=== PATIENT | male | born 1935 | race Caucasian/White ===

== ENCOUNTER 2017-06-12 13:12 | Inpatient (IN) | payer MEDICARE, MEDICAID ==
[2017-06-12 15:05] VITALS: BP 157/85
[2017-06-12] MEDS ORDERED: morphine INJ 4 MG/ML 1 ML (VIAL/SYRINGE) IVP PRN (15:15)
[2017-06-12] MEDS ORDERED: CATHETER FLUSH 10 ML SYR IV PRN (15:15)
--- NOTE | 2017-06-12 15:30 | History & Physical-Hospitalist ---
HPI History of Present Illness: HPI/Chief Complaint CC: Fall HPI: Pt is an 81yoCM with a PMH of NIDDMII who presented to OSH after a fall at his orthodoxy. He reports he was carrying a pot of water out to water the saenz and trip over a rug. He fell to the ground and immediately had hip pain. He was brought to the ER in [facility] for evaluation where he was found to have a right intertrochanteric hip fracture. He was transferred her for orthopedic evaluation. he reports a history of NIDDMII. He takes a baby aspirin but no other blood thinners. He denies any other medical problems. He reports he lived at home by himself and was fully functional in all of his ADLs prior to this. He is wearing oxygen during my exam but denies supplemental oxygen use at home. Source: patient, family Exam Limitations: no limitations Date Seen 06/12/17 Time Seen by Provider: 15:10 Attending Physician Branden Cross MD PCP Rajat Alcantara MD Referring Physician Date of Admission Jun 12, 2017 at 14:32 Home Medications & Allergies Home Medications Reviewed patient Home Medication Reconciliation Form Allergies Allergies Coded Allergies No Known Drug Allergies (Unverified06/12/17) Past Ntyvmlm-Rixxaj-Oyehmn Hx Patient Social History Alcohol Use: Denies Use Smoking Status: Never a Smoker Surgeries Yes Adenoidectomy, Appendectomy, Tonsillectomy Respiratory No Cardiovascular High Cholesterol, Hypertension Neurological No Genitourinary Yes Benign Prostatic Hyperpl Gastrointestinal No Musculoskeletal No Endocrine History of Endocrine Disorders: Yes Endocrine Disorders: Diabetes, Non-Insulin dep HEENT History of HEENT Disorders: No Cancer No Psychosocial History of Psychiatric Problem: No Integumentary History of Skin or Integumenta: No Family Medical History Significant Family History: No Pertinent Family Hx Review of Systems Constitutional: No chills, No fever EENTM: No blurred vision, No double vision, No nose congestion, No throat pain Respiratory: No cough, No dyspnea on exertion, No short of breath Cardiovascular: No chest pain, No edema, No palpitations Gastrointestinal: No abdominal pain, No constipation, No diarrhea, No nausea, No vomiting Genitourinary: No dysuria, No frequency Musculoskeletal: joint pain, No muscle pain Skin: No lesions, No rash Psychiatric/Neurological: Denies Headache, Denies Numbness, Denies Tingling Physical Exam Physical Exam Vital Signs Capillary Refill : General Appearance: No Apparent Distress, WD/WN HEENT: PERRL/EOMI, Moist Mucous Membranes Neck: Non Tender, Supple Respiratory: Lungs Clear, No Respiratory Distress Cardiovascular: Regular Rate, Rhythm, No Murmur Gastrointestinal: Normal Bowel Sounds, Non Tender, Soft Extremity: Normal Capillary Refill, No Calf Tenderness, No Pedal Edema, Other ( right leg externally rotated) Neurologic/Psychiatric: Alert, Oriented x3, Normal Mood/Affect Skin: Normal Color, Warm/Dry Assessment/Plan Admission Diagnosis Right intertrochanteric hip fx Diagnosis/Problems Diagnosis/Problems (1) Intertrochanteric fracture of right femur Status: Acute Assessment & Plan: Ortho consulted, appreciate recs Plan for OR tonight Will keep NPO Morphine prn pain PT/OT consulted IRF consulted CBC, CMP, T&S ordered Qualifiers: (2) Pre-op exam Assessment & Plan: Non known cardiac disease METS >4 at baseline 0 pts on the RCRI placing him at 0.4% chance of cardiac event (3) 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
[2017-06-12] MEDS ORDERED: ONDANSETRON 4 MG/2 ML (SDV) Z0FRAN IV PRN (16:00)
[2017-06-12 16:03] VITALS: BP 157/85
[2017-06-12] MEDS: inSUlin ASPART (NovoLOG) 1 UNIT/0.01 ML (CHARGE PER UNIT) SC SCH ×2 (16:21→21:03)
[2017-06-12] MEDS: NS IV 1000 ML 1,000 ML IV SCH ×2 (16:22→22:15)
[2017-06-12 16:27] LABS: BASOPHILS % (AUTO) 0 % (0-10); EOSINOPHILS # (AUTO) 0.2 10^3/uL (0.0-0.3); EOSINOPHILS % (AUTO) 1 % (0-10); LYMPHOCYTES # (AUTO) 0.6 X 10^3 (1.0-4.0); LYMPHOCYTES % (AUTO) 5 % (12-44); MEAN CORPUSCULAR HEMOGLOBIN 30 PG (25-34); MEAN CORPUSCULAR HGB CONC 34 G/DL (32-36); MEAN CORPUSCULAR VOLUME 88 FL (80-99); MEAN PLATELET VOLUME 10.8 FL (7.4-10.4); MONOCYTES # (AUTO) 0.5 X 10^3 (0.0-1.0); MONOCYTES % (AUTO) 4 % (0-12); NEUTROPHILS # (AUTO) 11.9 X 10^3 (1.8-7.8); NEUTROPHILS % (AUTO) 90 % (42-75); PLATELET COUNT 129 10^3/uL (130-400); RED BLOOD COUNT 4.21 10^6/uL (4.35-5.85); RED CELL DISTRIBUTION WIDTH 13.4 % (10.0-14.5); WHITE BLOOD COUNT 13.2 10^3/uL (4.3-11.0)
[2017-06-12 16:36] LABS: INR 1.2 (0.8-1.4); PROTHROMBIN TIME PATIENT 14.8 SEC (12.2-14.7)
[2017-06-12 16:42] LABS: BAND NEUTROPHILS 15 %; BASOPHILS % (MANUAL) 0 %; EOSINOPHILS % (MANUAL) 1 %; LYMPHOCYTES % (MANUAL) 4 %; NEUTROPHILS % (MANUAL) 77 %
[2017-06-12 16:45] LABS: ALANINE AMINOTRANSFERASE 44 U/L (0-55); ANION GAP 13 MMOL/L (5-14); ASPARTATE AMINO TRANSFERASE 27 U/L (5-34); BILIRUBIN,TOTAL 1.1 MG/DL (0.1-1.0); BLOOD UREA NITROGEN 15 MG/DL (7-18); BUN/CREATININE RATIO 18; CALCIUM 9.1 MG/DL (8.5-10.1); CARBON DIOXIDE 22 MMOL/L (21-32); CHLORIDE 105 MMOL/L (98-107); CREATININE SERUM 0.84 MG/DL (0.60-1.30); GFR ESTIMATED > 60; GLUCOSE 120 MG/DL (70-105); POTASSIUM 4.4 MMOL/L (3.6-5.0); SODIUM 140 MMOL/L (135-145); TOTAL PROTEIN 7.2 GM/DL (6.4-8.2)
[2017-06-12] MEDS ORDERED: GARL200T PO (16:52)
[2017-06-12] MEDS ORDERED: METF500T4 PO (16:52)
[2017-06-12] MEDS ORDERED: OMEG-160 PO (16:52)
[2017-06-12] MEDS ORDERED: ASPI-983 PO (16:52)
[2017-06-12] MEDS ORDERED: LINA5TAB PO (16:52)
[2017-06-12] MEDS ORDERED: MONT10TA24 PO (16:52)
[2017-06-12] MEDS ORDERED: FLUT16SP22 NSEACH (16:52)
[2017-06-12] MEDS ORDERED: FERR-74 PO (16:52)
[2017-06-12] MEDS ORDERED: CHOL10007 PO (16:52)
[2017-06-12] MEDS ORDERED: PROP80CA4 PO (16:52)
[2017-06-12] MEDS ORDERED: ASCO10006 PO (16:52)
[2017-06-12] MEDS ORDERED: GLIM2TAB PO (16:52)
[2017-06-12] MEDS ORDERED: ATOR40TA70 PO (16:52)
[2017-06-12] MEDS ORDERED: GEMF600T3 PO (16:52)
[2017-06-12] MEDS ORDERED: SAW450CA4 PO (16:52)
[2017-06-12] MEDS ORDERED: ONDANSETRON 4 MG/2 ML (SDV) Z0FRAN ONE ×2 (16:53→18:17)
[2017-06-12] MEDS ORDERED: LIDOCAINE PF 2% 5 ML (XYLOCAINE) VIAL ONE (16:53)
[2017-06-12] MEDS ORDERED: LACTATED RINGERS 1,000 ML IV ONE ×2 (16:53→18:48)
[2017-06-12] MEDS ORDERED: proPOfol 200 MG/20 ML (DIPRIVAN) VIAL IV ONE (16:53)
[2017-06-12] MEDS ORDERED: fentaNYL INJECTION 100 MCG/2 ML AMP ONE (16:54)
[2017-06-12] MEDS ORDERED: MIDAZOLAM 2 MG/2 ML (VERSED) VIAL ONE (16:54)
[2017-06-12] MEDS ORDERED: ROPIVACAINE 5MG/ML 30ML VIAL ONE (16:55)
[2017-06-12] MEDS ORDERED: SEVOFLURANE (ULTANE) 15 ML INHAL SOLN ONE ×8 (16:55→19:14)
--- NOTE | 2017-06-12 17:05 | History & Physical-Surgical ---
HPO-Surgical History of Present Illness Chief Complaint: Right hip pain, fall Diagnosis/Surgical Indication: intertrochanteric right hip fracture Procedure: intramedullary nailing right hip Date of Surgery: Jun 12, 2017 Allergies and Home Medications Allergies Coded Allergies: No Known Drug Allergies (Unverified , 06/12/17) Home Medications Ascorbic Acid 1,000 Mg Tablet, 1,000 MG PO DAILY, (Reported) Aspirin 81 Mg Tablet.dr, 81 MG PO DAILY, (Reported) Atorvastatin Calcium 40 Mg Tablet, 40 MG PO HS, (Reported) Cholecalciferol (Vitamin D3) 1,000 Unit Capsule, 1,000 UNIT PO DAILY, (Reported) Ferrous Sulfate 325 Mg Tablet, 325 MG PO DAILY, (Reported) Fluticasone Propionate 16 Gm [place].susp, 1 SPRAY NSEACH DAILY, (Reported) Garlic 200 Mg Tablet, 200 MG PO BID, (Reported) Gemfibrozil 600 Mg Tablet, 600 MG PO BID, (Reported) Glimepiride 2 Mg Tablet, 2 MG PO DAILY, (Reported) Linagliptin 5 Mg Tablet, 5 MG PO DAILY, (Reported) Metformin HCl 500 Mg Tablet, 500 MG PO DAILY, (Reported) Montelukast Sodium 10 Mg Tablet, 10 MG PO HS, (Reported) [place]-3/Dha/Epa/Fish Oil 1 Each Capsule, 1,000 MG PO BID, (Reported) Propranolol HCl 80 Mg Cap.sa.24h, 80 MG PO DAILY, (Reported) Saw [place] Fruit 450 Mg Capsule, 900 MG PO DAILY, (Reported) TAKES 2 (450 MG) CAPSULES Past Ffkxhmr-Rgnaqk-Fapoht Hx Patient Social History Alcohol Use: Denies Use Recreational Drug Use: No Smoking Status: Former Smoker Physical Abuse Screen: No Sexual Abuse: No Recent Foreign Travel: No Contact w/other who traveled: No Surgeries Yes Adenoidectomy, Appendectomy, Tonsillectomy Respiratory No Cardiovascular High Cholesterol, Hypertension Neurological No Genitourinary Yes Benign Prostatic Hyperpl Gastrointestinal No Musculoskeletal No Endocrine History of Endocrine Disorders: Yes Endocrine Disorders: Diabetes, Non-Insulin dep HEENT History of HEENT Disorders: No Cancer No Psychosocial History of Psychiatric Problem: No Integumentary History of Skin or Integumenta: No Family Medical History Significant Family History: No Pertinent Family Hx Exam Vital Signs Vital Signs 06/12/17 06/12/17 06/12/17 15:05 16:03 16:34 Temp 97.1 Pulse 89 Resp 20 B/P (MAP) 157/85 Pulse Ox 96 O2 Delivery Nasal Cannula O2 Flow Rate 2.00 Capillary Refill : Labs Laboratory Tests Test 06/12/17 16:18 Range/Units White Blood Count 13.2 H 4.3-11.0 10^3/uL Red Blood Count 4.21 L 4.35-5.85 10^6/uL Hemoglobin 12.5 11.5-16.0 G/DL Hematocrit 37 35-52 % Mean Corpuscular Volume 88 80-99 FL Mean Corpuscular Hemoglobin 30 25-34 PG Mean Corpuscular Hemoglobin Concent 34 32-36 G/DL Red Cell Distribution Width 13.4 10.0-14.5 % Platelet Count 129 L 130-400 10^3/uL Mean Platelet Volume 10.8 H 7.4-10.4 FL Neutrophils (%) (Auto) 90 H 42-75 % Lymphocytes (%) (Auto) 5 L 12-44 % Monocytes (%) (Auto) 4 0-12 % Eosinophils (%) (Auto) 1 0-10 % Basophils (%) (Auto) 0 0-10 % Neutrophils # (Auto) 11.9 H 1.8-7.8 X 10^3 Lymphocytes # (Auto) 0.6 L 1.0-4.0 X 10^3 Monocytes # (Auto) 0.5 0.0-1.0 X 10^3 Eosinophils # (Auto) 0.2 0.0-0.3 10^3/uL Basophils # (Auto) 0.0 0.0-0.1 10^3/uL Neutrophils % (Manual) 77 % Lymphocytes % (Manual) 4 % Monocytes % (Manual) 0 % Eosinophils % (Manual) 1 % Basophils % (Manual) 0 % Band Neutrophils 15 % Blood Morphology Comment NORMAL Prothrombin Time 14.8 H 12.2-14.7 SEC INR Comment 1.2 0.8-1.4 Sodium Level 140 135-145 MMOL/L Potassium Level 4.4 3.6-5.0 MMOL/L Chloride Level 105 98-107 MMOL/L Carbon Dioxide Level 22 21-32 MMOL/L Anion Gap 13 5-14 MMOL/L Blood Urea Nitrogen 15 7-18 MG/DL Creatinine 0.84 0.60-1.30 MG/DL Estimat Glomerular Filtration Rate > 60 BUN/Creatinine Ratio 18 Glucose Level 120 H 70-105 MG/DL Calcium Level 9.1 8.5-10.1 MG/DL Total Bilirubin 1.1 H 0.1-1.0 MG/DL Aspartate Amino Transf (AST/SGOT) 27 5-34 U/L Alanine Aminotransferase (ALT/SGPT) 44 0-55 U/L Alkaline Phosphatase 107 40-136 U/L Total Protein 7.2 6.4-8.2 GM/DL Albumin 4.0 3.2-4.5 GM/DL General Appearance: Oriented X3 HEENT: PERRLA Respiratory: Clear to Auscultation Cardiovascular: Regular Rate Abdominal: Soft, No Tenderness Extremities: No Edema, Normal Pulses, Other (right hip tenderness and swelling) Skin: No Rashes, No Breakdown, No Significant Lesion Neuro: Normal Speech, Normal Tone, Sensation Intact, Reflexes 2+ Psych/Mental Status: Mental Status NL Assessment/Plan Assessment and Plan A: intertrochanteric right hip fracture P: OR for IM nailing of right hip Problems: (1) Intertrochanteric fracture of right femur Status: Acute Qualifiers: Assessment & Plan: Ortho consulted, appreciate recs Plan for OR tonight Will keep NPO Morphine prn pain PT/OT consulted IRF consulted CBC, CMP, T&S ordered (2) Pre-op exam Assessment & Plan: Non known cardiac disease METS >4 at baseline 0 pts on the RCRI placing him at 0.4% chance of cardiac event (3) 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
--- NOTE | 2017-06-12 17:13 | Progress Note-Pre Operative ---
Pre-Operative Progress Note H&P Reviewed The H&P was reviewed, patient examined and no changes noted. Date Seen by Provider: Jun 12, 2017 Time Seen by Provider: 17:00 Date H&P Reviewed: Jun 12, 2017 Time H&P Reviewed: 17:12 Pre-Operative Diagnosis: Intertrochanteric fracture right hip JUAN DAVIS DO Jun 12, 2017 5:13 pm
[2017-06-12] MEDS ORDERED: ceFAZolin 2 GM/50 ML NS 50 ML IV SCH (17:15)
[2017-06-12] MEDS ORDERED: diphenhydrAMINE 50 MG/ML INJ (BENADRYL) IV PRN (17:15)
[2017-06-12] MEDS ORDERED: BISACODYL 10 MG SUPP (DULCOLAX) PR PRN (17:15)
[2017-06-12] MEDS ORDERED: ceFAZolin 2 GM/50 ML NS 50 ML IV ONE (17:15)
[2017-06-12] MEDS ORDERED: ceFAZolin 1,000 MG (ANCEF) VIAL ONE (17:36)
[2017-06-12] MEDS ORDERED: TRANEXAMIC ACID 100 MG/ML 10 ML INJECTION IV ONE (17:56)
[2017-06-12] MEDS ORDERED: morphine INJ 10 MG/ML 1ML (SYR OR VIAL) ONE (18:17)
--- NOTE | 2017-06-12 18:54 | Progress Note-Post Operative ---
Post-Operative Progess Note Surgeon (s)/Director Radio News (s) Surgeon JUAN DAVIS DO Director Radio News: Bola Castro TOP [employer]Indigo Pre-Operative Diagnosis Intertrochanteric fracture right hip Post-Operative Diagnosis same Procedure & Operative Findings Date of Procedure 06/12/17 Procedure Performed/Findings Intramedullary nailing right hip intertrochanteric fracture Anesthesia Type General with femoral nerve block Estimated Blood Loss Estimated blood loss (mL): 150 ml Specimens/Packing Specimens Removed none JUAN DAVIS DO Jun 12, 2017 18:54
[2017-06-12] MEDS ORDERED: NEO/POLY/BAC (NEOSPORIN) OINT 15 GM TUBE ONE (19:06)
--- NOTE | 2017-06-12 19:21 | Diagnostic Imaging Report ---
EXAMINATION: Right hip, fluoroscopic images. COMPARISON: None. HISTORY: 81-year-old male, open reduction and internal fixation of the right hip. FINDINGS: 99.4 seconds of fluoroscopic time was utilized for assistance with procedure. There is an intramedullary tej and dynamic fixation screw in the right proximal femur traversing an intertrochanteric femur fracture. There is limited bone detail on fluoroscopic images. IMPRESSION: Fluoroscopy for assistance with surgery. Dictated by: Dictated on workstation # [id number]
[2017-06-12] MEDS ORDERED: ONDANSETRON 4 MG/2 ML (SDV) Z0FRAN IVP PRN (19:45)
[2017-06-12] MEDS: morphine INJ 10 MG/ML 1ML (SYR OR VIAL) IVP PRN ×2 (19:47→19:52)
[2017-06-12 20:25] VITALS: BP 146/72
[2017-06-12] MEDS: GEMFIBROZIL 600 MG (LOPID) TAB PO SCH (21:03)
[2017-06-12] MEDS: CATHETER FLUSH 10 ML SYR IV SCH (21:04)
[2017-06-12] MEDS: MONTELUKAST 10 MG (SINGULAIR) TAB PO SCH (21:04)
--- NOTE | 2017-06-13 00:08 | OPERATIVE REPORT ---
DATE OF SERVICE: 06/12/2017 PREOPERATIVE DIAGNOSIS: Minimally displaced intertrochanteric fracture, right hip. POSTOPERATIVE DIAGNOSIS: Minimally displaced intertrochanteric fracture, right hip. PROCEDURE: Intramedullary nailing of intertrochanteric fracture, right hip. SURGEON: Juan Crum DO FIRE CONTROL MECHANIC: AMBER Kerns ASP NET PROGRAMMER DUTIES: Bola Castro, medical or surgical instrument maker was utilized throughout the entire procedure for patient positioning, soft tissue retraction, placement of metallic internal fixation device, deep and superficial wound closure, dressing application and patient transfer. ANESTHESIA: General with femoral nerve block. ESTIMATED BLOOD LOSS: 150 mL. INDICATIONS AND FINDINGS: The patient is an 81-year-old male who was leaving latter-day, attempting to water saenz in front of the latter-day when he stepped his foot on a throw rug and fell landing directly on his right hip and noted immediate pain. He was evaluated at [facility] in [place], where x-rays revealed an intertrochanteric fracture of the right hip. The patient was transferred to [facility] for definitive orthopedic care, where x-rays revealed a minimally displaced intertrochanteric fracture of the right hip with external rotation shortening of the right leg. The patient was taken to surgery where an intermedullary nailing of his right hip intertrochanteric fracture was performed utilizing the Synthes Trochanteric Fixation Nail advanced system utilizing 11 mm x 170 mm nail with a 100 mm TFNA helical blade along with a 36 mm x 5 mm distal locking screw. PROCEDURE IN DETAIL: The patient was transferred to the operating room where under ultrasound guidance, a femoral nerve block was performed on the right to decrease postop pain and decrease the amount of medication required during the surgical procedure. A general inhalation anesthetic was then administered. The patient was placed supine upon the fracture table. The right lower extremity was placed in traction with internal rotation of the right lower extremity. The left lower extremity was draped out of the operating field. The C-arm image intensifier was used to verify fracture reduction. A ChloraPrep and sterile drape of the right hip and right lower extremity was then performed. A longitudinal incision was then made proximal to the greater trochanter. The incision was deepened with electrocautery down to the greater trochanter. A guide pin was placed in the tip of the greater trochanter under fluoroscopic guidance. This was advanced into the proximal femur with positioning noted on the AP and lateral plane with the fluoroscope. The outer cortex was then overdrilled down into the proximal femur. The drill was removed. The trochanteric fixation nail was then inserted into the shaft, impacted into position and the position verified fluoroscopically in the AP and lateral plane. A stab incision was made in the lateral thigh. The outrigger drill guide was placed along the lateral cortex of the femur. A drill was then used to place the guide pin through the lateral femoral cortex through the nail and into the central aspect of the femoral head, verified fluoroscopically in the AP and lateral plane. The lateral cortex was overdrilled, as was the medullary canal to the level of the femoral head. A 100 mm helical blade was then impacted into position. The locking screw through the proximal aspect of the tej was then locked onto the helical blade. The distal stab incision was then lengthened slightly. The drill guide was then placed. A drill hole was placed through the distal aspect of the nail and through the medial cortex, a 36 mm locking screw was placed. The wound was irrigated extensively with normal saline solution. Repeat x-rays revealed satisfactory reduction of the fracture with satisfactory placement and position of the internal fixation device. The vastus lateralis fascia was then closed with 0 Vicryl suture at the lateral thigh and at the proximal hip incision. Subcutaneous tissues were closed with 0 and 2-0 Vicryl suture. The skin was closed with stainless steel clarissa. An Adaptic, Neosporin, bulky dressing was placed about the right hip and the right thigh. The patient was awakened and was transported to postop recovery in stable condition. Job ID: [id number] DocumentID: [id number] Dictated Date: 06/12/2017 18:59:51 Credit And Collection Manager Date: 06/13/2017 00:07:23 Dictated By: JUAN CRUM DO
[2017-06-13 00:39] VITALS: BP 117/63
[2017-06-13 04:46] VITALS: BP 129/64
[2017-06-13 05:54] LABS: MEAN PLATELET VOLUME 10.8 FL (7.4-10.4); RED BLOOD COUNT 3.6 10^6/uL (4.35-5.85); RED CELL DISTRIBUTION WIDTH 13.5 % (10.0-14.5); WHITE BLOOD COUNT 10.8 10^3/uL (4.3-11.0)
[2017-06-13] MEDS: CATHETER FLUSH 10 ML SYR IV SCH ×3 (06:02→21:02)
[2017-06-13] MEDS: inSUlin ASPART (NovoLOG) 1 UNIT/0.01 ML (CHARGE PER UNIT) SC SCH ×4 (06:02→21:01)
[2017-06-13 06:16] LABS: ALANINE AMINOTRANSFERASE 32 U/L (0-55); ALBUMIN 3.4 GM/DL (3.2-4.5); ANION GAP 8 MMOL/L (5-14); ASPARTATE AMINO TRANSFERASE 21 U/L (5-34); BILIRUBIN,TOTAL 0.9 MG/DL (0.1-1.0); BLOOD UREA NITROGEN 13 MG/DL (7-18); BUN/CREATININE RATIO 16; CALCIUM 8.1 MG/DL (8.5-10.1); CARBON DIOXIDE 25 MMOL/L (21-32); CHLORIDE 102 MMOL/L (98-107); CREATININE SERUM 0.82 MG/DL (0.60-1.30); GFR ESTIMATED > 60; GLUCOSE 154 MG/DL (70-105); POTASSIUM 4.1 MMOL/L (3.6-5.0); SODIUM 135 MMOL/L (135-145)
[2017-06-13] MEDS: NS IV 1000 ML 1,000 ML IV SCH (08:03)
[2017-06-13 08:37] VITALS: BP 117/63
[2017-06-13] MEDS ORDERED: PROPRANOLOL 80 MG PO SCH (09:00)
[2017-06-13] MEDS: DOCUSATE SODIUM 100 MG (COLACE) CAP PO SCH ×2 (09:13→21:01)
[2017-06-13] MEDS: metFORMIN 500 MG (GLUCOPHAGE) TAB PO SCH (09:13)
[2017-06-13] MEDS: sitaGLIPtin 50 MG (JANUVIA) TAB PO SCH (09:13)
[2017-06-13] MEDS: ASPIRIN E.C. 325 MG (ECOTRIN) TABLET PO SCH (09:13)
[2017-06-13] MEDS: HYDROcodone/APAP 10 MG/325 MG (LORTAB) TAB PO PRN ×2 (09:14→15:58)
[2017-06-13] MEDS: FERROUS SULF 325 MG (IRON) TAB PO SCH (09:14)
[2017-06-13] MEDS: GLIMEPIRIDE 2 MG (AMARYL) TAB PO SCH (09:14)
[2017-06-13] MEDS: GEMFIBROZIL 600 MG (LOPID) TAB PO SCH ×2 (09:14→21:01)
[2017-06-13] MEDS: FLUTICASONE NASAL SPRAY (FLONASE) 16 GM BTL NS SCH (09:15)
[2017-06-13] MEDS: ENOXAPARIN 40 MG/0.4 ML (LOVENOX) SYR SC SCH (09:15)
--- NOTE | 2017-06-13 10:09 | Progress Note-Hospitalist ---
Progress Note HPI/CC on Admission CC: Fall HPI: Pt is an 81yoCM with a PMH of NIDDMII who presented to OSH after a fall at his hinduism. He reports he was carrying a pot of water out to water the saenz and trip over a rug. He fell to the ground and immediately had hip pain. He was brought to the ER in [facility] for evaluation where he was found to have a right intertrochanteric hip fracture. He was transferred her for orthopedic evaluation. he reports a history of NIDDMII. He takes a baby aspirin but no other blood thinners. He denies any other medical problems. He reports he lived at home by himself and was fully functional in all of his ADLs prior to this. He is wearing oxygen during my exam but denies supplemental oxygen use at home. Progress Notes/Assess & Plan Date Seen 06/13/17 Time Seen by Provider: 10:00 Diagonsis/Assessment & Plan Pt doing well except slow progress in PT Very active ordinarily so will put in for IRU Crandall cath still in place and had 700cc retention before placement Checked meds and labs BM Tuesday morning prior to hip fracture Will HLIVF AFVSS, Ple[place], improved, sitting in chair, weakened RRR, CTAB no rales noted No edema Laboratory Tests 06/12/17 16:18 06/13/17 05:22 (1) Intertrochanteric fracture of right femur Status: Acute Assessment & Plan: Ortho appreciated s/p OR last evening Morphine prn pain PT/OT consulted IRF consulted CBC, CMP, in am (2) Pre-op exam s/p post-op uncomplicated right hip fracture POD # 1 Assessment & Plan: Non known cardiac disease METS >4 at baseline 0 pts on the RCRI placing him at 0.4% chance of cardiac event (3) 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 Assessment & Plan: Hold home metformin SSI A FSBS AC HS (4) Prophylactic measure Status: Acute Assessment & Plan: SCDs due to planned surgery today DM diet HLIVF Diagnosis/Problems Diagnosis/Problems (1) Intertrochanteric fracture of right femur Status: Acute Assessment & Plan: Ortho consulted, appreciate recs Plan for OR tonight Will keep NPO Morphine prn pain PT/OT consulted IRF consulted CBC, CMP, T&S ordered Qualifiers: (2) Pre-op exam Assessment & Plan: Non known cardiac disease METS >4 at baseline 0 pts on the RCRI placing him at 0.4% chance of cardiac event (3) 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 Assessment & Plan: Hold home metformin SSI A FSBS AC HS (4) Prophylactic measure Status: Acute Assessment & Plan: SCDs due to planned surgery today NPO NS at 100ml/hr Assessment/Plan Assessment and Plan Problems: (1) Intertrochanteric fracture of right femur Status: Acute Qualifiers: Assessment & Plan: Ortho consulted, appreciate recs Plan for OR tonight Will keep NPO Morphine prn pain PT/OT consulted IRF consulted CBC, CMP, T&S ordered (2) Pre-op exam Assessment & Plan: Non known cardiac disease METS >4 at baseline 0 pts on the RCRI placing him at 0.4% chance of cardiac event (3) 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
--- NOTE | 2017-06-13 10:25 | Physical Therapy Evaluation ---
PT Evaluation-General Medical Diagnosis Admission Date Jun 12, 2017 at 14:32 Medical Diagnosis: right hip fracture Onset Date: Jun 12, 2017 Therapy Diagnosis Therapy Diagnosis: generalized weakness/debility Precautions Precautions/Isolations: Fall Prevention, Standard Precautions Weight Bear Status Weight Bearing Restriction: Touch Toe Bearing Location Restriction: R LE Referral Physician: [place] Reason for Referral: Evaluation/Treatment Medical History Pertinent Medical History: Arthritis, DM Current History fall at tenriism carrying a pot to water saenz Reviewed History: Yes Social History Home: Single Level Current Living Status: Alone Entry Into Home: Ramp Prior/Core FIM Prior Level of Function Functional [place] Measure 0=Not Assessed/NA 4=Minimal Assistance 1=Total Assistance 5=Supervision or Setup 2=Maximal Assistance 6=Modified [place] 3=Moderate Assistance 7=Complete [place] Bed Mobility: 6 Transfers (B,C,W/C) (FIM): 6 Gait: 6 PT Evaluation-Current Subjective Patient agrees to PT. Pain Numeric Pain Scale: 10-Worst Possible Pain Location: Right Location Body Site: Hip Pain Description: Acute Objective Patient Orientation: Normal For Age Problem Solving: Poor Attachments: Oxygen, Crandall Catheter, IV ROM/Strength ROM Lower Extremities bilateral LE limited due to arthritis and pain, however, after exercises WFL Strenght Lower Extremities right knee flexion/extension 2-/5; hip flexion 2-/5; ankle dorsi/plantarflexion 2-/5 left knee flexion/extension 3/5; hip flexion 3/5; ankle dorsi/plantarflexion 3/5 Integumentary/Posture Integumentary refer to nursing notes Bladder Incontinence: Crandall Cath Posture kyphotic/trunk flexed posture Neuromuscular (Tone, Coordination, Reflexes) diminished coordination Sensory Vision: Wears Glasses Hearing: Functional Sensation Right Lower Extremit: Impaired Sensation Left Lower Extremity: Impaired Transfers Functional [place] Measure 0=Not Assessed/NA 4=Minimal Assistance 1=Total Assistance 5=Supervision or Setup 2=Maximal Assistance 6=Modified [place] 3=Moderate Assistance 7=Complete [place] Transfers (B, C, W/C) (FIM): 1 Scootin Rollin Supine to/from Sit: 1 Sit to/from Stand: 1 bed t/f WC(FIM only if WC use): 1 attempted to perform sit to stand with use of FWW, however, patient is unable to comply with TTWB right LE requiring dependent assist to SPT bed to recliner to the left. Balance Sitting Static: Fair Sitting Dynamic: Fair Standing Static: Poor Standing Dynamic: Poor Assessment/Needs 81 y.o. male, will benefit from skilled PT to address functional strength and mobility to improve current LOF. Patient is unable to safely comply with TTWB right LE. From a PT standpoint, patient will require extended care to ensure healing of right hip. Rehab Potential: Fair PT Senior Living Goals Combining Machine Operator Goals PT Senior Living Goals Time Frame: Jul 22, 2017 Transfers (B,C,W/C) (FIM): 5 Gait (FIM): 1 Gait distance (FIM): 1=up to 49 ft Distance: 25' Gait Level of Assist: 4 Gait Assistive Device: FWW (TTWB right LE) PT Plan Problem List Problem List: Activity Tolerance, Functional Strength, Safety, Balance, Gait, Transfer, Bed Mobility, ROM Treatment/Plan Treatment Plan: Continue Plan of Care Treatment Plan: Bed Mobility, Education, Functional Activity Leti, Functional Strength, Gait, Safety, Therapeutic Exercise, Transfers Treatment Duration: Jul 22, 2017 Frequency: 11 times per week Estimated Hrs Per Day: .5 hour per day Patient and/or Family Agrees t: Yes Safety Risks/Education Patient Education: Transfer Techniques Teaching Recipient: Patient Teaching Methods: Demonstration, Discussion Response to Teaching: Reinforcement Needed Discharge Recommendations Therapy D/C Recommendations: Jail Placement, [facility] (TCU/[facility]) Time/GCodes Time In: 830 Time Out: 900 Total Billed Treatment Time: 30 Total Billed Treatment 1 visit EVHighC 30 min KONG ANGELES PT Jun 13, 2017 10:25
[2017-06-13] MEDS: LACTULOSE SYRUP 10GM/15ML (ENULOSE) 30ML UDC PO SCH ×2 (10:56→21:01)
--- NOTE | 2017-06-13 11:53 | Anesthesia-General Post-Op ---
General Patient Condition Mental Status/LOC: Same as Preop Cardiovascular: Satisfactory Nausea/Vomiting: Absent Respiratory: Satisfactory Pain: Controlled Complications: Absent Post Op Complications Complications None Follow Up Care/Instructions Patient Instructions None needed. Anesthesia/Patient Condition Patient Condition Patient is doing well, no complaints, stable vital signs, no apparent adverse anesthesia problems. No complications reported per nursing. MARILIA DE LA ROSA CRNA Jun 13, 2017 11:53
[2017-06-13 12:00] VITALS: BP 119/72
--- NOTE | 2017-06-13 13:12 | Physical Therapy Daily Note ---
PT Daily Note-Current Subjective Patient has remained up in recliner from a.m. PT. Pain Numeric Pain Scale: 10-Worst Possible Pain Location: Right Location Body Site: Hip Pain Description: Acute, Heavy Mental Status Attachments: Crandall Catheter Transfers Functional [place] Measure 0=Not Assessed/NA 4=Minimal Assistance 1=Total Assistance 5=Supervision or Setup 2=Maximal Assistance 6=Modified [place] 3=Moderate Assistance 7=Complete IndependenceIRFPAI Quality Coding Scale 6 Independent with activity with or without an assistive device 5 Patient requires set up or clean up by helper. Patient completes activity by themselves 4 Supervision or touching assist (CGA). [place] provide cues , steadying assist 3 The helper provides less than half the effort to complete the activity 2 The helper provides more than half the effort to complete the activity 1 Dependent. The helper does all the effort to complete an activity 7 Patient refused to complete or attempt activity 9 The patient did not perform the activity before the current illness or injury 88 Not attempted due to Medical conditions or safety concerns Transfers (B, C, W/C) (FIM): 1 Scootin Rollin Supine to/from Sit: 1 Sit to/from Stand: 1 Bed to/from Chair: 1 Patient requires dependent assist x 2 with all mobility. Patient will not initiate any gross motor skills with left LE or bilateral UE with transfers and bed mobility. Weight Bearing Right Lower Extremity: Right Touch Toe Bearing Exercises Supine Ex: Ankle pumps, Heel Slides Supine Reps: 15 (PROM bilateral LE) Seated Therapy Exercises: Ankle pumps, Long arc quads Seated Reps: 15 (PROM right LE/patient not moving due to pain.) Assessment Education with patient on importance of using muscles to improve circulation and improve strength. Patient voices understanding, however, does not demonstrate ability to perform. PT Tap Grinder Goals [facility]itentiary Goals PT Tap Grinder Goals Time Frame: Jul 22, 2017 Transfers (B,C,W/C) (FIM): 5 Gait (FIM): 1 Gait distance (FIM): 1=up to 49 ft Distance: 25' Gait Level of Assist: 4 Gait Assistive Device: FWW (TTWB right LE) PT Plan Treatment/Plan Treatment Plan: Continue Plan of Care Treatment Plan: Bed Mobility, Education, Functional Activity Leti, Functional Strength, Gait, Safety, Therapeutic Exercise, Transfers Treatment Duration: Jul 22, 2017 Frequency: 11 times per week Estimated Hrs Per Day: .5 hour per day Patient and/or Family Agrees t: Yes Discharge Recommendations Therapy D/C Recommendations: [facility]dc Placement, [facility] (TCU/NH) Time/GCodes Time In: 1247 Time Out: 1302 Total Billed Treatment Time: 15 Total Billed Treatment 1 visit FA 15 min KONG ANGELES PT Jun 13, 2017 13:12
[2017-06-13 15:55] VITALS: BP 156/76
--- NOTE | 2017-06-13 16:29 | Occupational Therapy Eval ---
OT Evaluation-General/PLF Medical Diagnosis Admission Date Jun 12, 2017 at 14:32 Medical Diagnosis: right hip fracture s/p nail Onset Date: Jun 12, 2017 Therapy Diagnosis Therapy Diagnosis: weakness, Decreased ADL skills Precautions Precautions/Isolations: Fall Prevention, Standard Precautions Safety Interventions: None Weight Bear Status Weight Bearing Restriction: Touch Toe Bearing Location Restriction: R LE Referral Physician: [place] Referral Reason: Activity Tolerance, Self Care, Evaluation/Treatment, Strengthening/ROM Referral Comments Intramedullary nailing Medical History Pertinent Medical History: Arthritis, DM, HTN Additional Medical History Appendectomy Current History Pt. fell at [employer]oda[employer] trying to water plants. Tripped on rug. Reviewed History: Yes Social History Home: Single Level Current Living Status: Alone Entry Into Home: Ramp ADL-Prior Level of Function ADL PLOF Comments Pt. was independent with all basic skills. Cooked and cleaned at his home. DME/Equipment: Bath Chair, Shower Pt. walks a mile a day and uses a walking stick. Occupation: Retired from working at [employer]. Drive Self: Yes OT Current Status Subjective Pt. does not report pain level, but does wince whenever he moves. Appearance Pt in bed. Has just had pain medication. Agrees to treatment. Mental Status/Objective Patient Orientation: Person, Place Attachments: IV Current Glasses/Contacts: Yes Upper Extremity ROM WFL ADL-Treatment Functional [place] Measure 0=Not Assessed/NA 4=Minimal Assistance 1=Total Assistance 5=Supervision or Setup 2=Maximal Assistance 6=Modified [place] 3=Moderate Assistance 7=Complete IndependenceIRFPAI Quality Coding Scale 6 Independent with activity with or without an assistive device 5 Patient requires set up or clean up by helper. Patient completes activity by themselves 4 Supervision or touching assist (CGA). [place] provide cues , steadying assist 3 The helper provides less than half the effort to complete the activity 2 The helper provides more than half the effort to complete the activity 1 Dependent. The helper does all the effort to complete an activity 7 Patient refused to complete or attempt activity 9 The patient did not perform the activity before the current illness or injury 88 Not attempted due to Medical conditions or safety concerns Lower Body Dressing (FIM): 1 (Pt. unable to reach feet.) Toileting (FIM): 1 (catheter) Transfers (B, C, W/C) (FIM): 1 (Attempted to sit on side of bed. Dependent for supine-sit. Unable to fully come to sitting, as pt. was retropulsive due to pain. Dependent to get feet back into bed.) Other Treatments Family friend in room. States that she calls him every morning to check on him. Pt. is educated on rehab goals, OT goals, and purpose of treatment. Verbalizes understanding. Education OT Patient Education: Correct positioning, Modified ADL techniques, Progress toward Goal/Update tx plan, Purpose of tx/functional activities, Reviewed precautions, Rehab process, Transfer techniques Teaching Recipient: Patient Teaching Methods: Demonstration, Discussion Response to Teaching: Verbalize Understanding, Return Demonstration OT Short Term Goals Short Term Goals Time Frame: Jun 27, 2017 Eating(FIM): 5 Grooming(FIM): 5 Bathing(FIM): 3 Upper Body Dressing(FIM): 5 Lower Body Dressing(FIM): 3 Toileting(FIM): 4 Transfers (B,C,W/C) (FIM): 3 Toilet/Commode Transfer(FIM): 3 Additional Short Term Goals: 1-Demonstrate ADL Tasks, 2-Verbalize Understanding , 3-ImproveStrength/Leti 1=Demonstrate adherence to instructed precautions during ADL tasks. 2=Patient will verbalize/demonstrate understanding of assistive devices/ modifications for ADL. 3=Patient will improve strength/tolerance for activity to enable patient to perform ADL's. OT Penitentiary Goals Admissions Recruiter Goals Time Frame: Jul 04, 2017 Eating (FIM): 6 Grooming(FIM): 6 Bathing(FIM): 5 Upper Body Dressing(FIM): 5 Lower Body Dressing(FIM): 5 Toileting(FIM): 5 Transfers (B,C,W/C) (FIM): 5 Toilet/Commode Transfer(FIM): 5 Shower Transfer(FIM): 4 Additional Goals: 1-Demonstrate ADL Tasks, 2-Verbalize Understanding, 3- ImproveStrength/Leti 1=Demonstrate adherence to instructed precautions during ADL tasks. 2=Patient will verbalize/demonstrate understanding of assistive devices/ modifications for ADL. 3=Patient will improve strength/tolerance for activity to enable patient to perform ADL's. OT Education/Plan Problem List/Assessment Assessment: Decreased Activ Tolerance, Decreased Safety Aware, Decreased UE Strength, Dependent Transfers, Impaired Bed Mobility, Impaired Funct Balance, Impaired I ADL's, Impaired Self-Care Skills, Restricted Funct UE ROM Discharge Recommendations Plan/Recommendations: Continue POC Therapy D/C Recommendations: Acute Rehab Equpiment Recommendations-D/C: Extended Bath Bench, Hip Kit Comment Pt. will need a walker and possibly a manual wheelchair. Target Placement Pt. would benefit from IRF. Pt. states that he is okay with this. Treatment Plan/Plan of Care Treatment,Training & Education: Yes Patient would benefit from OT for education, treatment and training to promote independence in ADL's, mobility, safety and/or upper extremity function for ADL' s. Plan of Care: ADL Retraining, Functional Mobility, UE Funct Exercise/Act Treatment Duration: Jul 04, 2017 Frequency: 5 times per week Estimated Hrs Per Day: .25 hour per day Agreement: Yes Rehab Potential: Fair Time/GCodes Start Time: 15:55 Stop Time: 16:20 Total Time Billed (hr/min): 25 Billed Treatment Time 1, EVM x 10minutes, FA x 15minutes LISA RIVAS OT Jun 13, 2017 16:29
[2017-06-13] MEDS ORDERED: PATIENT MAY USE OWN MED,SINGLE MED PO SCH (17:30)
[2017-06-13] MEDS: PROPRANOLOL ER 80 MG CAPSULE PO SCH (17:45)
[2017-06-13 19:11] VITALS: BP 130/61
[2017-06-13] MEDS: MONTELUKAST 10 MG (SINGULAIR) TAB PO SCH (21:01)
[2017-06-13] MEDS: SENNA W/DOCUSATE (SENOKOT S) TABLET PO SCH (21:01)
[2017-06-14 00:32] VITALS: BP 126/61
[2017-06-14] MEDS: HYDROcodone/APAP 10 MG/325 MG (LORTAB) TAB PO PRN (04:28)
[2017-06-14] MEDS: CATHETER FLUSH 10 ML SYR IV SCH ×3 (05:56→21:26)
[2017-06-14] MEDS: inSUlin ASPART (NovoLOG) 1 UNIT/0.01 ML (CHARGE PER UNIT) SC SCH ×4 (05:56→21:26)
[2017-06-14 06:53] LABS: BASOPHILS % (AUTO) 0 % (0-10); EOSINOPHILS # (AUTO) 0.4 10^3/uL (0.0-0.3); EOSINOPHILS % (AUTO) 3 % (0-10); LYMPHOCYTES # (AUTO) 0.7 X 10^3 (1.0-4.0); LYMPHOCYTES % (AUTO) 6 % (12-44); MEAN CORPUSCULAR HEMOGLOBIN 29 PG (25-34); MEAN CORPUSCULAR HGB CONC 32 G/DL (32-36); MEAN CORPUSCULAR VOLUME 91 FL (80-99); MONOCYTES # (AUTO) 0.7 X 10^3 (0.0-1.0); MONOCYTES % (AUTO) 6 % (0-12); NEUTROPHILS % (AUTO) 84 % (42-75); PLATELET COUNT 110 10^3/uL (130-400); RED BLOOD COUNT 3.48 10^6/uL (4.35-5.85); RED CELL DISTRIBUTION WIDTH 13.8 % (10.0-14.5); WHITE BLOOD COUNT 10.8 10^3/uL (4.3-11.0)
[2017-06-14 07:11] LABS: ALANINE AMINOTRANSFERASE 24 U/L (0-55); ALBUMIN 3.3 GM/DL (3.2-4.5); ANION GAP 10 MMOL/L (5-14); ASPARTATE AMINO TRANSFERASE 18 U/L (5-34); BLOOD UREA NITROGEN 15 MG/DL (7-18); BUN/CREATININE RATIO 18; CALCIUM 8.4 MG/DL (8.5-10.1); CARBON DIOXIDE 22 MMOL/L (21-32); CHLORIDE 103 MMOL/L (98-107); CREATININE SERUM 0.84 MG/DL (0.60-1.30); GFR ESTIMATED > 60; GLUCOSE 167 MG/DL (70-105); POTASSIUM 3.9 MMOL/L (3.6-5.0); SODIUM 135 MMOL/L (135-145)
[2017-06-14 08:32] VITALS: BP 131/60
[2017-06-14] MEDS: FERROUS SULF 325 MG (IRON) TAB PO SCH (08:41)
[2017-06-14] MEDS: metFORMIN 500 MG (GLUCOPHAGE) TAB PO SCH (08:41)
[2017-06-14] MEDS: SENNA W/DOCUSATE (SENOKOT S) TABLET PO SCH ×2 (08:41→21:25)
[2017-06-14] MEDS: GEMFIBROZIL 600 MG (LOPID) TAB PO SCH ×2 (08:41→21:25)
[2017-06-14] MEDS: LACTULOSE SYRUP 10GM/15ML (ENULOSE) 30ML UDC PO SCH ×2 (08:41→21:25)
[2017-06-14] MEDS: ASPIRIN E.C. 325 MG (ECOTRIN) TABLET PO SCH (08:41)
[2017-06-14] MEDS: GLIMEPIRIDE 2 MG (AMARYL) TAB PO SCH (08:41)
[2017-06-14] MEDS: sitaGLIPtin 50 MG (JANUVIA) TAB PO SCH (08:41)
[2017-06-14] MEDS: DOCUSATE SODIUM 100 MG (COLACE) CAP PO SCH ×2 (08:41→21:25)
[2017-06-14] MEDS: PROPRANOLOL ER 80 MG CAPSULE PO SCH (08:42)
[2017-06-14] MEDS: FLUTICASONE NASAL SPRAY (FLONASE) 16 GM BTL NS SCH (08:43)
[2017-06-14] MEDS: ENOXAPARIN 40 MG/0.4 ML (LOVENOX) SYR SC SCH (08:43)
--- NOTE | 2017-06-14 09:15 | Progress Note-Hospitalist ---
Progress Note HPI/CC on Admission CC: Fall HPI: Pt is an 81yoCM with a PMH of NIDDMII who presented to OSH after a fall at his denominational. He reports he was carrying a pot of water out to water the saenz and trip over a rug. He fell to the ground and immediately had hip pain. He was brought to the ER in [facility] for evaluation where he was found to have a right intertrochanteric hip fracture. He was transferred her for orthopedic evaluation. he reports a history of NIDDMII. He takes a baby aspirin but no other blood thinners. He denies any other medical problems. He reports he lived at home by himself and was fully functional in all of his ADLs prior to this. He is wearing oxygen during my exam but denies supplemental oxygen use at home. Progress Notes/Assess & Plan Date Seen 06/14/17 Time Seen by Provider: 08:45 Diagonsis/Assessment & Plan Pt doing well except slow progress in PT Very active ordinarily so will put in for IRU tomorrow and he agrees Crandall cath still in place and had 700cc retention before placement so consulting Dr Gutierrez Checked meds and labs BM Tuesday morning prior to hip fracture and none since so will initiate supp and SSE since he is having flatus AFVSS, Ple[place], improved, sitting on side of bed with therapists, weakened RRR, CTAB no rales noted No edema Laboratory Tests 06/14/17 05:22 (1) Intertrochanteric fracture of right femur Status: Acute Assessment & Plan: Ortho appreciated s/p OR Tuesday Morphine prn pain PT/OT consulted IRF consulted and will accept tomorrow CBC, CMP, in am (2) Pre-op exam s/p post-op uncomplicated right hip fracture POD # 2 Assessment & Plan: Non known cardiac disease METS >4 at baseline 0 pts on the RCRI placing him at 0.4% chance of cardiac event (3) 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 Assessment & Plan: Hold home metformin SSI A FSBS AC HS (4) Prophylactic measure Status: Acute Assessment & Plan: SCDs DM diet HLIVF Plan: Check labs in am IS Bowel regimen Pain control Slow progress Dr Gutierrez consultation Diagnosis/Problems Diagnosis/Problems (1) Intertrochanteric fracture of right femur Status: Acute Assessment & Plan: Ortho consulted, appreciate recs Plan for OR tonight Will keep NPO Morphine prn pain PT/OT consulted IRF consulted CBC, CMP, T&S ordered Qualifiers: (2) Pre-op exam Assessment & Plan: Non known cardiac disease METS >4 at baseline 0 pts on the RCRI placing him at 0.4% chance of cardiac event (3) 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 Assessment & Plan: Hold home metformin SSI A FSBS AC HS (4) Prophylactic measure Status: Acute Assessment & Plan: SCDs due to planned surgery today NPO NS at 100ml/hr (5) Urinary retention with incomplete bladder emptying Assessment & Plan: Crandall cath in place and doing well will DC tomorrow KIT PAZ DO Jun 14, 2017 09:15
--- NOTE | 2017-06-14 10:02 | Physical Therapy Daily Note ---
PT Daily Note-Current Subjective Patient agrees to PT. Pain Numeric Pain Scale: 8 Location: Right Location Body Site: Hip Pain Description: Acute Mental Status Patient Orientation: Normal For Age Attachments: Oxygen, Crandall Catheter Transfers Functional [place] Measure 0=Not Assessed/NA 4=Minimal Assistance 1=Total Assistance 5=Supervision or Setup 2=Maximal Assistance 6=Modified [place] 3=Moderate Assistance 7=Complete IndependenceIRFPAI Quality Coding Scale 6 Independent with activity with or without an assistive device 5 Patient requires set up or clean up by helper. Patient completes activity by themselves 4 Supervision or touching assist (CGA). [place] provide cues , steadying assist 3 The helper provides less than half the effort to complete the activity 2 The helper provides more than half the effort to complete the activity 1 Dependent. The helper does all the effort to complete an activity 7 Patient refused to complete or attempt activity 9 The patient did not perform the activity before the current illness or injury 88 Not attempted due to Medical conditions or safety concerns Transfers (B, C, W/C) (FIM): 2 Scootin Rollin Supine to/from Sit: 2 Sit to/from Stand: 2 Bed to/from Chair: 2 Patient requires time to assist and complete all gross motor skills and is very resistive with right LE ROM/exercise and any movement. Max assist with SPT with use of FWW. Weight Bearing Right Lower Extremity: Right Touch Toe Bearing Exercises Supine Ex: Ankle pumps, Quad Set, Heel Slides, Short Arc Quads, Straight leg raise, Hip abd/add Supine Reps: 15 (AAROM bilateral LE due to weakness and resistive with right LE ROM) Seated Therapy Exercises: Long arc quads Seated Reps: 15 (PROM right LE; very resistive with right LE ROM due to pain.) Assessment Patient progressing very slowly with therapies and gross motor skills. From a PT standpoint, patient will require extended care due to TTWB right LE and inability to safely comply. PT Short Term Goals Short Term Goals Transfers (B,C,W/C) (FIM): 3 PT Senior Data Analyst Goals Senior Data Analyst Goals PT Senior Data Analyst Goals Time Frame: Jul 22, 2017 Transfers (B,C,W/C) (FIM): 5 Gait (FIM): 1 Gait distance (FIM): 1=up to 49 ft Distance: 25' Gait Level of Assist: 4 Gait Assistive Device: FWW (TTWB right LE) PT Plan Treatment/Plan Treatment Plan: Continue Plan of Care Treatment Plan: Bed Mobility, Education, Functional Activity Leti, Functional Strength, Gait, Safety, Therapeutic Exercise, Transfers Treatment Duration: Jul 22, 2017 Frequency: 11 times per week Estimated Hrs Per Day: .5 hour per day Patient and/or Family Agrees t: Yes Discharge Recommendations Therapy D/C Recommendations: Fdc Placement, Retirement (TCU/NH) Time/GCodes Time In: 921 Time Out: 944 Total Billed Treatment Time: 23 Total Billed Treatment 1 visit EX 13 min FA 10 min KONG ANGELES PT Jun 14, 2017 10:02
--- NOTE | 2017-06-14 13:13 | CONSULTATION REPORT ---
DATE OF SERVICE: 06/14/2017 ATTENDING PHYSICIAN: Dr. Thompson. SUMMARY: After reviewing the patient's record and interviewing him, this is an 81-year-old white man who is recovering from a right trochanteric fracture of the hip and since admission in the emergency room he has had a catheter with recovery of 700 mL of urine. There was no trial of voiding since surgery. The patient denies any significant voiding symptoms prior to this episode. He claims nocturia only once a night. He has not seen any neurologist. He takes saw palmetto, but no other medications. No previous surgeries. PHYSICAL EXAMINATION: Deferred at this point being recovering from surgery of the hip. IMPRESSION: Possible urinary retention secondary to BPH and/or neurogenic bladder secondary to diabetes. PLAN: Flomax and trial of voiding and follow up with post void residual and manage accordingly. Job ID: [id number] DocumentID: [id number] Dictated Date: 06/14/2017 10:43:39 Site Auditor Date: 06/14/2017 13:13:09 Dictated By: MONI WALTER MD
--- NOTE | 2017-06-14 14:19 | Physical Therapy Daily Note ---
PT Daily Note-Current Subjective Patient is in bed with friend present. Pain Numeric Pain Scale: 8 Location: Right Location Body Site: Hip Pain Description: Acute Mental Status Patient Orientation: Normal For Age Attachments: Oxygen Transfers Functional [place] Measure 0=Not Assessed/NA 4=Minimal Assistance 1=Total Assistance 5=Supervision or Setup 2=Maximal Assistance 6=Modified [place] 3=Moderate Assistance 7=Complete IndependenceIRFPAI Quality Coding Scale 6 Independent with activity with or without an assistive device 5 Patient requires set up or clean up by helper. Patient completes activity by themselves 4 Supervision or touching assist (CGA). [place] provide cues , steadying assist 3 The helper provides less than half the effort to complete the activity 2 The helper provides more than half the effort to complete the activity 1 Dependent. The helper does all the effort to complete an activity 7 Patient refused to complete or attempt activity 9 The patient did not perform the activity before the current illness or injury 88 Not attempted due to Medical conditions or safety concerns Transfers (B, C, W/C) (FIM): 1 Scootin Rollin Supine to/from Sit: 1 Sit to/from Stand: 2 Bed to/from Chair: 2 Patient continues to require dependent to max assist with all mobility. Difficulty with maintaining TTWB right LE due to obesity and weakness. Weight Bearing Right Lower Extremity: Right Touch Toe Bearing Exercises Supine Ex: Ankle pumps, Quad Set, Heel Slides, Straight leg raise, Hip abd/add Supine Reps: 10 (AAROM right LE; patient is very resisitve with all exercise and ROM right LE) Seated Therapy Exercises: Long arc quads Seated Reps: 15 (AAROM right LE) Assessment Patient progressing very slowly with treatment and tolerated minimal activity at this time. Patient is limited due to TTWB right LE and from a PT standpoint, patient will require extended care due to inability to comply with TTWB and living alone and home is not handicap accessible except for the ramp. PT Short Term Goals Short Term Goals Transfers (B,C,W/C) (FIM): 3 PT [facility] Goals [facility] Goals PT [facility] Goals Time Frame: Jul 22, 2017 Transfers (B,C,W/C) (FIM): 5 Gait (FIM): 1 Gait distance (FIM): 1=up to 49 ft Distance: 25' Gait Level of Assist: 4 Gait Assistive Device: FWW (TTWB right LE) PT Plan Treatment/Plan Treatment Plan: Continue Plan of Care Treatment Plan: Bed Mobility, Education, Functional Activity Leti, Functional Strength, Gait, Safety, Therapeutic Exercise, Transfers Treatment Duration: Jul 22, 2017 Frequency: 11 times per week Estimated Hrs Per Day: .5 hour per day Patient and/or Family Agrees t: Yes Discharge Recommendations Therapy D/C Recommendations: [facility] Placement, Long-Term (TCU/NH) Time/GCodes Time In: 1320 Time Out: 1335 Total Billed Treatment Time: 15 Total Billed Treatment 1 visit FA 15 min KONG ANGELES PT Jun 14, 2017 14:19
[2017-06-14 15:49] VITALS: BP 133/73
--- NOTE | 2017-06-14 17:11 | Occupational Ther Daily Note ---
OT Current Status-Daily Note Subjective Pt. does not report pain level, but winces with pain with movement. Appearance Pt. is in bed. Agrees to work with therapist. Mental Status/Objective Patient Orientation: Person, Place, Time Functional [place] Measure 0=Not Assessed/NA 4=Minimal Assistance 1=Total Assistance 5=Supervision or Setup 2=Maximal Assistance 6=Modified [place] 3=Moderate Assistance 7=Complete [place] ADL-Treatment Bathing (FIM): 2 (Pt. requires assist to bathe rear and front randall areas, bilateral LE and feet.) Lower Body Dressing (FIM): 3 (Pt. practiced donning socks with sock aide with mod assist needed. OT doffed and donned BLAIR hose to cleanse LE.) Transfers (B, C, W/C) (FIM): 1 (Pt. required max x 2 for supine-sit, and max x 2 for sit-stand. Demonstrated difficulty keeping full weight off right LE. Dependent x 2 for bed mobility.) Education OT Patient Education: Correct positioning, Modified ADL techniques, Progress toward Goal/Update tx plan, Purpose of tx/functional activities, Reviewed precautions, Rehab process, Transfer techniques Teaching Recipient: Patient Teaching Methods: Demonstration, Discussion Response to Teaching: Verbalize Understanding, Return Demonstration OT Short Term Goals Short Term Goals Time Frame: Jun 27, 2017 Eating(FIM): 5 Grooming(FIM): 5 Bathing(FIM): 3 Upper Body Dressing(FIM): 5 Lower Body Dressing(FIM): 3 Toileting(FIM): 4 Transfers (B,C,W/C) (FIM): 3 Toilet/Commode Transfer(FIM): 3 Additional Short Term Goals: 1-Demonstrate ADL Tasks, 2-Verbalize Understanding , 3-ImproveStrength/Leti 1=Demonstrate adherence to instructed precautions during ADL tasks. 2=Patient will verbalize/demonstrate understanding of assistive devices/ modifications for ADL. 3=Patient will improve strength/tolerance for activity to enable patient to perform ADL's. OT [facility]ci Goals Fci Goals Time Frame: Jul 04, 2017 Eating (FIM): 6 Grooming(FIM): 6 Bathing(FIM): 5 Upper Body Dressing(FIM): 5 Lower Body Dressing(FIM): 5 Toileting(FIM): 5 Transfers (B,C,W/C) (FIM): 5 Toilet/Commode Transfer(FIM): 5 Shower Transfer(FIM): 4 Additional Goals: 1-Demonstrate ADL Tasks, 2-Verbalize Understanding, 3- ImproveStrength/Elti 1=Demonstrate adherence to instructed precautions during ADL tasks. 2=Patient will verbalize/demonstrate understanding of assistive devices/ modifications for ADL. 3=Patient will improve strength/tolerance for activity to enable patient to perform ADL's. OT Education/Plan Problem List/Assessment Assessment: Decreased Activ Tolerance, Decreased UE Strength, Dependent Transfers, Impaired Bed Mobility, Impaired Funct Balance, Impaired I ADL's, Impaired Self-Care Skills Discharge Recommendations Plan/Recommendations: Continue POC Therapy D/C Recommendations: Acute Rehab Treatment Plan/Plan of Care Treatment,Training & Education: Yes Patient would benefit from OT for education, treatment and training to promote independence in ADL's, mobility, safety and/or upper extremity function for ADL' s. Plan of Care: ADL Retraining, Functional Mobility, UE Funct Exercise/Act Treatment Duration: Jul 04, 2017 Frequency: 5 times per week Estimated Hrs Per Day: .25 hour per day Agreement: Yes Rehab Potential: Fair Time/GCodes Start Time: 08:20 Stop Time: 08:55 Total Time Billed (hr/min): 35 Billed Treatment Time 1, ADL x 2 LISA RIVAS OT Jun 14, 2017 17:11
[2017-06-14] MEDS ORDERED: ALFUZOSIN HCL 10 MG TAB (UROXATRAL) PO SCH (18:00)
--- NOTE | 2017-06-14 19:13 | Progress Note (SOAP) ---
Subjective Date Seen by Provider: Jun 14, 2017 Time Seen by Provider: 19:10 Subjective/Events-last exam Currently no complaints. He states hip pain is 3/10. Denies drainage. He reports he was up to chair twice today. He reports he is ready to go to rehab tomorrow. Objective Exam Vital Signs Date Time Temp Pulse Resp B/P (MAP) Pulse Ox O2 Delivery O2 Flow Rate FiO2 06/14/17 15:49 99.1 78 20 133/73 100 Nasal Cannula 4.00 06/14/17 08:32 97.9 88 22 131/60 96 Nasal Cannula 4.00 06/14/17 07:56 80 Room Air 06/14/17 00:32 99.5 78 18 126/61 93 Nasal Cannula 2.00 06/13/17 20:00 Nasal Cannula 2.00 06/13/17 19:11 100.0 89 18 130/61 94 Nasal Cannula 2.00 I & O 06/15/17 07:00 Intake Total 660 ml Output Total 700 ml Balance -40 ml Capillary Refill : Less Than 3 Seconds General Appearance: No Apparent Distress Gastrointestinal: non tender, soft Extremity: Normal Capillary Refill, Normal Inspection, No Calf Tenderness, No Pedal Edema Neurologic/Psychiatric: Alert, Oriented x3, Normal Mood/Affect Skin: Normal Color, Warm/Dry (dressing CDI to right hip, no drainage or fluctuants) Results Lab Laboratory Tests 06/13/17 20:54: Glucometer 162H 06/14/17 05:20: Glucometer 177H 06/14/17 05:22: White Blood Count 10.8, Red Blood Count 3.48L, Hemoglobin 10.2L, Hematocrit 32L , Mean Corpuscular Volume 91, Mean Corpuscular Hemoglobin 29, Mean Corpuscular Hemoglobin Concent 32, Red Cell Distribution Width 13.8, Platelet Count 110L, Mean Platelet Volume 12.0H, Neutrophils (%) (Auto) 84H, Lymphocytes (%) (Auto) 6L, Monocytes (%) (Auto) 6, Eosinophils (%) (Auto) 3, Basophils (%) (Auto) 0, Neutrophils # (Auto) 9.0H, Lymphocytes # (Auto) 0.7L, Monocytes # (Auto) 0.7, Eosinophils # (Auto) 0.4H, Basophils # (Auto) 0.0, Sodium Level 135, Potassium Level 3.9, Chloride Level 103, Carbon Dioxide Level 22, Anion Gap 10, Blood Urea Nitrogen 15, Creatinine 0.84, Estimat Glomerular Filtration Rate > 60, BUN/ Creatinine Ratio 18, Glucose Level 167H, Calcium Level 8.4L, Total Bilirubin 1.0 , Aspartate Amino Transf (AST/SGOT) 18, Alanine Aminotransferase (ALT/SGPT) 24, Alkaline Phosphatase 87, Total Protein 6.0L, Albumin 3.3 06/14/17 11:22: Glucometer 180H 06/14/17 15:41: Glucometer 141H Microbiology 06/12/17 MRSA Screen - Final, Complete MRSA not isolated Assessment/Plan Assessment/Plan Assess & Plan/Chief Complaint A: displaced right intertrochanteric hip fracture, s/p intramedullary nailing right hip, fall, urinary retention P: Continue current treatment, plan to DC to IRF tomorrow. f/u with Dr. Crum in 2-3 weeks, remove clarissa and apply steri strips POD #10, Aspirin 325mg EC daily for DVT prophylaxis. Clinical Quality Measures DVT/VTE Risk/Contraindication: Risk Factor Score Per Nursin RFS Level Per Nursing on Admit: 4+=Very High MARYLOU SANDOVAL APRN Jun 14, 2017 7:13 pm
[2017-06-14] MEDS: MONTELUKAST 10 MG (SINGULAIR) TAB PO SCH (21:25)
[2017-06-15] VITALS: BP 106/53
[2017-06-15] MEDS: inSUlin ASPART (NovoLOG) 1 UNIT/0.01 ML (CHARGE PER UNIT) SC SCH ×2 (05:59→11:01)
[2017-06-15] MEDS: CATHETER FLUSH 10 ML SYR IV SCH (06:06)
[2017-06-15 06:08] LABS: BASOPHILS % (AUTO) 0 % (0-10); EOSINOPHILS # (AUTO) 0.3 10^3/uL (0.0-0.3); EOSINOPHILS % (AUTO) 4 % (0-10); LYMPHOCYTES # (AUTO) 0.7 X 10^3 (1.0-4.0); LYMPHOCYTES % (AUTO) 8 % (12-44); MEAN CORPUSCULAR HEMOGLOBIN 30 PG (25-34); MEAN CORPUSCULAR HGB CONC 33 G/DL (32-36); MEAN CORPUSCULAR VOLUME 90 FL (80-99); MEAN PLATELET VOLUME 11.2 FL (7.4-10.4); MONOCYTES # (AUTO) 0.6 X 10^3 (0.0-1.0); MONOCYTES % (AUTO) 7 % (0-12); NEUTROPHILS # (AUTO) 6.8 X 10^3 (1.8-7.8); NEUTROPHILS % (AUTO) 81 % (42-75); PLATELET COUNT 105 10^3/uL (130-400); RED BLOOD COUNT 3.15 10^6/uL (4.35-5.85); RED CELL DISTRIBUTION WIDTH 13.6 % (10.0-14.5); WHITE BLOOD COUNT 8.4 10^3/uL (4.3-11.0)
[2017-06-15 06:17] LABS: ALANINE AMINOTRANSFERASE 21 U/L (0-55); ALBUMIN 3.1 GM/DL (3.2-4.5); ANION GAP 9 MMOL/L (5-14); ASPARTATE AMINO TRANSFERASE 16 U/L (5-34); BILIRUBIN,TOTAL 0.8 MG/DL (0.1-1.0); BLOOD UREA NITROGEN 19 MG/DL (7-18); BUN/CREATININE RATIO 23; CALCIUM 8.4 MG/DL (8.5-10.1); CARBON DIOXIDE 25 MMOL/L (21-32); CHLORIDE 104 MMOL/L (98-107); CREATININE SERUM 0.81 MG/DL (0.60-1.30); GFR ESTIMATED > 60; GLUCOSE 107 MG/DL (70-105); POTASSIUM 3.9 MMOL/L (3.6-5.0); SODIUM 138 MMOL/L (135-145); TOTAL PROTEIN 5.8 GM/DL (6.4-8.2)
[2017-06-15] MEDS ORDERED: CHOLESTYRAMINE 4 GM (QUESTRAN LITE, PREVALITE) PKT PO NR ×2 (06:25→12:00)
[2017-06-15 08:00] VITALS: BP 133/63
[2017-06-15] MEDS: SENNA W/DOCUSATE (SENOKOT S) TABLET PO SCH (08:21)
[2017-06-15] MEDS: LACTULOSE SYRUP 10GM/15ML (ENULOSE) 30ML UDC PO SCH (08:21)
[2017-06-15] MEDS: PROPRANOLOL ER 80 MG CAPSULE PO SCH (08:30)
[2017-06-15] MEDS: GLIMEPIRIDE 2 MG (AMARYL) TAB PO SCH (08:30)
[2017-06-15] MEDS: FLUTICASONE NASAL SPRAY (FLONASE) 16 GM BTL NS SCH (08:30)
[2017-06-15] MEDS: sitaGLIPtin 50 MG (JANUVIA) TAB PO SCH (08:30)
[2017-06-15] MEDS: ASPIRIN E.C. 325 MG (ECOTRIN) TABLET PO SCH (08:31)
[2017-06-15] MEDS: DOCUSATE SODIUM 100 MG (COLACE) CAP PO SCH (08:31)
[2017-06-15] MEDS: GEMFIBROZIL 600 MG (LOPID) TAB PO SCH (08:31)
[2017-06-15] MEDS: ENOXAPARIN 40 MG/0.4 ML (LOVENOX) SYR SC SCH (08:31)
[2017-06-15] MEDS: metFORMIN 500 MG (GLUCOPHAGE) TAB PO SCH (08:31)
[2017-06-15] MEDS: FERROUS SULF 325 MG (IRON) TAB PO SCH (08:31)
[2017-06-15] MEDS ORDERED: BISA10SU12 PR (09:47)
[2017-06-15] MEDS ORDERED: HYDR-3820 PO (09:47)
[2017-06-15] MEDS ORDERED: SENN-20 PO (09:47)
[2017-06-15] MEDS ORDERED: ENOX40DI8 SC (09:47)
[2017-06-15] MEDS ORDERED: LACT20SO2 PO (09:47)
[2017-06-15] MEDS ORDERED: ALFU10TA11 PO (09:47)
[2017-06-15] MEDS ORDERED: INSU100V16 SC (09:47)
[2017-06-15 10:23] VITALS: BP 133/64
--- NOTE | 2017-06-15 11:20 | Discharge Summary-Hospitalist ---
Diagnosis/Chief Complaint Date of Admission Jun 12, 2017 at 14:32 Date of Discharge Jun 15, 2017 at 10:40 Discharge Date: Jun 15, 2017 Admission Diagnosis Right intertrochanteric hip fx Discharge Diagnosis Pt doing well except slow progress in PT Very active ordinarily so will put in for IRU tomorrow and he agrees Crandall cath still in place and had 700cc retention before placement so consulting Dr Gutierrez Checked meds and labs BM Tuesday morning prior to hip fracture and none since so will initiate supp and SSE since he is having flatus AFVSS, Pleasant, improved, sitting on side of bed with therapists, weakened RRR, CTAB no rales noted No edema Laboratory Tests 06/14/17 05:22 (1) Intertrochanteric fracture of right femur Status: Acute Assessment & Plan: Ortho appreciated s/p OR Tuesday Morphine prn pain PT/OT consulted IRF consulted and will accept tomorrow CBC, CMP, in am (2) Pre-op exam s/p post-op uncomplicated right hip fracture POD # 2 Assessment & Plan: Non known cardiac disease METS >4 at baseline 0 pts on the RCRI placing him at 0.4% chance of cardiac event (3) 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 Pt denies having a BM yet today. Pt was informed that he will move to rehab soon and I will continue to see him Pt was encouraged to use IS Physical exam stable. Pt denies experiencing much pain today Pt confirms catheter removal and seeing Dr. Gutierrez. Pt states he has been urinating often since then. Plan: Continue IS Continue bowel regimen DC to in-pt rehab Scribed by Tressa Perla under the direct supervision of Dr. Paz. 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 Assessment & Plan: Hold home metformin SSI A FSBS AC HS (4) Prophylactic measure Status: Acute Assessment & Plan: SCDs due to planned surgery today NPO NS at 100ml/hr (5) Urinary retention with incomplete bladder emptying Status: Acute Assessment & Plan: Crandall cath in place and doing well will DC tomorrow Discharge Summary Discharge Physical Examination Allergies: Coded Allergies: No Known Drug Allergies (Unverified , 06/12/17) Vitals & I&Os Vital Signs Date Time Temp Pulse Resp B/P (MAP) Pulse Ox O2 Delivery O2 Flow Rate FiO2 06/15/17 10:23 85 92 06/15/17 10:23 Nasal Cannula 3.00 06/15/17 08:00 96.0 20 133/63 Hospital Course Hospital course: Patient had a brief standard hospital course he was admitted after a fall suffering a hip fracture that was repaired promptly by Dr. Crum. No complications during surgery he did not require a transfusion and overall slow recovery required inpatient rehabilitation stay and was transferred there after discharge from [facility]. Urinary retention did require urology consultation who managed by discontinue the catheter and placing on bladder medication with good results. Constipation resolved after soapsuds enema was given after multiple medications and those will be maintained in inpatient rehabilitation. Overall slow recovery expected but doing well overall and will monitor patient closely during rehabilitation stay. Labs (last 24 hrs) Laboratory Tests 06/14/17 15:41: Glucometer 141H 06/14/17 20:29: Glucometer 210H 06/15/17 05:25: White Blood Count 8.4, Red Blood Count 3.15L, Hemoglobin 9.4L, Hematocrit 28L, Mean Corpuscular Volume 90, Mean Corpuscular Hemoglobin 30, Mean Corpuscular Hemoglobin Concent 33, Red Cell Distribution Width 13.6, Platelet Count 105L, Mean Platelet Volume 11.2H, Neutrophils (%) (Auto) 81H, Lymphocytes (%) (Auto) 8L, Monocytes (%) (Auto) 7, Eosinophils (%) (Auto) 4, Basophils (%) (Auto) 0, Neutrophils # (Auto) 6.8, Lymphocytes # (Auto) 0.7L, Monocytes # (Auto) 0.6, Eosinophils # (Auto) 0.3, Basophils # (Auto) 0.0, Sodium Level 138, Potassium Level 3.9, Chloride Level 104, Carbon Dioxide Level 25, Anion Gap 9, Blood Urea Nitrogen 19H, Creatinine 0.81, Estimat Glomerular Filtration Rate > 60, BUN/ Creatinine Ratio 23, Glucose Level 107H, Calcium Level 8.4L, Total Bilirubin 0.8 , Aspartate Amino Transf (AST/SGOT) 16, Alanine Aminotransferase (ALT/SGPT) 21, Alkaline Phosphatase 88, Total Protein 5.8L, Albumin 3.1L 06/15/17 05:30: Glucometer 103 06/15/17 10:37: Glucometer 146H Microbiology 06/12/17 MRSA Screen - Final, Complete MRSA not isolated Pending Labs Laboratory Tests 06/15/17 05:25: White Blood Count 8.4, Red Blood Count 3.15, Hemoglobin 9.4, Hematocrit 28, Mean Corpuscular Volume 90, Mean Corpuscular Hemoglobin 30, Mean Corpuscular Hemoglobin Concent 33, Red Cell Distribution Width 13.6, Platelet Count 105, Mean Platelet Volume 11.2, Neutrophils (%) (Auto) 81, Lymphocytes (%) (Auto) 8, Monocytes (%) (Auto) 7, Eosinophils (%) (Auto) 4, Basophils (%) (Auto) 0, Neutrophils # (Auto) 6.8, Lymphocytes # (Auto) 0.7, Monocytes # (Auto) 0.6, Eosinophils # (Auto) 0.3, Basophils # (Auto) 0.0, Sodium Level 138, Potassium Level 3.9, Chloride Level 104, Carbon Dioxide Level 25, Anion Gap 9, Blood Urea Nitrogen 19, Creatinine 0.81, Estimat Glomerular Filtration Rate > 60, BUN/ Creatinine Ratio 23, Glucose Level 107, Calcium Level 8.4, Total Bilirubin 0.8, Aspartate Amino Transf (AST/SGOT) 16, Alanine Aminotransferase (ALT/SGPT) 21, Alkaline Phosphatase 88, Total Protein 5.8, Albumin 3.1 06/15/17 05:30: Glucometer 103 06/15/17 10:37: Glucometer 146 Discharge Home Medications: Active Scripts Active Novolog (Insulin Aspart) 100 Unit/1 Ml Susp 0 Unit SC ACHS 14 Days Senna-Time S Tablet (Sennosides/Docusate Sodium) 1 Each Tablet 1 Ea PO BID 14 Days Bisac-Evac (Bisacodyl) 10 Mg Supp.rect 10 Mg OR DAILY PRN 14 Days Lactulose 20 Gm/30 Ml Solution 10 Gm PO BID 14 Days Hydrocodon-Acetaminophn 10-325 (Hydrocodone/Acetaminophen) 1 Each Tablet 1 Ea PO Q4H PRN Enoxaparin Sodium 40 Mg/0.4 Ml Syringe 40 Mg SC DAILY 14 Days Alfuzosin HCl ER (Alfuzosin HCl) 10 Mg Tab.er.24h 10 Mg PO DAILY@1800 Reported Vitamin D3 (Cholecalciferol (Vitamin D3)) 1,000 Unit Capsule 1,000 Unit PO DAILY Saw Naoma (Saw Naoma Fruit) 450 Mg Capsule 900 Mg PO DAILY TAKES 2 (450 MG) CAPSULES Ferrous Sulfate 325 Mg Tablet 325 Mg PO DAILY Fish Oil 1,000 mg Softgel ([place]-3/Dha/Epa/Fish Oil) 1 Each Capsule 1,000 Mg PO BID Garlic 200 Mg Tablet 200 Mg PO BID Vitamin C (Ascorbic Acid) 1,000 Mg Tablet 1,000 Mg PO DAILY Aspirin EC (Aspirin) 81 Mg Tablet.dr 81 Mg PO DAILY Atorvastatin Calcium 40 Mg Tablet 40 Mg PO HS Metformin HCl 500 Mg Tablet 500 Mg PO DAILY Glimepiride 2 Mg Tablet 2 Mg PO DAILY Propranolol HCl ER (Propranolol HCl) 80 Mg Cap.sa.24h 80 Mg PO DAILY Tradjenta (Linagliptin) 5 Mg Tablet 5 Mg PO DAILY Montelukast Sodium 10 Mg Tablet 10 Mg PO HS Gemfibrozil 600 Mg Tablet 600 Mg PO BID Fluticasone Propionate 16 Gm [place].susp 1 [place] NSEACH DAILY Instructions to patient/family Please see electronic discharge instructions given to patient. Clinical Quality Measures DVT/VTE Risk/Contraindication: Risk Factor Score Per Nursin RFS Level Per Nursing on Admit: 4+=Very High Problem Qualifiers (1) Intertrochanteric fracture of right femur: Encounter type: initial encounter Fracture type: closed Fracture alignment: displaced Qualified Codes: S72.141A - Displaced intertrochanteric fracture of right femur, initial encounter for closed fracture KIT PAZ DO Jun 15, 2017 11:20
--- NOTE | 2017-06-16 10:38 | Physician Query Clarification ---
PQ-Intro New Diagnosis Admission/Discharge Admission Date: Jun 12, 2017 at 14:32 Discharge Date: Jun 15, 2017 at 10:40 The medical record reflects the following clinical scenario: History/Risk Factors: Displaced intertrochanteric fracture of right femur Fall after tripping over rug at [employer] Clinical Findings: On admission Hgb 12.5/Hct 37 dropping to Hgb 9.4/Hct 28, no transfusion required. 150 cc blood loss during surgery per anesthesia record Treatment: Feosol tablet 325mg daily Question: What condition best reflects the above clinical scenario? Please document below. 1. Acute blood loss anemia. 2. Drop in Hgb only, without diagnosis of anemia. 3. Other, with explanation of the clinical findings. 4. Clinically undetermined, no explanation for the clinical findings. PHYSICIAN RESPONSE What condition reflects above: 1 In responding to this query, please exercise your independent professional judgment. The purpose of this communication is to more accurately reflect the complexity of your patients condition. The fact that a question is asked does not imply that any particular answer is desired or expected. Thank you for your timely response to this clarification. Requestors name: Indu Morrow [facility] Phone # ext [phone] or [phone] THIS PHYSICIAN QUERY FORM IS A PERMANENT PART OF THE MEDICAL RECORD INDU MORROW Jun 16, 2017 10:38 KIT PAZ DO Jun 16, 2017 11:21
== END 2017-06-15 10:40 | DRG 481 ==
LOC: UNDOADMIN 14:32 → EDSEX 14:32 → 4TH 14:32
PROVIDERS: ADMIT Family Medicine; ATTEND Family Medicine
PROC: 0QS606Z Reposition Right Upper Femur with Intramedullary Internal Fixation Device, Open Approach (ICD-10-PCS; principal; 2017-06-12 17:15)
DX: S72.141A Displaced intertrochanteric fracture of right femur, initial encounter for closed fracture (principal); I10 Essential (primary) hypertension; N40.1 Benign prostatic hyperplasia with lower urinary tract symptoms; R33.9 Retention of urine, unspecified; D62 Acute posthemorrhagic anemia; E11.49 Type 2 diabetes mellitus with other diabetic neurological complication; N31.9 Neuromuscular dysfunction of bladder, unspecified; K59.00 Constipation, unspecified; E78.00 Pure hypercholesterolemia, unspecified; Z87.891 Personal history of nicotine dependence; Z79.84 Long term (current) use of oral hypoglycemic drugs; Z79.82 Long term (current) use of aspirin; W18.09XA Striking against other object with subsequent fall, initial encounter; Y92.89 Other specified places as the place of occurrence of the external cause
CPT/HCPCS: 36415; 80053; 82962; 85007; 85025; 85027; 85610; 86850; 86900; 86901; 87081; 94664; 94760

== ENCOUNTER 2017-06-15 10:40 | Inpatient (IN) | payer MEDICARE, MEDICAID ==
[~2017-06-15] VITALS: Ht 170.2 cm; Wt 112.1 kg
[~2017-06-15 10:40] MED LIST: ALFU10TA11 PO; ASCO10006 PO; ASPI-983 PO; ATOR40TA70 PO; BISA10SU12 PR; CHOL10007 PO; ENOX40DI8 SC; FERR-74 PO; FLUT16SP22 NSEACH; GARL200T PO; GEMF600T3 PO; GLIM2TAB PO; HYDR-3820 PO; INSU100V16 SC; LACT20SO2 PO; LINA5TAB PO; METF500T4 PO; MONT10TA24 PO; OMEG-160 PO; PROP80CA4 PO; SAW450CA4 PO; SENN-20 PO
[2017-06-15 11:00] VITALS: BP 145/71
--- NOTE | 2017-06-15 11:50 | Physical Therapy Evaluation ---
PT Evaluation-General Medical Diagnosis Admission Date Jun 15, 2017 at 10:40 Medical Diagnosis: right intertrochanteric femur fracture Onset Date: Jun 12, 2017 Therapy Diagnosis Therapy Diagnosis: weakness, mobility impairments Precautions Precautions/Isolations: Standard Precautions Weight Bear Status Right Lower Extremity: Right Touch Toe Bearing Left Lower Extremity: Left Full Weight Bearing Referral Physician: Omar Reason for Referral: Evaluation/Treatment Medical History Pertinent Medical History: Arthritis, DM, HTN Current History fell at [employer] 06/12 carrying water to water [place], tripped on rug, right intertrochanteric femur fracture was surgically repaired. Reviewed History: Yes Social History Home: Single Level Current Living Status: Alone Entry Into Home: Ramp PT Steps Into Home: 0 PT Steps Inside Home: 0 Prior/Core FIM Prior Level of Function Functional [place] Measure 0=Not Assessed/NA 4=Minimal Assistance 1=Total Assistance 5=Supervision or Setup 2=Maximal Assistance 6=Modified [place] 3=Moderate Assistance 7=Complete [place] Bed Mobility: 7 Transfers (B,C,W/C) (FIM): 7 Gait: 7 Locomotion: 7 Pt reports he was completely independent prior to fx, used no assistive devices , and was driving. PT Evaluation-Current Subjective Pt was up on 4th floor, was just discharged from acute floor, and was brought downstairs to the ARU. Pt reports no pain when not moving. Pain Numeric Pain Scale: 0-No Pain Location: No Pain Reported Pt/Family Goals To discharge home and be independent with mobility. Objective Patient Orientation: Normal For Age Attachments: Oxygen ROM/Strength ROM Lower Extremities not tested due to fx/surgery Strenght Lower Extremities not tested due to fx/surgery Integumentary/Posture Integumentary refer to nursing note Neuromuscular (Tone, Coordination, Reflexes) not tested Sensory Vision: Functional Hearing: Functional Sensation Right Upper Extremit: Intact Sensation Left Upper Extremity: Intact Sensation Right Lower Extremit: Intact Sensation Left Lower Extremity: Intact Transfers Functional [place] Measure 0=Not Assessed/NA 4=Minimal Assistance 1=Total Assistance 5=Supervision or Setup 2=Maximal Assistance 6=Modified [place] 3=Moderate Assistance 7=Complete IndependenceIRFPAI Quality Coding Scale 6 Independent with activity with or without an assistive device 5 Patient requires set up or clean up by helper. Patient completes activity by themselves 4 Supervision or touching assist (CGA). [place] provide cues , steadying assist 3 The helper provides less than half the effort to complete the activity 2 The helper provides more than half the effort to complete the activity 1 Dependent. The helper does all the effort to complete an activity 7 Patient refused to complete or attempt activity 9 The patient did not perform the activity before the current illness or injury 88 Not attempted due to Medical conditions or safety concerns Transfers (B, C, W/C) (FIM): 2 Scootin Rollin Roll Left to Right (QC): 2 Supine to/from Sit: 2 Sit to/from Stand: 3 bed t/f WC(FIM only if WC use): 3 Sit to Lying (QC): 2 Lying to Sitting/Side of Bed(Q: 2 Sit to Stand (QC): 2 Chair/Qel-[place]-Gzqve Xfer(QC): 2 Pt completes bed mobility with max assist. Pt completes stand pivot transfer with mod assist, requires verbal cues for sequencing. Pt completes bed mobility and transfers very slowly, guarded movement, reports high levels of pain with movement. Pt does not comply with WBS, and is verbally cued for safety. Patient has difficulty maintaining his weight bearing status even when cued. Gait Does the Patient Walk?: No and Walking Goal IS indicated Mode of Locomotion: Both Anticipated Mode of Locomotion: Walk Gait (FIM): 1 Distance (FIM): 1=up to 49 ft Walk 10 feet (QC): 88 Walk 50 ft with 2 Turns(QC): 88 Walk 150 ft (QC): 88 Walking 10ft/uneven surface-QC: 88 Distance: 0 Comments/Gait Description Unable to ambulate due to weakness and inability to comply with WBS Wheelchair Training Does the Pt Use a Wheelchair?: Yes Wheelchair Distance (FIM): 3=150 ft Distance: 150' Wheelchair Level of Assist: 4 Wheel 50 ft with 2 turns (QC): 3 Wheel 150 ft (QC): 3 Type of Wheelchair: Manual Pt is able to propel wheelchair 150' with min assist, requires verbal cues for turning. Stairs Stairs (FIM): 0 #of Steps: 0 1 Step (curb) (QC): 88 4 Steps (QC): 88 12 Steps (QC): 88 If not tested on admit;explain Unsafe to attempt due to weakness and inability to comply with WBS Balance Sitting Static: Fair Sitting Dynamic: Fair Standing Static: Poor Standing Dynamic: Poor Treatment Pt completes standing exercises in parallel bars. Pt is instructed to keep left leg on ground, and do hip flexion open-chain exercises. Pt is unable to lift right leg off of ground. Pt was inconsistent and didn't seem to understand the instructions, initially reported he was trying to put weight through right leg, PT educated and reminded him of WBS. Assessment/Needs Pt has decreased ROM and strength, balance and endurance deficits, decreased activity tolerance, impairments with bed mobility, transfers, gait, and stairs. Rehab Potential: Fair PT Short Term Goals Short Term Goals Time Frame: Jun 22, 2017 Transfers (B,C,W/C) (FIM): 3 Gait (FIM): 1 Distance (FIM): 1=up to 49 ft Gait Distance Comment: 25' Gait Level of Assist: 4 Gait Assistive Device: FWW PT Custodial Goals Custodial Goals PT Roll Hand Goals Time Frame: Jul 06, 2017 Transfers (B,C,W/C) (FIM): 4 Sit to Lying (QC): 4 Lying-Sitting on Side/Bed(QC): 4 Sit to Stand (QC): 4 Rollin Roll Left to Right (QC): 4 Chair/Hyx-vu-Xzaor Xfer(QC): 4 Does the Patient Walk: No and Walking Goal IS indicated Gait (FIM): 4 Gait distance (FIM): 3=150 ft Distance: 150' Walk 10 feet (QC): 4 Walk 10ft-Uneven Surface(QC): 4 Walk 50ft with 2 Turns (QC): 4 Walk 150 ft (QC): 4 Gait Level of Assist: 4 Gait Assistive Device: FWW PT Plan Problem List Problem List: Activity Tolerance, Functional Strength, Safety, Balance, Gait, Transfer, Bed Mobility, ROM Treatment/Plan Treatment Plan: Continue Plan of Care Treatment Plan: Bed Mobility, Concurrent Therapy, Education, Functional Activity Leti, Functional Strength, Group Therapy, Gait, Safety, Therapeutic Exercise, Transfers Treatment Duration: Jul 06, 2017 Frequency: At least 5 of 7 days/Wk (IRF) Estimated Hrs Per Day: 1.5 hours per day Patient and/or Family Agrees t: Yes Safety Risks/Education Patient Education: Transfer Techniques, Reviewed Precautions, Correct Positioning, W/C Management, Safety Issues Teaching Recipient: Patient Teaching Methods: Demonstration, Discussion Response to Teaching: Verbalize Understanding, Reinforcement Needed Discharge Recommendations Plan Pt will complete strengthening, balance and therapeutic exercises, bed mobility , transfer training, gait training, stair training, group therapy, and safety education. Therapy D/C Recommendations: Home w/ Family Support, Custodial (TCU/NH) Equpiment Recommendations-D/C: Front Wheeled Walker Time/GCodes Time In: 1040 Time Out: 1115 Total Billed Treatment Time: 35 Total Billed Treatment 1 visit 15 EVL 20 FA ROXANNE CHURCHILL PT Jun 15, 2017 11:50
[2017-06-15] MEDS ORDERED: metFORMIN 500 MG (GLUCOPHAGE) TAB PO SCH (12:15)
[2017-06-15] MEDS ORDERED: CATHETER FLUSH 10 ML SYR IV PRN (12:15)
[2017-06-15] MEDS ORDERED: GLIMEPIRIDE 2 MG (AMARYL) TAB PO SCH (12:15)
[2017-06-15] MEDS ORDERED: morphine INJ 4 MG/ML 1 ML (VIAL/SYRINGE) IVP PRN (12:15)
[2017-06-15] MEDS ORDERED: diphenhydrAMINE 50 MG/ML INJ (BENADRYL) IV PRN (12:15)
[2017-06-15] MEDS ORDERED: FERROUS SULF 325 MG (IRON) TAB PO SCH (12:15)
[2017-06-15] MEDS ORDERED: FLUTICASONE NASAL SPRAY (FLONASE) 16 GM BTL NS SCH (12:15)
[2017-06-15] MEDS ORDERED: ONDANSETRON 4 MG/2 ML (SDV) Z0FRAN IV PRN (12:15)
[2017-06-15] MEDS ORDERED: BISACODYL 10 MG SUPP (DULCOLAX) PR PRN (12:23)
[2017-06-15] MEDS ORDERED: ENOXAPARIN 40 MG/0.4 ML (LOVENOX) SYR SC SCH (12:23)
[2017-06-15] MEDS ORDERED: ALFUZOSIN HCL 10 MG TAB (UROXATRAL) PO SCH (12:23)
--- NOTE | 2017-06-15 14:10 | Occupational Ther Daily Note ---
OT Current Status-Daily Note Subjective Pt sitting in chair, agrees to treatment. Mental Status/Objective Functional [place] Measure 0=Not Assessed/NA 4=Minimal Assistance 1=Total Assistance 5=Supervision or Setup 2=Maximal Assistance 6=Modified [place] 3=Moderate Assistance 7=Complete [place] Attachments: Oxygen ADL-Treatment Pt sitting in chair, states he needs to use urinal. Pt able to manage clothing with minimal assistance. Once given urinal, pt able to place and hold without assistance. Pt unable to empty urinal, requires assist for this. Pt washed hands with cleansing wipe after set up. Reviewed use of adaptive equipment for LE dressing. Pt doffed socks with SBA and verbal cues using dressing stick. Pt able to place socks on sock aid with increased time. Pt donned left sock with SBA. Pt has difficulty donning right sock, requires mod assist to complete with soft sock aid. Pt then attempted to use rigid sock aid and was able to don right sock with SBA. Pt requires increased time for functional tasks. Pt sitting in chair with needs met after session. Functional [place] Measure 0=Not Assessed/NA 4=Minimal Assistance 1=Total Assistance 5=Supervision or Setup 2=Maximal Assistance 6=Modified [place] 3=Moderate Assistance 7=Complete IndependenceIRFPAI Quality Coding Scale 6 Independent with activity with or without an assistive device 5 Patient requires set up or clean up by helper. Patient completes activity by themselves 4 Supervision or touching assist (CGA). [place] provide cues , steadying assist 3 The helper provides less than half the effort to complete the activity 2 The helper provides more than half the effort to complete the activity 1 Dependent. The helper does all the effort to complete an activity 7 Patient refused to complete or attempt activity 9 The patient did not perform the activity before the current illness or injury 88 Not attempted due to Medical conditions or safety concerns Education OT Patient Education: Modified ADL techniques Teaching Recipient: Patient Teaching Methods: Demonstration, Discussion Response to Teaching: Verbalize Understanding OT Short Term Goals Short Term Goals Transfers (B,C,W/C) (FIM): 3 1=Demonstrate adherence to instructed precautions during ADL tasks. 2=Patient will verbalize/demonstrate understanding of assistive devices/ modifications for ADL. 3=Patient will improve strength/tolerance for activity to enable patient to perform ADL's. OT Fpc Goals Pharmacists Goals 1=Demonstrate adherence to instructed precautions during ADL tasks. 2=Patient will verbalize/demonstrate understanding of assistive devices/ modifications for ADL. 3=Patient will improve strength/tolerance for activity to enable patient to perform ADL's. OT Education/Plan Discharge Recommendations Plan/Recommendations: Continue POC Treatment Plan/Plan of Care Treatment,Training & Education: Yes Patient would benefit from OT for education, treatment and training to promote independence in ADL's, mobility, safety and/or upper extremity function for ADL' s. Treatment Duration: Jul 06, 2017 Frequency: At least 5 of 7 days/Wk (IRF) Estimated Hrs Per Day: 1.5 hours per day Rehab Potential: Fair Time/GCodes Start Time: 13:00 Stop Time: 13:30 Total Time Billed (hr/min): 30 Billed Treatment Time 1 visit, ADLx2(30minutes) THOMAS OWENS OT Jun 15, 2017 14:10
--- NOTE | 2017-06-15 14:39 | Occupational Therapy Eval ---
OT Evaluation-General/PLF Medical Diagnosis Admission Date Jun 15, 2017 at 10:40 Medical Diagnosis: right intertrochanteric femur fracture Onset Date: Jun 12, 2017 Therapy Diagnosis Therapy Diagnosis: Decreased ADL skills Precautions Precautions/Isolations: Standard Precautions Weight Bear Status Weight Bearing Restriction: Touch Toe Bearing Location Restriction: RT FOOT Referral Physician: Omar Referral Reason: Activity Tolerance, Self Care, Evaluation/Treatment, Strengthening/ROM Medical History Pertinent Medical History: Arthritis, DM, HTN Current History Pt. fell at latter-day while watering plants. Reviewed History: Yes Social History Home: Single Level Current Living Status: Alone Entry Into Home: Ramp Steps Into Home: 0 Steps Inside Home: 0 ADL-Prior Level of Function ADL PLOF Comments Pt. was independent with daily tasks previous to falling. DME/Equipment: Tall Toilet DME/Equipment Comments Pt. has a cane. No other equipment. 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 Drive Self: Yes OT Current Status Subjective No pain reported. Appearance Pt. up in wheelchair. Agrees to work with OT. Mental Status/Objective Patient Orientation: Person, Place Current Glasses/Contacts: Yes Hand Dominance: Right Upper Extremity ROM WFL Upper Extremity Strength WFL ADL-Treatment Functional [place] Measure 0=Not Assessed/NA 4=Minimal Assistance 1=Total Assistance 5=Supervision or Setup 2=Maximal Assistance 6=Modified [place] 3=Moderate Assistance 7=Complete IndependenceIRFPAI Quality Coding Scale 6 Independent with activity with or without an assistive device 5 Patient requires set up or clean up by helper. Patient completes activity by themselves 4 Supervision or touching assist (CGA). [place] provide cues , steadying assist 3 The helper provides less than half the effort to complete the activity 2 The helper provides more than half the effort to complete the activity 1 Dependent. The helper does all the effort to complete an activity 7 Patient refused to complete or attempt activity 9 The patient did not perform the activity before the current illness or injury 88 Not attempted due to Medical conditions or safety concerns Bathing (FIM): 3 (Pt. required assistance to wash rear randall area while in stance. Unable to wash bilateral feet or lower legs.) Shower/Bathe Self (QC): 3 Upper Body Dressing (FIM): 4 (Pt. required min assist to button shirt once he put it on.) Upper Body Dressing (QC): 4 Lower Body Dressing (FIM): 1 (Max assist to don shorts over feet. Max x 2 for sit-stand and then to pull them up. Dependent to don socks.) Lower Body Dressing (QC): 1 On/Off Footwear (QC): 1 Transfers (B, C, W/C) (FIM): 1 (Max x 2 for sit-stand and then mod x 2 to pivot over to chair.) Education OT Patient Education: Correct positioning, Modified ADL techniques, Progress toward Goal/Update tx plan, Purpose of tx/functional activities, Reviewed precautions, Rehab process, Transfer techniques, Use of adapted equipment Teaching Recipient: Patient Teaching Methods: Demonstration, Discussion Response to Teaching: Verbalize Understanding, Return Demonstration OT Short Term Goals Short Term Goals Time Frame: Jun 22, 2017 Eating(FIM): 5 Grooming(FIM): 5 Bathing(FIM): 3 Upper Body Dressing(FIM): 5 Lower Body Dressing(FIM): 4 Toileting(FIM): 4 Transfers (B,C,W/C) (FIM): 4 Toilet/Commode Transfer(FIM): 4 Shower Transfer(FIM): 3 Additional Short Term Goals: 1-Demonstrate ADL Tasks, 2-Verbalize Understanding , 3-ImproveStrength/Leti 1=Demonstrate adherence to instructed precautions during ADL tasks. 2=Patient will verbalize/demonstrate understanding of assistive devices/ modifications for ADL. 3=Patient will improve strength/tolerance for activity to enable patient to perform ADL's. OT Head Paper Tester Goals Head Paper Tester Goals Time Frame: Jul 06, 2017 Eating (FIM): 6 Eating (QC): 6 Groomin Oral Hygiene (QC): 6 Bathing(FIM): 5 Shower/Bathe Self (QC): 5 Upper Body Dressing(FIM): 5 Upper Body Dressing (QC): 5 Lower Body Dressing(FIM): 5 Lower Body Dressing (QC): 5 On/Off Footwear (QC): 5 Toileting(FIM): 5 Toileting Hygiene (QC): 5 Transfers (B,C,W/C) (FIM): 6 Toilet/Commode Transfer(FIM): 6 Toilet/Commode Transfer (QC): 5 Shower Transfer(FIM): 4 Additional Goals: 1-Demonstrate ADL Tasks, 2-Verbalize Understanding, 3- ImproveStrength/Leti 1=Demonstrate adherence to instructed precautions during ADL tasks. 2=Patient will verbalize/demonstrate understanding of assistive devices/ modifications for ADL. 3=Patient will improve strength/tolerance for activity to enable patient to perform ADL's. OT Education/Plan Problem List/Assessment Assessment: Decreased Activ Tolerance, Dependent Transfers, Impaired Bed Mobility, Impaired Funct Balance, Impaired I ADL's, Impaired Self-Care Skills Discharge Recommendations Plan/Recommendations: Continue POC Therapy D/C Recommendations: Home w/ Family Support, Occupational Therapy Home Care Equpiment Recommendations-D/C: Bath Chair, Hip Kit Treatment Plan/Plan of Care Treatment,Training & Education: Yes Patient would benefit from OT for education, treatment and training to promote independence in ADL's, mobility, safety and/or upper extremity function for ADL' s. Plan of Care: ADL Retraining, Functional Mobility, UE Funct Exercise/Act Treatment Duration: Jul 06, 2017 Frequency: At least 5 of 7 days/Wk (IRF) Estimated Hrs Per Day: 1.5 hours per day Agreement: Yes Rehab Potential: Fair Time/GCodes Start Time: 11:15 Stop Time: 12:15 Total Time Billed (hr/min): 60 Billed Treatment Time 1, EVM x 15minutes, ADL x 45minutes LISA RIVAS OT Jun 15, 2017 14:39
--- NOTE | 2017-06-15 14:40 | Physical Therapy Daily Note ---
PT Daily Note-Current Subjective Pt was sitting in chair prior to tx and agreeable to PT. Pt reports no pain prior to tx. Pt was lying in bed with nurse call, phone, tray, all needs met post tx. Pain Numeric Pain Scale: 0-No Pain Location: No Pain Reported Mental Status Patient Orientation: Normal For Age Attachments: Oxygen Pt was on 2L oxygen Transfers Functional [place] Measure 0=Not Assessed/NA 4=Minimal Assistance 1=Total Assistance 5=Supervision or Setup 2=Maximal Assistance 6=Modified [place] 3=Moderate Assistance 7=Complete IndependenceIRFPAI Quality Coding Scale 6 Independent with activity with or without an assistive device 5 Patient requires set up or clean up by helper. Patient completes activity by themselves 4 Supervision or touching assist (CGA). [place] provide cues , steadying assist 3 The helper provides less than half the effort to complete the activity 2 The helper provides more than half the effort to complete the activity 1 Dependent. The helper does all the effort to complete an activity 7 Patient refused to complete or attempt activity 9 The patient did not perform the activity before the current illness or injury 88 Not attempted due to Medical conditions or safety concerns Transfers (B, C, W/C) (FIM): 2 Scootin Supine to/from Sit: 2 Sit to/from Stand: 3 Bed to/from Chair: 2 Pt completes bed mobility with max assist. Pt completes stand pivot transfer with min-mod assist, verbal cues for foot, hand placement and safety. Pt does not comply with TTWBing status, and is verbally cued throughout tx on WBS. Weight Bearing Right Lower Extremity: Right Touch Toe Bearing Left Lower Extremity: Left Full Weight Bearing Gait Training Does the Patient Walk?: No and Walking Goal IS indicated Exercises NuStep Minutes: 15 NuStep Workload: 1 (no resistance to comply with WBS) Treatments Pt completes transfers and bed mobility to increase functional mobility. Pt completes tx on Nustep to increase endurance and hip ROM. Pt completes 8 sit to stands with parallel bars for support and seated exercises (LAQ, AP) x20 to increase functional LE strengthening. Assessment Current Status: Fair Progress Pt stand pivot transfers are improving. Pt requires verbal cues on WBS and safety. PT Short Term Goals Short Term Goals Time Frame: Jun 22, 2017 Transfers (B,C,W/C) (FIM): 3 Gait (FIM): 1 Distance (FIM): 1=up to 49 ft Gait Distance Comment: 25' Gait Level of Assist: 4 Gait Assistive Device: FWW Wheelchair Distance: 150' PT Intermediate Goals Intermediate Goals PT Intermediate Goals Time Frame: Jul 06, 2017 Transfers (B,C,W/C) (FIM): 4 Sit to Lying (QC): 4 Lying-Sitting on Side/Bed(QC): 4 Sit to Stand (QC): 4 Rollin Roll Left to Right (QC): 4 Chair/Nhz-aa-Rixgh Xfer(QC): 4 Does the Patient Walk: No and Walking Goal IS indicated Gait (FIM): 4 Gait distance (FIM): 3=150 ft Distance: 150' Walk 10 feet (QC): 4 Walk 10ft-Uneven Surface(QC): 4 Walk 50ft with 2 Turns (QC): 4 Walk 150 ft (QC): 4 Gait Level of Assist: 4 Gait Assistive Device: FWW PT Plan Problem List Problem List: Activity Tolerance, Functional Strength, Safety, Balance, Gait, Transfer, Bed Mobility, ROM Treatment/Plan Treatment Plan: Continue Plan of Care Treatment Plan: Bed Mobility, Concurrent Therapy, Education, Functional Activity Leti, Functional Strength, Group Therapy, Gait, Safety, Therapeutic Exercise, Transfers Treatment Duration: Jul 06, 2017 Frequency: At least 5 of 7 days/Wk (IRF) Estimated Hrs Per Day: 1.5 hours per day Patient and/or Family Agrees t: Yes Safety Risks/Education Patient Education: Transfer Techniques, Reviewed Precautions, Correct Positioning, W/C Management, Safety Issues Teaching Recipient: Patient Teaching Methods: Demonstration, Discussion Response to Teaching: Verbalize Understanding, Reinforcement Needed Time/GCodes Time In: 1335 Time Out: 1430 Total Billed Treatment Time: 55 Total Billed Treatment 1 visit 25 FA 30 EX ROXANNE CHURCHILL PT Jun 15, 2017 14:40
[2017-06-15] MEDS: CATHETER FLUSH 10 ML SYR IV SCH ×2 (14:57→21:04)
--- NOTE | 2017-06-15 15:15 | ST Cognitive Linguistic Eval ---
Speech Evaluation-General Medical Diagnosis right intertrochanteric femur fracture Onset Date: Jun 12, 2017 Therapy Diagnosis Therapy Diagnosis: Cognitive Linguistic Skills WNL Precautions Precautions/Isolations: Standard Precautions Referral Referring Physician: Dr. Nam Nelson Reason for Referral: Evaluation/Treatment Cognitive Evaluation Medical History Pertinent Medical History: Arthritis, DM, HTN Reviewed History: Yes Social History Current Living Status: Alone Speech PLF-Current Status Prior Level of Function The patient denied prior challenges with speech, language, or cognition. Subjective The patient was recently admitted to [facility] with a diagnosis of a hip fracture. The patient greeted the clinician appropriately and was agreeable to participation in the cognitive evaluation. Language Eval: Auditory Comprehends Simple Yes/No Ques: Functional Indent/Objects Multiple Alves: Functional Ident/Pics in Multiple Alves: Functional Follows 1-Step Commands: Functional Follows Complex Directions: Functional Follows General Conversations: Functional Language Eval: Verbal Language Completes Spontaneous Greeting: Functional Produces Auto, Serial Info: Functional Imitates Simple Words/Phrases: Functional Word Finding: Functional Requests Basic Needs: Functional States Basic Personal Info: Functional Expresses Complex Ideas: Functional Cognitive Patient Orientation The patient was independently oriented to month, day of week, date, and year. Objective Cognitive Domain Attention: WNL Memory: Mild (- Age appropriate.) Problem Solving: Functional Objective Impression The patient displayed cognitive linguistic functions grossly within normal limits and appropriate for completion of ADL's. Communication/Social Cognition Comprehension: 6 Expression: 6 Social Interaction: 6 Problem Solvin Memory: 5 Speech Patient Assess Expression of Ideas/Wants: Expression (4) Understanding [place] Content: Understands (4) Brief Interview-Mental Status: Yes Repetition of Three Words: Three (3) Temporal Orientation: Year: Correct (3) Temporal Orientation: Month: Accurate within 5 days(2) Temporal Orientation: Day: Correct (1) Recall : Wear to say "Sock": Yes, no cue required (2) Recall : Color: Yes, no cue required (2) Recall : Bed: Yes,after cueing (1) Speech-Plan Treatment Plan Speech Therapy Treatment Plan: Discontinue ST Evaluation, only. Frequency: Modified Program (IRF) (Evaluation, only.) Estimated Hrs Per Day: Other (Evaluation, only.) Rehab Potential: Fair Safety Risks/Education Teaching Recipient: Patient Teaching Methods: Discussion Response to Teaching: Verbalize Understanding Education Topics Provided: Results, Recommendations, Plan of Care Time Speech Therapy Time In: 14:55 Speech Therapy Time Out: 15:10 Total Billed Time: 15 Billed Treatment Time 1, DOMENIC GONSALES Jun 15, 2017 15:15
[2017-06-15] MEDS: inSUlin ASPART (NovoLOG) 1 UNIT/0.01 ML (CHARGE PER UNIT) SC SCH ×2 (16:12→21:14)
[2017-06-15 18:00] VITALS: BP 136/72
[2017-06-15] MEDS: SENNA W/DOCUSATE (SENOKOT S) TABLET PO SCH (20:40)
[2017-06-15] MEDS: GEMFIBROZIL 600 MG (LOPID) TAB PO SCH (20:40)
[2017-06-15] MEDS: LACTULOSE SYRUP 10GM/15ML (ENULOSE) 30ML UDC PO SCH (20:40)
[2017-06-15] MEDS: MONTELUKAST 10 MG (SINGULAIR) TAB PO SCH (20:41)
[2017-06-15] MEDS: DOCUSATE SODIUM 100 MG (COLACE) CAP PO SCH (20:41)
[2017-06-16] MEDS: inSUlin ASPART (NovoLOG) 1 UNIT/0.01 ML (CHARGE PER UNIT) SC SCH ×4 (05:47→20:32)
[2017-06-16] MEDS: CATHETER FLUSH 10 ML SYR IV SCH ×3 (06:01→20:33)
[2017-06-16] MEDS: FERROUS SULF 325 MG (IRON) TAB PO SCH (06:01)
[2017-06-16] MEDS: metFORMIN 500 MG (GLUCOPHAGE) TAB PO SCH (06:01)
[2017-06-16] MEDS: GLIMEPIRIDE 2 MG (AMARYL) TAB PO SCH (06:02)
[2017-06-16 06:30] VITALS: BP 115/69
--- NOTE | 2017-06-16 08:02 | HISTORY AND PHYSICAL ---
DATE OF SERVICE: CHIEF COMPLAINT: Difficulty with walking. HISTORY OF PRESENT ILLNESS: The patient is an 81-year-old male who lives with his daughter who fell at worship sustaining a right intertrochanteric hip fracture. He had an IM nailing 0f the rt hip intertrochanteric fracture with Dr. Crum and was made Toe touch wt bearing RLE. The patient wasfollowed by hospitalist service as well in the perioperative period in lieu of PCP DR Rajat Alcantara. He had postop urinary retention and was seen by Dr. Matt LIANG and placed on medication. He had a trial of voiding and doing well with this. The patient had postop constipation treated with meds and soapsuds enema with good results. The patient had post-op resp insufficiency and is on supplemental 02 by N/C. The patient is now referred to inpatient rehabilitation unit for comprehensive orthopedic rehabilitation. He had been modified independent with a cane prior to this. He lives in [place], [place]. Currently, he requires assistance for his ADLs and mobility skills.See below for details. PAST MEDICAL HISTORY: Arthritis, diabetes mellitus, hypertension. PAST SURGICAL HISTORY: As per above. ALLERGIES: No known medication allergies. FAMILY HISTORY: Noncontributory. SOCIAL HISTORY: Lives with family. Has a ramp into his home. He has a tall toilet at home. 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 He is being visited this evening by a worship member. REVIEW OF SYSTEMS: A ten-point review of systems is significant for arthritic pain and right hip pain. MEDICATIONS: Flonase 1 spray daily nasally. Ferrous sulfate 325 mg p.o. daily. Metformin 500 mg p.o. daily. Amaryl 2 mg p.o. daily. Novolog insulin sliding scale regimen A. Lovenox 40 mg subcu daily for DVT prophylaxis. Lactulose 10 gram p.o. b.i.d. Uroxatral 10 mg p.o. q. evening. Colace 100 mg p.o. b.i.d. Lortab 10, one tablet p.o. q. 4 hours p.r.n. moderate pain. Senokot S 1 tablet po b.i.d. ASA 325 mg p.o. daily. Lopid 600 mg p.o. b.i.d. Singulair 10 mg p.o. at bedtime. Januvia 50 mg p.o. daily. PHYSICAL EXAMINATION: GENERAL: Significant for an elderly male appearing his stated age, lying in bed in no acute distress with O2 by basal cannula in place. VITAL SIGNS: Admission temp was 100.3, now 98.2. Pulse is 90, respirations 20, blood pressure 130/72, O2 sat 95% on 2 liters of O2 by nasal cannula. HEENT: Patient's speech and hearing grossly intact. No oral lesion is noted. NECK: Supple without mass. HEART: Regular rhythm. LUNGS: Clear. ABDOMEN: Soft and nontender. Bowel sounds are present. EXTREMITIES: Trace edema right ankle. No calf tenderness. MUSCULOSKELETAL: The patient has functional strength with active range of motion in both upper extremities and left lower extremity. He is right hand dominant. Strength limited at the right hip due to fracture and repair with some pain and guarding. He is able to dorsi and plantar flex at the right ankle. FUNCTIONAL STATUS: He is voiding and reported to be continent. He is mod assist for bathing, mid assist for upper body dressing and dependent for lower body dressing. He is max assist for transfers as he is toe-touch weightbearing right lower extremity. IMPRESSION: 1. Ambulatory dysfunction secondary to fall with resulting right intertrochanteric hip fracture status post repair orthopedics. Toe-touch weightbearing right lower extremity. 2. Postop fever. 3. Arthritis. 4. Diabetes mellitus, controlled with medication. 5. Hypertension, controlled with medication. 6. Postop respiratory insufficiency on O2 by nasal cannula. 7. Postop urinary retention improved with meds PLAN: The patient will have a comprehensive program of inpatient orthopedic rehabilitation with goal of maximizing level of function independence prior to discharge home with his family. Patient will have PT/OT 90 minutes per day each discipline 5 days a week for gate, strengthening, conditioning, balance, ADLs and inpatient family caregiver training necessary and adaptive equipment and training necessary. Speech therapy to do cognitive assessment and treat as indicated. Rehabilitation nursing assist with bowel, bladder, skin care, wound care, medication administration and pain management. nutritional services cook to assist with discharge planning, community reentry. Respiratory therapy to assist with O2 administration and weaning as able. Followup regarding postop fever and check labs as necessary. Followup with hospitalist as per their schedule and followup with orthopedics as per their schedule. Therapy with cardiac and fall precautions. ESTIMATED LENGTH OF STAY: Two weeks. PROGNOSIS: Rehab prognosis appears good for goal of discharging home with family and home health care. Hopefully, modified independence with supervision for ADLs and mobility skills focusing on wheelchair level of function due to his toe-touch weightbearing right lower extremity. DIET: Carb consistent. CODE STATUS: Full code. Job ID: [id number] DocumentID: [id number] Dictated Date: 06/15/2017 20:01:30 Climbing Guide Date: 06/16/2017 08:02:33 Dictated By: LUAN SESAY MD [facility]
[2017-06-16] MEDS: LACTULOSE SYRUP 10GM/15ML (ENULOSE) 30ML UDC PO SCH ×2 (08:44→20:31)
[2017-06-16] MEDS: DOCUSATE SODIUM 100 MG (COLACE) CAP PO SCH ×2 (08:45→20:30)
[2017-06-16] MEDS: sitaGLIPtin 50 MG (NON-FORMULARY) TAB PO SCH (08:45)
[2017-06-16] MEDS: SENNA W/DOCUSATE (SENOKOT S) TABLET PO SCH ×2 (08:45→20:30)
[2017-06-16] MEDS: GEMFIBROZIL 600 MG (LOPID) TAB PO SCH ×2 (08:45→20:30)
[2017-06-16] MEDS: ASPIRIN E.C. 325 MG (ECOTRIN) TABLET PO SCH (08:45)
--- NOTE | 2017-06-16 08:57 | Physical Therapy Daily Note ---
PT Daily Note-Current Subjective Pt was lying in bed prior to tx and agreeable to PT. Pt reports no pain prior to tx. Pt was seated in wheelchair (has OT next) with nurse call, phone, tray in reach, all needs met post tx. Pain Numeric Pain Scale: 0-No Pain Location: No Pain Reported Mental Status Patient Orientation: Normal For Age Attachments: Oxygen 2L oxygen Transfers Functional [place] Measure 0=Not Assessed/NA 4=Minimal Assistance 1=Total Assistance 5=Supervision or Setup 2=Maximal Assistance 6=Modified [place] 3=Moderate Assistance 7=Complete IndependenceIRFPAI Quality Coding Scale 6 Independent with activity with or without an assistive device 5 Patient requires set up or clean up by helper. Patient completes activity by themselves 4 Supervision or touching assist (CGA). [place] provide cues , steadying assist 3 The helper provides less than half the effort to complete the activity 2 The helper provides more than half the effort to complete the activity 1 Dependent. The helper does all the effort to complete an activity 7 Patient refused to complete or attempt activity 9 The patient did not perform the activity before the current illness or injury 88 Not attempted due to Medical conditions or safety concerns Transfers (B, C, W/C) (FIM): 3 Scootin Supine to/from Sit: 3 Sit to/from Stand: 4 Pt completes bed mobility (scooting, sit<>supine) with mod assist. Pt completes stand pivot transfer using FWW for support and min assist. Pt requires verbal cues for safety and does not comply with WBS, even after being cued. Weight Bearing Right Lower Extremity: Right Touch Toe Bearing Left Lower Extremity: Left Full Weight Bearing Gait Training Does the Patient Walk?: No and Walking Goal IS indicated Wheelchair Training Does the Pt Use a Wheelchair?: Yes Wheelchair (FIM): 2 Wheelchair Distance: 3=726-69 ft Distance: 75' Wheelchair Level of Assist: 4 Type of Wheelchair: Manual Pt propels w/c 75' with min assist, pt requires verbal cues for turning. Exercises Standing: Hip Abduction, Hamstring curls, 3 way Ex=Flex, Abd, Ext Standing Reps: 20 NuStep Minutes: 15 NuStep Workload: 1 (no resistance to comply with WBS) Treatments Pt completes transfers and wheelchair training to increase functional mobility and independence. Pt completes tx on Nustep to increase endurance and hip ROM, completes standing exercises in parallel bars for functional strengthening. Assessment Current Status: Fair Progress Pt transfers are improving. Pt is also able to lift right foot up off of floor today and stand on left foot alone to complete standing activities in parallel bars. Pt is not completing gait training at this time due to his inability to comply with WBS. PT Short Term Goals Short Term Goals Time Frame: Jun 22, 2017 Transfers (B,C,W/C) (FIM): 4 Gait (FIM): 1 Distance (FIM): 1=up to 49 ft Gait Distance Comment: 25' Gait Level of Assist: 4 Gait Assistive Device: FWW Wheelchair Distance: 150' PT Retirement Goals Residence Manager Goals PT Retirement Goals Time Frame: Jul 06, 2017 Transfers (B,C,W/C) (FIM): 4 Sit to Lying (QC): 4 Lying-Sitting on Side/Bed(QC): 4 Sit to Stand (QC): 4 Rollin Roll Left to Right (QC): 4 Chair/Vro-kn-Wnavr Xfer(QC): 4 Does the Patient Walk: No and Walking Goal IS indicated Gait (FIM): 4 Gait distance (FIM): 3=150 ft Distance: 150' Walk 10 feet (QC): 4 Walk 10ft-Uneven Surface(QC): 4 Walk 50ft with 2 Turns (QC): 4 Walk 150 ft (QC): 4 Gait Level of Assist: 4 Gait Assistive Device: FWW PT Plan Problem List Problem List: Activity Tolerance, Functional Strength, Safety, Balance, Gait, Transfer, Bed Mobility, ROM Treatment/Plan Treatment Plan: Continue Plan of Care Treatment Plan: Bed Mobility, Concurrent Therapy, Education, Functional Activity Leti, Functional Strength, Group Therapy, Gait, Safety, Therapeutic Exercise, Transfers Treatment Duration: Jul 06, 2017 Frequency: At least 5 of 7 days/Wk (IRF) Estimated Hrs Per Day: 1.5 hours per day Patient and/or Family Agrees t: Yes Safety Risks/Education Patient Education: Transfer Techniques, Reviewed Precautions, Correct Positioning, W/C Management, Safety Issues Teaching Recipient: Patient Teaching Methods: Demonstration, Discussion Response to Teaching: Verbalize Understanding, Reinforcement Needed Time/GCodes Time In: 800 Time Out: 900 Total Billed Treatment Time: 60 Total Billed Treatment 1 visit 30 EX 20 FA 10 [facility] ROXANNE CHURCHILL PT Jun 16, 2017 08:57
--- NOTE | 2017-06-16 09:23 | PM&R Post Admission Assessment ---
Post Admission Physician Asses The preadmission screen agrees with the post admission assessment that the patient is a good candidate for inpatient rehabilitation. The patient will have a comprehensive program of inpatient rehabilitation with a goal of maximizing level of functional independence prior to discharge home with family and [facility]. The patient will have PT/OT ninety minutes per day, each discipline, five days a week for gait, strengthening, conditioning, balance, ADLs, any patient/family/caregiver training as necessary. Speech therapy to do cognitive assessment and treat as indicated. Rehabilitation nursing to assist with bowel, bladder, skin, wound care, medication administration, pain management. Slat Basket Maker Machine to assist with discharge planning, community reentry. SCD's for DVT prophylaxis. He appears to be well motivated to participate in three hours of therapy a day. He should be able to tolerate three hours of therapy a day from a medical and orthopedic standpoint. He should benefit from the three hours of therapy a day. He has a reasonable discharge plan, reasonable discharge rehabilitation goals and a supportive family. He has various comorbidities that need to be closely monitored with medications and treatments adjusted on a daily basis as needed. These include: post-op urinary retention post-op resp insufficiency post-op constipation post-op fever DM HTN Barriers to discharge for this patient who had been independent prior to this are for him to be modified independent to supervision for ADLs and mobility skills prior to discharge home with , so as to lessen the burden of the caregivers. Risks for this patient include: 1. Fall 2. Fracture 3. DVT 4. Pulmonary embolism 5. Wound infection 6. Skin breakdown 7. Contractures 8. Poorly controlled pain 9. Urinary retention 10. UTI 11. Respiratory infection 12. Aspiration 13. Poorly controlled DM 14. Poorly controlled HTN Estimated Length of Stay: 14 days Prognosis: Rehab prognosis appears good for goal of discharge home with [family ] modified independent to supervision for ADLs and mobility skills.Will focus on W/C level of function due to Toe touch WB Status RLE. LUAN SESAY MD Jun 16, 2017 09:23
--- NOTE | 2017-06-16 09:29 | Individualized Plan of Care ---
Individualized Plan of Care Rehab Nursing IPOC Order Admission Date Jun 15, 2017 at 10:40 Current Orders Orders General/Regular (06/15/17 Lunch) Morphine Injection (Morphine Injection (06/15/17 12:15) Sodium Chloride Flush (Catheter Flush Sy (06/15/17 12:15) Sodium Chloride Flush (Catheter Flush Sy (06/15/17 12:15) Ondansetron Injection (Zofran Injectio (06/15/17 12:15) Docusate Sodium Capsule (Colace Capsule) (06/15/17 12:15) Hydrocodone/Apap 10/325 Tablet (Lortab 1 (06/15/17 12:15) Senna S Tablet (Senokot S Tablet) (06/15/17 12:15) Diphenhydramine Injection (Benadryl Inje (06/15/17 12:15) Aspirin Enteric Coated Tablet (Ecotrin T (06/15/17 12:15) Ferrous Sulfate Tablet (Feosol Tablet) (06/15/17 12:15) Fluticasone Nasal [place] (Flonase Nasal S (06/15/17 12:15) Gemfibrozil Tablet (Lopid Tablet) (06/15/17 12:15) Glimepiride Tablet (Amaryl Tablet) (06/15/17 12:15) Metformin Tablet (Glucophage Tablet) (06/15/17 12:15) Montelukast Tablet (Singulair Tablet) (06/15/17 12:15) Sitagliptin Tablet (Januvia Tablet) (06/15/17 12:15) Fluticasone Nasal [place] (Flonase Nasal S (06/16/17 09:00) Ferrous Sulfate Tablet (Feosol Tablet) (06/16/17 07:00) Glimepiride Tablet (Amaryl Tablet) (06/16/17 06:30) Metformin Tablet (Glucophage Tablet) (06/16/17 07:00) Insulin Aspart (Novolog) (Novolog (Charg (06/15/17 12:23) Bisacodyl Suppository (Dulcolax Supposit (06/15/17 12:23) Enoxaparin Injection (Lovenox Injection) (06/15/17 12:23) Lactulose Oral Solution (Enulose Oral So (06/15/17 12:23) Alfuzosin Tablet (Uroxatral Tablet) (06/15/17 12:23) Accucheck Achs ACHS (06/15/17 12:39) Activity (06/15/17 12:39) Ambulate TID (06/15/17 12:39) Bladder Scan (06/15/17 12:39) Catheter(Urinary) Discontinue (06/15/17 12:39) Initiate/Follow Protocol (06/15/17 12:39) Intake & Output 06,14,22 (06/15/17 12:39) Notify Anesthesia (06/15/17 12:39) Nursing Communication (Patient (06/15/17 12:39) Oxygen-Administer 07,19 (06/15/17 12:39) Weight Bearing Status (06/15/17 12:39) General/Regular (06/15/17 Dinner) Consult Physician (06/15/17 12:39) Incentive Spirometryrt Initial (06/15/17 12:39) Influenza Vac Order Indicated (06/15/17 12:39) Pt Evaluate/Treat Request (06/15/17 12:39) Request Ot Evaluate & Treat (06/15/17 12:39) Social Service (06/15/17 12:39) Sebastian Goode 09,21 (06/15/17 12:39) Incentive Spirometry (Nursing) Q2H (06/15/17 12:39) Weight Bearing Status (06/15/17 12:39) Admission-Acute Rehab Unit (06/15/17 12:39) Ambulate TID (06/15/17 14:24) Sequential Compression Device 08,20 (06/15/17 14:24) Dvt/Vte Risk - Notifiy Physici (06/15/17 14:24) Patient Visit (06/15/17 ) Speech Sound Lang Comp (06/15/17 ) Patient Visit (06/15/17 ) Pt Eval Low Complexity (06/15/17 ) Functional Activities, Ea 15 (06/15/17 ) Exercise Therap, Ea 15 Min (06/15/17 ) Admission-Acute Rehab Unit (06/15/17 20:05) Vital Signs: Routine 08,16,00 (06/15/17 20:05) Rehab Nursing Orders-Ipoc (06/15/17 20:05) Speech Therapy Rehab Orders (06/15/17 20:05) Rehab Nursing Orders: Diseage Management, Edu in Press Rel Techn, Hydration Management, Nutrition Management, Pain Management Other Nursing Orders: Monitor for any further postop urinary retention and constipation Intensity of Therapy to be met Patient to be seen: Min.3h per day/5 of 7d PT IPOC Problem List: Activity Tolerance, Functional Strength, Safety, Balance, Gait, Transfer, Bed Mobility, ROM Treatment Plan: Continue Plan of Care Bed Mobility, Concurrent Therapy, Education, Functional Activity Leti, Functional Strength, Group Therapy, Gait, Safety, Therapeutic Exercise, Transfers Treatment Duration: Jul 06, 2017 Frequency: At least 5 of 7 days/Wk (IRF) Estimated Hrs Per Day: 1.5 hours per day OT IPOC Problems: Decreased Activ Tolerance, Dependent Transfers, Impaired Bed Mobility , Impaired Funct Balance, Impaired I ADL's, Impaired Self-Care Skills OT Treatment, Training and Edu: Yes Plan of Care: ADL Retraining, Functional Mobility, UE Funct Exercise/Act Treatment Duration: Jul 06, 2017 Frequency: At least 5 of 7 days/Wk (IRF) Estimated Hrs Per Day: 1.[address] IPOC Speech Therapy Treatment Plan: Discontinue ST Treatment Duration: Jun 16, 2017 Frequency: Modified Program (IRF) (Evaluation, only.) Estimated Hrs Per Day: Other (Evaluation, only.) Physician IPOC Medical Issues being managed closely and that require the 24 hour availability of a physician:Postop urinary retention.postop constipation postop resp insufficiency DM,HTN Medical Issues: Bowel/Bladder Function, DVT Prophylaxis, Falls Precautions, Fluid/Electrolyte/Nutrition Balance, Infection Protection, Pain Management, Weight Bearing Precautions, Wound Care, Other (List) (as per above) Brief Synthesis of Preadmission Screen, Post-Admission Evaluation, and Therapy Evaluations: 81 yo male who had been Independent and living with family who fell [facility] [employer] and sustained a rt hip frx.Now TTWB RLE s/p IM nailing with ortho on 06/12/17 Had various postop complications as per above and followed by Hospitalist service in lieu of PCP DR Alcantara.The goal is return to home with family with [facility] and wean from supplemental 02 Medical Prognosis: good Anticipated Length of Stay: 10-18-17 Rehab Goals Modified Independent for adls and mobility skills at the W/C level of function due to limited Wt Bearing RLE Anticipated discharge destinat: Home with family and HHC LUAN SESAY MD Jun 16, 2017 09:29
--- NOTE | 2017-06-16 09:38 | PM & R (SOAP) Progress Note ---
Subjective Time Seen by Provider: 08:00 Subjective/Events-last exam Patient was seen in his room this AM Adjusting well to unit Therapy assessments reviewed as well as accucheks.Patient max assist for transfers TTWB RLE Remains afebrile.Remains on supplemental 02 Voiding. Review of Systems Pulmonary: Dyspnea Musculoskeletal: leg pain Objective Exam Last Set of Vital Signs Vital Signs Date Time Temp Pulse Resp B/P (MAP) Pulse Ox O2 Delivery O2 Flow Rate FiO2 06/16/17 06:30 98.1 85 18 115/69 94 Room Air 06/15/17 20:42 2.00 Capillary Refill : I&O Intake and Output 06/17/17 00:00 Intake Total 100 ml Output Total 900 ml Balance -800 ml Intake Oral 100 ml Output Urine Total 900 ml General: Alert, Oriented X3, Cooperative, No Acute Distress HEENT: Atraumatic, PERRLA, EOMI, Mucous Memb Moist/[place] Neck: Supple, No JVD Lungs: Clear to Auscultation Heart: Regular Rate Abdomen: Normal Bowel Sounds, Soft, No Tenderness Extremities: No Edema (trace edema RLE) Neuro: Other (Impaired RLE) Other physical findings 02 by N/C in place Results Lab Laboratory Tests 06/15/17 15:52: Glucometer 124H 06/15/17 20:33: Glucometer 105 06/16/17 05:44: Glucometer 103 Assessment/Plan Assessment Fall frx rt hip s/p IM nailing DR Crum 06-12-17 Toe touch WT bearing RLE Postop resp insuffiency on supplemental 02 post-op urinary retention improved with meds postop fever-appears resolved postop anemia on replacement postop DVT prophylaxis DM controlled HTN controlled Plan Continue PT/OT ST has signed off Wean from 02 as able Monitor for any further urinary retention and constipation F/U with Hospitalist service re DM and HTN management F/U with orthopedics LUAN Munoz MD Jun 16, 2017 09:38
[2017-06-16] MEDS: FLUTICASONE NASAL SPRAY (FLONASE) 16 GM BTL NS SCH (11:59)
--- NOTE | 2017-06-16 12:29 | Progress Note-Urology ---
Progress Note-Urology Progress Notes/Assess & Plan Progress/Assessment & Plan VOIDING WELL ON OWN. TOLERATES UROXATRAL WELL. PVR ACCEPTABLE. CONTINUE SAME Final Diagnosis URINE RETENTION AND BPH MONI WALTER MD Jun 16, 2017 12:29 pm
--- NOTE | 2017-06-16 13:34 | Occupational Ther Daily Note ---
OT Current Status-Daily Note Subjective No pain reported. Appearance Pt. is up in wheelchair. Agrees to spongebathe. Mental Status/Objective Patient Orientation: Person, Place Functional [place] Measure 0=Not Assessed/NA 4=Minimal Assistance 1=Total Assistance 5=Supervision or Setup 2=Maximal Assistance 6=Modified [place] 3=Moderate Assistance 7=Complete [place] Attachments: Oxygen ADL-Treatment Functional [place] Measure 0=Not Assessed/NA 4=Minimal Assistance 1=Total Assistance 5=Supervision or Setup 2=Maximal Assistance 6=Modified [place] 3=Moderate Assistance 7=Complete IndependenceIRFPAI Quality Coding Scale 6 Independent with activity with or without an assistive device 5 Patient requires set up or clean up by helper. Patient completes activity by themselves 4 Supervision or touching assist (CGA). [place] provide cues , steadying assist 3 The helper provides less than half the effort to complete the activity 2 The helper provides more than half the effort to complete the activity 1 Dependent. The helper does all the effort to complete an activity 7 Patient refused to complete or attempt activity 9 The patient did not perform the activity before the current illness or injury 88 Not attempted due to Medical conditions or safety concerns Bathing (FIM): 3 (Pt. required assistance to bathe rear randall area, and bilateral feet. Pt. able to wash UE and front randall area seated.) Shower/Bathe Self (QC): 3 Lower Body Dressing (FIM): 4 (Pt. is able to practice doffing shorts, and doffing/donning socks with AE. Requires min assist for this. No street clothing available so donned hospital gown. OT put clothing in washing machine. ) Lower Body Dressing (QC): 4 On/Off Footwear (QC): 4 Toileting (FIM): 1 (Pt. requested to sit on BSC. Pt. required max x 2 to stand , and assist in stance to cleanse rear randall area after bowel movement.) Transfers (B, C, W/C) (FIM): 1 (Pt. requires max assist x 2 for sit-stand. Min x 2 and increased time to pivot/transfer from surface to surface.) Toilet/Commode Transfer (FIM): 1 Toilet Transfer (QC): 1 Education OT Patient Education: Correct positioning, Modified ADL techniques, Progress toward Goal/Update tx plan, Purpose of tx/functional activities, Reviewed precautions, Rehab process, Transfer techniques Teaching Recipient: Patient Teaching Methods: Demonstration, Discussion Response to Teaching: Verbalize Understanding, Return Demonstration OT Short Term Goals Short Term Goals Time Frame: Jun 22, 2017 Eating(FIM): 5 Grooming(FIM): 5 Bathing(FIM): 3 Upper Body Dressing(FIM): 5 Lower Body Dressing(FIM): 4 Toileting(FIM): 4 Transfers (B,C,W/C) (FIM): 4 Toilet/Commode Transfer(FIM): 4 Shower Transfer(FIM): 3 Additional Short Term Goals: 1-Demonstrate ADL Tasks, 2-Verbalize Understanding , 3-ImproveStrength/Leti 1=Demonstrate adherence to instructed precautions during ADL tasks. 2=Patient will verbalize/demonstrate understanding of assistive devices/ modifications for ADL. 3=Patient will improve strength/tolerance for activity to enable patient to perform ADL's. OT Snf Goals B2B Sales Representative Goals Time Frame: Jul 06, 2017 Eating (FIM): 6 Eating (QC): 6 Groomin Oral Hygiene (QC): 6 Bathing(FIM): 5 Shower/Bathe Self (QC): 5 Upper Body Dressing(FIM): 5 Upper Body Dressing (QC): 5 Lower Body Dressing(FIM): 5 Lower Body Dressing (QC): 5 On/Off Footwear (QC): 5 Toileting(FIM): 5 Toileting Hygiene (QC): 5 Transfers (B,C,W/C) (FIM): 6 Toilet/Commode Transfer(FIM): 6 Toilet/Commode Transfer (QC): 5 Shower Transfer(FIM): 4 Additional Goals: 1-Demonstrate ADL Tasks, 2-Verbalize Understanding, 3- ImproveStrength/Leti 1=Demonstrate adherence to instructed precautions during ADL tasks. 2=Patient will verbalize/demonstrate understanding of assistive devices/ modifications for ADL. 3=Patient will improve strength/tolerance for activity to enable patient to perform ADL's. OT Education/Plan Problem List/Assessment Assessment: Decreased Activ Tolerance, Dependent Transfers, Impaired Bed Mobility, Impaired Funct Balance, Impaired I ADL's, Impaired Self-Care Skills Discharge Recommendations Plan/Recommendations: Continue POC Therapy D/C Recommendations: Home Independently, Occupational Therapy Home Care Target Placement Pt. plans to discharge home. States that he has lots of friends that can assist him. Treatment Plan/Plan of Care Treatment,Training & Education: Yes Patient would benefit from OT for education, treatment and training to promote independence in ADL's, mobility, safety and/or upper extremity function for ADL' s. Plan of Care: ADL Retraining, Functional Mobility, UE Funct Exercise/Act Treatment Duration: Jul 06, 2017 Frequency: At least 5 of 7 days/Wk (IRF) Estimated Hrs Per Day: 1.5 hours per day Agreement: Yes Rehab Potential: Fair Time/GCodes Start Time: 09:45 Stop Time: 10:45 Total Time Billed (hr/min): 60 Billed Treatment Time 1, ADL x 4 LISA RIVAS OT Jun 16, 2017 13:34
--- NOTE | 2017-06-16 13:38 | Occupational Ther Daily Note ---
OT Current Status-Daily Note Subjective No pain reported. Appearance Pt. up in chair. Agrees to OT. Mental Status/Objective Patient Orientation: Person, Place Functional [place] Measure 0=Not Assessed/NA 4=Minimal Assistance 1=Total Assistance 5=Supervision or Setup 2=Maximal Assistance 6=Modified [place] 3=Moderate Assistance 7=Complete [place] ADL-Treatment Functional [place] Measure 0=Not Assessed/NA 4=Minimal Assistance 1=Total Assistance 5=Supervision or Setup 2=Maximal Assistance 6=Modified [place] 3=Moderate Assistance 7=Complete IndependenceIRFPAI Quality Coding Scale 6 Independent with activity with or without an assistive device 5 Patient requires set up or clean up by helper. Patient completes activity by themselves 4 Supervision or touching assist (CGA). [place] provide cues , steadying assist 3 The helper provides less than half the effort to complete the activity 2 The helper provides more than half the effort to complete the activity 1 Dependent. The helper does all the effort to complete an activity 7 Patient refused to complete or attempt activity 9 The patient did not perform the activity before the current illness or injury 88 Not attempted due to Medical conditions or safety concerns Lower Body Dressing (FIM): 5 (Pt. practiced multiple times doffing/donning socks using adaptive equipment. Pt. shown technique to retrieve sock if it "flies" off foot during doffing. No shorts available.) Lower Body Dressing (QC): 4 On/Off Footwear (QC): 4 Other Treatment After practicing socks multiple times, pt. educated on UE exercises using red theraband. Pt. does not practice this, as his lunch came. Able to open all packages and feed self independently. Pt. did however verbalize understanding of UE exercises, and uses of theraband to continue with UE strengthening for ADL tasks. Education OT Patient Education: Correct positioning, Modified ADL techniques, Progress toward Goal/Update tx plan, Purpose of tx/functional activities, Reviewed precautions, Rehab process, Transfer techniques Teaching Recipient: Patient Teaching Methods: Demonstration, Discussion Response to Teaching: Verbalize Understanding, Return Demonstration OT Short Term Goals Short Term Goals Time Frame: Jun 22, 2017 Eating(FIM): 5 Grooming(FIM): 5 Bathing(FIM): 3 Upper Body Dressing(FIM): 5 Lower Body Dressing(FIM): 4 Toileting(FIM): 4 Transfers (B,C,W/C) (FIM): 4 Toilet/Commode Transfer(FIM): 4 Shower Transfer(FIM): 3 Additional Short Term Goals: 1-Demonstrate ADL Tasks, 2-Verbalize Understanding , 3-ImproveStrength/Leti 1=Demonstrate adherence to instructed precautions during ADL tasks. 2=Patient will verbalize/demonstrate understanding of assistive devices/ modifications for ADL. 3=Patient will improve strength/tolerance for activity to enable patient to perform ADL's. OT Chcf Goals Chcf Goals Time Frame: Jul 06, 2017 Eating (FIM): 6 Eating (QC): 6 Groomin Oral Hygiene (QC): 6 Bathing(FIM): 5 Shower/Bathe Self (QC): 5 Upper Body Dressing(FIM): 5 Upper Body Dressing (QC): 5 Lower Body Dressing(FIM): 5 Lower Body Dressing (QC): 5 On/Off Footwear (QC): 5 Toileting(FIM): 5 Toileting Hygiene (QC): 5 Transfers (B,C,W/C) (FIM): 6 Toilet/Commode Transfer(FIM): 6 Toilet/Commode Transfer (QC): 5 Shower Transfer(FIM): 4 Additional Goals: 1-Demonstrate ADL Tasks, 2-Verbalize Understanding, 3- ImproveStrength/Leti 1=Demonstrate adherence to instructed precautions during ADL tasks. 2=Patient will verbalize/demonstrate understanding of assistive devices/ modifications for ADL. 3=Patient will improve strength/tolerance for activity to enable patient to perform ADL's. OT Education/Plan Problem List/Assessment Assessment: Decreased Activ Tolerance, Dependent Transfers, Impaired Bed Mobility, Impaired I ADL's, Impaired Self-Care Skills Discharge Recommendations Plan/Recommendations: Continue POC Therapy D/C Recommendations: Home Independently, Occupational Therapy Home Care Treatment Plan/Plan of Care Treatment,Training & Education: Yes Patient would benefit from OT for education, treatment and training to promote independence in ADL's, mobility, safety and/or upper extremity function for ADL' s. Plan of Care: ADL Retraining, Functional Mobility, UE Funct Exercise/Act Treatment Duration: Jul 06, 2017 Frequency: At least 5 of 7 days/Wk (IRF) Estimated Hrs Per Day: 1.5 hours per day Agreement: Yes Rehab Potential: Good Time/GCodes Start Time: 13:00 Stop Time: 13:30 Total Time Billed (hr/min): 30 Billed Treatment Time 1, ADL x 2 LISA RIVAS OT Jun 16, 2017 13:38
--- NOTE | 2017-06-16 14:35 | Physical Therapy Daily Note ---
PT Daily Note-Current Subjective Patient agrees to PT. Pain Numeric Pain Scale: 5-Moderate Pain Location: Right Location Body Site: Hip Pain Description: Ache Mental Status Patient Orientation: Normal For Age Transfers Functional [place] Measure 0=Not Assessed/NA 4=Minimal Assistance 1=Total Assistance 5=Supervision or Setup 2=Maximal Assistance 6=Modified [place] 3=Moderate Assistance 7=Complete IndependenceIRFPAI Quality Coding Scale 6 Independent with activity with or without an assistive device 5 Patient requires set up or clean up by helper. Patient completes activity by themselves 4 Supervision or touching assist (CGA). [place] provide cues , steadying assist 3 The helper provides less than half the effort to complete the activity 2 The helper provides more than half the effort to complete the activity 1 Dependent. The helper does all the effort to complete an activity 7 Patient refused to complete or attempt activity 9 The patient did not perform the activity before the current illness or injury 88 Not attempted due to Medical conditions or safety concerns Transfers (B, C, W/C) (FIM): 3 Scootin Supine to/from Sit: 4 Sit to/from Stand: 3 Sit to Lying (QC): 3 Sit to Stand (QC): 3 Chair/Fcc-je-Qorze Xfer(QC): 3 Bed to/from Chair: 3 sit to stand with FWW x 2 sets mod assist; parallel bars SBA with patient pulling self up to stand, TTWB right LE x 3 sets Weight Bearing Right Lower Extremity: Right Touch Toe Bearing Left Lower Extremity: Left Full Weight Bearing Wheelchair Training Does the Pt Use a Wheelchair?: Yes Wheelchair (FIM): 4 Wheelchair Distance: 3=150 ft Distance: 150' x 2 Wheelchair Level of Assist: 4 Wheel 50 ft with 2 turns (QC): 3 Wheel 150 ft (QC): 3 Type of Wheelchair: Manual Exercises Seated Therapy Exercises: Ankle pumps, Long arc quads Seated Reps: [address] Ex=Flex, Abd, Ext Standing Reps: 20 (2 sets) Assessment Current Status: Good Progress PT Short Term Goals Short Term Goals Time Frame: Jun 22, 2017 Transfers (B,C,W/C) (FIM): 4 Gait (FIM): 1 Distance (FIM): 1=up to 49 ft Gait Distance Comment: 25' Gait Level of Assist: 4 Gait Assistive Device: FWW Wheelchair Distance: 75' PT Floor Technician Goals [place] Goals PT Floor Technician Goals Time Frame: Jul 06, 2017 Transfers (B,C,W/C) (FIM): 4 Sit to Lying (QC): 4 Lying-Sitting on Side/Bed(QC): 4 Sit to Stand (QC): 4 Rollin Roll Left to Right (QC): 4 Chair/Ims-cm-Scnes Xfer(QC): 4 Does the Patient Walk: No and Walking Goal IS indicated Gait (FIM): 4 Gait distance (FIM): 3=150 ft Distance: 150' Walk 10 feet (QC): 4 Walk 10ft-Uneven Surface(QC): 4 Walk 50ft with 2 Turns (QC): 4 Walk 150 ft (QC): 4 Gait Level of Assist: 4 Gait Assistive Device: FWW PT Plan Treatment/Plan Treatment Plan: Continue Plan of Care Treatment Plan: Bed Mobility, Concurrent Therapy, Education, Functional Activity Leti, Functional Strength, Group Therapy, Gait, Safety, Therapeutic Exercise, Transfers Treatment Duration: Jul 06, 2017 Frequency: At least 5 of 7 days/Wk (IRF) Estimated Hrs Per Day: 1.5 hours per day Patient and/or Family Agrees t: Yes Time/GCodes Time In: 1353 Time Out: 1423 Total Billed Treatment Time: 30 Total Billed Treatment 1 visit FA 20 min EX 10 min KONG ANGELES PT Jun 16, 2017 14:35
[2017-06-16] MEDS: ALFUZOSIN HCL 10 MG TAB (UROXATRAL) PO SCH (16:59)
[2017-06-16 17:26] VITALS: BP 156/71
[2017-06-16] MEDS: MONTELUKAST 10 MG (SINGULAIR) TAB PO SCH (20:30)
[2017-06-17 05:00] VITALS: BP 147/71
[2017-06-17] MEDS: inSUlin ASPART (NovoLOG) 1 UNIT/0.01 ML (CHARGE PER UNIT) SC SCH ×4 (05:38→22:07)
[2017-06-17] MEDS: metFORMIN 500 MG (GLUCOPHAGE) TAB PO SCH (06:16)
[2017-06-17] MEDS: GLIMEPIRIDE 2 MG (AMARYL) TAB PO SCH (06:16)
[2017-06-17] MEDS: CATHETER FLUSH 10 ML SYR IV SCH ×3 (06:16→22:07)
[2017-06-17] MEDS: FERROUS SULF 325 MG (IRON) TAB PO SCH (06:16)
--- NOTE | 2017-06-17 06:53 | Progress Note-Urology ---
Progress Note-Urology Progress Notes/Assess & Plan Progress/Assessment & Plan CONTINUES WELL VOIDING ON OWN. WE WILL SEE IN OFFICE IN 4 WEEKS. NEEDS TO BE DISCHARGED ON UROXATRAL 10 MG DAILY Final Diagnosis URINE RETENTION MONI WALTER MD Jun 17, 2017 6:53 am
--- NOTE | 2017-06-17 08:56 | Physical Therapy Daily Note ---
PT Daily Note-Current Subjective Patient in bed pre tx, agrees to PT, has no complaints of pain. Patient needs to get dressed upper and lower. Appearance Patient in wheelchair at bedside post tx, with nurse call, phone, tray, all needs met. Has OT right after PT. Mental Status Patient Orientation: Person, Place, Situation Transfers Functional [place] Measure 0=Not Assessed/NA 4=Minimal Assistance 1=Total Assistance 5=Supervision or Setup 2=Maximal Assistance 6=Modified [place] 3=Moderate Assistance 7=Complete IndependenceIRFPAI Quality Coding Scale 6 Independent with activity with or without an assistive device 5 Patient requires set up or clean up by helper. Patient completes activity by themselves 4 Supervision or touching assist (CGA). [place] provide cues , steadying assist 3 The helper provides less than half the effort to complete the activity 2 The helper provides more than half the effort to complete the activity 1 Dependent. The helper does all the effort to complete an activity 7 Patient refused to complete or attempt activity 9 The patient did not perform the activity before the current illness or injury 88 Not attempted due to Medical conditions or safety concerns Transfers (B, C, W/C) (FIM): 3 Scootin Rollin Supine to/from Sit: 3 Sit to/from Stand: 4 Bed to/from Chair: 4 Patient has trouble keeping weight off right leg and complying with his weight bearing status. Weight Bearing Right Lower Extremity: Right Touch Toe Bearing Left Lower Extremity: Left Full Weight Bearing Exercises Supine Ex: Ankle pumps, Quad Set, Glut sets, Heel Slides, Short Arc Quads, Straight leg raise, Hip abd/add Supine Reps: 15 Standing: Hip Abduction, Hamstring curls, Marching (only with right leg) Standing Reps: 15 sit to stand at parallel bars x5 Treatments bed mobility and transfers, functional strengthening, dressing upper and lower Assessment Current Status: Fair Progress improving bed mobility and transfers PT Short Term Goals Short Term Goals Time Frame: Jun 22, 2017 Transfers (B,C,W/C) (FIM): 4 Gait (FIM): 1 Distance (FIM): 1=up to 49 ft Gait Distance Comment: 25' Gait Level of Assist: 4 Gait Assistive Device: FWW Wheelchair Distance: 150' x 2 PT Blackener Goals [place] Goals PT Blackener Goals Time Frame: Jul 06, 2017 Transfers (B,C,W/C) (FIM): 4 Sit to Lying (QC): 4 Lying-Sitting on Side/Bed(QC): 4 Sit to Stand (QC): 4 Rollin Roll Left to Right (QC): 4 Chair/Lqv-jp-Fmnoo Xfer(QC): 4 Does the Patient Walk: No and Walking Goal IS indicated Gait (FIM): 4 Gait distance (FIM): 3=150 ft Distance: 150' Walk 10 feet (QC): 4 Walk 10ft-Uneven Surface(QC): 4 Walk 50ft with 2 Turns (QC): 4 Walk 150 ft (QC): 4 Gait Level of Assist: 4 Gait Assistive Device: FWW PT Plan Problem List Problem List: Activity Tolerance, Functional Strength, Safety, Balance, Gait, Transfer, Bed Mobility, ROM Treatment/Plan Treatment Plan: Continue Plan of Care Treatment Plan: Bed Mobility, Concurrent Therapy, Education, Functional Activity Leti, Functional Strength, Group Therapy, Gait, Safety, Therapeutic Exercise, Transfers Treatment Duration: Jul 06, 2017 Frequency: At least 5 of 7 days/Wk (IRF) Estimated Hrs Per Day: 1.5 hours per day Patient and/or Family Agrees t: Yes Safety Risks/Education Patient Education: Transfer Techniques, Reviewed Precautions, Correct Positioning, Safety Issues Teaching Recipient: Patient Teaching Methods: Demonstration, Discussion Response to Teaching: Reinforcement Needed Time/GCodes Time In: 800 Time Out: 858 Total Billed Treatment Time: 58 Total Billed Treatment 1 visit EX 30' FA 28' ROXANNE CHURCHILL PT Jun 17, 2017 08:56
--- NOTE | 2017-06-17 09:07 | PM & R (SOAP) Progress Note ---
Subjective Time Seen by Provider: 07:55 Subjective/Events-last exam Patient was seen in his room this AM Patient min assist for transfers Appreciate DR Burnham note Objective Exam Last Set of Vital Signs Vital Signs Date Time Temp Pulse Resp B/P (MAP) Pulse Ox O2 Delivery O2 Flow Rate FiO2 06/17/17 07:48 Nasal Cannula 2.00 06/17/17 05:00 99.5 99 16 147/71 95 Capillary Refill : I&O Intake and Output 06/18/17 00:00 Intake Total 475 ml Output Total 300 ml Balance 175 ml Intake Oral 475 ml Output Urine Total 300 ml General: Alert, Oriented X3, Cooperative, No Acute Distress HEENT: Atraumatic, PERRLA, EOMI, Mucous Memb Moist/[place] Neck: Supple, No JVD Lungs: Clear to Auscultation Heart: Regular Rate Abdomen: Normal Bowel Sounds, Soft, No Tenderness Extremities: No Edema (trace edema RLE) Neuro: Other (Impaired RLE) Results Lab Laboratory Tests 06/15/17 15:52: Glucometer 124H 06/15/17 20:33: Glucometer 105 06/16/17 05:44: Glucometer 103 06/16/17 10:47: Glucometer 147H 06/16/17 15:35: Glucometer 145H 06/16/17 20:31: Glucometer 101 06/17/17 05:36: Glucometer 91 Assessment/Plan Assessment Fall frx rt hip s/p IM nailing DR Crum 06-12-17 Toe touch WT bearing RLE Postop resp insuffiency on supplemental 02 post-op urinary retention improved with meds postop fever-appears resolved postop anemia on replacement postop DVT prophylaxis DM controlled HTN controlled Plan Continue PT/OT ST has signed off Wean from 02 as able Monitor for any further urinary retention and constipation F/U with Hospitalist service re DM and HTN management F/U with orthopedics prn LUAN SESAY MD Jun 17, 2017 09:07
[2017-06-17] MEDS: SENNA W/DOCUSATE (SENOKOT S) TABLET PO SCH ×2 (09:24→20:56)
[2017-06-17] MEDS: LACTULOSE SYRUP 10GM/15ML (ENULOSE) 30ML UDC PO SCH ×2 (09:24→20:57)
[2017-06-17] MEDS: GEMFIBROZIL 600 MG (LOPID) TAB PO SCH ×2 (09:24→20:56)
[2017-06-17] MEDS: ASPIRIN E.C. 325 MG (ECOTRIN) TABLET PO SCH (09:24)
[2017-06-17] MEDS: DOCUSATE SODIUM 100 MG (COLACE) CAP PO SCH ×2 (09:24→20:57)
[2017-06-17] MEDS: sitaGLIPtin 50 MG (NON-FORMULARY) TAB PO SCH (09:24)
[2017-06-17] MEDS: FLUTICASONE NASAL SPRAY (FLONASE) 16 GM BTL NS SCH (09:25)
--- NOTE | 2017-06-17 10:55 | Occupational Ther Daily Note ---
OT Current Status-Daily Note Subjective Pt sitting in w/c. No c/o pain. Agrees to therapy, would like a shower. Mental Status/Objective Patient Orientation: Person, Place, Time, Situation Functional [place] Measure 0=Not Assessed/NA 4=Minimal Assistance 1=Total Assistance 5=Supervision or Setup 2=Maximal Assistance 6=Modified [place] 3=Moderate Assistance 7=Complete [place] Attachments: IV, Oxygen ADL-Treatment Functional [place] Measure 0=Not Assessed/NA 4=Minimal Assistance 1=Total Assistance 5=Supervision or Setup 2=Maximal Assistance 6=Modified [place] 3=Moderate Assistance 7=Complete IndependenceIRFPAI Quality Coding Scale 6 Independent with activity with or without an assistive device 5 Patient requires set up or clean up by helper. Patient completes activity by themselves 4 Supervision or touching assist (CGA). [place] provide cues , steadying assist 3 The helper provides less than half the effort to complete the activity 2 The helper provides more than half the effort to complete the activity 1 Dependent. The helper does all the effort to complete an activity 7 Patient refused to complete or attempt activity 9 The patient did not perform the activity before the current illness or injury 88 Not attempted due to Medical conditions or safety concerns Bathing (FIM): 4 (Pt requires assist to wash/dry lower legs and feet. Pt completes bathing in rolling shower chair using handheld shower. ) Bathing Location: L Arm, R Arm, L Upper Leg, R Upper Leg, Chest, Abdomen, Buttocks, Perineal Area Upper Body (FIM): 5 (After set up, pt able to don and doff shirt by self. ) Lower Body Dressing (FIM): 1 (Pt able to get L foot into pantleg, assist with R. Assist x2 for lower body dressing, assist to stand while other assists to pull up pants. Pt able to doff socks with dressing stick. Able to don L sock with sock aid, assist with R due to pt's foot damp after shower, getting stuck in sock aid. ) Toileting (FIM): 4 (Assist needed to hold back pant leg while pt grasped and placed urinal. Assist to empty urninal.) Shower Transfer(FIM): 1 (Assist x2 for shower transfer. Max A to stand while pt held onto grab bars, other assist to switch w/c out for rolling shower chair. ) Pt completes shaving during shower while seated. Pt declined brushing teeth stating that he had dentures. After therapy, pt sitting in w/c in room with phone and call light in reach. All needs met. OT Short Term Goals Short Term Goals Time Frame: Jun 22, 2017 Eating(FIM): 5 Grooming(FIM): 5 Bathing(FIM): 3 Upper Body Dressing(FIM): 5 Lower Body Dressing(FIM): 4 Toileting(FIM): 4 Transfers (B,C,W/C) (FIM): 4 Toilet/Commode Transfer(FIM): 4 Shower Transfer(FIM): 3 Additional Short Term Goals: 1-Demonstrate ADL Tasks, 2-Verbalize Understanding , 3-ImproveStrength/Leti 1=Demonstrate adherence to instructed precautions during ADL tasks. 2=Patient will verbalize/demonstrate understanding of assistive devices/ modifications for ADL. 3=Patient will improve strength/tolerance for activity to enable patient to perform ADL's. OT Golf Club Head Inspector And Adjuster Goals [employer] Head Inspector And Adjuster Goals Time Frame: Jul 06, 2017 Eating (FIM): 6 Eating (QC): 6 Groomin Oral Hygiene (QC): 6 Bathing(FIM): 5 Shower/Bathe Self (QC): 5 Upper Body Dressing(FIM): 5 Upper Body Dressing (QC): 5 Lower Body Dressing(FIM): 5 Lower Body Dressing (QC): 5 On/Off Footwear (QC): 5 Toileting(FIM): 5 Toileting Hygiene (QC): 5 Transfers (B,C,W/C) (FIM): 6 Toilet/Commode Transfer(FIM): 6 Toilet/Commode Transfer (QC): 5 Shower Transfer(FIM): 4 Additional Goals: 1-Demonstrate ADL Tasks, 2-Verbalize Understanding, 3- ImproveStrength/Leti 1=Demonstrate adherence to instructed precautions during ADL tasks. 2=Patient will verbalize/demonstrate understanding of assistive devices/ modifications for ADL. 3=Patient will improve strength/tolerance for activity to enable patient to perform ADL's. OT Education/Plan Discharge Recommendations Plan/Recommendations: Continue POC Treatment Plan/Plan of Care Patient would benefit from OT for education, treatment and training to promote independence in ADL's, mobility, safety and/or upper extremity function for ADL' s. Plan of Care: ADL Retraining, Functional Mobility, UE Funct Exercise/Act Treatment Duration: Jul 06, 2017 Frequency: At least 5 of 7 days/Wk (IRF) Estimated Hrs Per Day: 1.5 hours per day Agreement: Yes Rehab Potential: Good Time/GCodes Start Time: 09:52 Stop Time: 10:54 Total Time Billed (hr/min): 62 Billed Treatment Time 1 visit, ADL 4 (62 minutes) CATRACHO CARRASCO Jun 17, 2017 10:55
--- NOTE | 2017-06-17 14:47 | Therapy Group Daily Note ---
Therapy Daily Group Note Patient Education Topic Other List Below (memory strategies) Exercises LE Seated Exercise, UE Exercise Other/Notes Pt transported via w/c to therapy gym for OT/PT group. Group consisted of introductions (name, place living, shared rehab story), socialization, education on memory strategies, memory activity and identify own memory tools used to strategize. Pt was able to introduce self and share stories with peers appropriately. Pt contributed to conversations throughout group. Pt interacted with peers appropriately and engaged in conversation. Pt was able to describe own memory strategy. Pt led UE/LE seated exercises without difficulty, stating he performs exercises lying in bed. Pt transported back to room in w/c. After therapy, pt lying in bed with call light/phone in reach. All needs met in room. Start Time: 13:00 Stop Time: 14:15 Total Billed Treatment Time: 75 Total Billed Treatment 1-GRP CATRACHO CARRASCO Jun 17, 2017 14:47
[2017-06-17 17:20] VITALS: BP 168/77
[2017-06-17] MEDS: ALFUZOSIN HCL 10 MG TAB (UROXATRAL) PO SCH (18:08)
[2017-06-17] MEDS: MONTELUKAST 10 MG (SINGULAIR) TAB PO SCH (20:56)
[2017-06-18 05:21] VITALS: BP 145/71
[2017-06-18] MEDS: inSUlin ASPART (NovoLOG) 1 UNIT/0.01 ML (CHARGE PER UNIT) SC SCH ×4 (05:42→21:03)
[2017-06-18] MEDS: CATHETER FLUSH 10 ML SYR IV SCH ×3 (05:42→21:04)
[2017-06-18] MEDS: GLIMEPIRIDE 2 MG (AMARYL) TAB PO SCH (06:06)
[2017-06-18] MEDS: FERROUS SULF 325 MG (IRON) TAB PO SCH (06:07)
[2017-06-18] MEDS: metFORMIN 500 MG (GLUCOPHAGE) TAB PO SCH (06:07)
[2017-06-18] MEDS: ASPIRIN E.C. 325 MG (ECOTRIN) TABLET PO SCH (08:28)
[2017-06-18] MEDS: GEMFIBROZIL 600 MG (LOPID) TAB PO SCH ×2 (08:28→21:03)
[2017-06-18] MEDS: sitaGLIPtin 50 MG (NON-FORMULARY) TAB PO SCH (08:28)
[2017-06-18] MEDS: SENNA W/DOCUSATE (SENOKOT S) TABLET PO SCH ×2 (08:28→21:03)
[2017-06-18] MEDS: DOCUSATE SODIUM 100 MG (COLACE) CAP PO SCH ×2 (08:28→21:03)
[2017-06-18] MEDS: FLUTICASONE NASAL SPRAY (FLONASE) 16 GM BTL NS SCH (08:29)
[2017-06-18] MEDS: LACTULOSE SYRUP 10GM/15ML (ENULOSE) 30ML UDC PO SCH ×2 (08:29→21:03)
--- NOTE | 2017-06-18 13:48 | Physical Therapy Daily Note ---
PT Daily Note-Current Subjective States that he would like to ride the nustep Pain Numeric Pain Scale: 0-No Pain Transfers Functional [place] Measure 0=Not Assessed/NA 4=Minimal Assistance 1=Total Assistance 5=Supervision or Setup 2=Maximal Assistance 6=Modified [place] 3=Moderate Assistance 7=Complete IndependenceIRFPAI Quality Coding Scale 6 Independent with activity with or without an assistive device 5 Patient requires set up or clean up by helper. Patient completes activity by themselves 4 Supervision or touching assist (CGA). [place] provide cues , steadying assist 3 The helper provides less than half the effort to complete the activity 2 The helper provides more than half the effort to complete the activity 1 Dependent. The helper does all the effort to complete an activity 7 Patient refused to complete or attempt activity 9 The patient did not perform the activity before the current illness or injury 88 Not attempted due to Medical conditions or safety concerns Transfers (B, C, W/C) (FIM): 2 Sit to/from Stand: 2 Weight Bearing Right Lower Extremity: Right Touch Toe Bearing Left Lower Extremity: Left Full Weight Bearing Exercises NuStep Minutes: 10 NuStep Workload: 5 Assessment Current Status: Excellent Progress The patient has difficulty maintaining weightbearing status with transfers. PT Short Term Goals Short Term Goals Time Frame: Jun 22, 2017 Transfers (B,C,W/C) (FIM): 4 Gait (FIM): 1 Distance (FIM): 1=up to 49 ft Gait Distance Comment: 25' Gait Level of Assist: 4 Gait Assistive Device: FWW Wheelchair Distance: 150' x 2 PT Senior Care Goals Senior Care Goals PT Forensics Team Director Goals Time Frame: Jul 06, 2017 Transfers (B,C,W/C) (FIM): 4 Sit to Lying (QC): 4 Lying-Sitting on Side/Bed(QC): 4 Sit to Stand (QC): 4 Rollin Roll Left to Right (QC): 4 Chair/Jva-ak-Wyonm Xfer(QC): 4 Does the Patient Walk: No and Walking Goal IS indicated Gait (FIM): 4 Gait distance (FIM): 3=150 ft Distance: 150' Walk 10 feet (QC): 4 Walk 10ft-Uneven Surface(QC): 4 Walk 50ft with 2 Turns (QC): 4 Walk 150 ft (QC): 4 Gait Level of Assist: 4 Gait Assistive Device: FWW PT Plan Treatment/Plan Treatment Plan: Continue Plan of Care Treatment Plan: Bed Mobility, Concurrent Therapy, Education, Functional Activity Leti, Functional Strength, Group Therapy, Gait, Safety, Therapeutic Exercise, Transfers Treatment Duration: Jul 06, 2017 Frequency: At least 5 of 7 days/Wk (IRF) Estimated Hrs Per Day: 1.5 hours per day Patient and/or Family Agrees t: Yes Time/GCodes Time In: 1325 Time Out: 1345 Total Billed Treatment Time: 20 Total Billed Treatment 1, EX x 20 OLEGARIO VILLASENOR PT Jun 18, 2017 13:48
[2017-06-18] MEDS: ALFUZOSIN HCL 10 MG TAB (UROXATRAL) PO SCH (18:33)
[2017-06-18 18:52] VITALS: BP 150/70
[2017-06-18] MEDS: MONTELUKAST 10 MG (SINGULAIR) TAB PO SCH (21:03)
[2017-06-18] MEDS: HYDROcodone/APAP 10 MG/325 MG (LORTAB) TAB PO PRN (22:30)
[2017-06-19 05:00] VITALS: BP 145/71
[2017-06-19] MEDS: GLIMEPIRIDE 2 MG (AMARYL) TAB PO SCH (05:43)
[2017-06-19] MEDS: FERROUS SULF 325 MG (IRON) TAB PO SCH (05:43)
[2017-06-19] MEDS: metFORMIN 500 MG (GLUCOPHAGE) TAB PO SCH (05:43)
[2017-06-19] MEDS: CATHETER FLUSH 10 ML SYR IV SCH ×3 (05:44→20:44)
[2017-06-19] MEDS: inSUlin ASPART (NovoLOG) 1 UNIT/0.01 ML (CHARGE PER UNIT) SC SCH ×4 (05:44→20:32)
[2017-06-19] MEDS ORDERED: INFLUENZA TRIvalent 2017-2018 0.5 ML/45 MCG SYR IM ONE (07:45)
[2017-06-19] MEDS: LACTULOSE SYRUP 10GM/15ML (ENULOSE) 30ML UDC PO SCH ×2 (08:33→20:44)
[2017-06-19] MEDS: sitaGLIPtin 50 MG (NON-FORMULARY) TAB PO SCH (08:33)
[2017-06-19] MEDS: ASPIRIN E.C. 325 MG (ECOTRIN) TABLET PO SCH (08:33)
[2017-06-19] MEDS: GEMFIBROZIL 600 MG (LOPID) TAB PO SCH ×2 (08:33→20:44)
[2017-06-19] MEDS: SENNA W/DOCUSATE (SENOKOT S) TABLET PO SCH ×2 (08:33→20:43)
[2017-06-19] MEDS: DOCUSATE SODIUM 100 MG (COLACE) CAP PO SCH ×2 (08:33→20:44)
[2017-06-19] MEDS: FLUTICASONE NASAL SPRAY (FLONASE) 16 GM BTL NS SCH (08:34)
[2017-06-19 15:56] LABS: BILIRUBIN,URINE NEGATIVE (NEGATIVE); KETONES,URINE NEGATIVE (NEGATIVE); LEUKOCYTE ESTERASE ,URINE 1+ (NEGATIVE); NITRITE,URINE NEGATIVE (NEGATIVE); PH,URINE 5 (5-9); PROTEIN,URINE 1+ (NEGATIVE); UROBILINOGEN,URINE NORMAL (NORMAL)
--- NOTE | 2017-06-19 16:39 | Progress Note-Urology ---
Progress Note-Urology Progress Notes/Assess & Plan Progress/Assessment & Plan patient had hematuria with some clots. able to void without difficulty. urine clearing. plan ct and cysto at bedside tomorrow am Final Diagnosis gross hematuria MONI WALTER MD Jun 19, 2017 4:39 pm
[2017-06-19] MEDS: TRIM/SULFAMETH 160/800 (SEPTRA DS) TAB PO SCH (17:19)
[2017-06-19] MEDS: ALFUZOSIN HCL 10 MG TAB (UROXATRAL) PO SCH (17:19)
[2017-06-19 18:32] VITALS: BP 177/73
[2017-06-19] MEDS: MONTELUKAST 10 MG (SINGULAIR) TAB PO SCH (20:44)
[2017-06-19] MEDS: HYDROcodone/APAP 10 MG/325 MG (LORTAB) TAB PO PRN (22:13)
[2017-06-20] MEDS: inSUlin ASPART (NovoLOG) 1 UNIT/0.01 ML (CHARGE PER UNIT) SC SCH ×4 (05:05→21:18)
[2017-06-20] MEDS: CATHETER FLUSH 10 ML SYR IV SCH ×3 (05:05→22:00)
[2017-06-20 05:47] VITALS: BP 138/69
[2017-06-20] MEDS: TRIM/SULFAMETH 160/800 (SEPTRA DS) TAB PO SCH ×2 (06:12→17:14)
[2017-06-20] MEDS: GLIMEPIRIDE 2 MG (AMARYL) TAB PO SCH (06:12)
[2017-06-20] MEDS: FERROUS SULF 325 MG (IRON) TAB PO SCH (06:12)
[2017-06-20] MEDS: metFORMIN 500 MG (GLUCOPHAGE) TAB PO SCH (06:12)
--- NOTE | 2017-06-20 07:12 | Progress Note-Pre Operative ---
Pre-Operative Progress Note H&P Reviewed The H&P was reviewed, patient examined and no changes noted. Date Seen by Provider: Jun 20, 2017 Time Seen by Provider: 07:11 Date H&P Reviewed: Jun 20, 2017 Time H&P Reviewed: 07:11 Pre-Operative Diagnosis: GROSS HEMATURIA MONI WALTER MD Jun 20, 2017 07:11
[2017-06-20] MEDS ORDERED: LEVOFLOXACIN 500 MG TAB (LEVAQUIN) PO ONE (07:45)
[2017-06-20] MEDS: sitaGLIPtin 50 MG (NON-FORMULARY) TAB PO SCH (08:07)
--- NOTE | 2017-06-20 08:11 | Progress Note-Post Operative ---
Post-Operative Progess Note Surgeon (s)/Business Development Sales Executive (s) Surgeon MONI WALTER MD Business Development Sales Executive: N/A Pre-Operative Diagnosis GROSS HEMATURIA Post-Operative Diagnosis SAME Procedure & Operative Findings Date of Procedure 06/20/17 Procedure Performed/Findings CYSTOSCOPY Anesthesia Type LOCAL Estimated Blood Loss Estimated blood loss (mL): N/A Specimens/Packing Specimens Removed N/A Packing: N/A MONI WALTER MD Jun 20, 2017 8:11 am
[2017-06-20] MEDS ORDERED: LIDOCAINE UROJET 2% GEL 10 ML PKG ONE (08:16)
--- NOTE | 2017-06-20 08:39 | Progress Note-Post Operative ---
Post-Operative Progess Note Surgeon (s)/Stone Engraver (s) Surgeon MONI WALTER MD Stone Engraver: N/A Pre-Operative Diagnosis GROSS HEMATURIA Post-Operative Diagnosis SAME Procedure & Operative Findings Date of Procedure 06/20/17 Procedure Performed/Findings CYSTOSCOPY Anesthesia Type LOCAL Estimated Blood Loss Estimated blood loss (mL): N/A Specimens/Packing Specimens Removed N/A Packing: N/A MONI WALTER MD Jun 20, 2017 8:39 am
--- NOTE | 2017-06-20 09:10 | Diagnostic Imaging Report ---
PROCEDURE: CT abdomen and pelvis without contrast. TECHNIQUE: Multiple contiguous axial images were obtained through the abdomen and pelvis without the use of intravenous contrast. INDICATION: Hematuria. FINDINGS: The lung bases demonstrate mild atelectasis. The liver, the spleen, the pancreas, and the adrenal glands appear unremarkable for an unenhanced exam. There is a 5-mm calcified stone in the gallbladder with no CT evidence of cholecystitis. There is a 5-mm nonobstructive stone in the upper pole of the right kidney. No hydronephrosis. No ureteric stones. No bladder stone is seen. Calcification near the lower aspect of the bladder is probably in the median lobe of the prostate which is minimally enlarged. Scattered diverticula are seen. No evidence of diverticulitis. No significant free fluid or fluid collection in the abdomen or pelvis is seen. The abdominal aorta is normal in caliber. No periaortic or significantly enlarged lymph node is seen. Small fat-containing umbilical hernia seen. There is internal fixation hardware for right intertrochanteric fracture seen in good alignment. Degenerative changes in the SI joints with vacuum phenomena noted. IMPRESSION: 1. A 5-mm upper pole right kidney stone. No hydronephrosis. No other urinary tract stones. 2. A 5-mm calcified gallstone with no CT evidence of cholecystitis. 3. Tiny fat-containing umbilical hernia. Dictated by: Dictated on workstation # [id number]
[2017-06-20] MEDS: GEMFIBROZIL 600 MG (LOPID) TAB PO SCH ×2 (10:22→20:15)
[2017-06-20] MEDS: DOCUSATE SODIUM 100 MG (COLACE) CAP PO SCH ×2 (10:22→20:15)
[2017-06-20] MEDS: LACTULOSE SYRUP 10GM/15ML (ENULOSE) 30ML UDC PO SCH ×2 (10:22→20:15)
[2017-06-20] MEDS: FLUTICASONE NASAL SPRAY (FLONASE) 16 GM BTL NS SCH (10:22)
[2017-06-20] MEDS: SENNA W/DOCUSATE (SENOKOT S) TABLET PO SCH ×2 (10:22→20:15)
--- NOTE | 2017-06-20 11:21 | Physical Therapy Daily Note ---
PT Daily Note-Current Subjective Pt is laying in bed prior to tx and agreeable to PT. Pt reports 4/10 pain in R LE. Pt is dressed (upper and lower) prior to PT. Pt is laying in bed with nurse call, phone, tray, all needs met post tx. Pain Numeric Pain Scale: 4 Location Body Site: Thigh Pain Description: Ache Mental Status Patient Orientation: Normal For Age Transfers Functional [place] Measure 0=Not Assessed/NA 4=Minimal Assistance 1=Total Assistance 5=Supervision or Setup 2=Maximal Assistance 6=Modified [place] 3=Moderate Assistance 7=Complete IndependenceIRFPAI Quality Coding Scale 6 Independent with activity with or without an assistive device 5 Patient requires set up or clean up by helper. Patient completes activity by themselves 4 Supervision or touching assist (CGA). [place] provide cues , steadying assist 3 The helper provides less than half the effort to complete the activity 2 The helper provides more than half the effort to complete the activity 1 Dependent. The helper does all the effort to complete an activity 7 Patient refused to complete or attempt activity 9 The patient did not perform the activity before the current illness or injury 88 Not attempted due to Medical conditions or safety concerns Transfers (B, C, W/C) (FIM): 4 Scootin Supine to/from Sit: 4 Sit to/from Stand: 4 Bed to/from Chair: 4 Pt completes all bed mobility with min assist. Pt moves slowly, requires assist with lifting right leg to bed. Pt completes stand pivot transfer with FWW. Pt requires verbal cues for WBS, reports he is complying with WBS but it appears he is still putting weight through R LE, is verbally cued. Weight Bearing Right Lower Extremity: Right Touch Toe Bearing Left Lower Extremity: Left Full Weight Bearing Gait Training Does the Patient Walk?: No and Walking Goal IS indicated Exercises Supine Ex: Ankle pumps, Quad Set, Glut sets, Heel Slides, Short Arc Quads, Hip abd/add Supine Reps: 20 Seated Therapy Exercises: Long arc quads Seated Reps: [address] Ex=Flex, Abd, Ext, Unilateral stance Standing Reps: 15 Treatments Pt completes dressing (upper and lower) prior to treatment. Pt completes seated , supine, and standing exercises in parallel bars for functional LE strengthening. Assessment Current Status: Fair Progress Pt endurance, activity tolerance, and bed mobility are improving. PT is not completing gait training with patient due to inability to comply with WBS. Pt oxygen is monitored throughout treatment, decreased to 87, pt was rested and verbally cued to breathe and it returned to 94%. O2 put back on after getting him back to his room. PT Short Term Goals Short Term Goals Time Frame: Jun 22, 2017 Transfers (B,C,W/C) (FIM): 4 Gait (FIM): 1 Distance (FIM): 1=up to 49 ft Gait Distance Comment: 25' Gait Level of Assist: 4 Gait Assistive Device: FWW Wheelchair Distance: 150' x 2 PT Halfway Goals Halfway Goals PT Halfway Goals Time Frame: Jul 06, 2017 Transfers (B,C,W/C) (FIM): 4 Sit to Lying (QC): 4 Lying-Sitting on Side/Bed(QC): 4 Sit to Stand (QC): 4 Rollin Roll Left to Right (QC): 4 Chair/Glh-gz-Ushlm Xfer(QC): 4 Does the Patient Walk: No and Walking Goal IS indicated Gait (FIM): 4 Gait distance (FIM): 3=150 ft Distance: 150' Walk 10 feet (QC): 4 Walk 10ft-Uneven Surface(QC): 4 Walk 50ft with 2 Turns (QC): 4 Walk 150 ft (QC): 4 Gait Level of Assist: 4 Gait Assistive Device: FWW PT Plan Problem List Problem List: Activity Tolerance, Functional Strength, Safety, Balance, Gait, Transfer, Bed Mobility, ROM Treatment/Plan Treatment Plan: Continue Plan of Care Treatment Plan: Bed Mobility, Concurrent Therapy, Education, Functional Activity Leti, Functional Strength, Group Therapy, Gait, Safety, Therapeutic Exercise, Transfers Treatment Duration: Jul 06, 2017 Frequency: At least 5 of 7 days/Wk (IRF) Estimated Hrs Per Day: 1.5 hours per day Patient and/or Family Agrees t: Yes Safety Risks/Education Patient Education: Transfer Techniques, Reviewed Precautions, Correct Positioning, Safety Issues Teaching Recipient: Patient Teaching Methods: Demonstration, Discussion Response to Teaching: Verbalize Understanding, Reinforcement Needed Time/GCodes Time In: 1000 Time Out: 1159 Total Billed Treatment Time: 59 Total Billed Treatment 1 visit 30 EX 29 FA ROXANNE CHURCHILL PT Jun 20, 2017 11:21
--- NOTE | 2017-06-20 14:15 | Physical Therapy Daily Note ---
PT Daily Note-Current Subjective Pt is laying in bed prior to tx and agreeable to PT. Pt reports no pain. Pt was sitting in wheelchair in room (has OT next) with nurse call, phone, tray, all needs met post tx. Pain Numeric Pain Scale: 0-No Pain Location: No Pain Reported Mental Status Patient Orientation: Normal For Age Transfers Functional [place] Measure 0=Not Assessed/NA 4=Minimal Assistance 1=Total Assistance 5=Supervision or Setup 2=Maximal Assistance 6=Modified [place] 3=Moderate Assistance 7=Complete IndependenceIRFPAI Quality Coding Scale 6 Independent with activity with or without an assistive device 5 Patient requires set up or clean up by helper. Patient completes activity by themselves 4 Supervision or touching assist (CGA). [place] provide cues , steadying assist 3 The helper provides less than half the effort to complete the activity 2 The helper provides more than half the effort to complete the activity 1 Dependent. The helper does all the effort to complete an activity 7 Patient refused to complete or attempt activity 9 The patient did not perform the activity before the current illness or injury 88 Not attempted due to Medical conditions or safety concerns Transfers (B, C, W/C) (FIM): 4 Supine to/from Sit: 4 Sit to/from Stand: 4 Bed to/from Chair: 4 Pt is min assist with stand pivot transfers and bed mobility. Pt requires verbal cues to maintain WBS and for hand placement. Weight Bearing Right Lower Extremity: Right Touch Toe Bearing Left Lower Extremity: Left Full Weight Bearing Gait Training Does the Patient Walk?: No and Walking Goal IS indicated Wheelchair Training Does the Pt Use a Wheelchair?: Yes Wheelchair (FIM): 5 Wheelchair Level of Assist: 5 Type of Wheelchair: Manual Exercises Seated Therapy Exercises: Ankle pumps, Long arc quads, Hip flexion, Hip abd/add Seated Reps: 15 NuStep Minutes: 15 NuStep Workload: 1 (no resistance to comply with WBS) Treatments Pt completes tx on Nustep to increase endurance and activity tolerance. Pt also completes seated LE strengthening exercises. Assessment Current Status: Good Progress Pt endurance is improving. Pt is able to maintain WBS after being verbally cued. PT Short Term Goals Short Term Goals Time Frame: Jun 22, 2017 Transfers (B,C,W/C) (FIM): 4 Gait (FIM): 1 Distance (FIM): 1=up to 49 ft Gait Distance Comment: 25' Gait Level of Assist: 4 Gait Assistive Device: FWW Wheelchair Distance: 150' x 2 PT [employer] Drying Machine Operator Goals Group Home Goals PT [employer] Drying Machine Operator Goals Time Frame: Jul 06, 2017 Transfers (B,C,W/C) (FIM): 4 Sit to Lying (QC): 4 Lying-Sitting on Side/Bed(QC): 4 Sit to Stand (QC): 4 Rollin Roll Left to Right (QC): 4 Chair/Vmw-pp-Iibwp Xfer(QC): 4 Does the Patient Walk: No and Walking Goal IS indicated Gait (FIM): 4 Gait distance (FIM): 3=150 ft Distance: 150' Walk 10 feet (QC): 4 Walk 10ft-Uneven Surface(QC): 4 Walk 50ft with 2 Turns (QC): 4 Walk 150 ft (QC): 4 Gait Level of Assist: 4 Gait Assistive Device: FWW PT Plan Problem List Problem List: Activity Tolerance, Functional Strength, Safety, Balance, Gait, Transfer, Bed Mobility, ROM Treatment/Plan Treatment Plan: Continue Plan of Care Treatment Plan: Bed Mobility, Concurrent Therapy, Education, Functional Activity Leti, Functional Strength, Group Therapy, Gait, Safety, Therapeutic Exercise, Transfers Treatment Duration: Jul 06, 2017 Frequency: At least 5 of 7 days/Wk (IRF) Estimated Hrs Per Day: 1.5 hours per day Patient and/or Family Agrees t: Yes Safety Risks/Education Patient Education: Transfer Techniques, Reviewed Precautions, Correct Positioning, Safety Issues Teaching Recipient: Patient Teaching Methods: Demonstration, Discussion Response to Teaching: Verbalize Understanding, Reinforcement Needed Time/GCodes Time In: 1259 Time Out: 1330 Total Billed Treatment Time: 31 Total Billed Treatment 1 visit 31 EX CATRACHO NERI PT Jun 20, 2017 14:15
[2017-06-20] MEDS: HYDROcodone/APAP 10 MG/325 MG (LORTAB) TAB PO PRN ×2 (14:28→19:51)
--- NOTE | 2017-06-20 14:47 | Occupational Ther Daily Note ---
OT Current Status-Daily Note Subjective No pain reported. Appearance Pt. in bed. Has just returned from cystoscopy. Agrees to UE exercises. Mental Status/Objective Patient Orientation: Person, Place Functional [place] Measure 0=Not Assessed/NA 4=Minimal Assistance 1=Total Assistance 5=Supervision or Setup 2=Maximal Assistance 6=Modified [place] 3=Moderate Assistance 7=Complete [place] ADL-Treatment Functional [place] Measure 0=Not Assessed/NA 4=Minimal Assistance 1=Total Assistance 5=Supervision or Setup 2=Maximal Assistance 6=Modified [place] 3=Moderate Assistance 7=Complete IndependenceIRFPAI Quality Coding Scale 6 Independent with activity with or without an assistive device 5 Patient requires set up or clean up by helper. Patient completes activity by themselves 4 Supervision or touching assist (CGA). [place] provide cues , steadying assist 3 The helper provides less than half the effort to complete the activity 2 The helper provides more than half the effort to complete the activity 1 Dependent. The helper does all the effort to complete an activity 7 Patient refused to complete or attempt activity 9 The patient did not perform the activity before the current illness or injury 88 Not attempted due to Medical conditions or safety concerns Other Treatment Pt. completed 3 bilateral UE exercises x 3 sets x 15 reps each with red theraband in all planes to increase overall UE strength and endurance for daily tasks. Pt. also practiced transferring supine-sit and sit-supine in bed with head down and no bedrails, as he will have at home. Pt. required min assist for supine-sit and mod assist for sit-supine. All needs met in bed. Education OT Patient Education: Correct positioning, Modified ADL techniques, Progress toward Goal/Update tx plan, Purpose of tx/functional activities, Reviewed precautions, Rehab process, Transfer techniques Teaching Recipient: Patient Teaching Methods: Demonstration, Discussion Response to Teaching: Verbalize Understanding, Return Demonstration OT Short Term Goals Short Term Goals Time Frame: Jun 22, 2017 Eating(FIM): 5 Grooming(FIM): 5 Bathing(FIM): 3 Upper Body Dressing(FIM): 5 Lower Body Dressing(FIM): 4 Toileting(FIM): 4 Transfers (B,C,W/C) (FIM): 4 Toilet/Commode Transfer(FIM): 4 Shower Transfer(FIM): 3 Additional Short Term Goals: 1-Demonstrate ADL Tasks, 2-Verbalize Understanding , 3-ImproveStrength/Leti 1=Demonstrate adherence to instructed precautions during ADL tasks. 2=Patient will verbalize/demonstrate understanding of assistive devices/ modifications for ADL. 3=Patient will improve strength/tolerance for activity to enable patient to perform ADL's. OT Brake Drum Molder Goals Alf Goals Time Frame: Jul 06, 2017 Eating (FIM): 6 Eating (QC): 6 Groomin Oral Hygiene (QC): 6 Bathing(FIM): 5 Shower/Bathe Self (QC): 5 Upper Body Dressing(FIM): 5 Upper Body Dressing (QC): 5 Lower Body Dressing(FIM): 5 Lower Body Dressing (QC): 5 On/Off Footwear (QC): 5 Toileting(FIM): 5 Toileting Hygiene (QC): 5 Transfers (B,C,W/C) (FIM): 6 Toilet/Commode Transfer(FIM): 6 Toilet/Commode Transfer (QC): 5 Shower Transfer(FIM): 4 Additional Goals: 1-Demonstrate ADL Tasks, 2-Verbalize Understanding, 3- ImproveStrength/Leti 1=Demonstrate adherence to instructed precautions during ADL tasks. 2=Patient will verbalize/demonstrate understanding of assistive devices/ modifications for ADL. 3=Patient will improve strength/tolerance for activity to enable patient to perform ADL's. OT Education/Plan Problem List/Assessment Assessment: Decreased Activ Tolerance, Decreased UE Strength, Dependent Transfers, Impaired Bed Mobility, Impaired Funct Balance, Impaired I ADL's, Impaired Self-Care Skills Discharge Recommendations Plan/Recommendations: Continue POC Therapy D/C Recommendations: Assisted Living Patient/Family Goals Pt. states that he has friends that can "help" him. When pressed however if they can assist with personal things such as toileting, he states, "they aren't that good of friends." Treatment Plan/Plan of Care Patient would benefit from OT for education, treatment and training to promote independence in ADL's, mobility, safety and/or upper extremity function for ADL' s. Plan of Care: ADL Retraining, Functional Mobility, UE Funct Exercise/Act Treatment Duration: Jul 06, 2017 Frequency: At least 5 of 7 days/Wk (IRF) Estimated Hrs Per Day: 1.5 hours per day Agreement: Yes Rehab Potential: Good Time/GCodes Start Time: 09:00 Stop Time: 09:30 Total Time Billed (hr/min): 30 Billed Treatment Time 1, EX x 15minutes, FA x 15minutes LISA RIVAS OT Jun 20, 2017 14:47
--- NOTE | 2017-06-20 14:52 | Occupational Ther Daily Note ---
OT Current Status-Daily Note Subjective No pain reported. Appearance Pt. up in chair. Agrees to shower this afternoon. Mental Status/Objective Patient Orientation: Person, Place Functional [place] Measure 0=Not Assessed/NA 4=Minimal Assistance 1=Total Assistance 5=Supervision or Setup 2=Maximal Assistance 6=Modified [place] 3=Moderate Assistance 7=Complete [place] ADL-Treatment Functional [place] Measure 0=Not Assessed/NA 4=Minimal Assistance 1=Total Assistance 5=Supervision or Setup 2=Maximal Assistance 6=Modified [place] 3=Moderate Assistance 7=Complete IndependenceIRFPAI Quality Coding Scale 6 Independent with activity with or without an assistive device 5 Patient requires set up or clean up by helper. Patient completes activity by themselves 4 Supervision or touching assist (CGA). [place] provide cues , steadying assist 3 The helper provides less than half the effort to complete the activity 2 The helper provides more than half the effort to complete the activity 1 Dependent. The helper does all the effort to complete an activity 7 Patient refused to complete or attempt activity 9 The patient did not perform the activity before the current illness or injury 88 Not attempted due to Medical conditions or safety concerns Bathing (FIM): 4 (Pt. requires min assist for balance while sitting to bathe self. Pt. leans side to side to wash rear and front randall area.) Shower/Bathe Self (QC): 4 Upper Body (FIM): 5 Upper Body Dressing (QC): 4 Lower Body Dressing (FIM): 3 (Pt. is able to don shorts over feet with AE, but requires assist in stance to black puller hips. Pt. requires max assist to don socks.) Lower Body Dressing (QC): 3 On/Off Footwear (QC): 2 Transfers (B, C, W/C) (FIM): 2 (Pt. requires max assist for sit-stand and transfer.) Shower Transfer(FIM): 2 (Pt. stood with max assist at bars and OT switched chairs for him.) Education OT Patient Education: Modified ADL techniques, Progress toward Goal/Update tx plan, Purpose of tx/functional activities, Reviewed precautions, Rehab process, Transfer techniques Teaching Recipient: Patient Teaching Methods: Demonstration, Discussion Response to Teaching: Verbalize Understanding, Return Demonstration OT Short Term Goals Short Term Goals Time Frame: Jun 22, 2017 Eating(FIM): 5 Grooming(FIM): 5 Bathing(FIM): 3 Upper Body Dressing(FIM): 5 Lower Body Dressing(FIM): 4 Toileting(FIM): 4 Transfers (B,C,W/C) (FIM): 4 Toilet/Commode Transfer(FIM): 4 Shower Transfer(FIM): 3 Additional Short Term Goals: 1-Demonstrate ADL Tasks, 2-Verbalize Understanding , 3-ImproveStrength/Leti 1=Demonstrate adherence to instructed precautions during ADL tasks. 2=Patient will verbalize/demonstrate understanding of assistive devices/ modifications for ADL. 3=Patient will improve strength/tolerance for activity to enable patient to perform ADL's. OT Senior Living Goals Senior Living Goals Time Frame: Jul 06, 2017 Eating (FIM): 6 Eating (QC): 6 Groomin Oral Hygiene (QC): 6 Bathing(FIM): 5 Shower/Bathe Self (QC): 5 Upper Body Dressing(FIM): 5 Upper Body Dressing (QC): 5 Lower Body Dressing(FIM): 5 Lower Body Dressing (QC): 5 On/Off Footwear (QC): 5 Toileting(FIM): 5 Toileting Hygiene (QC): 5 Transfers (B,C,W/C) (FIM): 6 Toilet/Commode Transfer(FIM): 6 Toilet/Commode Transfer (QC): 5 Shower Transfer(FIM): 4 Additional Goals: 1-Demonstrate ADL Tasks, 2-Verbalize Understanding, 3- ImproveStrength/Leti 1=Demonstrate adherence to instructed precautions during ADL tasks. 2=Patient will verbalize/demonstrate understanding of assistive devices/ modifications for ADL. 3=Patient will improve strength/tolerance for activity to enable patient to perform ADL's. OT Education/Plan Problem List/Assessment Assessment: Decreased Activ Tolerance, Decreased UE Strength, Dependent Transfers, Impaired Bed Mobility, Impaired Funct Balance, Impaired I ADL's, Impaired Self-Care Skills, Restricted Funct UE ROM Discharge Recommendations Plan/Recommendations: Continue POC Therapy D/C Recommendations: Assisted Living Treatment Plan/Plan of Care Treatment,Training & Education: Yes Patient would benefit from OT for education, treatment and training to promote independence in ADL's, mobility, safety and/or upper extremity function for ADL' s. Plan of Care: ADL Retraining, Functional Mobility, UE Funct Exercise/Act Treatment Duration: Jul 06, 2017 Frequency: At least 5 of 7 days/Wk (IRF) Estimated Hrs Per Day: 1.5 hours per day Agreement: Yes Rehab Potential: Good Time/GCodes Start Time: 13:30 Stop Time: 14:30 Total Time Billed (hr/min): 60 Billed Treatment Time 1, ADL x 4 LISA RIVAS OT Jun 20, 2017 14:52
[2017-06-20] MEDS: ALFUZOSIN HCL 10 MG TAB (UROXATRAL) PO SCH (17:14)
[2017-06-20 18:59] VITALS: BP 116/64
[2017-06-20] MEDS: MONTELUKAST 10 MG (SINGULAIR) TAB PO SCH (20:15)
--- NOTE | 2017-06-20 20:29 | PM & R (SOAP) Progress Note ---
Subjective Time Seen by Provider: 19:20 Subjective/Events-last exam Patient was seen in his room this evening Appreciate DR Bunrham note and orders Patient had cysto today for groos hematuria over weekend Doing better this evening Patient on PO antibiotic for presumed UTI Patient min assist for transfers Objective Exam Last Set of Vital Signs Vital Signs Date Time Temp Pulse Resp B/P (MAP) Pulse Ox O2 Delivery O2 Flow Rate FiO2 06/20/17 19:55 99.0 06/20/17 18:59 123 18 116/64 93 Nasal Cannula 2.00 Capillary Refill : I&O Intake and Output 06/21/17 00:00 Intake Total 3250 ml Output Total 3675 ml Balance -425 ml Intake Oral 3250 ml Output Urine Total 3675 ml Bladder Scan Volume Amount 0 ml General: Alert, Oriented X3, Cooperative, No Acute Distress HEENT: Atraumatic, PERRLA, EOMI, Mucous Memb Moist/[place] Neck: Supple, No JVD Lungs: Clear to Auscultation Heart: Regular Rate Abdomen: Normal Bowel Sounds, Soft, No Tenderness Extremities: No Edema (trace edema RLE) Neuro: Other (Impaired RLE) Results Lab Laboratory Tests 06/17/17 21:58: Glucometer 207H 06/18/17 05:41: Glucometer 104 06/18/17 11:13: Glucometer 142H 06/18/17 16:12: Glucometer 100 06/18/17 20:15: Glucometer 140H 06/19/17 05:37: Glucometer 127H 06/19/17 11:17: Glucometer 141H 06/19/17 15:45: Urine Color YELLOW, Urine Clarity SLIGHTLY CLOUDY, Urine pH 5, Urine Specific [place] 1.020, Urine Protein 1+H, Urine Glucose (UA) NEGATIVE, Urine Ketones NEGATIVE, Urine Nitrite NEGATIVE, Urine Bilirubin NEGATIVE, Urine Urobilinogen NORMAL, Urine Leukocyte Esterase 1+H, Urine RBC (Auto) 5+H, Urine RBC NONE, Urine WBC 5-10H, Urine Squamous Epithelial Cells 2-5, Urine Crystals NONE, Urine Bacteria TRACE, Urine Casts NONE, Urine Mucus NEGATIVE, Urine Culture Indicated YES 06/19/17 16:23: Glucometer 147H 06/19/17 20:21: Glucometer 128H 06/20/17 04:59: Glucometer 118H 06/20/17 11:03: Glucometer 129H 06/20/17 15:50: Glucometer 126H Microbiology 06/19/17 Urine Culture - Preliminary, Resulted Results To Follow Assessment/Plan Assessment Fall frx rt hip s/p IM nailing DR Crum 06-12-17 Toe touch WT bearing RLE Postop resp insuffiency on supplemental 02 post-op urinary retention improved with meds postop fever-appears resolved postop anemia on replacement postop DVT prophylaxis DM controlled HTN controlled RT Kidney stone with hematuria DR Gutierrez follwing UTI under treatment Plan Continue PT/OT ST has signed off Wean from as able Monitor for any further urinary retention /hematuria with f/u with DR Gutierrez PRN Monitior and adjust meds for constipation as needed F/U with Hospitalist service re DM and HTN management F/U with orthopedics prn Team Conference 06-22-17 LUAN SESAY MD Jun 20, 2017 20:29
[2017-06-21] MEDS: HYDROcodone/APAP 10 MG/325 MG (LORTAB) TAB PO PRN (04:25)
[2017-06-21] MEDS: inSUlin ASPART (NovoLOG) 1 UNIT/0.01 ML (CHARGE PER UNIT) SC SCH ×4 (05:30→20:23)
[2017-06-21 05:41] VITALS: BP 133/64
[2017-06-21] MEDS: FERROUS SULF 325 MG (IRON) TAB PO SCH (06:01)
[2017-06-21] MEDS: TRIM/SULFAMETH 160/800 (SEPTRA DS) TAB PO SCH ×2 (06:01→17:42)
[2017-06-21] MEDS: metFORMIN 500 MG (GLUCOPHAGE) TAB PO SCH (06:01)
[2017-06-21] MEDS: GLIMEPIRIDE 2 MG (AMARYL) TAB PO SCH (06:01)
[2017-06-21] MEDS: CATHETER FLUSH 10 ML SYR IV SCH ×3 (06:03→22:00)
--- NOTE | 2017-06-21 08:30 | Occupational Ther Daily Note ---
OT Current Status-Daily Note Subjective Pt sitting in bed, Agrees to therapy. No c/o pain. Mental Status/Objective Patient Orientation: Person, Place, Time, Situation Functional [place] Measure 0=Not Assessed/NA 4=Minimal Assistance 1=Total Assistance 5=Supervision or Setup 2=Maximal Assistance 6=Modified [place] 3=Moderate Assistance 7=Complete [place] Attachments: Oxygen ADL-Treatment Functional [place] Measure 0=Not Assessed/NA 4=Minimal Assistance 1=Total Assistance 5=Supervision or Setup 2=Maximal Assistance 6=Modified [place] 3=Moderate Assistance 7=Complete IndependenceIRFPAI Quality Coding Scale 6 Independent with activity with or without an assistive device 5 Patient requires set up or clean up by helper. Patient completes activity by themselves 4 Supervision or touching assist (CGA). [place] provide cues , steadying assist 3 The helper provides less than half the effort to complete the activity 2 The helper provides more than half the effort to complete the activity 1 Dependent. The helper does all the effort to complete an activity 7 Patient refused to complete or attempt activity 9 The patient did not perform the activity before the current illness or injury 88 Not attempted due to Medical conditions or safety concerns Grooming (FIM): 6 (Pt completes grooming while seated at sink.) Upper Body (FIM): 5 (After set up, pt able to don/doff shirt. ) Upper Body Dressing (QC): 5 Lower Body Dressing (FIM): 3 (Pt able to doff pants by self, doff socks using dressing stick. Assist to don pants over R foot. Assist to stand while pt pulls pants up. Don socks using sock aid with assist to don sock on aid and over R heel. ) Lower Body Dressing (QC): 3 On/Off Footwear (QC): 2 Toileting (FIM): 4 (Pt able to complete hygiene while seated. Assist to stand while pt manipulates clothing and steadies self with FWW. ) Toileting Hygiene (QC): 3 Transfers (B, C, W/C) (FIM): 3 (Mod A stand pivot transfer using FWW.) Toilet/Commode Transfer (FIM): 3 (Mod A to stand while pt steadies self using grab bars and w/c. ) Other Treatment Pt propelled self in w/c to therapy gym. Completed arm bike duration 8 minutes at 15 adams resistance to increase strength and activity tolerance for daily functional tasks. Pt required rest/drink breaks throughout. Pt then completed 3 B UE (2 sets x 10 reps) using dowel bar with 1 lb weight attached to increase strength and activity tolerance in UE for daily functional tasks. Pt tolerated well requiring rest breaks in between exercises. Pt propelled self in w/c back to room. After therapy, pt sitting in w/c with phone and call light in reach. All needs met. Education OT Patient Education: Use of adapted equipment Teaching Recipient: Patient Teaching Methods: Demonstration, Discussion Response to Teaching: Verbalize Understanding, Return Demonstration, Reinforcement Needed OT Short Term Goals Short Term Goals Time Frame: Jun 22, 2017 Eating(FIM): 5 Grooming(FIM): 5 Bathing(FIM): 3 Upper Body Dressing(FIM): 5 Lower Body Dressing(FIM): 4 Toileting(FIM): 4 Transfers (B,C,W/C) (FIM): 4 Toilet/Commode Transfer(FIM): 4 Shower Transfer(FIM): 3 Additional Short Term Goals: 1-Demonstrate ADL Tasks, 2-Verbalize Understanding , 3-ImproveStrength/Leti 1=Demonstrate adherence to instructed precautions during ADL tasks. 2=Patient will verbalize/demonstrate understanding of assistive devices/ modifications for ADL. 3=Patient will improve strength/tolerance for activity to enable patient to perform ADL's. OT Electronics Repair Technician Goals Fpc Goals Time Frame: Jul 06, 2017 Eating (FIM): 6 Eating (QC): 6 Groomin Oral Hygiene (QC): 6 Bathing(FIM): 5 Shower/Bathe Self (QC): 5 Upper Body Dressing(FIM): 5 Upper Body Dressing (QC): 5 Lower Body Dressing(FIM): 5 Lower Body Dressing (QC): 5 On/Off Footwear (QC): 5 Toileting(FIM): 5 Toileting Hygiene (QC): 5 Transfers (B,C,W/C) (FIM): 6 Toilet/Commode Transfer(FIM): 6 Toilet/Commode Transfer (QC): 5 Shower Transfer(FIM): 4 Additional Goals: 1-Demonstrate ADL Tasks, 2-Verbalize Understanding, 3- ImproveStrength/Leti 1=Demonstrate adherence to instructed precautions during ADL tasks. 2=Patient will verbalize/demonstrate understanding of assistive devices/ modifications for ADL. 3=Patient will improve strength/tolerance for activity to enable patient to perform ADL's. OT Education/Plan Discharge Recommendations Plan/Recommendations: Continue POC Treatment Plan/Plan of Care Patient would benefit from OT for education, treatment and training to promote independence in ADL's, mobility, safety and/or upper extremity function for ADL' s. Plan of Care: ADL Retraining, Functional Mobility, UE Funct Exercise/Act Treatment Duration: Jul 06, 2017 Frequency: At least 5 of 7 days/Wk (IRF) Estimated Hrs Per Day: 1.5 hours per day Agreement: Yes Rehab Potential: Good Time/GCodes Start Time: 06:58 Stop Time: 08:30 Total Time Billed (hr/min): 92 Billed Treatment Time 1 visit, ADL 4 (62 minutes) EX 2 (30 minutes) CATRACHO CARRASCO Jun 21, 2017 08:29
--- NOTE | 2017-06-21 08:35 | Progress Note-Urology ---
Progress Note-Urology Progress Notes/Assess & Plan Progress/Assessment & Plan CT SCAN SHOWED 5mm RT RENAL STONE AND 5 mm GALL STONE, NO OBSTRUCTION OR RENAL MASSES UC RESULTS PENDING Final Diagnosis GROSS HEMATURIA MONI WALTER MD Jun 21, 2017 8:35 am
[2017-06-21] MEDS: SENNA W/DOCUSATE (SENOKOT S) TABLET PO SCH ×2 (10:04→20:22)
[2017-06-21] MEDS: sitaGLIPtin 50 MG (NON-FORMULARY) TAB PO SCH (10:04)
[2017-06-21] MEDS: GEMFIBROZIL 600 MG (LOPID) TAB PO SCH ×2 (10:04→20:22)
[2017-06-21] MEDS: DOCUSATE SODIUM 100 MG (COLACE) CAP PO SCH ×2 (10:04→20:22)
[2017-06-21] MEDS: LACTULOSE SYRUP 10GM/15ML (ENULOSE) 30ML UDC PO SCH ×2 (10:04→20:22)
[2017-06-21] MEDS: FLUTICASONE NASAL SPRAY (FLONASE) 16 GM BTL NS SCH (10:04)
--- NOTE | 2017-06-21 10:39 | PM & R (SOAP) Progress Note ---
Subjective Time Seen by Provider: 08:10 Subjective/Events-last exam Patient was seen in his room this AM Patient MIn assist for transfers Appreciate DR Burnham f/u note Objective Exam Last Set of Vital Signs Vital Signs Date Time Temp Pulse Resp B/P (MAP) Pulse Ox O2 Delivery O2 Flow Rate FiO2 06/21/17 09:00 Nasal Cannula 2.00 06/21/17 06:01 99.6 06/21/17 05:41 119 18 133/64 94 Capillary Refill : I&O Intake and Output 06/22/17 00:00 Intake Total 300 ml Output Total 600 ml Balance -300 ml Intake Oral 300 ml Output Urine Total 600 ml General: Alert, Oriented X3, Cooperative, No Acute Distress HEENT: Atraumatic, PERRLA, EOMI, Mucous Memb Moist/[place] Neck: Supple, No JVD Lungs: Clear to Auscultation Heart: Regular Rate Abdomen: Normal Bowel Sounds, Soft, No Tenderness Extremities: No Edema (trace edema RLE) Neuro: Other (Impaired RLE) Results Lab Laboratory Tests 06/18/17 11:13: Glucometer 142H 06/18/17 16:12: Glucometer 100 06/18/17 20:15: Glucometer 140H 06/19/17 05:37: Glucometer 127H 06/19/17 11:17: Glucometer 141H 06/19/17 15:45: Urine Color YELLOW, Urine Clarity SLIGHTLY CLOUDY, Urine pH 5, Urine Specific [place] 1.020, Urine Protein 1+H, Urine Glucose (UA) NEGATIVE, Urine Ketones NEGATIVE, Urine Nitrite NEGATIVE, Urine Bilirubin NEGATIVE, Urine Urobilinogen NORMAL, Urine Leukocyte Esterase 1+H, Urine RBC (Auto) 5+H, Urine RBC NONE, Urine WBC 5-10H, Urine Squamous Epithelial Cells 2-5, Urine Crystals NONE, Urine Bacteria TRACE, Urine Casts NONE, Urine Mucus NEGATIVE, Urine Culture Indicated YES 06/19/17 16:23: Glucometer 147H 06/19/17 20:21: Glucometer 128H 06/20/17 04:59: Glucometer 118H 06/20/17 11:03: Glucometer 129H 06/20/17 15:50: Glucometer 126H 06/20/17 20:36: Glucometer 150H 06/21/17 05:18: Glucometer 165H Microbiology 06/19/17 Urine Culture - Preliminary, Resulted Probable Enterococcus Species Nonenterococcus (Chains Cocci) Gram Positive Cocci Staph, Coag Neg (Head Of Ict) Assessment/Plan Assessment Fall frx rt hip s/p IM nailing DR Crum 06-12-17 Toe touch WT bearing RLE Postop resp insuffiency on supplemental 02 post-op urinary retention improved with meds postop fever-appears resolved postop anemia on replacement postop DVT prophylaxis DM controlled HTN controlled RT Kidney stone with hematuria DR Gutierrez follwing UTI under treatment Plan Continue PT/OT ST has signed off Wean from as able Monitor for any further urinary retention /hematuria with f/u with DR Gutierrez PRN Monitior and adjust meds for constipation as needed F/U with Hospitalist service re DM and HTN management F/U with orthopedics prn Team Conference tomorrow 06-22-17 LUAN SESAY MD Jun 21, 2017 10:39
--- NOTE | 2017-06-21 11:08 | Physical Therapy Daily Note ---
PT Daily Note-Current Subjective Pt is sitting in chair prior to tx and agreeable to PT. Pt reports 5/10 pain in R thigh. Pt was lying in bed with nurse call, phone, tray, all needs met post tx. Pain Numeric Pain Scale: 5-Moderate Pain Location Body Site: Thigh (right) Pain Description: Ache Mental Status Patient Orientation: Normal For Age Attachments: Oxygen Pt was on 2L oxygen prior and post tx. Transfers Functional [place] Measure 0=Not Assessed/NA 4=Minimal Assistance 1=Total Assistance 5=Supervision or Setup 2=Maximal Assistance 6=Modified [place] 3=Moderate Assistance 7=Complete IndependenceIRFPAI Quality Coding Scale 6 Independent with activity with or without an assistive device 5 Patient requires set up or clean up by helper. Patient completes activity by themselves 4 Supervision or touching assist (CGA). [place] provide cues , steadying assist 3 The helper provides less than half the effort to complete the activity 2 The helper provides more than half the effort to complete the activity 1 Dependent. The helper does all the effort to complete an activity 7 Patient refused to complete or attempt activity 9 The patient did not perform the activity before the current illness or injury 88 Not attempted due to Medical conditions or safety concerns Transfers (B, C, W/C) (FIM): 4 Scootin Supine to/from Sit: 4 Sit to/from Stand: 4 Bed to/from Chair: 4 Pt requires min assist for sit<>supine, requires assist bring right leg up to bed. Pt requires min assist with stand pivot transfers, verbal cues for safety. Pt is cued to keep weight off of R LE but is unable to maintain WBS. Weight Bearing Right Lower Extremity: Right Touch Toe Bearing Left Lower Extremity: Left Full Weight Bearing Gait Training Does the Patient Walk?: No and Walking Goal IS indicated Wheelchair Training Does the Pt Use a Wheelchair?: Yes Wheelchair (FIM): 6 Type of Wheelchair: Manual Exercises Standing: Hip Abduction, 3 way Ex=Flex, Abd, Ext, Unilateral stance NuStep Minutes: 10 NuStep Workload: 1 (no resistance to comply with WBS.) Treatments Pt attempts to take a few steps in parallel bars, but is unable to support himself with Left LE and UEs to keep weight off of right LE and maintain WBS, is unable to hop or scoot left foot forward at all. Pt completes standing exercises in parallel bars, emphasis on standing up straight and not bending left knee, as patient seems unable to stand on left leg alone. Pt completes treatment on Nustep to increase endurance. Assessment Current Status: Poor Progress Pt oxygen was assessed throughout treatment, (87%, 88%) and pt rested until oxygen came back up to 95% saturation. Pt is not making much progress in therapy , he is unable to ambulate due to inability to maintain WBS and support himself fully on left LE. 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 Group Home Goals PT Group Home Goals Time Frame: Jul 06, 2017 Transfers (B,C,W/C) (FIM): 4 Sit to Lying (QC): 4 Lying-Sitting on Side/Bed(QC): 4 Sit to Stand (QC): 4 Rollin Roll Left to Right (QC): 4 Chair/Ijw-xe-Bklck Xfer(QC): 4 Does the Patient Walk: No and Walking Goal IS indicated Gait (FIM): 4 Gait distance (FIM): 3=150 ft Distance: 150' Walk 10 feet (QC): 4 Walk 10ft-Uneven Surface(QC): 4 Walk 50ft with 2 Turns (QC): 4 Walk 150 ft (QC): 4 Gait Level of Assist: 4 Gait Assistive Device: FWW PT Plan Problem List Problem List: Activity Tolerance, Functional Strength, Safety, Balance, Gait, Transfer, Bed Mobility, ROM Treatment/Plan Treatment Plan: Continue Plan of Care Treatment Plan: Bed Mobility, Concurrent Therapy, Education, Functional Activity Leti, Functional Strength, Group Therapy, Gait, Safety, Therapeutic Exercise, Transfers Treatment Duration: Jul 06, 2017 Frequency: At least 5 of 7 days/Wk (IRF) Estimated Hrs Per Day: 1.5 hours per day Patient and/or Family Agrees t: Yes Safety Risks/Education Patient Education: Gait Training, Transfer Techniques, Reviewed Precautions, Correct Positioning, W/C Management, Safety Issues Teaching Recipient: Patient Teaching Methods: Demonstration, Discussion Response to Teaching: Verbalize Understanding, Reinforcement Needed Time/GCodes Time In: 1000 Time Out: 1101 Total Billed Treatment Time: 61 Total Billed Treatment 1 visit 30 FA 31 EX ROXANNE CHURCHILL PT Jun 21, 2017 11:08
[2017-06-21] MEDS: ASPIRIN E.C. 325 MG (ECOTRIN) TABLET PO SCH (11:31)
--- NOTE | 2017-06-21 13:32 | Physical Therapy Daily Note ---
PT Daily Note-Current Subjective Pt was in bathroom prior to tx, just finished with toileting. Pt reports 5/10 pain in right LE. Pt was sitting in wheelchair in room with nurse call, phone, tray, all needs in reach post tx. Pain Numeric Pain Scale: 5-Moderate Pain Location Body Site: Thigh Pain Description: Ache Mental Status Patient Orientation: Normal For Age Pt was on 2L oxygen prior to and post tx. Transfers Functional [place] Measure 0=Not Assessed/NA 4=Minimal Assistance 1=Total Assistance 5=Supervision or Setup 2=Maximal Assistance 6=Modified [place] 3=Moderate Assistance 7=Complete IndependenceIRFPAI Quality Coding Scale 6 Independent with activity with or without an assistive device 5 Patient requires set up or clean up by helper. Patient completes activity by themselves 4 Supervision or touching assist (CGA). [place] provide cues , steadying assist 3 The helper provides less than half the effort to complete the activity 2 The helper provides more than half the effort to complete the activity 1 Dependent. The helper does all the effort to complete an activity 7 Patient refused to complete or attempt activity 9 The patient did not perform the activity before the current illness or injury 88 Not attempted due to Medical conditions or safety concerns Transfers (B, C, W/C) (FIM): 2 Scootin Sit to/from Stand: 2 Pt is unable to perform squat pivot transfers, patient can't stand up to assist with transfer at all. Pt also attempts to do sliding board transfers but is unable to scoot across the board, leg/board is sticky, pt is unable to slide across board and transfer is not completed. Weight Bearing Right Lower Extremity: Right Touch Toe Bearing Left Lower Extremity: Left Full Weight Bearing Exercises Seated Therapy Exercises: Ankle pumps, Long arc quads, Hip flexion, Hip abd/add , Glut set Seated Reps: 20 Treatments Pt works with PT on transfer training to increase functional mobility. Pt also completes seated exercises to increase functional LE strength. Assessment Current Status: Poor Progress Pt transfers were worse this afternoon, pt was unable to complete transfers without max assist or more. 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 General Hardware Salesperson Goals PT General Hardware Salesperson Goals Time Frame: Jul 06, 2017 Transfers (B,C,W/C) (FIM): 4 Sit to Lying (QC): 4 Lying-Sitting on Side/Bed(QC): 4 Sit to Stand (QC): 4 Rollin Roll Left to Right (QC): 4 Chair/Qcp-as-Nodpg Xfer(QC): 4 Does the Patient Walk: No and Walking Goal IS indicated Gait (FIM): 4 Gait distance (FIM): 3=150 ft Distance: 150' Walk 10 feet (QC): 4 Walk 10ft-Uneven Surface(QC): 4 Walk 50ft with 2 Turns (QC): 4 Walk 150 ft (QC): 4 Gait Level of Assist: 4 Gait Assistive Device: FWW PT Plan Problem List Problem List: Activity Tolerance, Functional Strength, Safety, Balance, Gait, Transfer, Bed Mobility, ROM Treatment/Plan Treatment Plan: Continue Plan of Care Treatment Plan: Bed Mobility, Concurrent Therapy, Education, Functional Activity Leti, Functional Strength, Group Therapy, Gait, Safety, Therapeutic Exercise, Transfers Treatment Duration: Jul 06, 2017 Frequency: At least 5 of 7 days/Wk (IRF) Estimated Hrs Per Day: 1.5 hours per day Patient and/or Family Agrees t: Yes Safety Risks/Education Patient Education: Transfer Techniques, Reviewed Precautions, Correct Positioning, W/C Management, Safety Issues Teaching Recipient: Patient Teaching Methods: Demonstration, Discussion Response to Teaching: Verbalize Understanding, Reinforcement Needed Time/GCodes Time In: 1300 Time Out: 1329 Total Billed Treatment Time: 29 Total Billed Treatment 1 visit FA 19 EX 10 ROXANNE CHURCHILL PT Jun 21, 2017 13:32
[2017-06-21] MEDS: ALFUZOSIN HCL 10 MG TAB (UROXATRAL) PO SCH (17:42)
[2017-06-21 19:08] VITALS: BP 127/71
[2017-06-21] MEDS: MONTELUKAST 10 MG (SINGULAIR) TAB PO SCH (20:22)
[2017-06-22 05:24] VITALS: BP 136/72
[2017-06-22] MEDS: inSUlin ASPART (NovoLOG) 1 UNIT/0.01 ML (CHARGE PER UNIT) SC SCH ×4 (05:50→21:36)
[2017-06-22] MEDS: FERROUS SULF 325 MG (IRON) TAB PO SCH (06:08)
[2017-06-22] MEDS: GLIMEPIRIDE 2 MG (AMARYL) TAB PO SCH (06:08)
[2017-06-22] MEDS: metFORMIN 500 MG (GLUCOPHAGE) TAB PO SCH (06:08)
[2017-06-22] MEDS: TRIM/SULFAMETH 160/800 (SEPTRA DS) TAB PO SCH ×2 (06:08→16:51)
[2017-06-22] MEDS: CATHETER FLUSH 10 ML SYR IV SCH ×3 (06:10→22:05)
[2017-06-22] MEDS: sitaGLIPtin 50 MG (NON-FORMULARY) TAB PO SCH (08:20)
[2017-06-22] MEDS: DOCUSATE SODIUM 100 MG (COLACE) CAP PO SCH ×2 (08:20→20:24)
[2017-06-22] MEDS: GEMFIBROZIL 600 MG (LOPID) TAB PO SCH ×2 (08:20→20:24)
[2017-06-22] MEDS: LACTULOSE SYRUP 10GM/15ML (ENULOSE) 30ML UDC PO SCH ×2 (08:20→20:24)
[2017-06-22] MEDS: ASPIRIN E.C. 325 MG (ECOTRIN) TABLET PO SCH (08:20)
[2017-06-22] MEDS: SENNA W/DOCUSATE (SENOKOT S) TABLET PO SCH ×2 (08:20→20:24)
--- NOTE | 2017-06-22 08:30 | Occupational Ther Daily Note ---
OT Current Status-Daily Note Subjective Pt sitting in bed. No c/o pain. Agrees to therapy, would like a shower. Mental Status/Objective Patient Orientation: Person, Place, Time, Situation Functional [place] Measure 0=Not Assessed/NA 4=Minimal Assistance 1=Total Assistance 5=Supervision or Setup 2=Maximal Assistance 6=Modified [place] 3=Moderate Assistance 7=Complete [place] Attachments: IV, Oxygen ADL-Treatment Functional [place] Measure 0=Not Assessed/NA 4=Minimal Assistance 1=Total Assistance 5=Supervision or Setup 2=Maximal Assistance 6=Modified [place] 3=Moderate Assistance 7=Complete IndependenceIRFPAI Quality Coding Scale 6 Independent with activity with or without an assistive device 5 Patient requires set up or clean up by helper. Patient completes activity by themselves 4 Supervision or touching assist (CGA). [place] provide cues , steadying assist 3 The helper provides less than half the effort to complete the activity 2 The helper provides more than half the effort to complete the activity 1 Dependent. The helper does all the effort to complete an activity 7 Patient refused to complete or attempt activity 9 The patient did not perform the activity before the current illness or injury 88 Not attempted due to Medical conditions or safety concerns Oral Hygiene (QC): 6 Bathing (FIM): 4 (Pt completes bathing in rolling shower chair. Assist to stand while pt steadies self with grab bars with assist to dry buttocks. ) Bathing Location: L Arm, R Arm, L Upper Leg, R Upper Leg, L Lower Leg ( including foot), R Lower Leg (including foot), Chest, Abdomen, Perineal Area Upper Body (FIM): 5 (Pt able to doff/don shirt by self while seated.) Lower Body Dressing (FIM): 3 (Assist to don over R foot, able to don over L foot. Assist to stand while pt attempts to pull up pants requiring assist. Pt able to doff socks with dressing stick, don socks using sock aid. ) Toileting (FIM): 3 (Pt was able to hike pants down over hips. Pants fell to knees when standing to hike pants up, assist to pull up legs and pt then was able to hike pants over L hip, assist for R hip. Pt stood to cleanse buttocks, inefficient with cleansing.) Toileting Hygiene (QC): 2 Transfers (B, C, W/C) (FIM): 3 (Mod A sit to stand. Extended time and verbal cues for hand placement needed. ) Toilet/Commode Transfer (FIM): 2 (Max A for sit to stand using arm of w/c and grabbar to push and pull from. Min A for stand pivot transfer to w/c using grabbar and w/c.) Toilet Transfer (QC): 2 Shower Transfer(FIM): 3 (Mod A to stand while pt steadies self with grab bars and therapist switches out w/c with rolling shower chair. ) Max A x2 supine to sit EOB. Other Treatment Pt completes shower in ARU shower room. Pt transported in w/c to therapy gym. Pt completed 5 B UE exercises using mod resistive theraband to increase strength and activity tolerance for daily functional tasks. Pt required several rest breaks throughout. Pt transported in w/c back to room. After therapy pt sitting in w/c with phone and call light in reach. All needs met. OT Short Term Goals Short Term Goals Time Frame: Jun 22, 2017 Eating(FIM): 5 Grooming(FIM): 5 Bathing(FIM): 3 Upper Body Dressing(FIM): 5 Lower Body Dressing(FIM): 4 Toileting(FIM): 4 Transfers (B,C,W/C) (FIM): 4 Toilet/Commode Transfer(FIM): 4 Shower Transfer(FIM): 3 Additional Short Term Goals: 1-Demonstrate ADL Tasks, 2-Verbalize Understanding , 3-ImproveStrength/Leti 1=Demonstrate adherence to instructed precautions during ADL tasks. 2=Patient will verbalize/demonstrate understanding of assistive devices/ modifications for ADL. 3=Patient will improve strength/tolerance for activity to enable patient to perform ADL's. OT Manager Dialysis Goals Fpc Goals Time Frame: Jul 06, 2017 Eating (FIM): 6 Eating (QC): 6 Groomin Oral Hygiene (QC): 6 Bathing(FIM): 5 Shower/Bathe Self (QC): 5 Upper Body Dressing(FIM): 5 Upper Body Dressing (QC): 5 Lower Body Dressing(FIM): 5 Lower Body Dressing (QC): 5 On/Off Footwear (QC): 5 Toileting(FIM): 5 Toileting Hygiene (QC): 5 Transfers (B,C,W/C) (FIM): 6 Toilet/Commode Transfer(FIM): 6 Toilet/Commode Transfer (QC): 5 Shower Transfer(FIM): 4 Additional Goals: 1-Demonstrate ADL Tasks, 2-Verbalize Understanding, 3- ImproveStrength/Leti 1=Demonstrate adherence to instructed precautions during ADL tasks. 2=Patient will verbalize/demonstrate understanding of assistive devices/ modifications for ADL. 3=Patient will improve strength/tolerance for activity to enable patient to perform ADL's. OT Education/Plan Discharge Recommendations Plan/Recommendations: Continue POC Treatment Plan/Plan of Care Patient would benefit from OT for education, treatment and training to promote independence in ADL's, mobility, safety and/or upper extremity function for ADL' s. Plan of Care: ADL Retraining, Functional Mobility, UE Funct Exercise/Act Treatment Duration: Jul 06, 2017 Frequency: At least 5 of 7 days/Wk (IRF) Estimated Hrs Per Day: 1.5 hours per day Agreement: Yes Rehab Potential: Good Time/GCodes Start Time: 07:00 Stop Time: 08:30 Total Time Billed (hr/min): 90 Billed Treatment Time 1 visit, ADL 4 (60 minutes) EX 2 (30 minutes) CATRACHO CARRASCO Jun 22, 2017 08:30
[2017-06-22] MEDS: FLUTICASONE NASAL SPRAY (FLONASE) 16 GM BTL NS SCH (09:50)
--- NOTE | 2017-06-22 10:32 | Physical Therapy Daily Note ---
PT Daily Note-Current Subjective Pt was sitting in chair prior to tx. Pt reports 3/10 pain in right hip. Pt was lying in bed with nurse call, phone, tray, all needs met post tx. Pain Numeric Pain Scale: 3 Location Body Site: Hip Pain Description: Ache Mental Status Patient Orientation: Normal For Age Pt was on 2L oxygen prior and post tx. Transfers Functional [place] Measure 0=Not Assessed/NA 4=Minimal Assistance 1=Total Assistance 5=Supervision or Setup 2=Maximal Assistance 6=Modified [place] 3=Moderate Assistance 7=Complete IndependenceIRFPAI Quality Coding Scale 6 Independent with activity with or without an assistive device 5 Patient requires set up or clean up by helper. Patient completes activity by themselves 4 Supervision or touching assist (CGA). [place] provide cues , steadying assist 3 The helper provides less than half the effort to complete the activity 2 The helper provides more than half the effort to complete the activity 1 Dependent. The helper does all the effort to complete an activity 7 Patient refused to complete or attempt activity 9 The patient did not perform the activity before the current illness or injury 88 Not attempted due to Medical conditions or safety concerns Transfers (B, C, W/C) (FIM): 3 Scootin Supine to/from Sit: 3 Sit to/from Stand: 3 Sit to Stand (QC): 3 Bed to/from Chair: 3 Pt is min-mod with stand pivot transfers, slow and antalgic. Pt is mod assist with bed mobility, requires help to lift legs onto bed. Pt requires verbal cues for foot placement and sequencing. Pt does not comply with WBS, is verbally cued. Weight Bearing Right Lower Extremity: Right Touch Toe Bearing Left Lower Extremity: Left Full Weight Bearing Gait Training Does the Patient Walk?: No and Walking Goal IS indicated Wheelchair Training Does the Pt Use a Wheelchair?: Yes Wheelchair (FIM): 5 Exercises Seated Therapy Exercises: Ankle pumps, Long arc quads, Hip flexion, Hip abd/add Seated Reps: [address] Ex=Flex, Abd, Ext, Unilateral stance Standing Reps: 10 NuStep Minutes: 10 NuStep Workload: 1 (no resistance to comply with WBS) Treatments Pt completes seated and standing exercises in parallel bars to increase functional strength and WBing through left LE, emphasis on straightening left knee with standing. Pt also completes tx on Nustep to increase hip ROM on right and endurance training. Assessment Current Status: Poor Progress Pt mobility is unchanged. Pt does not comply with WBS and requires verbal cues for WBS and safety. PT Short Term Goals Short Term Goals Time Frame: Jun 22, 2017 Transfers (B,C,W/C) (FIM): 4 Gait (FIM): 1 Distance (FIM): 1=up to 49 ft Gait Distance Comment: 25' Gait Level of Assist: 4 Gait Assistive Device: FWW Wheelchair Distance: 150' x 2 PT [facility] Goals Loss Prevention Research Engineer Goals PT [facility] Goals Time Frame: Jul 06, 2017 Transfers (B,C,W/C) (FIM): 4 Sit to Lying (QC): 4 Lying-Sitting on Side/Bed(QC): 4 Sit to Stand (QC): 4 Rollin Roll Left to Right (QC): 4 Chair/Uet-ox-Ujtfr Xfer(QC): 4 Does the Patient Walk: No and Walking Goal IS indicated Gait (FIM): 4 Gait distance (FIM): 3=150 ft Distance: 150' Walk 10 feet (QC): 4 Walk 10ft-Uneven Surface(QC): 4 Walk 50ft with 2 Turns (QC): 4 Walk 150 ft (QC): 4 Gait Level of Assist: 4 Gait Assistive Device: FWW PT Plan Problem List Problem List: Activity Tolerance, Functional Strength, Safety, Balance, Gait, Transfer, Bed Mobility, ROM Treatment/Plan Treatment Plan: Continue Plan of Care Treatment Plan: Bed Mobility, Concurrent Therapy, Education, Functional Activity Leti, Functional Strength, Group Therapy, Gait, Safety, Therapeutic Exercise, Transfers Treatment Duration: Jul 06, 2017 Frequency: At least 5 of 7 days/Wk (IRF) Estimated Hrs Per Day: 1.5 hours per day Patient and/or Family Agrees t: Yes Safety Risks/Education Patient Education: Transfer Techniques, Reviewed Precautions, Correct Positioning, W/C Management, Safety Issues Teaching Recipient: Patient Teaching Methods: Demonstration, Discussion Response to Teaching: Verbalize Understanding, Reinforcement Needed Time/GCodes Time In: 900 Time Out: 959 Total Billed Treatment Time: 59 Total Billed Treatment 1 visit 30 FA 29 EX ROXANNE CHURCHILL PT Jun 22, 2017 10:32
--- NOTE | 2017-06-22 10:52 | PM & R (SOAP) Progress Note ---
Subjective Time Seen by Provider: 09:40 Subjective/Events-last exam Patient was seen in his room this AM Patient c/o sore throat-[place] coated white -presumed Oral thrush-Nystatin ordered,Current meds and labs reviewed.Patient max assist for transfers Objective Exam Last Set of Vital Signs Vital Signs Date Time Temp Pulse Resp B/P (MAP) Pulse Ox O2 Delivery O2 Flow Rate FiO2 06/22/17 09:05 Nasal Cannula 2.00 06/22/17 05:24 100.4 120 16 136/72 92 Capillary Refill : I&O Intake and Output 06/23/17 00:00 Intake Total 600 ml Output Total 1475 ml Balance -875 ml Intake Oral 600 ml Output Urine Total 1475 ml General: Alert, Oriented X3, Cooperative, No Acute Distress HEENT: Atraumatic, PERRLA, EOMI, Mucous Memb Moist/[place] Neck: Supple, No JVD Lungs: Clear to Auscultation Heart: Regular Rate Abdomen: Normal Bowel Sounds, Soft, No Tenderness Extremities: No Edema (trace edema RLE) Neuro: Other (Impaired RLE) Results Lab Laboratory Tests 06/19/17 11:17: Glucometer 141H 06/19/17 15:45: Urine Color YELLOW, Urine Clarity SLIGHTLY CLOUDY, Urine pH 5, Urine Specific [place] 1.020, Urine Protein 1+H, Urine Glucose (UA) NEGATIVE, Urine Ketones NEGATIVE, Urine Nitrite NEGATIVE, Urine Bilirubin NEGATIVE, Urine Urobilinogen NORMAL, Urine Leukocyte Esterase 1+H, Urine RBC (Auto) 5+H, Urine RBC NONE, Urine WBC 5-10H, Urine Squamous Epithelial Cells 2-5, Urine Crystals NONE, Urine Bacteria TRACE, Urine Casts NONE, Urine Mucus NEGATIVE, Urine Culture Indicated YES 06/19/17 16:23: Glucometer 147H 06/19/17 20:21: Glucometer 128H 06/20/17 04:59: Glucometer 118H 06/20/17 11:03: Glucometer 129H 06/20/17 15:50: Glucometer 126H 06/20/17 20:36: Glucometer 150H 06/21/17 05:18: Glucometer 165H 06/21/17 11:00: Glucometer 206H 06/21/17 16:05: Glucometer 151H 06/21/17 20:19: Glucometer 138H 06/22/17 05:37: Glucometer 118H Microbiology 06/19/17 Urine Culture - Final, Complete Enterococcus Faecalis Nonenterococcus (Chains Cocci) Aerococcus Urinae Staph, Coag Neg (Pediatric Nurse) Assessment/Plan Assessment Fall frx rt hip s/p IM nailing DR Crum 06-12-17 Toe touch WT bearing RLE Postop resp insuffiency on supplemental 02 post-op urinary retention improved with meds postop fever-appears resolved postop anemia on replacement postop DVT prophylaxis DM controlled HTN controlled RT Kidney stone with hematuria DR Gutierrez foll UTI under treatment Prsumed oral thrush Plan Continue PT/OT ST has signed off Wean from as able Monitor for any further urinary retention /hematuria with f/u with DR Gutierrez PRN Monitior and adjust meds for constipation as needed F/U with Hospitalist service re DM and HTN management F/U with orthopedics prn Team Conference later today-see report for full functional update and POC and ELOS Nystatin for LUAN Rivera MD Jun 22, 2017 10:52
[2017-06-22] MEDS: NYSTATIN ORAL SUSP 5 ML UDC PO SCH ×2 (11:27→16:51)
--- NOTE | 2017-06-22 14:41 | Physical Therapy Daily Note ---
PT Daily Note-Current Subjective Pt is lying in bed prior to tx and agreeable to PT. Pt pants are discovered to be wet during treatment, is changed and toileted during tx. Pt was lying in bed with nurse call, phone, tray, all needs in reach post tx. Pain Numeric Pain Scale: 0-No Pain Location: No Pain Reported Mental Status Patient Orientation: Normal For Age Attachments: Oxygen Pt was on 2L oxygen prior and post tx. Transfers Functional [place] Measure 0=Not Assessed/NA 4=Minimal Assistance 1=Total Assistance 5=Supervision or Setup 2=Maximal Assistance 6=Modified [place] 3=Moderate Assistance 7=Complete IndependenceIRFPAI Quality Coding Scale 6 Independent with activity with or without an assistive device 5 Patient requires set up or clean up by helper. Patient completes activity by themselves 4 Supervision or touching assist (CGA). [place] provide cues , steadying assist 3 The helper provides less than half the effort to complete the activity 2 The helper provides more than half the effort to complete the activity 1 Dependent. The helper does all the effort to complete an activity 7 Patient refused to complete or attempt activity 9 The patient did not perform the activity before the current illness or injury 88 Not attempted due to Medical conditions or safety concerns Transfers (B, C, W/C) (FIM): 4 Sit to/from Stand: 4 Pt is min assist with stand pivot transfer. Pt is very slow and anxious with movement. Pt pulls himself up to standing with walker, requires min assist to stand and keep walker in place with sit<>stand. Pt does not comply with WBS and requires verbal cues. Weight Bearing Right Lower Extremity: Right Touch Toe Bearing Left Lower Extremity: Left Full Weight Bearing Gait Training Does the Patient Walk?: No and Walking Goal IS indicated Wheelchair Training Does the Pt Use a Wheelchair?: Yes Treatments Pt completes bed mobility and stand pivot transfers(x4) during treatment to increase functional mobility. Pt is toileted and dressed (lower) during tx. Assessment Current Status: Fair Progress Pt does not comply with WBS and requires verbal cues, but transfers are improving. PT Short Term Goals Short Term Goals Time Frame: Jun 22, 2017 Transfers (B,C,W/C) (FIM): 4 Gait (FIM): 1 Distance (FIM): 1=up to 49 ft Gait Distance Comment: 25' Gait Level of Assist: 4 Gait Assistive Device: FWW Wheelchair Distance: 150' x 2 PT Alf Goals Alf Goals PT Processing Analyst Goals Time Frame: Jul 06, 2017 Transfers (B,C,W/C) (FIM): 4 Sit to Lying (QC): 4 Lying-Sitting on Side/Bed(QC): 4 Sit to Stand (QC): 4 Rollin Roll Left to Right (QC): 4 Chair/Hev-yx-Jrrtu Xfer(QC): 4 Does the Patient Walk: No and Walking Goal IS indicated Gait (FIM): 4 Gait distance (FIM): 3=150 ft Distance: 150' Walk 10 feet (QC): 4 Walk 10ft-Uneven Surface(QC): 4 Walk 50ft with 2 Turns (QC): 4 Walk 150 ft (QC): 4 Gait Level of Assist: 4 Gait Assistive Device: FWW PT Plan Problem List Problem List: Activity Tolerance, Functional Strength, Safety, Balance, Gait, Transfer, Bed Mobility, ROM Treatment/Plan Treatment Plan: Continue Plan of Care Treatment Plan: Bed Mobility, Concurrent Therapy, Education, Functional Activity Leti, Functional Strength, Group Therapy, Gait, Safety, Therapeutic Exercise, Transfers Treatment Duration: Jul 06, 2017 Frequency: At least 5 of 7 days/Wk (IRF) Estimated Hrs Per Day: 1.5 hours per day Patient and/or Family Agrees t: Yes Safety Risks/Education Patient Education: Transfer Techniques, Reviewed Precautions, Correct Positioning, W/C Management, Safety Issues Teaching Recipient: Patient Teaching Methods: Demonstration, Discussion Response to Teaching: Verbalize Understanding, Reinforcement Needed Time/GCodes Time In: 1330 Time Out: 1401 Total Billed Treatment Time: 31 Total Billed Treatment 1 visit FA 31 ROXANNE CHURCHILL PT Jun 22, 2017 14:41
[2017-06-22] MEDS: ALFUZOSIN HCL 10 MG TAB (UROXATRAL) PO SCH (16:51)
[2017-06-22 18:00] VITALS: BP 116/72
[2017-06-22] MEDS: MONTELUKAST 10 MG (SINGULAIR) TAB PO SCH (20:25)
[2017-06-23] MEDS: inSUlin ASPART (NovoLOG) 1 UNIT/0.01 ML (CHARGE PER UNIT) SC SCH ×4 (05:20→20:27)
[2017-06-23] MEDS: CATHETER FLUSH 10 ML SYR IV SCH ×3 (05:20→20:25)
[2017-06-23 05:28] VITALS: BP 118/60
[2017-06-23] MEDS: TRIM/SULFAMETH 160/800 (SEPTRA DS) TAB PO SCH ×2 (06:05→17:08)
[2017-06-23] MEDS: GLIMEPIRIDE 2 MG (AMARYL) TAB PO SCH (06:05)
[2017-06-23] MEDS: metFORMIN 500 MG (GLUCOPHAGE) TAB PO SCH (06:05)
[2017-06-23] MEDS: NYSTATIN ORAL SUSP 5 ML UDC PO SCH ×4 (06:05→17:08)
[2017-06-23] MEDS: FERROUS SULF 325 MG (IRON) TAB PO SCH (06:05)
--- NOTE | 2017-06-23 09:00 | Physical Therapy Daily Note ---
PT Daily Note-Current Subjective Pt was sitting in wheelchair prior to tx and agreeable to PT. Pt reports no pain. Pt was sitting in wheelchair in bathroom shaving, all needs met post tx. Pain Numeric Pain Scale: 0-No Pain Location: No Pain Reported Mental Status Patient Orientation: Normal For Age Transfers Functional [place] Measure 0=Not Assessed/NA 4=Minimal Assistance 1=Total Assistance 5=Supervision or Setup 2=Maximal Assistance 6=Modified [place] 3=Moderate Assistance 7=Complete IndependenceIRFPAI Quality Coding Scale 6 Independent with activity with or without an assistive device 5 Patient requires set up or clean up by helper. Patient completes activity by themselves 4 Supervision or touching assist (CGA). [place] provide cues , steadying assist 3 The helper provides less than half the effort to complete the activity 2 The helper provides more than half the effort to complete the activity 1 Dependent. The helper does all the effort to complete an activity 7 Patient refused to complete or attempt activity 9 The patient did not perform the activity before the current illness or injury 88 Not attempted due to Medical conditions or safety concerns Transfers (B, C, W/C) (FIM): 3 Scootin Rollin Supine to/from Sit: 3 Sit to/from Stand: 4 Bed to/from Chair: 3 Pt requires mod assist with supine<>sit. Pt requires verbal cues for positioning and sequencing, assist with sitting up and bringing leg on/off bed. Pt completes sit<>stand, scooting, and rolling with min assist. Pt completes stand pivot transfer with min assist, is unable to comply with WBS and is verbally cued. Weight Bearing Right Lower Extremity: Right Touch Toe Bearing Left Lower Extremity: Left Full Weight Bearing Gait Training Does the Patient Walk?: No and Walking Goal IS indicated Wheelchair Training Wheelchair (FIM): 5 Distance: 150'x2 Type of Wheelchair: Manual Exercises Supine Ex: Ankle pumps, Quad Set, Rolling, Glut sets, Heel Slides, Short Arc Quads, Scooting, Hip abd/add Supine Reps: [address] Ex=Flex, Abd, Ext, Marching, Unilateral stance Standing Reps: 10 Treatments Pt completes bed mobility (rolling, scooting, supine<>sit)x5 to increase functional mobility. Pt completes sit to stands on elevated mat and FWW for support with emphasis on keeping weight off of right LE to comply with WBS. Pt completes standing exercises in parallel bars and supine exercises for functional LE strengthening. Assessment Current Status: Poor Progress Pt does not comply with WBS and requires verbal cues to keep weight off of right leg. PT Short Term Goals Short Term Goals Time Frame: Jun 22, 2017 Transfers (B,C,W/C) (FIM): 4 Gait (FIM): 1 Distance (FIM): 1=up to 49 ft Gait Distance Comment: 25' Gait Level of Assist: 4 Gait Assistive Device: FWW Wheelchair Distance: 150' x 2 PT Wind Development Director Goals [place] Goals PT [facility]way Goals Time Frame: Jul 06, 2017 Transfers (B,C,W/C) (FIM): 4 Sit to Lying (QC): 4 Lying-Sitting on Side/Bed(QC): 4 Sit to Stand (QC): 4 Rollin Roll Left to Right (QC): 4 Chair/Vaw-lw-Uxvmw Xfer(QC): 4 Does the Patient Walk: No and Walking Goal IS indicated Gait (FIM): 4 Gait distance (FIM): 3=150 ft Distance: 150' Walk 10 feet (QC): 4 Walk 10ft-Uneven Surface(QC): 4 Walk 50ft with 2 Turns (QC): 4 Walk 150 ft (QC): 4 Gait Level of Assist: 4 Gait Assistive Device: FWW PT Plan Problem List Problem List: Activity Tolerance, Functional Strength, Safety, Balance, Gait, Transfer, Bed Mobility, ROM Treatment/Plan Treatment Plan: Continue Plan of Care Treatment Plan: Bed Mobility, Concurrent Therapy, Education, Functional Activity Leti, Functional Strength, Group Therapy, Gait, Safety, Therapeutic Exercise, Transfers Treatment Duration: Jul 06, 2017 Frequency: At least 5 of 7 days/Wk (IRF) Estimated Hrs Per Day: 1.5 hours per day Patient and/or Family Agrees t: Yes Safety Risks/Education Patient Education: Transfer Techniques, Reviewed Precautions, Correct Positioning, W/C Management, Safety Issues Teaching Recipient: Patient Teaching Methods: Demonstration, Discussion Response to Teaching: Verbalize Understanding, Reinforcement Needed Time/GCodes Time In: 800 Time Out: 859 Total Billed Treatment Time: 59 Total Billed Treatment 1 visit 30 FA 29 EX ROXANNE CHURCHILL PT Jun 23, 2017 09:00
[2017-06-23] MEDS: LACTULOSE SYRUP 10GM/15ML (ENULOSE) 30ML UDC PO SCH ×2 (09:23→20:24)
[2017-06-23] MEDS: GEMFIBROZIL 600 MG (LOPID) TAB PO SCH ×2 (09:23→20:24)
[2017-06-23] MEDS: DOCUSATE SODIUM 100 MG (COLACE) CAP PO SCH ×2 (09:23→20:23)
[2017-06-23] MEDS: SENNA W/DOCUSATE (SENOKOT S) TABLET PO SCH ×2 (09:23→20:23)
[2017-06-23] MEDS: sitaGLIPtin 50 MG (NON-FORMULARY) TAB PO SCH (09:23)
[2017-06-23] MEDS: ASPIRIN E.C. 325 MG (ECOTRIN) TABLET PO SCH (09:23)
[2017-06-23] MEDS: FLUTICASONE NASAL SPRAY (FLONASE) 16 GM BTL NS SCH (09:26)
--- NOTE | 2017-06-23 10:00 | PM & R (SOAP) Progress Note ---
Subjective Time Seen by Provider: 09:45 Subjective/Events-last exam Patient was seen in his room this AM Throat pain improved with Nystatin.Patient min assist for transfers Objective Exam Last Set of Vital Signs Vital Signs Date Time Temp Pulse Resp B/P (MAP) Pulse Ox O2 Delivery O2 Flow Rate FiO2 06/23/17 09:41 Nasal Cannula 2.00 06/23/17 05:28 98.7 109 18 118/60 96 Capillary Refill : I&O Intake and Output 06/24/17 00:00 Intake Total 800 ml Output Total 1650 ml Balance -850 ml Intake Oral 800 ml Output Urine Total 1650 ml General: Alert, Oriented X3, Cooperative, No Acute Distress HEENT: Atraumatic, PERRLA, EOMI, Mucous Memb Moist/[place] Neck: Supple, No JVD Lungs: Clear to Auscultation Heart: Regular Rate Abdomen: Normal Bowel Sounds, Soft, No Tenderness Extremities: No Edema (trace edema RLE) Neuro: Other (Impaired RLE) Results Lab Laboratory Tests 06/20/17 11:03: Glucometer 129H 06/20/17 15:50: Glucometer 126H 06/20/17 20:36: Glucometer 150H 06/21/17 05:18: Glucometer 165H 06/21/17 11:00: Glucometer 206H 06/21/17 16:05: Glucometer 151H 06/21/17 20:19: Glucometer 138H 06/22/17 05:37: Glucometer 118H 06/22/17 11:01: Glucometer 159H 06/22/17 15:37: Glucometer 163H 06/22/17 21:20: Glucometer 94 06/23/17 05:10: Glucometer 103 Microbiology 06/19/17 Urine Culture - Final, Complete Enterococcus Faecalis Nonenterococcus (Chains Cocci) Aerococcus Urinae Staph, Coag Neg (Aviation Safety Equipment Technician) Assessment/Plan Assessment Fall frx rt hip s/p IM nailing DR Crum 06-12-17 Toe touch WT bearing RLE Postop resp insuffiency on supplemental 02 post-op urinary retention improved with meds postop fever-appears resolved postop anemia on replacement postop DVT prophylaxis DM controlled HTN controlled RT Kidney stone with hematuria DR Gutierrez follwindwaine UTI under treatment Prsumed oral thrush Plan Continue PT/OT ST has signed off Wean from 02 as able Monitor for any further urinary retention /hematuria with f/u with DR Gutierrez PRN Monitior and adjust meds for constipation as needed F/U with Hospitalist service re DM and HTN management F/U with orthopedics prn Team Conference held yesterday-see report for full functional update and POC and ELOS Nystatin for thrush-improved LUAN SESAY MD Jun 23, 2017 10:00
--- NOTE | 2017-06-23 11:00 | Occupational Ther Daily Note ---
OT Current Status-Daily Note Subjective Pt sitting in bed. Agrees to therapy. No c/o pain. Mental Status/Objective Patient Orientation: Person, Place, Time, Situation Functional [place] Measure 0=Not Assessed/NA 4=Minimal Assistance 1=Total Assistance 5=Supervision or Setup 2=Maximal Assistance 6=Modified [place] 3=Moderate Assistance 7=Complete [place] Attachments: Oxygen ADL-Treatment Functional [place] Measure 0=Not Assessed/NA 4=Minimal Assistance 1=Total Assistance 5=Supervision or Setup 2=Maximal Assistance 6=Modified [place] 3=Moderate Assistance 7=Complete IndependenceIRFPAI Quality Coding Scale 6 Independent with activity with or without an assistive device 5 Patient requires set up or clean up by helper. Patient completes activity by themselves 4 Supervision or touching assist (CGA). [place] provide cues , steadying assist 3 The helper provides less than half the effort to complete the activity 2 The helper provides more than half the effort to complete the activity 1 Dependent. The helper does all the effort to complete an activity 7 Patient refused to complete or attempt activity 9 The patient did not perform the activity before the current illness or injury 88 Not attempted due to Medical conditions or safety concerns Grooming (FIM): 6 (Pt able to complete grooming while seated at sink. ) Oral Hygiene (QC): 6 (Completed while sitting at sink in w/c.) Upper Body (FIM): 5 (After set up, pt able to dress upper body while seated. ) Toileting (FIM): 4 (Pt was able to stand with CGA and grabbar for balance. Assistance to hike pants over R hip, hiked L hip by self and able to cleanse self.) Transfers (B, C, W/C) (FIM): 4 (Supine to EOB with min A. Stand pivot transfer from EOB to w/c with min A. ) Toilet/Commode Transfer (FIM): 3 (Mod A for sit to stand as pt pushed up from w /c with R UE and pulled on grabbars with L UE.) Toilet Transfer (QC): 3 Other Treatment Pt propelled self in w/c to therapy gym. Pt completed 4 B UE exercises with 3 lb dumbbell, 3 sets of 10 reps, to increase strength and activity tolerance for daily functional tasks. Pt tolerated well, requiring rest breaks between exercises and reporting arms feeling tired afterwards. Pt then completed nut and bolt activity with 1 lb weights attached to wrists to increase FM skills and strength. Pt propelled self in w/c back to room. After therapy, pt sitting in w/c with phone and call light in reach. All needs met. OT Short Term Goals Short Term Goals Time Frame: Jun 22, 2017 Eating(FIM): 5 Grooming(FIM): 5 Bathing(FIM): 3 Upper Body Dressing(FIM): 5 Lower Body Dressing(FIM): 4 Toileting(FIM): 4 Transfers (B,C,W/C) (FIM): 4 Toilet/Commode Transfer(FIM): 4 Shower Transfer(FIM): 3 Additional Short Term Goals: 1-Demonstrate ADL Tasks, 2-Verbalize Understanding , 3-ImproveStrength/Leti 1=Demonstrate adherence to instructed precautions during ADL tasks. 2=Patient will verbalize/demonstrate understanding of assistive devices/ modifications for ADL. 3=Patient will improve strength/tolerance for activity to enable patient to perform ADL's. OT Usp Goals Usp Goals Time Frame: Jul 06, 2017 Eating (FIM): 6 Eating (QC): 6 Groomin Oral Hygiene (QC): 6 Bathing(FIM): 5 Shower/Bathe Self (QC): 5 Upper Body Dressing(FIM): 5 Upper Body Dressing (QC): 5 Lower Body Dressing(FIM): 5 Lower Body Dressing (QC): 5 On/Off Footwear (QC): 5 Toileting(FIM): 5 Toileting Hygiene (QC): 5 Transfers (B,C,W/C) (FIM): 6 Toilet/Commode Transfer(FIM): 6 Toilet/Commode Transfer (QC): 5 Shower Transfer(FIM): 4 Additional Goals: 1-Demonstrate ADL Tasks, 2-Verbalize Understanding, 3- ImproveStrength/Leti 1=Demonstrate adherence to instructed precautions during ADL tasks. 2=Patient will verbalize/demonstrate understanding of assistive devices/ modifications for ADL. 3=Patient will improve strength/tolerance for activity to enable patient to perform ADL's. OT Education/Plan Discharge Recommendations Plan/Recommendations: Continue POC Treatment Plan/Plan of Care Patient would benefit from OT for education, treatment and training to promote independence in ADL's, mobility, safety and/or upper extremity function for ADL' s. Plan of Care: ADL Retraining, Functional Mobility, UE Funct Exercise/Act Treatment Duration: Jul 06, 2017 Frequency: At least 5 of 7 days/Wk (IRF) Estimated Hrs Per Day: 1.5 hours per day Agreement: Yes Rehab Potential: Good Time/GCodes Start Time: 10:00 Stop Time: 11:00 Total Time Billed (hr/min): 60 Billed Treatment Time 1 visit, ADL 1 (20 minutes) EX 3 (40 minutes) CATRACHO CARRASCO Jun 23, 2017 11:00
--- NOTE | 2017-06-23 14:38 | Therapy Group Daily Note ---
Therapy Daily Group Note Patient Education Topic Home Safety Exercises LE Seated Exercise, UE Exercise Other/Notes Pt propelled self in w/c to group therapy. Pt participated in group introductions (name, where pt is from, first car). Pt participated in activity for education on common indoor signs and home safety awareness. Pt engaged in conversation and responded to questions appropriately in peer interactions. Pt shared stories with other throughout therapy. Pt participated in seated LE and UE exercises and demonstrated understanding and correct form. Pt propelled self back to room in w/c and transferred into bed with assist. After therapy, pt lying in bed with phone and call light in reach. All needs met. Start Time: 12:59 Stop Time: 14:11 Total Billed Treatment Time: 72 Total Billed Treatment 1-GRP CATRACHO CARRASCO Jun 23, 2017 14:38
[2017-06-23] MEDS: ALFUZOSIN HCL 10 MG TAB (UROXATRAL) PO SCH (17:08)
[2017-06-23 18:28] VITALS: BP 138/63
[2017-06-23] MEDS: MONTELUKAST 10 MG (SINGULAIR) TAB PO SCH (20:23)
[2017-06-23] MEDS: HYDROcodone/APAP 10 MG/325 MG (LORTAB) TAB PO PRN (22:08)
[2017-06-24] MEDS: NYSTATIN ORAL SUSP 5 ML UDC PO SCH ×5 (00:15→23:26)
[2017-06-24 05:25] VITALS: BP 115/69
[2017-06-24] MEDS: CATHETER FLUSH 10 ML SYR IV SCH (05:44)
[2017-06-24] MEDS: inSUlin ASPART (NovoLOG) 1 UNIT/0.01 ML (CHARGE PER UNIT) SC SCH ×4 (05:45→20:41)
[2017-06-24] MEDS: FERROUS SULF 325 MG (IRON) TAB PO SCH (06:29)
[2017-06-24] MEDS: TRIM/SULFAMETH 160/800 (SEPTRA DS) TAB PO SCH ×2 (06:29→17:30)
[2017-06-24] MEDS: GLIMEPIRIDE 2 MG (AMARYL) TAB PO SCH (06:29)
[2017-06-24] MEDS: metFORMIN 500 MG (GLUCOPHAGE) TAB PO SCH (06:29)
[2017-06-24] MEDS: DOCUSATE SODIUM 100 MG (COLACE) CAP PO SCH ×2 (07:48→20:38)
[2017-06-24] MEDS: SENNA W/DOCUSATE (SENOKOT S) TABLET PO SCH ×2 (07:48→20:37)
[2017-06-24] MEDS: GEMFIBROZIL 600 MG (LOPID) TAB PO SCH ×2 (07:48→20:37)
[2017-06-24] MEDS: ASPIRIN E.C. 325 MG (ECOTRIN) TABLET PO SCH (07:48)
[2017-06-24] MEDS: sitaGLIPtin 50 MG (NON-FORMULARY) TAB PO SCH (07:48)
[2017-06-24] MEDS: FLUTICASONE NASAL SPRAY (FLONASE) 16 GM BTL NS SCH (07:49)
[2017-06-24] MEDS: LACTULOSE SYRUP 10GM/15ML (ENULOSE) 30ML UDC PO SCH ×2 (07:49→20:38)
--- NOTE | 2017-06-24 09:04 | Physical Therapy Daily Note ---
PT Daily Note-Current Subjective Pt was lying in bed prior to tx and agreeable to PT. Pt had no complaints of pain. Pt reports he did not sleep well last night and neck is sore. Pt was sitting up in wheelchair in room with nurse call, phone, tray, all needs met post tx. Pain Numeric Pain Scale: 0-No Pain Location: No Pain Reported Mental Status Patient Orientation: Normal For Age Transfers Functional [place] Measure 0=Not Assessed/NA 4=Minimal Assistance 1=Total Assistance 5=Supervision or Setup 2=Maximal Assistance 6=Modified [place] 3=Moderate Assistance 7=Complete IndependenceIRFPAI Quality Coding Scale 6 Independent with activity with or without an assistive device 5 Patient requires set up or clean up by helper. Patient completes activity by themselves 4 Supervision or touching assist (CGA). [place] provide cues , steadying assist 3 The helper provides less than half the effort to complete the activity 2 The helper provides more than half the effort to complete the activity 1 Dependent. The helper does all the effort to complete an activity 7 Patient refused to complete or attempt activity 9 The patient did not perform the activity before the current illness or injury 88 Not attempted due to Medical conditions or safety concerns Transfers (B, C, W/C) (FIM): 3 Scootin Rollin Supine to/from Sit: 3 Sit to/from Stand: 4 Bed to/from Chair: 3 Pt completes sit<>supine with mod assist. Pt requires verbal cues for sequencing and assist with bringing legs up to bed. Pt completes sit to stand with min assist. Weight Bearing Right Lower Extremity: Right Touch Toe Bearing Left Lower Extremity: Left Full Weight Bearing Gait Training Does the Patient Walk?: No and Walking Goal IS indicated Exercises Supine Ex: Rolling, Heel Slides, Scooting, Hip abd/add Supine Reps: [address] Ex=Flex, Abd, Ext Standing Reps: 15 Treatments Pt completes bed mobility (rolling, sit<>supine)x6 to increase functional mobility. Pt completes standing exercises in parallel bars to facilitate WBing through left LE. Assessment Current Status: Good Progress Pt bed mobility is improving, pt has slow, guarded movements. Pt does not comply with WBS on stand pivot transfers and is verbally cued. PT Short Term Goals Short Term Goals Time Frame: Jun 22, 2017 Transfers (B,C,W/C) (FIM): 4 Gait (FIM): 1 Distance (FIM): 1=up to 49 ft Gait Distance Comment: 25' Gait Level of Assist: 4 Gait Assistive Device: FWW Wheelchair Distance: 150'x2 PT Information Systems Coordinator Goals Information Systems Coordinator Goals PT Information Systems Coordinator Goals Time Frame: Jul 06, 2017 Transfers (B,C,W/C) (FIM): 4 Sit to Lying (QC): 4 Lying-Sitting on Side/Bed(QC): 4 Sit to Stand (QC): 4 Rollin Roll Left to Right (QC): 4 Chair/Kgd-ri-Scfcx Xfer(QC): 4 Does the Patient Walk: No and Walking Goal IS indicated Gait (FIM): 4 Gait distance (FIM): 3=150 ft Distance: 150' Walk 10 feet (QC): 4 Walk 10ft-Uneven Surface(QC): 4 Walk 50ft with 2 Turns (QC): 4 Walk 150 ft (QC): 4 Gait Level of Assist: 4 Gait Assistive Device: FWW PT Plan Problem List Problem List: Activity Tolerance, Functional Strength, Safety, Balance, Gait, Transfer, Bed Mobility, ROM Treatment/Plan Treatment Plan: Continue Plan of Care Treatment Plan: Bed Mobility, Concurrent Therapy, Education, Functional Activity Leti, Functional Strength, Group Therapy, Gait, Safety, Therapeutic Exercise, Transfers Treatment Duration: Jul 06, 2017 Frequency: At least 5 of 7 days/Wk (IRF) Estimated Hrs Per Day: 1.5 hours per day Patient and/or Family Agrees t: Yes Safety Risks/Education Patient Education: Transfer Techniques, Steps, Reviewed Precautions, Correct Positioning, W/C Management, Safety Issues Teaching Recipient: Patient Teaching Methods: Demonstration, Discussion Response to Teaching: Verbalize Understanding, Reinforcement Needed Time/GCodes Time In: 800 Time Out: 858 Total Billed Treatment Time: 58 Total Billed Treatment 1 visit 45 FA 13 EX CATRACHO NERI PT Jun 24, 2017 09:04
--- NOTE | 2017-06-24 09:47 | PM & R (SOAP) Progress Note ---
Subjective Time Seen by Provider: 07:50 Subjective/Events-last exam Patient was seen in his room this AM Patient min to mod assist for transfers Oral pain much better and tonque no longer coated white-Nystatin helping Patient off 02 at this time -will check if can be weaned Objective Exam Last Set of Vital Signs Vital Signs Date Time Temp Pulse Resp B/P (MAP) Pulse Ox O2 Delivery O2 Flow Rate FiO2 06/24/17 05:25 100.1 100 16 115/69 91 Room Air 06/23/17 21:00 91 06/23/17 09:41 2.00 Capillary Refill : Less Than 3 Seconds I&O Intake and Output 06/25/17 00:00 Intake Total 300 ml Output Total 1100 ml Balance -800 ml Intake Oral 300 ml Output Urine Total 1100 ml General: Alert, Oriented X3, Cooperative, No Acute Distress HEENT: Atraumatic, PERRLA, EOMI, Mucous Memb Moist/[place] Neck: Supple, No JVD Lungs: Clear to Auscultation Heart: Regular Rate Abdomen: Normal Bowel Sounds, Soft, No Tenderness Extremities: No Edema (trace edema RLE) Neuro: Other (Impaired RLE) Results Lab Laboratory Tests 06/21/17 11:00: Glucometer 206H 06/21/17 16:05: Glucometer 151H 06/21/17 20:19: Glucometer 138H 06/22/17 05:37: Glucometer 118H 06/22/17 11:01: Glucometer 159H 06/22/17 15:37: Glucometer 163H 06/22/17 21:20: Glucometer 94 06/23/17 05:10: Glucometer 103 06/23/17 10:57: Glucometer 128H 06/23/17 16:08: Glucometer 93 06/23/17 20:27: 06/24/17 05:38: Glucometer 79 Microbiology 06/19/17 Urine Culture - Final, Complete Enterococcus Faecalis Nonenterococcus (Chains Cocci) Aerococcus Urinae Staph, Coag Neg (Granite Installer) Assessment/Plan Assessment Fall frx rt hip s/p IM nailing DR Crum 06-12-17 Toe touch WT bearing RLE Postop resp insuffiency on supplemental 02-being weaned post-op urinary retention improved with meds postop fever-appears resolved postop anemia on replacement postop DVT prophylaxis DM controlled HTN controlled RT Kidney stone with hematuria DR Gutierrez follwindwaine UTI under treatment Prsumed oral thrush-improved with Nystatin swish and swallow Plan Continue PT/OT ST has signed off Wean from 02 as able Monitor for any further urinary retention /hematuria with f/u with DR Gutierrez PRN Monitior and adjust meds for constipation as needed F/U with Hospitalist service re DM and HTN management F/U with orthopedics prn Team Conference held 06-22-17-see report for full functional update and POC and ELOS Nystatin for thrush-improved LUAN SESAY MD Jun 24, 2017 09:47
--- NOTE | 2017-06-24 11:56 | Occupational Ther Daily Note ---
OT Current Status-Daily Note Subjective Pt sitting in w/c. Agrees to therapy. No c/o pain. Would like to take shower today. Mental Status/Objective Patient Orientation: Person, Place, Time, Situation Functional [place] Measure 0=Not Assessed/NA 4=Minimal Assistance 1=Total Assistance 5=Supervision or Setup 2=Maximal Assistance 6=Modified [place] 3=Moderate Assistance 7=Complete [place] ADL-Treatment Functional [place] Measure 0=Not Assessed/NA 4=Minimal Assistance 1=Total Assistance 5=Supervision or Setup 2=Maximal Assistance 6=Modified [place] 3=Moderate Assistance 7=Complete IndependenceIRFPAI Quality Coding Scale 6 Independent with activity with or without an assistive device 5 Patient requires set up or clean up by helper. Patient completes activity by themselves 4 Supervision or touching assist (CGA). [place] provide cues , steadying assist 3 The helper provides less than half the effort to complete the activity 2 The helper provides more than half the effort to complete the activity 1 Dependent. The helper does all the effort to complete an activity 7 Patient refused to complete or attempt activity 9 The patient did not perform the activity before the current illness or injury 88 Not attempted due to Medical conditions or safety concerns Grooming (FIM): 6 (Pt able to complete grooming while seated in w/c.) Bathing (FIM): 4 (Pt able to complete bathing while seated in rolling shower chair using handheld shower, grab bars, and LH sponge. Assist to dry feet and lower legs. ) Bathing Location: L Arm, R Arm, L Upper Leg, R Upper Leg, Chest, Abdomen, Buttocks, Perineal Area Upper Body (FIM): 5 (After set up, pt able to complete dressing while seated. ) Lower Body Dressing (FIM): 3 (Assist to stand while pt pulls down pants. Doffs socks using dressing stick. Pt able to don feet into pant hole. Assist to stand as pt attempts to pull up pants, requiring assist to complete. Pt able to don socks using sock aid, requiring assist with R foot because of dampness from shower. ) Transfers (B, C, W/C) (FIM): 4 (Min A sit to stand, stand pivot transfer to EOB , sit to supine, requiring assist with R LE. ) Shower Transfer(FIM): 4 (Min A sit to stand. Pt steadies self using grab bars while therapist switches w/c with rolling shower chair. ) Other Treatment After therapy, pt lying in bed with phone and call light in reach. All needs met. OT Short Term Goals Short Term Goals Time Frame: Jun 22, 2017 Eating(FIM): 5 Grooming(FIM): 5 Bathing(FIM): 3 Upper Body Dressing(FIM): 5 Lower Body Dressing(FIM): 4 Toileting(FIM): 4 Transfers (B,C,W/C) (FIM): 4 Toilet/Commode Transfer(FIM): 4 Shower Transfer(FIM): 3 Additional Short Term Goals: 1-Demonstrate ADL Tasks, 2-Verbalize Understanding , 3-ImproveStrength/Leti 1=Demonstrate adherence to instructed precautions during ADL tasks. 2=Patient will verbalize/demonstrate understanding of assistive devices/ modifications for ADL. 3=Patient will improve strength/tolerance for activity to enable patient to perform ADL's. OT Radioisotope Technician Goals Radioisotope Technician Goals Time Frame: Jul 06, 2017 Eating (FIM): 6 Eating (QC): 6 Groomin Oral Hygiene (QC): 6 Bathing(FIM): 5 Shower/Bathe Self (QC): 5 Upper Body Dressing(FIM): 5 Upper Body Dressing (QC): 5 Lower Body Dressing(FIM): 5 Lower Body Dressing (QC): 5 On/Off Footwear (QC): 5 Toileting(FIM): 5 Toileting Hygiene (QC): 5 Transfers (B,C,W/C) (FIM): 6 Toilet/Commode Transfer(FIM): 6 Toilet/Commode Transfer (QC): 5 Shower Transfer(FIM): 4 Additional Goals: 1-Demonstrate ADL Tasks, 2-Verbalize Understanding, 3- ImproveStrength/Leti 1=Demonstrate adherence to instructed precautions during ADL tasks. 2=Patient will verbalize/demonstrate understanding of assistive devices/ modifications for ADL. 3=Patient will improve strength/tolerance for activity to enable patient to perform ADL's. OT Education/Plan Discharge Recommendations Plan/Recommendations: Continue POC Treatment Plan/Plan of Care Patient would benefit from OT for education, treatment and training to promote independence in ADL's, mobility, safety and/or upper extremity function for ADL' s. Plan of Care: ADL Retraining, Functional Mobility, UE Funct Exercise/Act Treatment Duration: Jul 06, 2017 Frequency: At least 5 of 7 days/Wk (IRF) Estimated Hrs Per Day: 1.5 hours per day Agreement: Yes Rehab Potential: Good Time/GCodes Start Time: 11:00 Stop Time: 12:00 Total Time Billed (hr/min): 60 Billed Treatment Time 1 visit, ADL 4 (60 minutes) CATRACHO CARRASCO Jun 24, 2017 11:56
--- NOTE | 2017-06-24 14:03 | Physical Therapy Daily Note ---
PT Daily Note-Current Subjective Pt was lying in bed prior to tx and agreeable to PT. Pt had no complaints of pain. Pt was lying in bed with nurse call, phone, tray, all needs met post tx. Pain Numeric Pain Scale: 0-No Pain Location: No Pain Reported Mental Status Patient Orientation: Normal For Age Transfers Functional [employer] Measure 0=Not Assessed/NA 4=Minimal Assistance 1=Total Assistance 5=Supervision or Setup 2=Maximal Assistance 6=Modified [employer] [employer] 3=Moderate Assistance 7=Complete IndependenceIRFPAI Quality Coding Scale 6 Independent with activity with or without an assistive device 5 Patient requires set up or clean up by helper. Patient completes activity by themselves 4 Supervision or touching assist (CGA). [place] provide cues , steadying assist 3 The helper provides less than half the effort to complete the activity 2 The helper provides more than half the effort to complete the activity 1 Dependent. The helper does all the effort to complete an activity 7 Patient refused to complete or attempt activity 9 The patient did not perform the activity before the current illness or injury 88 Not attempted due to Medical conditions or safety concerns Transfers (B, C, W/C) (FIM): 3 Supine to/from Sit: 3 Sit to/from Stand: 4 Pt completes stand pivot transfer with min assist. Pt does not comply with WBS, is verbally cued. Weight Bearing Right Lower Extremity: Right Touch Toe Bearing Left Lower Extremity: Left Full Weight Bearing Gait Training Does the Patient Walk?: No and Walking Goal IS indicated Wheelchair Training Does the Pt Use a Wheelchair?: Yes Wheelchair (FIM): 5 Exercises Seated Therapy Exercises: Ankle pumps, Long arc quads, Hip flexion, Hip abd/add , Glut set Seated Reps: 15 Standing: Sit to Stand Standing Reps: 20 Treatments Pt completed seated exercises to increase functional LE strengthening. Pt also completed sit<>[id number] at parallel bars with CGA for safety. Assessment Current Status: Poor Progress Pt transfers are improving. PT Short Term Goals Short Term Goals Time Frame: Jun 22, 2017 Transfers (B,C,W/C) (FIM): 4 Gait (FIM): 1 Distance (FIM): 1=up to 49 ft Gait Distance Comment: 25' Gait Level of Assist: 4 Gait Assistive Device: FWW Wheelchair Distance: 150'x2 PT Business Account Executive Goals Fdc Goals PT Business Account Executive Goals Time Frame: Jul 06, 2017 Transfers (B,C,W/C) (FIM): 4 Sit to Lying (QC): 4 Lying-Sitting on Side/Bed(QC): 4 Sit to Stand (QC): 4 Rollin Roll Left to Right (QC): 4 Chair/Lha-gr-Irodo Xfer(QC): 4 Does the Patient Walk: No and Walking Goal IS indicated Gait (FIM): 4 Gait distance (FIM): 3=150 ft Distance: 150' Walk 10 feet (QC): 4 Walk 10ft-Uneven Surface(QC): 4 Walk 50ft with 2 Turns (QC): 4 Walk 150 ft (QC): 4 Gait Level of Assist: 4 Gait Assistive Device: FWW PT Plan Problem List Problem List: Activity Tolerance, Functional Strength, Safety, Balance, Gait, Transfer, Bed Mobility, ROM Treatment/Plan Treatment Plan: Continue Plan of Care Treatment Plan: Bed Mobility, Concurrent Therapy, Education, Functional Activity Leti, Functional Strength, Group Therapy, Gait, Safety, Therapeutic Exercise, Transfers Treatment Duration: Jul 06, 2017 Frequency: At least 5 of 7 days/Wk (IRF) Estimated Hrs Per Day: 1.5 hours per day Patient and/or Family Agrees t: Yes Safety Risks/Education Patient Education: Transfer Techniques, Reviewed Precautions, Correct Positioning, W/C Management, Safety Issues Teaching Recipient: Patient Teaching Methods: Demonstration, Discussion Response to Teaching: Verbalize Understanding, Reinforcement Needed Time/GCodes Time In: 1330 Time Out: 1402 Total Billed Treatment Time: 32 Total Billed Treatment 1 visit FA 17 EX 15 ROXANNE CHURCHILL PT Jun 24, 2017 14:03
--- NOTE | 2017-06-24 14:17 | Occupational Ther Daily Note ---
OT Current Status-Daily Note Subjective Pt alert, lying in bed. Pt requested to complete UE exercises in bed. Pt agreed to therapy. No c/o pain. Mental Status/Objective Patient Orientation: Person, Place, Time, Situation Functional [place] Measure 0=Not Assessed/NA 4=Minimal Assistance 1=Total Assistance 5=Supervision or Setup 2=Maximal Assistance 6=Modified [place] 3=Moderate Assistance 7=Complete [place] ADL-Treatment Functional [place] Measure 0=Not Assessed/NA 4=Minimal Assistance 1=Total Assistance 5=Supervision or Setup 2=Maximal Assistance 6=Modified [place] 3=Moderate Assistance 7=Complete IndependenceIRFPAI Quality Coding Scale 6 Independent with activity with or without an assistive device 5 Patient requires set up or clean up by helper. Patient completes activity by themselves 4 Supervision or touching assist (CGA). [place] provide cues , steadying assist 3 The helper provides less than half the effort to complete the activity 2 The helper provides more than half the effort to complete the activity 1 Dependent. The helper does all the effort to complete an activity 7 Patient refused to complete or attempt activity 9 The patient did not perform the activity before the current illness or injury 88 Not attempted due to Medical conditions or safety concerns Toileting (FIM): 5 (After being handed urinal then cleansing cloth in bed, pt was able to position urinal and cleanse self after. Assist to empty urinal.) Toileting Hygiene (QC): 5 Other Treatment Pt completed 2 UE exercises with 3# wt, 2 sets 10 reps. Pt fatigued quickly with exercises and required recovery breaks between sets. 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 After therapy, pt lying in bed with call light/ phone in reach. All needs met in room. OT Short Term Goals Short Term Goals Time Frame: Jun 22, 2017 Eating(FIM): 5 Grooming(FIM): 5 Bathing(FIM): 3 Upper Body Dressing(FIM): 5 Lower Body Dressing(FIM): 4 Toileting(FIM): 4 Transfers (B,C,W/C) (FIM): 4 Toilet/Commode Transfer(FIM): 4 Shower Transfer(FIM): 3 Additional Short Term Goals: 1-Demonstrate ADL Tasks, 2-Verbalize Understanding , 3-ImproveStrength/Leti 1=Demonstrate adherence to instructed precautions during ADL tasks. 2=Patient will verbalize/demonstrate understanding of assistive devices/ modifications for ADL. 3=Patient will improve strength/tolerance for activity to enable patient to perform ADL's. OT Strategic Manager Goals Senior Care Goals Time Frame: Jul 06, 2017 Eating (FIM): 6 Eating (QC): 6 Groomin Oral Hygiene (QC): 6 Bathing(FIM): 5 Shower/Bathe Self (QC): 5 Upper Body Dressing(FIM): 5 Upper Body Dressing (QC): 5 Lower Body Dressing(FIM): 5 Lower Body Dressing (QC): 5 On/Off Footwear (QC): 5 Toileting(FIM): 5 Toileting Hygiene (QC): 5 Transfers (B,C,W/C) (FIM): 6 Toilet/Commode Transfer(FIM): 6 Toilet/Commode Transfer (QC): 5 Shower Transfer(FIM): 4 Additional Goals: 1-Demonstrate ADL Tasks, 2-Verbalize Understanding, 3- ImproveStrength/Leti 1=Demonstrate adherence to instructed precautions during ADL tasks. 2=Patient will verbalize/demonstrate understanding of assistive devices/ modifications for ADL. 3=Patient will improve strength/tolerance for activity to enable patient to perform ADL's. OT Education/Plan Discharge Recommendations Plan/Recommendations: Continue POC Treatment Plan/Plan of Care Patient would benefit from OT for education, treatment and training to promote independence in ADL's, mobility, safety and/or upper extremity function for ADL' s. Plan of Care: ADL Retraining, Functional Mobility, UE Funct Exercise/Act Treatment Duration: Jul 06, 2017 Frequency: At least 5 of 7 days/Wk (IRF) Estimated Hrs Per Day: 1.5 hours per day Agreement: Yes Rehab Potential: Good Time/GCodes Start Time: 13:00 Stop Time: 13:30 Total Time Billed (hr/min): 30 Billed Treatment Time 1 visit-EX 1 (20 min) FA 1 (10 min) CATRACHO CARRASCO Jun 24, 2017 14:17
[2017-06-24] MEDS: ALFUZOSIN HCL 10 MG TAB (UROXATRAL) PO SCH (17:30)
[2017-06-24 18:12] VITALS: BP 148/70
[2017-06-24] MEDS: MONTELUKAST 10 MG (SINGULAIR) TAB PO SCH (20:37)
[2017-06-25 05:00] VITALS: BP 147/67
[2017-06-25] MEDS: inSUlin ASPART (NovoLOG) 1 UNIT/0.01 ML (CHARGE PER UNIT) SC SCH ×4 (05:38→20:09)
[2017-06-25] MEDS: NYSTATIN ORAL SUSP 5 ML UDC PO SCH ×4 (05:38→23:01)
[2017-06-25] MEDS: GLIMEPIRIDE 2 MG (AMARYL) TAB PO SCH (05:49)
[2017-06-25] MEDS: FERROUS SULF 325 MG (IRON) TAB PO SCH (05:49)
[2017-06-25] MEDS: TRIM/SULFAMETH 160/800 (SEPTRA DS) TAB PO SCH ×2 (05:49→18:10)
[2017-06-25] MEDS: metFORMIN 500 MG (GLUCOPHAGE) TAB PO SCH (05:50)
[2017-06-25] MEDS: FLUTICASONE NASAL SPRAY (FLONASE) 16 GM BTL NS SCH (08:46)
[2017-06-25] MEDS: LACTULOSE SYRUP 10GM/15ML (ENULOSE) 30ML UDC PO SCH ×2 (08:47→20:09)
[2017-06-25] MEDS: sitaGLIPtin 50 MG (NON-FORMULARY) TAB PO SCH (08:47)
[2017-06-25] MEDS: ASPIRIN E.C. 325 MG (ECOTRIN) TABLET PO SCH (08:47)
[2017-06-25] MEDS: GEMFIBROZIL 600 MG (LOPID) TAB PO SCH ×2 (08:47→20:09)
[2017-06-25] MEDS: DOCUSATE SODIUM 100 MG (COLACE) CAP PO SCH ×2 (08:47→20:09)
[2017-06-25] MEDS: SENNA W/DOCUSATE (SENOKOT S) TABLET PO SCH ×2 (08:47→20:09)
--- NOTE | 2017-06-25 13:25 | Physical Therapy Daily Note ---
PT Daily Note-Current Subjective Pt rates (R) hip pain 3/10. Pt pleasant and agreeable. Mental Status Patient Orientation: Person, Place, Situation Transfers Functional [place] Measure 0=Not Assessed/NA 4=Minimal Assistance 1=Total Assistance 5=Supervision or Setup 2=Maximal Assistance 6=Modified [place] 3=Moderate Assistance 7=Complete IndependenceIRFPAI Quality Coding Scale 6 Independent with activity with or without an assistive device 5 Patient requires set up or clean up by helper. Patient completes activity by themselves 4 Supervision or touching assist (CGA). [place] provide cues , steadying assist 3 The helper provides less than half the effort to complete the activity 2 The helper provides more than half the effort to complete the activity 1 Dependent. The helper does all the effort to complete an activity 7 Patient refused to complete or attempt activity 9 The patient did not perform the activity before the current illness or injury 88 Not attempted due to Medical conditions or safety concerns Min A with vc's for sequence, TTWB (R) LE. Transfers: recliner->wch, wch<->nu- step, wch->bed Weight Bearing Right Lower Extremity: Right Touch Toe Bearing Left Lower Extremity: Left Full Weight Bearing Wheelchair Training Type of Wheelchair: Manual Practiced [facility] mobility around obstacles, approach to chairs and bed. [facility] mobility room-gym with SBA. Min A for approach and positioning in close proximity to chair, nustep and bed with instruction for pt to go toward (L) side. Exercises Seated Therapy Exercises: Ankle pumps, Long arc quads, Hip abd/add Seated Reps: 20 NuStep Minutes: 5 NuStep Workload: 1 Assessment Current Status: Fair Progress Pt terrence very well. Pt back to bed with call light and all needs met. PT Short Term Goals Short Term Goals Time Frame: Jun 22, 2017 Transfers (B,C,W/C) (FIM): 4 Gait (FIM): 1 Distance (FIM): 1=up to 49 ft Gait Distance Comment: 25' Gait Level of Assist: 4 Gait Assistive Device: FWW Wheelchair Distance: 150'x2 PT Group Home Goals Hunting Sales Associate Goals PT Group Home Goals Time Frame: Jul 06, 2017 Transfers (B,C,W/C) (FIM): 4 Sit to Lying (QC): 4 Lying-Sitting on Side/Bed(QC): 4 Sit to Stand (QC): 4 Rollin Roll Left to Right (QC): 4 Chair/Yod-mz-Fknpe Xfer(QC): 4 Does the Patient Walk: No and Walking Goal IS indicated Gait (FIM): 4 Gait distance (FIM): 3=150 ft Distance: 150' Walk 10 feet (QC): 4 Walk 10ft-Uneven Surface(QC): 4 Walk 50ft with 2 Turns (QC): 4 Walk 150 ft (QC): 4 Gait Level of Assist: 4 Gait Assistive Device: FWW PT Plan Treatment/Plan Treatment Plan: Continue Plan of Care Treatment Plan: Bed Mobility, Concurrent Therapy, Education, Functional Activity Leti, Functional Strength, Group Therapy, Gait, Safety, Therapeutic Exercise, Transfers Treatment Duration: Jul 06, 2017 Frequency: At least 5 of 7 days/Wk (IRF) Estimated Hrs Per Day: 1.5 hours per day Patient and/or Family Agrees t: Yes Time/GCodes Time In: 1145 Time Out: 1225 Total Billed Treatment Time: 40 Total Billed Treatment 1, EX x 25min, WCH x 15min YAS SHARMA CPTA Jun 25, 2017 13:25
[2017-06-25 18:00] VITALS: BP 123/66
[2017-06-25] MEDS: ALFUZOSIN HCL 10 MG TAB (UROXATRAL) PO SCH (18:10)
[2017-06-25] MEDS: MONTELUKAST 10 MG (SINGULAIR) TAB PO SCH (20:09)
[2017-06-25] MEDS: HYDROcodone/APAP 10 MG/325 MG (LORTAB) TAB PO PRN (23:01)
[2017-06-26 05:28] VITALS: BP 92/52
[2017-06-26] MEDS: NYSTATIN ORAL SUSP 5 ML UDC PO SCH ×4 (06:06→23:30)
[2017-06-26] MEDS: metFORMIN 500 MG (GLUCOPHAGE) TAB PO SCH (06:06)
[2017-06-26] MEDS: inSUlin ASPART (NovoLOG) 1 UNIT/0.01 ML (CHARGE PER UNIT) SC SCH ×4 (06:06→20:21)
[2017-06-26] MEDS: FERROUS SULF 325 MG (IRON) TAB PO SCH (06:06)
[2017-06-26] MEDS: GLIMEPIRIDE 2 MG (AMARYL) TAB PO SCH (06:06)
[2017-06-26] MEDS: TRIM/SULFAMETH 160/800 (SEPTRA DS) TAB PO SCH (06:06)
[2017-06-26] MEDS: sitaGLIPtin 50 MG (NON-FORMULARY) TAB PO SCH (08:58)
[2017-06-26] MEDS: DOCUSATE SODIUM 100 MG (COLACE) CAP PO SCH ×2 (08:58→20:23)
[2017-06-26] MEDS: ASPIRIN E.C. 325 MG (ECOTRIN) TABLET PO SCH (08:58)
[2017-06-26] MEDS: LACTULOSE SYRUP 10GM/15ML (ENULOSE) 30ML UDC PO SCH ×2 (08:58→20:23)
[2017-06-26] MEDS: SENNA W/DOCUSATE (SENOKOT S) TABLET PO SCH ×2 (08:59→20:23)
[2017-06-26] MEDS: GEMFIBROZIL 600 MG (LOPID) TAB PO SCH ×2 (08:59→20:23)
[2017-06-26] MEDS: FLUTICASONE NASAL SPRAY (FLONASE) 16 GM BTL NS SCH (09:00)
[2017-06-26 18:00] VITALS: BP 145/72
[2017-06-26] MEDS: ALFUZOSIN HCL 10 MG TAB (UROXATRAL) PO SCH (19:24)
[2017-06-26] MEDS: MONTELUKAST 10 MG (SINGULAIR) TAB PO SCH (20:23)
[2017-06-26] MEDS: HYDROcodone/APAP 10 MG/325 MG (LORTAB) TAB PO PRN (20:23)
[2017-06-27] MEDS: inSUlin ASPART (NovoLOG) 1 UNIT/0.01 ML (CHARGE PER UNIT) SC SCH ×4 (05:25→21:03)
[2017-06-27 06:10] VITALS: BP 129/71
[2017-06-27] MEDS: metFORMIN 500 MG (GLUCOPHAGE) TAB PO SCH (06:11)
[2017-06-27] MEDS: FERROUS SULF 325 MG (IRON) TAB PO SCH (06:11)
[2017-06-27] MEDS: GLIMEPIRIDE 2 MG (AMARYL) TAB PO SCH (06:11)
[2017-06-27] MEDS: NYSTATIN ORAL SUSP 5 ML UDC PO SCH ×3 (06:11→18:36)
[2017-06-27] MEDS: ASPIRIN E.C. 325 MG (ECOTRIN) TABLET PO SCH (08:45)
[2017-06-27] MEDS: DOCUSATE SODIUM 100 MG (COLACE) CAP PO SCH ×2 (08:45→21:01)
[2017-06-27] MEDS: SENNA W/DOCUSATE (SENOKOT S) TABLET PO SCH ×2 (08:45→21:01)
[2017-06-27] MEDS: sitaGLIPtin 50 MG (NON-FORMULARY) TAB PO SCH (08:45)
[2017-06-27] MEDS: LACTULOSE SYRUP 10GM/15ML (ENULOSE) 30ML UDC PO SCH ×2 (08:45→21:01)
[2017-06-27] MEDS: GEMFIBROZIL 600 MG (LOPID) TAB PO SCH ×2 (08:46→21:01)
[2017-06-27] MEDS: FLUTICASONE NASAL SPRAY (FLONASE) 16 GM BTL NS SCH (08:48)
--- NOTE | 2017-06-27 10:00 | Physical Therapy Daily Note ---
PT Daily Note-Current Subjective Pt is sitting in wheelchair prior to tx and agreeable to PT. Pt reports his pain level has dropped significantly, and he is able to move much better today. Pt is sitting up in wheelchair with nurse call, phone, tray, all needs met post tx. Pain Numeric Pain Scale: 0-No Pain Location: No Pain Reported Mental Status Patient Orientation: Normal For Age Transfers Functional [place] Measure 0=Not Assessed/NA 4=Minimal Assistance 1=Total Assistance 5=Supervision or Setup 2=Maximal Assistance 6=Modified [place] 3=Moderate Assistance 7=Complete IndependenceIRFPAI Quality Coding Scale 6 Independent with activity with or without an assistive device 5 Patient requires set up or clean up by helper. Patient completes activity by themselves 4 Supervision or touching assist (CGA). [place] provide cues , steadying assist 3 The helper provides less than half the effort to complete the activity 2 The helper provides more than half the effort to complete the activity 1 Dependent. The helper does all the effort to complete an activity 7 Patient refused to complete or attempt activity 9 The patient did not perform the activity before the current illness or injury 88 Not attempted due to Medical conditions or safety concerns Transfers (B, C, W/C) (FIM): 5 Scootin Rollin Sit to/from Stand: 5 Bed to/from Chair: 5 Pt completes bed mobility and stand pivot transfers with SBA for safety. Weight Bearing Right Lower Extremity: Right Touch Toe Bearing Left Lower Extremity: Left Full Weight Bearing Gait Training Does the Patient Walk?: Yes Gait (FIM): 1 Distance (FIM): 1=up to 49 ft Distance: 6'x4 Gait Level of Assist: 4 Gait Persons Needed: 1 Gait Assistive Device: Parallel Bars Pt is able to ambulate 6'x4 in parallel bars with CGA. Pt is able to scoot left foot out while WBing through UEs and is able to comply with WBS until he fatigues, then tends to put more weight through R LE, and is verbally cued. Wheelchair Training Does the Pt Use a Wheelchair?: Yes Wheelchair (FIM): 2 Distance: 100' Wheelchair Level of Assist: 5 Type of Wheelchair: Manual Exercises Supine Ex: Rolling, Scooting Supine Reps: 3 Seated Therapy Exercises: Ankle pumps, Long arc quads, Hip flexion, Hip abd/add Seated Reps: [address] Ex=Flex, Abd, Ext Standing Reps: 20 NuStep Minutes: 15 NuStep Workload: 1 Treatments Pt completes gait training and bed mobility (supine<>sit, rolling)x4 to increase functional mobility. Pt completes seated and standing exercises to increase functional LE strength. Completes tx on Nustep to increase endurance. Assessment Current Status: Good Progress Pt mobility and strength is improved significantly today. PT Short Term Goals Short Term Goals Time Frame: Jun 22, 2017 Transfers (B,C,W/C) (FIM): 4 Gait (FIM): 1 Distance (FIM): 1=up to 49 ft Gait Distance Comment: 25' Gait Level of Assist: 4 Gait Assistive Device: FWW Wheelchair Distance: 150'x2 PT Latin Professor Goals Care Home Goals PT Care Home Goals Time Frame: Jul 06, 2017 Transfers (B,C,W/C) (FIM): 4 Sit to Lying (QC): 4 Lying-Sitting on Side/Bed(QC): 4 Sit to Stand (QC): 4 Rollin Roll Left to Right (QC): 4 Chair/Ccw-bq-Anfau Xfer(QC): 4 Does the Patient Walk: No and Walking Goal IS indicated Gait (FIM): 4 Gait distance (FIM): 3=150 ft Distance: 150' Walk 10 feet (QC): 4 Walk 10ft-Uneven Surface(QC): 4 Walk 50ft with 2 Turns (QC): 4 Walk 150 ft (QC): 4 Gait Level of Assist: 4 Gait Assistive Device: FWW PT Plan Problem List Problem List: Activity Tolerance, Functional Strength, Safety, Balance, Gait, Transfer, Bed Mobility, ROM Treatment/Plan Treatment Plan: Continue Plan of Care Treatment Plan: Bed Mobility, Concurrent Therapy, Education, Functional Activity Leti, Functional Strength, Group Therapy, Gait, Safety, Therapeutic Exercise, Transfers Treatment Duration: Jul 06, 2017 Frequency: At least 5 of 7 days/Wk (IRF) Estimated Hrs Per Day: 1.5 hours per day Patient and/or Family Agrees t: Yes Safety Risks/Education Patient Education: Gait Training, Transfer Techniques, Reviewed Precautions, Correct Positioning, W/C Management, Safety Issues Teaching Recipient: Patient Teaching Methods: Demonstration, Discussion Response to Teaching: Verbalize Understanding, Reinforcement Needed Time/GCodes Time In: 900 Time Out: 959 Total Billed Treatment Time: 59 Total Billed Treatment 1 visit 14 GT 20 FA 25 EX ROXANNE CHURCHILL PT Jun 27, 2017 10:00
--- NOTE | 2017-06-27 11:42 | Occupational Ther Daily Note ---
OT Current Status-Daily Note Subjective Pt alert, lying in bed eating breakfast. Pt agrees to therapy. No c/o pain at this time. Mental Status/Objective Patient Orientation: Person, Place, Time, Situation Functional [place] Measure 0=Not Assessed/NA 4=Minimal Assistance 1=Total Assistance 5=Supervision or Setup 2=Maximal Assistance 6=Modified [place] 3=Moderate Assistance 7=Complete [place] ADL-Treatment Pt was able to open packages/containers by self to eat breakfast and use regular utensils to cut and feed self. With HOB raised, pt was able to go from supine to sitting EOB using bedrails by self. Using FWW and bed height raised, pt able to stand pivot transfer from bed to w/c with close SBA. Pt maneuvered w /c by self into bathroom and sat at sink to complete own grooming. Stand pivot transfer using grabbars to transfer into shower with CGA. Pt completed shower using shower bench, hand held shower, long handle sponge and hand held shower. Pt bathed all area sitting on bench, leaning side to side to cleanse buttocks. CGA when drying self in standing, assist to dry lower legs/feet. After set up, pt was able to don/doff upper body clothing by self. Pt doffed socks with dressing stick, donned with sock aide. Pt doffed pants with CGA in standing to hike down over hips, CGA in standing to hike over hips. Functional [place] Measure 0=Not Assessed/NA 4=Minimal Assistance 1=Total Assistance 5=Supervision or Setup 2=Maximal Assistance 6=Modified [place] 3=Moderate Assistance 7=Complete IndependenceIRFPAI Quality Coding Scale 6 Independent with activity with or without an assistive device 5 Patient requires set up or clean up by helper. Patient completes activity by themselves 4 Supervision or touching assist (CGA). [place] provide cues , steadying assist 3 The helper provides less than half the effort to complete the activity 2 The helper provides more than half the effort to complete the activity 1 Dependent. The helper does all the effort to complete an activity 7 Patient refused to complete or attempt activity 9 The patient did not perform the activity before the current illness or injury 88 Not attempted due to Medical conditions or safety concerns Eating (FIM): 6 Eating (QC): 6 Grooming (FIM): 6 Oral Hygiene (QC): 6 Bathing (FIM): 4 Shower/Bathe Self (QC): 3 Upper Body (FIM): 5 Upper Body Dressing (QC): 4 Lower Body Dressing (FIM): 4 Lower Body Dressing (QC): 3 On/Off Footwear (QC): 4 Transfers (B, C, W/C) (FIM): 4 Shower Transfer(FIM): 4 Other Treatment Pt maneuvered w/c to gym by self. Completed arm bike duration 15 min at 20 adams resistance with 1 break to increase strength and activity tolerance for daily functional tasks. After therapy, pt sitting in w/c with call light/phone in reach. All needs met in room. OT Short Term Goals Short Term Goals Time Frame: Jun 22, 2017 Eating(FIM): 5 Grooming(FIM): 5 Bathing(FIM): 3 Upper Body Dressing(FIM): 5 Lower Body Dressing(FIM): 4 Toileting(FIM): 4 Transfers (B,C,W/C) (FIM): 4 Toilet/Commode Transfer(FIM): 4 Shower Transfer(FIM): 3 Additional Short Term Goals: 1-Demonstrate ADL Tasks, 2-Verbalize Understanding , 3-ImproveStrength/Leti 1=Demonstrate adherence to instructed precautions during ADL tasks. 2=Patient will verbalize/demonstrate understanding of assistive devices/ modifications for ADL. 3=Patient will improve strength/tolerance for activity to enable patient to perform ADL's. OT Alf Goals Alf Goals Time Frame: Jul 06, 2017 Eating (FIM): 6 Eating (QC): 6 Groomin Oral Hygiene (QC): 6 Bathing(FIM): 5 Shower/Bathe Self (QC): 5 Upper Body Dressing(FIM): 5 Upper Body Dressing (QC): 5 Lower Body Dressing(FIM): 5 Lower Body Dressing (QC): 5 On/Off Footwear (QC): 5 Toileting(FIM): 5 Toileting Hygiene (QC): 5 Transfers (B,C,W/C) (FIM): 6 Toilet/Commode Transfer(FIM): 6 Toilet/Commode Transfer (QC): 5 Shower Transfer(FIM): 4 Additional Goals: 1-Demonstrate ADL Tasks, 2-Verbalize Understanding, 3- ImproveStrength/Leti 1=Demonstrate adherence to instructed precautions during ADL tasks. 2=Patient will verbalize/demonstrate understanding of assistive devices/ modifications for ADL. 3=Patient will improve strength/tolerance for activity to enable patient to perform ADL's. OT Education/Plan Discharge Recommendations Plan/Recommendations: Continue POC Treatment Plan/Plan of Care Patient would benefit from OT for education, treatment and training to promote independence in ADL's, mobility, safety and/or upper extremity function for ADL' s. Plan of Care: ADL Retraining, Functional Mobility, UE Funct Exercise/Act Treatment Duration: Jul 06, 2017 Frequency: At least 5 of 7 days/Wk (IRF) Estimated Hrs Per Day: 1.5 hours per day Agreement: Yes Rehab Potential: Good Time/GCodes Start Time: 06:59 Stop Time: 08:29 Total Time Billed (hr/min): 90 Billed Treatment Time 1 visit-ADL 5 (75 min) EX 1 (15 min) CATRACHO CARRASCO Jun 27, 2017 11:42
--- NOTE | 2017-06-27 15:31 | Physical Therapy Daily Note ---
PT Daily Note-Current Subjective Pt is sitting in wheelchair prior to tx and agreeable to PT. Pt has no complaints of pain. Pt is sitting in wheelchair with nurse call, phone, tray, all needs met post tx. Pain Numeric Pain Scale: 0-No Pain Location: No Pain Reported Mental Status Patient Orientation: Normal For Age Transfers Functional [place] Measure 0=Not Assessed/NA 4=Minimal Assistance 1=Total Assistance 5=Supervision or Setup 2=Maximal Assistance 6=Modified [place] 3=Moderate Assistance 7=Complete IndependenceIRFPAI Quality Coding Scale 6 Independent with activity with or without an assistive device 5 Patient requires set up or clean up by helper. Patient completes activity by themselves 4 Supervision or touching assist (CGA). [place] provide cues , steadying assist 3 The helper provides less than half the effort to complete the activity 2 The helper provides more than half the effort to complete the activity 1 Dependent. The helper does all the effort to complete an activity 7 Patient refused to complete or attempt activity 9 The patient did not perform the activity before the current illness or injury 88 Not attempted due to Medical conditions or safety concerns Transfers (B, C, W/C) (FIM): 5 Sit to/from Stand: 5 Bed to/from Chair: 5 Pt completes stand pivot transfer using wheelchair and SBA for safety. Pt requires verbal cues for safety and WBS. Weight Bearing Right Lower Extremity: Right Touch Toe Bearing Left Lower Extremity: Left Full Weight Bearing Exercises Seated Therapy Exercises: Long arc quads Seated Reps: [address] Ex=Flex, Abd, Ext, Sit to Stand (8x3) Treatments Pt completes standing exercises in parallel bars to increase functional LE strength. Assessment Current Status: Fair Progress Pt transfers are improving. PT Short Term Goals Short Term Goals Time Frame: Jun 22, 2017 Transfers (B,C,W/C) (FIM): 4 Gait (FIM): 1 Distance (FIM): 1=up to 49 ft Gait Distance Comment: 25' Gait Level of Assist: 4 Gait Assistive Device: FWW Wheelchair Distance: 100' PT Fpc Goals Fpc Goals PT Fpc Goals Time Frame: Jul 06, 2017 Transfers (B,C,W/C) (FIM): 4 Sit to Lying (QC): 4 Lying-Sitting on Side/Bed(QC): 4 Sit to Stand (QC): 4 Rollin Roll Left to Right (QC): 4 Chair/Roo-la-Vnwej Xfer(QC): 4 Does the Patient Walk: No and Walking Goal IS indicated Gait (FIM): 4 Gait distance (FIM): 3=150 ft Distance: 150' Walk 10 feet (QC): 4 Walk 10ft-Uneven Surface(QC): 4 Walk 50ft with 2 Turns (QC): 4 Walk 150 ft (QC): 4 Gait Level of Assist: 4 Gait Assistive Device: FWW PT Plan Problem List Problem List: Activity Tolerance, Functional Strength, Safety, Balance, Gait, Transfer, Bed Mobility, ROM Treatment/Plan Treatment Plan: Continue Plan of Care Treatment Plan: Bed Mobility, Concurrent Therapy, Education, Functional Activity Leti, Functional Strength, Group Therapy, Gait, Safety, Therapeutic Exercise, Transfers Treatment Duration: Jul 06, 2017 Frequency: At least 5 of 7 days/Wk (IRF) Estimated Hrs Per Day: 1.5 hours per day Patient and/or Family Agrees t: Yes Safety Risks/Education Patient Education: Transfer Techniques, Reviewed Precautions, W/C Management, Safety Issues Teaching Recipient: Patient Teaching Methods: Demonstration, Discussion Response to Teaching: Verbalize Understanding, Reinforcement Needed Time/GCodes Time In: 1501 Time Out: 1532 Total Billed Treatment Time: 31 Total Billed Treatment 1 visit 11 FA 20 EX ROXANNE CHURCHILL PT Jun 27, 2017 15:31
--- NOTE | 2017-06-27 17:49 | PM & R (SOAP) Progress Note ---
Subjective Time Seen by Provider: 17:40 Subjective/Events-last exam Patient was seen in his room this evening Progressing well with therapies Patient SBA for transfers Oral pain improved with course pof Nystatin Patient weaned from . Objective Exam Last Set of Vital Signs Vital Signs Date Time Temp Pulse Resp B/P (MAP) Pulse Ox O2 Delivery O2 Flow Rate FiO2 06/27/17 06:10 98.4 91 20 129/71 92 Room Air 06/26/17 23:50 2.00 06/23/17 21:00 91 Capillary Refill : Less Than 3 Seconds I&O Intake and Output 06/28/17 00:00 Intake Total 500 ml Output Total 775 ml Balance -275 ml Intake Oral 500 ml Output Urine Total 775 ml Bladder Scan Volume Amount 104 ml General: Alert, Oriented X3, Cooperative, No Acute Distress HEENT: Atraumatic, PERRLA, EOMI, Mucous Memb Moist/[place] Neck: Supple, No JVD Lungs: Clear to Auscultation Heart: Regular Rate Abdomen: Normal Bowel Sounds, Soft, No Tenderness Extremities: No Edema (trace edema RLE) Neuro: Other (Impaired RLE) Results Lab Laboratory Tests 06/24/17 20:41: Glucometer 140H 06/25/17 05:23: Glucometer 89 06/25/17 11:23: Glucometer 85 06/25/17 15:33: Glucometer 81 06/25/17 20:05: Glucometer 64L 06/25/17 21:03: Glucometer 87 06/26/17 04:27: Glucometer 70 06/26/17 04:57: Glucometer 116H 06/26/17 11:41: Glucometer 153H 06/26/17 16:39: Glucometer 138H 06/26/17 20:21: Glucometer 158H 06/27/17 05:24: Glucometer 101 06/27/17 11:14: Glucometer 117H Microbiology 06/19/17 Urine Culture - Final, Complete Enterococcus Faecalis Nonenterococcus (Chains Cocci) Aerococcus Urinae Staph, Coag Neg (Railway Switch Operator) Assessment/Plan Assessment Fall frx rt hip s/p IM nailing DR Crum 06-12-17 Toe touch WT bearing RLE Postop resp insuffiency on supplemental 02-being weaned post-op urinary retention improved with meds postop fever-appears resolved postop anemia on replacement postop DVT prophylaxis DM controlled HTN controlled RT Kidney stone with hematuria DR Gutierrez follwing UTI completed course of antibiotic Prsumed oral thrush-improved with Nystatin swish and swallow Plan Continue PT/OT ST has signed off Wean from 02 as able-done Monitor for any further urinary retention /hematuria with f/u with DR Gutierrez PRN Monitior and adjust meds for constipation as needed F/U with Hospitalist service re DM and HTN management F/U with orthopedics prn Nystatin for thrush-improved Next Team Conference 06-29-17 Discharge set tentatively for 06-30-17 LUAN SESAY MD Jun 27, 2017 17:49
[2017-06-27 18:24] VITALS: BP 127/71
[2017-06-27] MEDS: ALFUZOSIN HCL 10 MG TAB (UROXATRAL) PO SCH (18:36)
[2017-06-27] MEDS: MONTELUKAST 10 MG (SINGULAIR) TAB PO SCH (21:01)
[2017-06-28] MEDS: NYSTATIN ORAL SUSP 5 ML UDC PO SCH ×4 (00:09→17:17)
[2017-06-28] MEDS: inSUlin ASPART (NovoLOG) 1 UNIT/0.01 ML (CHARGE PER UNIT) SC SCH ×4 (05:44→20:36)
[2017-06-28] MEDS: GLIMEPIRIDE 2 MG (AMARYL) TAB PO SCH (06:20)
[2017-06-28] MEDS: metFORMIN 500 MG (GLUCOPHAGE) TAB PO SCH (06:20)
[2017-06-28] MEDS: FERROUS SULF 325 MG (IRON) TAB PO SCH (06:20)
[2017-06-28 06:44] VITALS: BP 128/68
[2017-06-28] MEDS: LACTULOSE SYRUP 10GM/15ML (ENULOSE) 30ML UDC PO SCH ×2 (07:51→20:36)
[2017-06-28] MEDS: ASPIRIN E.C. 325 MG (ECOTRIN) TABLET PO SCH (07:51)
[2017-06-28] MEDS: sitaGLIPtin 50 MG (NON-FORMULARY) TAB PO SCH (07:51)
[2017-06-28] MEDS: DOCUSATE SODIUM 100 MG (COLACE) CAP PO SCH ×2 (07:51→20:36)
[2017-06-28] MEDS: SENNA W/DOCUSATE (SENOKOT S) TABLET PO SCH ×2 (07:51→20:36)
[2017-06-28] MEDS: GEMFIBROZIL 600 MG (LOPID) TAB PO SCH ×2 (07:51→20:36)
[2017-06-28] MEDS: FLUTICASONE NASAL SPRAY (FLONASE) 16 GM BTL NS SCH (07:52)
--- NOTE | 2017-06-28 07:53 | Occupational Ther Daily Note ---
OT Current Status-Daily Note Subjective Pt alert, lying in bed. Pt agreed to therapy. No c/o pain at this time. Mental Status/Objective Patient Orientation: Person, Place, Time, Situation Functional [place] Measure 0=Not Assessed/NA 4=Minimal Assistance 1=Total Assistance 5=Supervision or Setup 2=Maximal Assistance 6=Modified [place] 3=Moderate Assistance 7=Complete [place] ADL-Treatment With HOB raised, pt was able to go from supine to sitting EOB by self. Pt then transferred with FWW from bed to w/c with SBA. Then maneuvered w/c into bathroom to complete grooming and sponge bath. Pt shaved, brushed teeth and hair sitting at sink. Pt bathed upper body sitting down then stood to cleanse buttocks/randall area with SBA. Pt declined bathing LE's at this time. Pt was able to don/doff upper body clothing by self after set up. Pt doffed/donned socks with AE by self. SBA in standing to hike pants over hips. Pt able to initiate clothing over feet then when stood up pants fell to knees and assist needed grasp pants and pull up legs. Functional [place] Measure 0=Not Assessed/NA 4=Minimal Assistance 1=Total Assistance 5=Supervision or Setup 2=Maximal Assistance 6=Modified [place] 3=Moderate Assistance 7=Complete IndependenceIRFPAI Quality Coding Scale 6 Independent with activity with or without an assistive device 5 Patient requires set up or clean up by helper. Patient completes activity by themselves 4 Supervision or touching assist (CGA). [place] provide cues , steadying assist 3 The helper provides less than half the effort to complete the activity 2 The helper provides more than half the effort to complete the activity 1 Dependent. The helper does all the effort to complete an activity 7 Patient refused to complete or attempt activity 9 The patient did not perform the activity before the current illness or injury 88 Not attempted due to Medical conditions or safety concerns Grooming (FIM): 6 Oral Hygiene (QC): 6 Upper Body (FIM): 5 Upper Body Dressing (QC): 5 Lower Body Dressing (FIM): 4 Lower Body Dressing (QC): 3 Transfers (B, C, W/C) (FIM): 5 (With elevated surface) OT Short Term Goals Short Term Goals Time Frame: Jun 22, 2017 Eating(FIM): 5 Grooming(FIM): 5 Bathing(FIM): 3 Upper Body Dressing(FIM): 5 Lower Body Dressing(FIM): 4 Toileting(FIM): 4 Transfers (B,C,W/C) (FIM): 4 Toilet/Commode Transfer(FIM): 4 Shower Transfer(FIM): 3 Additional Short Term Goals: 1-Demonstrate ADL Tasks, 2-Verbalize Understanding , 3-ImproveStrength/Leti 1=Demonstrate adherence to instructed precautions during ADL tasks. 2=Patient will verbalize/demonstrate understanding of assistive devices/ modifications for ADL. 3=Patient will improve strength/tolerance for activity to enable patient to perform ADL's. OT Cost Accounting Analyst Goals Half-Way Goals Time Frame: Jul 06, 2017 Eating (FIM): 6 Eating (QC): 6 Groomin Oral Hygiene (QC): 6 Bathing(FIM): 5 Shower/Bathe Self (QC): 5 Upper Body Dressing(FIM): 5 Upper Body Dressing (QC): 5 Lower Body Dressing(FIM): 5 Lower Body Dressing (QC): 5 On/Off Footwear (QC): 5 Toileting(FIM): 5 Toileting Hygiene (QC): 5 Transfers (B,C,W/C) (FIM): 6 Toilet/Commode Transfer(FIM): 6 Toilet/Commode Transfer (QC): 5 Shower Transfer(FIM): 4 Additional Goals: 1-Demonstrate ADL Tasks, 2-Verbalize Understanding, 3- ImproveStrength/Leti 1=Demonstrate adherence to instructed precautions during ADL tasks. 2=Patient will verbalize/demonstrate understanding of assistive devices/ modifications for ADL. 3=Patient will improve strength/tolerance for activity to enable patient to perform ADL's. OT Education/Plan Discharge Recommendations Plan/Recommendations: Continue POC Treatment Plan/Plan of Care Patient would benefit from OT for education, treatment and training to promote independence in ADL's, mobility, safety and/or upper extremity function for ADL' s. Plan of Care: ADL Retraining, Functional Mobility, UE Funct Exercise/Act Treatment Duration: Jul 06, 2017 Frequency: At least 5 of 7 days/Wk (IRF) Estimated Hrs Per Day: 1.5 hours per day Agreement: Yes Rehab Potential: Good Time/GCodes Start Time: 06:53 Stop Time: 07:53 Total Time Billed (hr/min): 60 Billed Treatment Time 1 visit-ADL 4 (60 min) CATRACHO CARRASCO Jun 28, 2017 07:53
--- NOTE | 2017-06-28 08:40 | PM & R (SOAP) Progress Note ---
Subjective Time Seen by Provider: 08:00 Subjective/Events-last exam Patient was seen in his room this AM with RN RT hip incision well healed clarissa in place Patient reports that he will be going to local [facility] [place] care rather then to home this coming 06-30-17 Patient SBA for transfers Patient Eupneic at rest on room air. Objective Exam Last Set of Vital Signs Vital Signs Date Time Temp Pulse Resp B/P (MAP) Pulse Ox O2 Delivery O2 Flow Rate FiO2 06/28/17 06:44 98.4 99 18 128/68 92 Room Air 06/26/17 23:50 2.00 06/23/17 21:00 91 Capillary Refill : Less Than 3 Seconds I&O Intake and Output 06/29/17 00:00 Intake Total 400 ml Output Total 2000 ml Balance -1600 ml Intake Oral 400 ml Output Urine Total 2000 ml General: Alert, Oriented X3, Cooperative, No Acute Distress HEENT: Atraumatic, PERRLA, EOMI, Mucous Memb Moist/[place] Neck: Supple, No JVD Lungs: Clear to Auscultation Heart: Regular Rate Abdomen: Normal Bowel Sounds, Soft, No Tenderness Extremities: No Edema (trace edema RLE) Neuro: Other (Impaired RLE) Results Lab Laboratory Tests 06/25/17 11:23: Glucometer 85 06/25/17 15:33: Glucometer 81 06/25/17 20:05: Glucometer 64L 06/25/17 21:03: Glucometer 87 06/26/17 04:27: Glucometer 70 06/26/17 04:57: Glucometer 116H 06/26/17 11:41: Glucometer 153H 06/26/17 16:39: Glucometer 138H 06/26/17 20:21: Glucometer 158H 06/27/17 05:24: Glucometer 101 06/27/17 11:14: Glucometer 117H 06/27/17 16:00: Glucometer 144H 06/27/17 20:25: Glucometer 74 06/28/17 05:42: Glucometer 79 Microbiology 06/19/17 Urine Culture - Final, Complete Enterococcus Faecalis Nonenterococcus (Chains Cocci) Aerococcus Urinae Staph, Coag Neg (Supervisor Sewing Room) Assessment/Plan Assessment Fall frx rt hip s/p IM nailing DR Crum 06-12-17 Toe touch WT bearing RLE Postop resp insuffiency on supplemental 02-being weaned post-op urinary retention improved with meds postop fever-appears resolved postop anemia on replacement postop DVT prophylaxis DM controlled HTN controlled RT Kidney stone with hematuria DR Gutierrez foll UTI completed course of antibiotic Prsumed oral thrush-improved with Nystatin swish and swallow Plan Continue PT/OT ST has signed off Wean from as able-done Monitor for any further urinary retention /hematuria with f/u with DR Gutierrez PRN Monitior and adjust meds for constipation as needed F/U with Hospitalist service re DM and HTN management F/U with orthopedics prn Nystatin for thrush-improved Next Team Conference tomorrow 06-29-17 Discharge set tentatively for 06-30-17 to a local SNU for ongoing care as per above Dr Clarke covering my service while i am away from 06-29-18 [facility] 07-06-17 LUAN SESAY MD Jun 28, 2017 08:40
[2017-06-28] MEDS ORDERED: HYDR-3820 PO (08:50)
[2017-06-28] MEDS ORDERED: ALFU10TA11 PO (08:50)
[2017-06-28] MEDS ORDERED: SENN-20 PO (08:50)
--- NOTE | 2017-06-28 09:22 | Physical Therapy Daily Note ---
PT Daily Note-Current Subjective Pt sitting in [facility] in room upon arrival. Pt agrees to PT. Pain Location: No Pain Reported Mental Status Patient Orientation: Person, Place, Time, Situation Transfers Functional [place] Measure 0=Not Assessed/NA 4=Minimal Assistance 1=Total Assistance 5=Supervision or Setup 2=Maximal Assistance 6=Modified [place] 3=Moderate Assistance 7=Complete IndependenceIRFPAI Quality Coding Scale 6 Independent with activity with or without an assistive device 5 Patient requires set up or clean up by helper. Patient completes activity by themselves 4 Supervision or touching assist (CGA). [place] provide cues , steadying assist 3 The helper provides less than half the effort to complete the activity 2 The helper provides more than half the effort to complete the activity 1 Dependent. The helper does all the effort to complete an activity 7 Patient refused to complete or attempt activity 9 The patient did not perform the activity before the current illness or injury 88 Not attempted due to Medical conditions or safety concerns Scootin Sit to/from Stand: 5 Sit to Stand (QC): 5 Weight Bearing Right Lower Extremity: Right Touch Toe Bearing Left Lower Extremity: Left Full Weight Bearing Gait Training Does the Patient Walk?: Yes Distance (FIM): 1=up to 49 ft Distance: 6' x4 Walk 10 feet (QC): 5 Gait Level of Assist: 5 Gait Persons Needed: 1 Gait Assistive Device: Parallel Bars Pt walks with slow charla but steady. Pt slides RLE forward while WBing to comply with WB status. Wheelchair Training Does the Pt Use a Wheelchair?: Yes Wheelchair Distance: 3=150 ft Distance: 150' Wheelchair Level of Assist: 5 Wheel 50 ft with 2 turns (QC): 5 Wheel 150 ft (QC): 5 Type of Wheelchair: Manual Exercises Standing: Sit to Stand (x6) NuStep Minutes: 12 NuStep Workload: 5 Treatments Pt & PT discuss Pt ed items in regards to what equipment pt might need and discharging on . Pt advised PT how he has been doing in tx. Pt propels [facility] to Therapy Gym at [facility] then completes 12m on NuStep at Workload 5. Pt takes brief rest before completing sit to stand and ambulating in //bars at [facility]. Pt completes this 6x with rest in between each one. Pt returns to [facility] and propels back to room to rest at end of tx with all needs met. Assessment Current Status: Good Progress Pt continues to work harder and pushes himself to improve with transfers and ambulation with complying with WB status. Pt does fatigue quick but also recovers quickly as well. PT Short Term Goals Short Term Goals Time Frame: Jun 22, 2017 Transfers (B,C,W/C) (FIM): 4 Gait (FIM): 1 Distance (FIM): 1=up to 49 ft Gait Distance Comment: 25' Gait Level of Assist: 4 Gait Assistive Device: FWW Wheelchair Distance: 100' PT Detention Goals Detention Goals PT District Gauger Goals Time Frame: Jul 06, 2017 Transfers (B,C,W/C) (FIM): 4 Sit to Lying (QC): 4 Lying-Sitting on Side/Bed(QC): 4 Sit to Stand (QC): 4 Rollin Roll Left to Right (QC): 4 Chair/Emn-gw-Kjvzc Xfer(QC): 4 Does the Patient Walk: No and Walking Goal IS indicated Gait (FIM): 4 Gait distance (FIM): 3=150 ft Distance: 150' Walk 10 feet (QC): 4 Walk 10ft-Uneven Surface(QC): 4 Walk 50ft with 2 Turns (QC): 4 Walk 150 ft (QC): 4 Gait Level of Assist: 4 Gait Assistive Device: FWW PT Plan Problem List Problem List: Activity Tolerance, Functional Strength, Gait Treatment/Plan Treatment Plan: Continue Plan of Care Treatment Plan: Bed Mobility, Concurrent Therapy, Education, Functional Activity Leti, Functional Strength, Group Therapy, Gait, Safety, Therapeutic Exercise, Transfers Treatment Duration: Jul 06, 2017 Frequency: At least 5 of 7 days/Wk (IRF) Estimated Hrs Per Day: 1.5 hours per day Patient and/or Family Agrees t: Yes Safety Risks/Education Patient Education: Gait Training, Transfer Techniques, Correct Positioning, Safety Issues Teaching Recipient: Patient Teaching Methods: Discussion Response to Teaching: Verbalize Understanding Time/GCodes Time In: 815 Time Out: 917 Total Billed Treatment Time: 62 Total Billed Treatment visit, FA (20m), WCH (10m), EX (15m) & GT (17m) SYLVIA DENIS DIRECTOR GLOBAL INTELLIGENCE Jun 28, 2017 09:22
[2017-06-28 10:22] VITALS: BP 128/68
--- NOTE | 2017-06-28 14:32 | Occupational Ther Daily Note ---
OT Current Status-Daily Note Subjective Pt alert, lying in bed. Pt agreed to therapy. No c/o pain. Mental Status/Objective Patient Orientation: Person, Place, Time, Situation Functional [place] Measure 0=Not Assessed/NA 4=Minimal Assistance 1=Total Assistance 5=Supervision or Setup 2=Maximal Assistance 6=Modified [place] 3=Moderate Assistance 7=Complete [place] ADL-Treatment Functional [place] Measure 0=Not Assessed/NA 4=Minimal Assistance 1=Total Assistance 5=Supervision or Setup 2=Maximal Assistance 6=Modified [place] 3=Moderate Assistance 7=Complete IndependenceIRFPAI Quality Coding Scale 6 Independent with activity with or without an assistive device 5 Patient requires set up or clean up by helper. Patient completes activity by themselves 4 Supervision or touching assist (CGA). [place] provide cues , steadying assist 3 The helper provides less than half the effort to complete the activity 2 The helper provides more than half the effort to complete the activity 1 Dependent. The helper does all the effort to complete an activity 7 Patient refused to complete or attempt activity 9 The patient did not perform the activity before the current illness or injury 88 Not attempted due to Medical conditions or safety concerns Other Treatment Pt was able to go from supine to sitting EOB by self with HOB raised. Supervision with stand pivot transfer using FWW. Pt maneuvered w/c to therapy gym. Pt then completed dowel tej exercises with 2# wt attached, 2 exercises, 3 sets 10 reps. Pt completed exercises slowly and took recovery breaks between each set. Pt maneuvered w/c back to room. After therapy, pt sitting in w/c ordering lunch. Call light/phone in reach. All needs met in room. OT Short Term Goals Short Term Goals Time Frame: Jun 22, 2017 Eating(FIM): 5 Grooming(FIM): 5 Bathing(FIM): 3 Upper Body Dressing(FIM): 5 Lower Body Dressing(FIM): 4 Toileting(FIM): 4 Transfers (B,C,W/C) (FIM): 4 Toilet/Commode Transfer(FIM): 4 Shower Transfer(FIM): 3 Additional Short Term Goals: 1-Demonstrate ADL Tasks, 2-Verbalize Understanding , 3-ImproveStrength/Leti 1=Demonstrate adherence to instructed precautions during ADL tasks. 2=Patient will verbalize/demonstrate understanding of assistive devices/ modifications for ADL. 3=Patient will improve strength/tolerance for activity to enable patient to perform ADL's. OT Retail Property Manager Goals Retail Property Manager Goals Time Frame: Jul 06, 2017 Eating (FIM): 6 Eating (QC): 6 Groomin Oral Hygiene (QC): 6 Bathing(FIM): 5 Shower/Bathe Self (QC): 5 Upper Body Dressing(FIM): 5 Upper Body Dressing (QC): 5 Lower Body Dressing(FIM): 5 Lower Body Dressing (QC): 5 On/Off Footwear (QC): 5 Toileting(FIM): 5 Toileting Hygiene (QC): 5 Transfers (B,C,W/C) (FIM): 6 Toilet/Commode Transfer(FIM): 6 Toilet/Commode Transfer (QC): 5 Shower Transfer(FIM): 4 Additional Goals: 1-Demonstrate ADL Tasks, 2-Verbalize Understanding, 3- ImproveStrength/Leti 1=Demonstrate adherence to instructed precautions during ADL tasks. 2=Patient will verbalize/demonstrate understanding of assistive devices/ modifications for ADL. 3=Patient will improve strength/tolerance for activity to enable patient to perform ADL's. OT Education/Plan Discharge Recommendations Plan/Recommendations: Continue POC Treatment Plan/Plan of Care Patient would benefit from OT for education, treatment and training to promote independence in ADL's, mobility, safety and/or upper extremity function for ADL' s. Plan of Care: ADL Retraining, Functional Mobility, UE Funct Exercise/Act Treatment Duration: Jul 06, 2017 Frequency: At least 5 of 7 days/Wk (IRF) Estimated Hrs Per Day: 1.5 hours per day Agreement: Yes Rehab Potential: Good Time/GCodes Start Time: 11:30 Stop Time: 12:00 Total Time Billed (hr/min): 30 Billed Treatment Time 1 visit-FA 1 (15 min) EX 1 (15 min) CATRACHO CARRASCO Jun 28, 2017 14:32
--- NOTE | 2017-06-28 15:13 | Physical Therapy Daily Note ---
PT Daily Note-Current Subjective Pt sitting in [facility] upon arrival. Pt agrees to PT. Pain Location: No Pain Reported Mental Status Patient Orientation: Person, Place, Time, Situation Transfers Functional [place] Measure 0=Not Assessed/NA 4=Minimal Assistance 1=Total Assistance 5=Supervision or Setup 2=Maximal Assistance 6=Modified [place] 3=Moderate Assistance 7=Complete IndependenceIRFPAI Quality Coding Scale 6 Independent with activity with or without an assistive device 5 Patient requires set up or clean up by helper. Patient completes activity by themselves 4 Supervision or touching assist (CGA). [place] provide cues , steadying assist 3 The helper provides less than half the effort to complete the activity 2 The helper provides more than half the effort to complete the activity 1 Dependent. The helper does all the effort to complete an activity 7 Patient refused to complete or attempt activity 9 The patient did not perform the activity before the current illness or injury 88 Not attempted due to Medical conditions or safety concerns Scootin Sit to/from Stand: 5 Sit to Stand (QC): 5 Weight Bearing Right Lower Extremity: Right Touch Toe Bearing Left Lower Extremity: Left Full Weight Bearing Gait Training Does the Patient Walk?: Yes Distance (FIM): 1=up to 49 ft Distance: 6' x3 Walk 10 feet (QC): 5 Gait Level of Assist: 5 Gait Persons Needed: 1 Gait Assistive Device: Parallel Bars Pt has slow charla and shifts R foot forward to comply with WBing status. Wheelchair Training Does the Pt Use a Wheelchair?: Yes Wheelchair Distance: 3=150 ft Distance: 150' Wheelchair Level of Assist: 5 Wheel 50 ft with 2 turns (QC): 5 Wheel 150 ft (QC): 5 Type of Wheelchair: Manual Exercises Seated Therapy Exercises: Ankle pumps, Long arc quads, Hip flexion, Kicking activity, Hip abd/add Seated Reps: 20 Treatments Pt propels [facility] to Therapy Gym and transfers at //bars at [facility]. Pt ambulates in / /bars at [facility] before returning to [facility] to rest between each length. Pt completes Seated Ex in [facility] before returning to room to rest Supine in bed at end of tx with all needs met. Assessment Current Status: Good Progress Pt fatigues but recovers quickly. Pt complies with WB status. PT Short Term Goals Short Term Goals Time Frame: Jun 22, 2017 Transfers (B,C,W/C) (FIM): 4 Gait (FIM): 1 Distance (FIM): 1=up to 49 ft Gait Distance Comment: 25' Gait Level of Assist: 4 Gait Assistive Device: FWW Wheelchair Distance: 150' PT Boiler Installer Goals Half-Way Goals PT Half-Way Goals Time Frame: Jul 06, 2017 Transfers (B,C,W/C) (FIM): 4 Sit to Lying (QC): 4 Lying-Sitting on Side/Bed(QC): 4 Sit to Stand (QC): 4 Rollin Roll Left to Right (QC): 4 Chair/Btx-gy-Rgdbh Xfer(QC): 4 Does the Patient Walk: No and Walking Goal IS indicated Gait (FIM): 4 Gait distance (FIM): 3=150 ft Distance: 150' Walk 10 feet (QC): 4 Walk 10ft-Uneven Surface(QC): 4 Walk 50ft with 2 Turns (QC): 4 Walk 150 ft (QC): 4 Gait Level of Assist: 4 Gait Assistive Device: FWW PT Plan Problem List Problem List: Activity Tolerance, Functional Strength, Gait Treatment/Plan Treatment Plan: Continue Plan of Care Treatment Plan: Bed Mobility, Concurrent Therapy, Education, Functional Activity Leti, Functional Strength, Group Therapy, Gait, Safety, Therapeutic Exercise, Transfers Treatment Duration: Jul 06, 2017 Frequency: At least 5 of 7 days/Wk (IRF) Estimated Hrs Per Day: 1.5 hours per day Patient and/or Family Agrees t: Yes Safety Risks/Education Patient Education: Gait Training, Transfer Techniques, Correct Positioning, Safety Issues Teaching Recipient: Patient Teaching Methods: Discussion Response to Teaching: Verbalize Understanding Time/GCodes Time In: 1330 Time Out: 1400 Total Billed Treatment Time: 30 Total Billed Treatment visit, EX (15m) & GT (15m) SYLVIA DENIS SALES OPERATIONS ASSOCIATE Jun 28, 2017 15:13
[2017-06-28] MEDS: ALFUZOSIN HCL 10 MG TAB (UROXATRAL) PO SCH (17:17)
[2017-06-28 18:43] VITALS: BP 132/72
[2017-06-28] MEDS: MONTELUKAST 10 MG (SINGULAIR) TAB PO SCH (20:36)
[2017-06-29] MEDS: NYSTATIN ORAL SUSP 5 ML UDC PO SCH ×4 (00:16→16:46)
[2017-06-29 05:49] VITALS: BP 147/68
[2017-06-29] MEDS: inSUlin ASPART (NovoLOG) 1 UNIT/0.01 ML (CHARGE PER UNIT) SC SCH ×4 (05:51→20:36)
[2017-06-29] MEDS: GLIMEPIRIDE 2 MG (AMARYL) TAB PO SCH (06:39)
[2017-06-29] MEDS: metFORMIN 500 MG (GLUCOPHAGE) TAB PO SCH (06:39)
[2017-06-29] MEDS: FERROUS SULF 325 MG (IRON) TAB PO SCH (06:40)
[2017-06-29] MEDS: SENNA W/DOCUSATE (SENOKOT S) TABLET PO SCH ×2 (08:08→20:37)
[2017-06-29] MEDS: sitaGLIPtin 50 MG (NON-FORMULARY) TAB PO SCH (08:08)
[2017-06-29] MEDS: ASPIRIN E.C. 325 MG (ECOTRIN) TABLET PO SCH (08:08)
[2017-06-29] MEDS: LACTULOSE SYRUP 10GM/15ML (ENULOSE) 30ML UDC PO SCH ×2 (08:08→20:37)
[2017-06-29] MEDS: GEMFIBROZIL 600 MG (LOPID) TAB PO SCH ×2 (08:08→20:37)
[2017-06-29] MEDS: DOCUSATE SODIUM 100 MG (COLACE) CAP PO SCH ×2 (08:08→20:37)
[2017-06-29] MEDS: FLUTICASONE NASAL SPRAY (FLONASE) 16 GM BTL NS SCH (08:09)
--- NOTE | 2017-06-29 10:28 | Physical Therapy Daily Note ---
PT Daily Note-Current Subjective Pt sitting in [facility] in room upon arrival. Pt agrees to PT. Pain Location: No Pain Reported Mental Status Patient Orientation: Person, Place, Time, Situation Transfers Functional [place] Measure 0=Not Assessed/NA 4=Minimal Assistance 1=Total Assistance 5=Supervision or Setup 2=Maximal Assistance 6=Modified [place] 3=Moderate Assistance 7=Complete IndependenceIRFPAI Quality Coding Scale 6 Independent with activity with or without an assistive device 5 Patient requires set up or clean up by helper. Patient completes activity by themselves 4 Supervision or touching assist (CGA). [place] provide cues , steadying assist 3 The helper provides less than half the effort to complete the activity 2 The helper provides more than half the effort to complete the activity 1 Dependent. The helper does all the effort to complete an activity 7 Patient refused to complete or attempt activity 9 The patient did not perform the activity before the current illness or injury 88 Not attempted due to Medical conditions or safety concerns Transfers (B, C, W/C) (FIM): 4 Scootin Rollin Roll Left to Right (QC): 5 Supine to/from Sit: 5 Sit to/from Stand: 5 Sit to Lying (QC): 5 Sit to Stand (QC): 5 Chair/Uko-ng-Zohqk Xfer(QC): 4 Bed to/from Chair: 4 Weight Bearing Right Lower Extremity: Right Touch Toe Bearing Left Lower Extremity: Left Full Weight Bearing Gait Training Does the Patient Walk?: Yes Gait (FIM): 5 Distance (FIM): 0=616-40 ft Distance: 6'x4 reps =total of 50' Walk 10 feet (QC): 5 Walk 50 ft with 2 Turns(QC): 5 Walking 10ft/uneven surface-QC: 5 Gait Level of Assist: 5 Gait Persons Needed: 1 Gait Assistive Device: FWW Pt fatigues easy and needs rest breaks. Pt walks with slow but steady charla. Wheelchair Training Does the Pt Use a Wheelchair?: Yes Wheelchair (FIM): 5 Wheelchair Distance: 3=150 ft Distance: 150' Wheelchair Level of Assist: 5 Wheel 50 ft with 2 turns (QC): 5 Wheel 150 ft (QC): 5 Type of Wheelchair: Manual Stair Training 1 Step (curb) (QC): 88 Pt has ramp at home to use to enter house and it is not safe to ambulate stairs at this time due to weakness. Balance Picking up an Object (QC): 88 Special Test Comments It is not medically safe for pt to apple picking supervisor object at this time. Pt will have um rn at home to use. Exercises Seated Therapy Exercises: Hip abd/add NuStep Minutes: 15 NuStep Workload: 5 Treatments Pt propelled [facility] to Therapy Gym at [facility]. Pt used NuStep for 15m at Workload 5. Pt transferred back to [facility] at [facility]. Pt completed 4 reps of walking in //bars before walking across varying surface for at least 10' using FWW at close SBA. Pt returned back to [facility] and returned to room to rest. Pt completed transfer to bed and completed bed mobility. Pt rested Supine in bed at end of tx with all needs met. Assessment Current Status: Good Progress Pt has improved with strength, independence and safety of transfers and ambulation but still fatigue easy and needs frequent rest breaks. PT Short Term Goals Short Term Goals Time Frame: Jun 22, 2017 Transfers (B,C,W/C) (FIM): 4 Gait (FIM): 1 Distance (FIM): 1=up to 49 ft Gait Distance Comment: 25' Gait Level of Assist: 4 Gait Assistive Device: FWW Wheelchair Distance: 150' PT Yarn Spinner Goals Senior Living Goals PT Yarn Spinner Goals Time Frame: Jul 06, 2017 Transfers (B,C,W/C) (FIM): 4 Sit to Lying (QC): 4 Lying-Sitting on Side/Bed(QC): 4 Sit to Stand (QC): 4 Rollin Roll Left to Right (QC): 4 Chair/Nzq-ty-Syiti Xfer(QC): 4 Does the Patient Walk: No and Walking Goal IS indicated Gait (FIM): 4 Gait distance (FIM): 3=150 ft Distance: 150' Walk 10 feet (QC): 4 Walk 10ft-Uneven Surface(QC): 4 Walk 50ft with 2 Turns (QC): 4 Walk 150 ft (QC): 4 Gait Level of Assist: 4 Gait Assistive Device: FWW PT Plan Problem List Problem List: Activity Tolerance, Functional Strength, Gait Treatment/Plan Treatment Plan: Continue Plan of Care Treatment Plan: Bed Mobility, Concurrent Therapy, Education, Functional Activity Leti, Functional Strength, Group Therapy, Gait, Safety, Therapeutic Exercise, Transfers Treatment Duration: Jul 06, 2017 Frequency: At least 5 of 7 days/Wk (IRF) Estimated Hrs Per Day: 1.5 hours per day Patient and/or Family Agrees t: Yes Safety Risks/Education Patient Education: Gait Training, Transfer Techniques, Correct Positioning, Safety Issues Teaching Recipient: Patient Teaching Methods: Discussion Response to Teaching: Verbalize Understanding Time/GCodes Time In: 830 Time Out: 930 Total Billed Treatment Time: 60 Total Billed Treatment visit, EX (15m), GT x2 (30m) & FA (15m) SYLVIA DENIS GRIP ASSEMBLER Jun 29, 2017 10:28
--- NOTE | 2017-06-29 10:36 | Occupational Ther Daily Note ---
OT Current Status-Daily Note Subjective Pt sitting in w/c and alert. Pt agreed to therapy. No c/o of pain. Mental Status/Objective Patient Orientation: Person, Place, Time, Situation Functional [place] Measure 0=Not Assessed/NA 4=Minimal Assistance 1=Total Assistance 5=Supervision or Setup 2=Maximal Assistance 6=Modified [place] 3=Moderate Assistance 7=Complete [place] ADL-Treatment Functional [place] Measure 0=Not Assessed/NA 4=Minimal Assistance 1=Total Assistance 5=Supervision or Setup 2=Maximal Assistance 6=Modified [place] 3=Moderate Assistance 7=Complete IndependenceIRFPAI Quality Coding Scale 6 Independent with activity with or without an assistive device 5 Patient requires set up or clean up by helper. Patient completes activity by themselves 4 Supervision or touching assist (CGA). [place] provide cues , steadying assist 3 The helper provides less than half the effort to complete the activity 2 The helper provides more than half the effort to complete the activity 1 Dependent. The helper does all the effort to complete an activity 7 Patient refused to complete or attempt activity 9 The patient did not perform the activity before the current illness or injury 88 Not attempted due to Medical conditions or safety concerns Eating (FIM): 6 (Pt opens packages/container by himself. Uses regular utensils to cut food and feed self.) Eating (QC): 6 Grooming (FIM): 6 (Pt maneuvers w/c into bathroom and completes own grooming.) Oral Hygiene (QC): 6 Bathing (FIM): 4 (Using shower bench, grabbar, hand held shower, and long handle sponge to bathe self with supervision. Assist needed to dry lower legs and feet.) Bathing Location: L Arm, R Arm, L Upper Leg, R Upper Leg, L Lower Leg ( including foot), R Lower Leg (including foot), Chest, Abdomen, Buttocks, Perineal Area Shower/Bathe Self (QC): 3 Upper Body (FIM): 5 (After set up, pt is able to don/doff upper body clothing.) Upper Body Dressing (QC): 5 Lower Body Dressing (FIM): 5 (With close SBA to hike pants over hips. Pt is able to don/doff pants over feet by self and pull up legs. Uses AE to don/doff socks. Uses hard plastic sockaide.) Lower Body Dressing (QC): 4 On/Off Footwear (QC): 5 Toileting (FIM): 5 (Close SBA for safety when manipulating clothing in standing. Pt is able to cleanse self.) Toileting Hygiene (QC): 4 Transfers (B, C, W/C) (FIM): 5 (Close SBA to transfer using FWW.) Toilet/Commode Transfer (FIM): 5 (Using grabbars and w/c with close SBA.) Toilet Transfer (QC): 4 Shower Transfer(FIM): 5 (Using w/c, grabbars and shower bench, pt is able to transfer with close SBA.) Other Treatment Pt maneuvered w/c into therapy gym by self. Completed arm bike 15 min at 20 adams resistance without breaks to increase strength and activity tolerance for daily functional tasks. Pt then maneuvered w/c back to room. After therapy, pt sitting in w/c with call light/phone in reach. All needs met in room. Nrsg present in room. OT Short Term Goals Short Term Goals Time Frame: Jun 22, 2017 Eating(FIM): 5 Grooming(FIM): 5 Bathing(FIM): 3 Upper Body Dressing(FIM): 5 Lower Body Dressing(FIM): 4 Toileting(FIM): 4 Transfers (B,C,W/C) (FIM): 4 Toilet/Commode Transfer(FIM): 4 Shower Transfer(FIM): 3 Additional Short Term Goals: 1-Demonstrate ADL Tasks, 2-Verbalize Understanding , 3-ImproveStrength/Leti 1=Demonstrate adherence to instructed precautions during ADL tasks. 2=Patient will verbalize/demonstrate understanding of assistive devices/ modifications for ADL. 3=Patient will improve strength/tolerance for activity to enable patient to perform ADL's. OT Mcfp Goals Web Software Engineer Goals Time Frame: Jul 06, 2017 Eating (FIM): 6 (met-06/29/2017) Eating (QC): 6 (met-06/29/2017) Groomin (met-06/29/2017) Oral Hygiene (QC): 6 (met-06/29/2017) Bathing(FIM): 5 (not met) Shower/Bathe Self (QC): 5 (not met) Upper Body Dressing(FIM): 5 (met-06/29/2017) Upper Body Dressing (QC): 5 (met-06/29/2017) Lower Body Dressing(FIM): 5 (met-06/29/2017) Lower Body Dressing (QC): 5 (not met) On/Off Footwear (QC): 5 (met-06/29/2017) Toileting(FIM): 5 (met-06/29/2017) Toileting Hygiene (QC): 5 (not met) Transfers (B,C,W/C) (FIM): 6 (not met) Toilet/Commode Transfer(FIM): 6 (not met) Toilet/Commode Transfer (QC): 5 (not met) Shower Transfer(FIM): 4 (met-06/29/2017) Additional Goals: 1-Demonstrate ADL Tasks, 2-Verbalize Understanding, 3- ImproveStrength/Leti 1=Demonstrate adherence to instructed precautions during ADL tasks. 2=Patient will verbalize/demonstrate understanding of assistive devices/ modifications for ADL. 3=Patient will improve strength/tolerance for activity to enable patient to perform ADL's. OT Education/Plan Discharge Recommendations Plan/Recommendations: Continue POC Therapy D/C Recommendations: Half-Way (TCU/NH) Equpiment Recommendations-D/C: Hip Kit Treatment Plan/Plan of Care Patient would benefit from OT for education, treatment and training to promote independence in ADL's, mobility, safety and/or upper extremity function for ADL' s. Plan of Care: ADL Retraining, Functional Mobility, UE Funct Exercise/Act Treatment Duration: Jul 06, 2017 Frequency: At least 5 of 7 days/Wk (IRF) Estimated Hrs Per Day: 1.5 hours per day Agreement: Yes Rehab Potential: Good Time/GCodes Start Time: 06:55 Stop Time: 08:15 Total Time Billed (hr/min): 80 Billed Treatment Time 1 visit-ADL 4 (65 min) EX 1 (15 min) CATRACHO CARRASCO Jun 29, 2017 10:36
--- NOTE | 2017-06-29 14:32 | Therapy Group Daily Note ---
Therapy Daily Group Note Patient Education Topic Fall Prevention Exercises LE Seated Exercise, UE Exercise Other/Notes Pt was an active participant in OT/PT group. He introduced himself by sharing a story about a personal fall. He contributed to education/discussion about fall risks and ways to prevent falls. At the end of the group, he was able to identify steps he will take to be safer from falls when he goes home. He also did seated UE and LE exercises to strengthen arms and legs for decreasing risks of falling. He was returned to his room per w/c and sat up in wheelchair, per his request, all needs met. Start Time: 13:00 Stop Time: 14:20 Total Billed Treatment Time: 80 Total Billed Treatment visit, 80 minutes group EVANS RODRIGUEZ OT Jun 29, 2017 14:32
[2017-06-29 17:04] VITALS: BP 150/73
[2017-06-29] MEDS: ALFUZOSIN HCL 10 MG TAB (UROXATRAL) PO SCH (18:34)
[2017-06-29] MEDS: MONTELUKAST 10 MG (SINGULAIR) TAB PO SCH (20:37)
[2017-06-30 05:21] VITALS: BP 151/67
[2017-06-30] MEDS: inSUlin ASPART (NovoLOG) 1 UNIT/0.01 ML (CHARGE PER UNIT) SC SCH ×2 (06:09→11:52)
[2017-06-30] MEDS: GLIMEPIRIDE 2 MG (AMARYL) TAB PO SCH (06:26)
[2017-06-30] MEDS: NYSTATIN ORAL SUSP 5 ML UDC PO SCH ×3 (06:26→11:52)
[2017-06-30] MEDS: FERROUS SULF 325 MG (IRON) TAB PO SCH (06:26)
[2017-06-30] MEDS: metFORMIN 500 MG (GLUCOPHAGE) TAB PO SCH (06:26)
[2017-06-30] MEDS: GEMFIBROZIL 600 MG (LOPID) TAB PO SCH (09:19)
[2017-06-30] MEDS: ASPIRIN E.C. 325 MG (ECOTRIN) TABLET PO SCH (09:19)
[2017-06-30] MEDS: LACTULOSE SYRUP 10GM/15ML (ENULOSE) 30ML UDC PO SCH (09:19)
[2017-06-30] MEDS: DOCUSATE SODIUM 100 MG (COLACE) CAP PO SCH (09:19)
[2017-06-30] MEDS: sitaGLIPtin 50 MG (NON-FORMULARY) TAB PO SCH (09:19)
--- NOTE | 2017-06-30 09:53 | Therapy Team Discharge Summary ---
Therapy Discharge Summary Discharge Recommendations Date of Discharge 06-30-17 Therapy D/C Recommendations: Intermediate (TCU/NH) Occupational Therapy Pt. has been seen by occupational therapy to increase all independence with daily tasks. Pt. has made significant progress since initial evaluation. Including being able to transfer with SBA. However, does till require min assist to bathe and supervision/SBA/set up at times for all ADL tasks. Since pt. lives alone, pt. will be transferring to [facility] for continued skilled care. All goals not met at this time, but pt. will continue with skilled OT treatment to increase overall independence with daily skills. Equipment to be provided at facility. Decreased Activ Tolerance, Decreased UE Strength, Dependent Transfers, Impaired Bed Mobility, Impaired Funct Balance, Impaired I ADL's, Impaired Self-Care Skills, Restricted Funct UE ROM PT Solid Waste Manager Goals Chcf Goals PT Solid Waste Manager Goals Time Frame: Jul 06, 2017 Transfers (B,C,W/C) (FIM): 4 Roll Left to Right (QC): 4 Sit to Lying (QC): 4 Lying-Sitting on Side/Bed(QC): 4 Sit to Stand (QC): 4 Chair/Lpp-ry-Oefmd Xfer(QC): 4 Does the Patient Walk: No and Walking Goal IS indicated Gait (FIM): 4 Gait distance (FIM): 3=150 ft Distance: 150' Walk 10 feet (QC): 4 Walk 10ft-Uneven Surface(QC): 4 Walk 50ft with 2 Turns (QC): 4 Walk 150 ft (QC): 4 Gait Level of Assist: 4 Gait Assistive Device: FWW OT Chcf Goals Chcf Goals Time Frame: Jul 06, 2017 Eating (FIM): 6 (met-06/29/2017) Eating (QC): 6 (met-06/29/2017) Oral Hygiene (QC): 6 (met-06/29/2017) Grooming(FIM): 6 (met-06/29/2017) Bathing(FIM): 5 (not met) Shower/Bathe Self (QC): 5 (not met) Upper Body Dressing(FIM): 5 (met-06/29/2017) Upper Body Dressing (QC): 5 (met-06/29/2017) Lower Body Dressing(FIM): 5 (met-06/29/2017) Lower Body Dressing (QC): 5 (not met) On/Off Footwear (QC): 5 (met-06/29/2017) Toileting(FIM): 5 (met-06/29/2017) Toileting Hygiene (QC): 5 (not met) Transfers (B,C,W/C) (FIM): 6 (not met) Toilet/Commode Transfer(FIM): 6 (not met) Toilet/Commode Transfer (QC): 5 (not met) Shower Transfer(FIM): 4 (met-06/29/2017) Additional Goals: 1-Demonstrate ADL Tasks, 2-Verbalize Understanding, 3- ImproveStrength/Leti 1=Demonstrate adherence to instructed precautions during ADL tasks. 2=Patient will verbalize/demonstrate understanding of assistive devices/ modifications for ADL. 3=Patient will improve strength/tolerance for activity to enable patient to perform ADL's. LISA RIVAS OT Jun 30, 2017 09:53
[2017-06-30] MEDS: FLUTICASONE NASAL SPRAY (FLONASE) 16 GM BTL NS SCH (10:16)
[2017-06-30] MEDS: SENNA W/DOCUSATE (SENOKOT S) TABLET PO SCH (10:16)
[2017-06-30 13:18] VITALS: BP 151/67
--- NOTE | 2017-06-30 13:59 | Therapy Team Discharge Summary ---
Therapy Discharge Summary Discharge Recommendations Date of Discharge Therapy D/C Recommendations: [facility] (TCU/NH) Physical Therapy Patient came to rehab following a right intertrochanteric femur fracture. Upon evaluation patient performed bed mobility with max assist and transfers with mod assist, propelled a manual wheelchair 150' with min assist, no ambulation or stairs at this time. Patient has been performing bed mobility and transfer training, balance and endurance training, functional strengthening, gait training, and education. Patient has made fair progress but has only met his bed mobility and transfer academic support assistant goals. Now, patient performs bed mobility with SBA, transfers with CGA, ambulates 6' with a rolling walker with SBA, and can propel a manual wheelchair 150' with SBA. Patient is discharging from this facility today and will be discharged from PT at this time. Occupational Therapy Decreased Activ Tolerance, Decreased UE Strength, Dependent Transfers, Impaired Bed Mobility, Impaired Funct Balance, Impaired I ADL's, Impaired Self-Care Skills, Restricted Funct UE ROM PT [facility] Goals Underwear Cutter Goals PT Underwear Cutter Goals Time Frame: Jul 06, 2017 Transfers (B,C,W/C) (FIM): 4 Roll Left to Right (QC): 4 Sit to Lying (QC): 4 Lying-Sitting on Side/Bed(QC): 4 Sit to Stand (QC): 4 Chair/Zhd-fl-Gbxiy Xfer(QC): 4 Does the Patient Walk: No and Walking Goal IS indicated Gait (FIM): 4 Gait distance (FIM): 3=150 ft Distance: 150' Walk 10 feet (QC): 4 Walk 10ft-Uneven Surface(QC): 4 Walk 50ft with 2 Turns (QC): 4 Walk 150 ft (QC): 4 Gait Level of Assist: 4 Gait Assistive Device: FWW OT Underwear Cutter Goals [facility] Goals Time Frame: Jul 06, 2017 Eating (FIM): 6 (met-06/29/2017) Eating (QC): 6 (met-06/29/2017) Oral Hygiene (QC): 6 (met-06/29/2017) Grooming(FIM): 6 (met-06/29/2017) Bathing(FIM): 5 (not met) Shower/Bathe Self (QC): 5 (not met) Upper Body Dressing(FIM): 5 (met-06/29/2017) Upper Body Dressing (QC): 5 (met-06/29/2017) Lower Body Dressing(FIM): 5 (met-06/29/2017) Lower Body Dressing (QC): 5 (not met) On/Off Footwear (QC): 5 (met-06/29/2017) Toileting(FIM): 5 (met-06/29/2017) Toileting Hygiene (QC): 5 (not met) Transfers (B,C,W/C) (FIM): 6 (not met) Toilet/Commode Transfer(FIM): 6 (not met) Toilet/Commode Transfer (QC): 5 (not met) Shower Transfer(FIM): 4 (met-06/29/2017) Additional Goals: 1-Demonstrate ADL Tasks, 2-Verbalize Understanding, 3- ImproveStrength/Leti 1=Demonstrate adherence to instructed precautions during ADL tasks. 2=Patient will verbalize/demonstrate understanding of assistive devices/ modifications for ADL. 3=Patient will improve strength/tolerance for activity to enable patient to perform ADL's. ROXANNE CHURCHILL PT Jun 30, 2017 13:59
== END 2017-06-30 15:57 | DRG 560 ==
PROVIDERS: ADMIT Physical Medicine & Rehabilitation; ATTEND Physical Medicine & Rehabilitation
DX: S72.141D Displaced intertrochanteric fracture of right femur, subsequent encounter for closed fracture with routine healing (principal); N40.1 Benign prostatic hyperplasia with lower urinary tract symptoms; R33.9 Retention of urine, unspecified; N39.0 Urinary tract infection, site not specified; B37.0 Candidal stomatitis; N20.0 Calculus of kidney; R31.0 Gross hematuria; K80.20 Calculus of gallbladder without cholecystitis without obstruction; R06.89 Other abnormalities of breathing; D64.9 Anemia, unspecified; E11.9 Type 2 diabetes mellitus without complications; I10 Essential (primary) hypertension; M19.90 Unspecified osteoarthritis, unspecified site; Z79.4 Long term (current) use of insulin; W19.XXXD Unspecified fall, subsequent encounter; Y92.22 Religious institution as the place of occurrence of the external cause
CPT/HCPCS: 74176; 81000; 82962; 87077; 87088; 87186

== ENCOUNTER 2023-07-06 12:54 | Inpatient (IN) | payer MEDICARE, MEDICAID ==
[~2023-07-06] VITALS: Ht 172.2 cm; Wt 112.1 kg
[~2023-07-06 12:54] MED LIST changes: +ACHYD1T PO; -ALFU10TA11 PO; +ALFU10TA12 PO; +ASCO100024 PO; -ASCO10006 PO; +ASPI-1238 PO; -ASPI-983 PO; -FERR-74 PO; +FERR325T18 PO; -GEMF600T3 PO; +GEMF600T88 PO; -GLIM2TAB PO; +GLIM2TAB4 PO; -HYDR-3820 PO; +METF-397 PO; -METF500T4 PO; +MONT-40 PO; -MONT10TA24 PO; -SAW450CA4 PO; +SAW450CA7 PO
--- OUTSIDE RECORDS SUMMARY | 2023-07-06 14:20 | XMS REPORT ---
Author Author [facility] ter [facility] ter [facility] Address Unknown Phone Unavailable Care Team Providers Care Manager Dental Name Role Phone GASTON KAPLAN Unavailable PROBLEMS Type Condition ICD9-CM Code [id number] Code Onset Dates Condition Status W/U Status Risk SNOMED Code Notes Problem Hypertrophy of prostate with urinary obstruction and other lower urinary tract symptoms (LUTS) N40.1 confirmed [id number] 4_Migr ated Problem Essential hypertension I10 confirmed 86601354 -83051 4_Migr ated Problem Mixed hyperlipidemi a E78.2 Nov, confirmed [id number] -55008 4_Migr ated Problem Chronic kidney disease, stage 3a N18.31 confirmed 024441482 Problem Stasis dermatitis of both legs I87.2 confirmed 83671898 Problem Type 2 diabetes mellitus with other specified complication, without long-term current use of insulin E11.69 confirmed 30467386 Problem Morbid (severe) obesity due to excess calories E66.01 confirmed 407714567 Problem Venous stasis dermatitis of both lower extremities I87.2 confirmed 70272999 Problem Body mass index [BMI]40.0-44. 9, adult Z68.41 confirmed [id number] ALLERGIES No Known Allergies ENCOUNTERS from 1935 to 2023-01-27 Encounter Location Date Provider Diagnosis [facility] [address] [id number] [place] [address] Feb, GASTON SELF IMMUNIZATIONS Vaccine Route Administration Date Status PRIVATE FLUZONE HIGH DOSE 0. 5ML (65 and UP) 2018 Unknown Jul 17, 2019 Administered PRIVATE PPSV23 (PNEUMOVAX) Unknown Jul 17, 2019 A dministered tdap (history) Unknown Jun 12, 2017 Administered zostavax (history) Unknown Jul 17, 2015 Administe red prevnar pcv 13 (history) Unknown Jul 17, 2015 Adm inistered influenza IIV4 (history) Unknown Jun 23, 2021 Adm inistered COVID-19, RAGHAVENDRA, 0.5mL Unknown December 20, 2020 A dministered 1st Booster MODERNA Bivalent , COVID-19, 0.5mL IM Intramuscular Sep 07, 2022 Administered PRIVATE HIGH DOSE FLU 22-23 (FLUZONE HD) AGE 65YRS AND UP IM Intramuscular Jun 14, 2022 Administer ed 1st Booster PFIZER Bivalent , COVID-19, 0.3mL (Comirnaty) Unknown Jun 14, 2022 Refused 2nd Booster MODERNA COVID-19 , mRNA, 0.25mL IM Intramuscular March 12, 2022 Administered COVID-19 Moderna (history) Unknown Jul 20, 2021 A dministered shingrix (history) Unknown March 02, 2021 Refused influenza (history) Unknown Jul 23, 2020 Administ ered SOCIAL HISTORY Sex Assigned At : Social History Observation Description Sex Assigned At Unknown PHQ2 Question Answer Notes In the last 2 weeks, how oft en have you had little interest or pleasure in doing things? Not at all In the last 2 weeks, how oft en have you been feeling down, depressed, or hopeless? Not at all Total PHQ2 Score 0 REASON FOR REFERRAL No Information MEDICATIONS Medication SIG (Take, Route, Frequency, Duration) Notes Start Date End Date Status Fluticasone Propionate 50 MCG/ACT SPRAY TWO SPRAYS IN EACH NOSTRIL ONCE DAILY for 90 days Active Atorvastatin Calcium 40 MG TAKE ONE TABLET BY MOUTH DAILY LATE IN THE DAY for 90 Active Niacin 500 MG 1 tablet Orally Once a day Active metFORMIN HCl 1000 MG TAKE ONE TABLET BY MOUTH TWICE A DAY for 90 Active Furosemide 40 MG 1 tablet for edema Orally Once a day for 90 days Active Iron (Ferrous Sulfate) 142 (45 Fe) MG 1 tablet Orally Once a day for 30 day(s) Active Nystatin 624443 UNIT/GM 1 application to affected area Externally Twice a day for 14 days Aug, Active Garlic 500 MG 1 tablet Orally Once a day Active OneTouch Delica Plus [id number] - USE ONE LANCET TO TEST DAILY for 90 Active Alfuzosin HCl ER 10 MG 1 tablet Orally O nce a day Jul, Active Propranolol HCl ER 80 MG TAKE ONE CAPSUL E BY MOUTH DAILY for 90 days Active Loratadine 10 MG 1 tablet Orally Once a day Active Saw [place] 450 MG 1 capsule Orally Onc e a day Active Jardiance 10 MG TAKE ONE TABLET BY M OUTH DAILY for 90 Active OneTouch Ultra - TEST ONCE DAILY Once a day for 100 days E11.69 Active Montelukast Sodium 10 MG TAKE ONE TABLET BY MOUTH EVERY NIGHT AT BEDTIME for 90 days Active Magnesium 400 mg at bedtime Orally On ce a day for 30 day(s) Feb, Active Potassium Chloride Unique ER 10 MEQ 1 tablet Orally Once a day Mar, Active Benazepril-hydroCHLOROthi azide 10-12.5 MG TAKE ONE TABLET BY MOUTH DAILY for 90 Active Tamsulosin HCl 0.4 MG TAKE ONE CAPSULE B Y MOUTH DAILY for 90 days Active Tradjenta 5 MG TAKE ONE TABLET BY M OUTH DAILY for 90 Active Adult Aspirin Regimen 81 MG 1 tablet Orally Once a day Active Glimepiride 2 MG 1 tablet with breakf ast or the first main meal of the day Orally Once a day for 90 days Active Fish Oil 1200 MG 1 capsule Orally 2 t imes a day Active REASON FOR VISIT resent with ICD-10 MEDICAL (GENERAL) HISTORY Type Description Date Medical History Obesity, unspecified Medical History Mixed hyperlipidemia Medical History Essential hypertension Medical History Lower extremity edema Medical History Controlled type 2 di abetes mellitus without complication, without long-term current use of insulin Medical History Renal insufficiency, mild Medical History Severe obesity (BMI 35.0-39.9) w ith comorbidity Medical History Hypertrophy of prost ate with urinary obstruction and other lower urinary tract symptoms (LUTS) Surgical History colonoscopy Surgical History right hip release MENTAL STATUS No Information PLAN OF TREATMENT Medication Medication Name Sig Start Date Stop Date Atorvastatin Calcium 40 MG TAKE ONE TABL ET BY MOUTH DAILY LATE IN THE DAY for 90 Propranolol HCl ER 80 MG TAKE ONE CAPSUL E BY MOUTH DAILY for 90 days Next Appt Details Provider Name:GASTON KAPLAN , 2023-04-08 08:45:00 AM, [address] [place], [address], Insurance Providers Payer Name Payer Address Payer Phone Insured Name Patient Relationship to Insured Coverage Start Date Coverage End Date Subscriber Number Group Number MEDICAID OF [place] [address] [facility] [id number] [phone] Jeri Flaherty Self - patient is the insured [id number] [facility] PART A [address] [facility] [id number] Jeri Flaherty Self - patient is the insured 1 [id number]
--- OUTSIDE RECORDS SUMMARY | 2023-07-06 14:20 | XMS REPORT ---
Author Author [facility] ter [facility] ter [facility] Address Unknown Phone Unavailable Care Team Providers Care Feed Adviser Name Role Phone GASTON KAPLAN Unavailable PROBLEMS Type Condition ICD9-CM Code [id number] Code Onset Dates Condition Status W/U Status Risk SNOMED Code Notes Problem Hypertrophy of prostate with urinary obstruction and other lower urinary tract symptoms (LUTS) N40.1 confirmed [id number] -[id number] 4_Migr ated Problem Essential hypertension I10 confirmed 28972240 -63998 4_Migr ated Problem Mixed hyperlipidemi a E78.2 Nov, confirmed 091834389 -48307 4_Migr ated Problem Chronic kidney disease, stage 3a N18.31 confirmed 810744483 Problem Stasis dermatitis of both legs I87.2 confirmed 58613289 Problem Type 2 diabetes mellitus with other specified complication, without long-term current use of insulin E11.69 confirmed 33299436 Problem Morbid (severe) obesity due to excess calories E66.01 confirmed 397047000 Problem Venous stasis dermatitis of both lower extremities I87.2 confirmed 52319889 Problem Body mass index [BMI]40.0-44. 9, adult Z68.41 confirmed [id number] ALLERGIES No Known Allergies ENCOUNTERS from 1935 to 2023-02-22 Encounter Location Date Provider Diagnosis [facility] [address] [id number] [place] [address] Feb, GASTON SELF IMMUNIZATIONS Vaccine Route Administration Date Status PRIVATE PPSV23 (PNEUMOVAX) Unknown Jul 17, 2019 A dministered influenza (history) Unknown Jul 23, 2020 Administ chaz shingrix (history) Unknown March 02, 2021 Refused influenza IIV4 (history) Unknown Jun 23, 2021 Adm inistered PRIVATE FLUZONE HIGH DOSE 0. 5ML (65 and UP) 2019 Unknown Jul 17, 2019 Administered prevnar pcv 13 (history) Unknown Jul 17, 2015 Adm inistered COVID-19 Moderna (history) Unknown Jul 20, 2021 A dministered COVID-19, RAGHAVENDRA, 0.5mL Unknown December 20, 2020 A dministered 2nd Booster MODERNA COVID-19 , mRNA, 0.25mL IM Intramuscular March 12, 2022 Administered 1st Booster MODERNA Bivalent , COVID-19, 0.5mL IM Intramuscular Sep 07, 2022 Administered PRIVATE HIGH DOSE FLU 22-23 (FLUZONE HD) AGE 65YRS AND UP IM Intramuscular Jun 14, 2022 Administer ed 1st Booster PFIZER Bivalent , COVID-19, 0.3mL (Comirnaty) Unknown Jun 14, 2022 Refused tdap (history) Unknown Jun 12, 2017 Administered zostavax (history) Unknown Jul 17, 2015 Administreyes drake SOCIAL HISTORY Sex Assigned At : Social [...] Duration) Notes Start Date End Date Status Fish Oil 1200 MG 1 capsule Orally 2 t imes a day Active Atorvastatin Calcium 40 MG TAKE ONE TABLET BY MOUTH DAILY LATE IN THE DAY for 90 Active Montelukast Sodium 10 MG TAKE ONE TABLET BY MOUTH EVERY NIGHT AT BEDTIME for 90 days Active Magnesium 400 mg at bedtime Orally On ce a day for 30 day(s) Feb, Active Fluticasone Propionate 50 MCG/ACT SPRAY TWO SPRAYS IN EACH NOSTRIL ONCE DAILY for 90 days Active Glimepiride 2 MG 1 tablet with breakf ast or the first main meal of the day Orally Once a day for 90 days Active Niacin 500 MG 1 tablet Orally Once a day Active Propranolol HCl ER 80 MG TAKE ONE CAPSUL E BY MOUTH DAILY for 90 days Active Nystatin 882628 UNIT/GM 1 application to affected area Externally Twice a day for 14 days Aug, Active Alfuzosin HCl ER 10 MG 1 tablet Orally O nce a day Jul, Active metFORMIN HCl 1000 MG TAKE ONE TABLET BY MOUTH TWICE A DAY for 90 Active Loratadine 10 MG 1 tablet Orally Once a day Active Iron (Ferrous Sulfate) 142 (45 Fe) MG 1 tablet Orally Once a day for 30 day(s) Active Potassium Chloride Unique ER 10 MEQ 1 tablet Orally Once a day Mar, Active Tradjenta 5 MG TAKE ONE TABLET BY M OUTH DAILY for 90 Active Saw [place] 450 MG 1 capsule Orally Onc e a day Active OneTouch Delica Plus [id number] - USE ONE LANCET TO TEST DAILY for 90 Active OneTouch Ultra - TEST ONCE DAILY Once a day for 100 days E11.69 Active Jardiance 10 MG TAKE ONE TABLET BY M OUTH DAILY for 90 Active Furosemide 40 MG 1 tablet for edema Orally Once a day for 90 days Active Tamsulosin HCl 0.4 MG TAKE ONE CAPSULE B Y MOUTH DAILY for 90 days Active Adult Aspirin Regimen 81 MG 1 tablet Orally Once a day Active Garlic 500 MG 1 tablet Orally Once a day Active Benazepril-hydroCHLOROthi azide 10-12.5 MG TAKE ONE TABLET BY MOUTH DAILY for 90 Active REASON FOR VISIT Refill MEDICAL (GENERAL) HISTORY Type Description Date Medical [...] Medication Name Sig Start Date Stop Date Propranolol HCl ER 80 MG TAKE ONE CAPSUL E BY MOUTH DAILY for 90 days metFORMIN HCl 1000 MG TAKE ONE TABLET BY MOUTH TWICE A DAY for 90 Tamsulosin HCl 0.4 MG TAKE ONE CAPSULE B Y MOUTH DAILY for 90 days Tradjenta 5 MG TAKE ONE TABLET BY MOUTH DAILY for 90 Atorvastatin Calcium 40 MG TAKE ONE TABL ET BY MOUTH DAILY LATE IN THE DAY for 90 Next Appt Details Provider Name:GASTON KAPLAN , 2023-04-08 08:45:00 AM, [address] [place], [address], Insurance Providers Payer Name Payer Address Payer Phone Insured Name Patient Relationship to Insured Coverage Start Date Coverage End Date Subscriber Number Group Number MEDICAID OF [place] [address] [facility] [id number] Jeri Flaherty Self - patient is the insured [id number] [facility] PART A [address] [facility] [phone] Jeri Flaherty Self - patient is the insured 1 [id number]
--- OUTSIDE RECORDS SUMMARY | 2023-07-06 14:20 | XMS REPORT ---
Author Author [facility] ter [facility] ter [facility] Address Unknown Phone Unavailable Care Team Providers Care Design Transferrer Name Role Phone SELFGASTON Unavailable PROBLEMS Type Condition ICD9-CM Code [id number] Code Onset Dates Condition Status W/U Status Risk SNOMED Code Notes Problem Essential hypertension I10 confirmed [id number] -58147 4_Migr ated Problem Mixed hyperlipidemi a E78.2 Nov, confirmed 234797635 -71741 4_Migr ated Problem Pressure injury of skin of right buttock, unspecified injury stage L89.319 confirmed 0306307 017 5101 Problem BPH w/o urinary obs/LUTS N40.0 confirmed 049977752 Problem Type 2 diabetes mellitus with other specified complication, without long-term current use of insulin E11.69 confirmed 79997194 Problem Morbid (severe) obesity due to excess calories E66.01 confirmed 046889524 Problem Chronic kidney disease, stage 3a N18.31 confirmed 476472292 Problem Stasis dermatitis of both legs I87.2 confirmed 56503539 ALLERGIES No Known Allergies ENCOUNTERS from 1935 to 2023-05-16 Encounter Location Date Provider Diagnosis [facility] [address] [id number] [place] [address] May, GASTON SELF Essential hypertensi on I10 ; Type 2 diabetes mellitus with other specified complication, without long-term current use of insulin E11.69 and Chronic kidney disease, stage 3a N18.31 IMMUNIZATIONS Vaccine Route Administration Date Status PRIVATE FLUZONE HIGH DOSE 0. 5ML (65 and UP) 2018 Unknown Jul 17, 2019 Administered PRIVATE PPSV23 (PNEUMOVAX) Unknown Jul 17, 2019 A dministered PRIVATE HIGH DOSE FLU 22-23 (FLUZONE HD) AGE 65YRS AND UP IM Intramuscular Jun 14, 2022 Administer ed 1st Booster MODERNA Bivalent , COVID-19, 0.5mL IM Intramuscular Sep 07, 2022 Administered influenza (history) Unknown Jul 23, 2020 Administ ered prevnar pcv 13 (history) Unknown Jul 17, 2015 Adm inistered 1st Booster PFIZER Bivalent , COVID-19, 0.3mL (Comirnaty) Unknown Jun 14, 2022 Refused 2nd Booster MODERNA COVID-19 , mRNA, 0.25mL IM Intramuscular March 12, 2022 Administered COVID-19, RAGHAVENDRA, 0.5mL Unknown December 20, 2020 A dministered COVID-19 Moderna (history) Unknown Jul 20, 2021 A dministered shingrix (history) Unknown March 02, 2021 Refused tdap (history) Unknown Jun 12, 2017 Administered influenza IIV4 (history) Unknown Jun 23, 2021 Adm inistered zostavax (history) Unknown Jul 17, 2015 Administreyes [...] Duration) Notes Start Date End Date Status [facility] [id number] - USE ONE LANCET TO TEST DAILY for 90 Active Atorvastatin Calcium 40 MG TAKE ONE TABLET BY MOUTH DAILY LATE IN THE DAY for 90 days Active Furosemide 40 MG 1 tablet for edema Orally Once a day for 90 days Active metFORMIN HCl 1000 MG TAKE ONE TABLET BY MOUTH TWICE A DAY for 90 Active Nystatin 786071 UNIT/GM 1 application to affected area Externally Twice a day for 14 days Aug, Active Iron (Ferrous Sulfate) 142 (45 Fe) MG 1 tablet Orally Once a day for 30 day(s) Active Fluticasone Propionate 50 MCG/ACT SPRAY TWO SPRAYS IN EACH NOSTRIL ONCE DAILY for 90 days Active Loratadine 10 MG 1 tablet Orally Once a day Active Fish Oil 1200 MG 1 capsule Orally 2 t imes a day Active Tradjenta 5 MG TAKE ONE TABLET BY M OUTH DAILY for 90 Active Adult Aspirin Regimen 81 MG 1 tablet Orally Once a day Active Magnesium 400 mg at bedtime Orally On ce a day for 30 day(s) Feb, Active Glimepiride 2 MG TAKE ONE TABLET BY M OUTH ONCE DAILY WITH BREAKFAST OR FIRST MAIN MEAL OF DAY for 90 Active Propranolol HCl ER 80 MG TAKE ONE CAPSUL E BY MOUTH DAILY for 90 days Active Tamsulosin HCl 0.4 MG TAKE ONE CAPSULE B Y MOUTH DAILY for 90 days Active Garlic 500 MG 1 tablet Orally Once a day Active Benazepril-hydroCHLOROthi azide 10-12.5 MG TAKE ONE TABLET BY MOUTH DAILY for 90 days Active Saw [place] 450 MG 1 capsule Orally Onc e a day Active Potassium Chloride Unique ER 10 MEQ 1 tablet Orally Once a day Mar, Active Niacin 500 MG 1 tablet Orally Once a day Active Montelukast Sodium 10 MG TAKE ONE TABLET BY MOUTH EVERY NIGHT AT BEDTIME for 90 days Active Alfuzosin HCl ER 10 MG 1 tablet Orally O nce a day Jul, Active Jardiance 10 MG TAKE ONE TABLET BY M OUTH DAILY for 90 Active OneTouch Ultra - TEST ONCE DAILY Once a day for 100 days E11.69 Active PROCEDURES from 1935 to 2023-05-16 Procedure Date Ordered Date Performed Result Body Sit e ROUTINE VENIPUNCTURE 2021-06-02 2021-06-02 N/A REASON FOR VISIT No Information MEDICAL (GENERAL) HISTORY Type Description Date Medical [...] right hip release MENTAL STATUS No Information ASSESSMENTS Encounter Date Diagnosis Assessment Notes Treatment Notes Treatment Clinical Notes May, Essential hypertension (ICD-10 - I10) May, Type 2 diabetes mellitus with other specified complication, without long-term current use of insulin (ICD-10 - E11.69) May, Chronic kidney disease, stage 3a (ICD-10 - N18.31) PLAN OF TREATMENT Medication Medication Name Sig Start Date Stop Date Atorvastatin Calcium 40 MG TAKE ONE TABL ET BY MOUTH DAILY LATE IN THE DAY for 90 days Next Appt Details Provider Name:GASTON KAPLAN , 2023-07-11 08:45:00 AM, [address] [place], [address], Insurance Providers Payer Name Payer Address Payer Phone Insured Name Patient Relationship to Insured Coverage Start Date Coverage End Date Subscriber Number Group Number [employer] PART A [address] [facility] [id number] Jeri Flaherty Self - patient is the insured 1 [id number] MEDICAID OF [place] [address] [facility] [id number] [phone] Jeri Flaherty Self - patient is the insured [id number]
--- OUTSIDE RECORDS SUMMARY | 2023-07-06 14:20 | XMS REPORT ---
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 urinary tract symptoms (LUTS) N40.1 confirmed [id number] -[id number] 4_Migr ated Problem Essential hypertension I10 confirmed [id number] -74533 4_Migr ated Problem Mixed hyperlipidemi a E78.2 Nov, confirmed [id number] -46144 4_Migr ated Problem Chronic kidney disease, stage 3a N18.31 confirmed [id number] Problem Stasis dermatitis of both legs I87.2 confirmed 66291007 Problem Type 2 diabetes mellitus with other specified complication, without long-term current use of insulin E11.69 confirmed 43427012 Problem Morbid (severe) obesity due to excess calories E66.01 confirmed 627075044 Problem Venous stasis dermatitis of both lower extremities I87.2 confirmed 21814215 Problem Body mass index [BMI]40.0-44. 9, adult Z68.41 confirmed [id number] ALLERGIES No Known Allergies ENCOUNTERS from 1935 to 2023-02-10 Encounter Location Date Provider Diagnosis [facility] [address] [id number] [address] Feb, RAJAT SELF Essential hypertensi on I10 ; Mixed hyperlipidemia E78.2 ; Type 2 diabetes mellitus with other specified complication, without long-term current use of insulin E11.69 ; Chronic kidney disease, stage 3a N18.31 ; Morbid (severe) obesity due to excess calories E66.01 ; Body mass index [BMI]40.0-44.9, adult Z68.41 and Venous stasis dermatitis of both lower extremities I87.2 IMMUNIZATIONS Vaccine Route Administration Date Status PRIVATE HIGH DOSE FLU 22-23 (FLUZONE HD) AGE 65YRS AND UP IM Intramuscular Jun 14, 2022 Administer ed 1st Booster MODERNA Bivalent , COVID-19, 0.5mL IM Intramuscular Sep 07, 2022 Administered COVID-19, RAGHAVENDRA, 0.5mL Unknown December 20, 2020 A dministered 2nd Booster MODERNA COVID-19 , mRNA, 0.25mL IM Intramuscular March 12, 2022 Administered 1st Booster PFIZER Bivalent , COVID-19, 0.3mL (Comirnaty) Unknown Jun 14, 2022 Refused PRIVATE PPSV23 (PNEUMOVAX) Unknown Jul 17, 2019 A dministered COVID-19 Moderna (history) Unknown Jul 20, 2021 A dministered shingrix (history) Unknown March 02, 2021 Refused tdap (history) Unknown Jun 12, 2017 Administered influenza (history) Unknown Jul 23, 2020 Administ ered influenza IIV4 (history) Unknown Jun 23, 2021 Adm inistered zostavax (history) Unknown Jul 17, 2015 Administe red prevnar pcv 13 (history) Unknown Jul 17, 2015 Adm inistered PRIVATE FLUZONE HIGH DOSE 0. 5ML (65 and UP) 2019 Unknown Jul 17, 2019 Administered SOCIAL HISTORY Sex Assigned At : Social [...] Score 0 REASON FOR REFERRAL No Information VITAL SIGNS Height 5'5" in Feb, Height-cm 165.1 cm Feb, Weight 250 lbs Feb, Weight-kg 113.4 kg Feb, Temperature 97.5 degrees Fahrenheit Feb, Heart Rate 78 bpm Feb, Respiratory Rate 20 bpm Feb, Oximetry 93 % Feb, BMI 41.6 kg/m2 Feb, Blood pressure systolic 114 mmHg Feb, Blood pressure diastolic 62 mmHg Feb, MEDICATIONS Medication SIG (Take, Route, Frequency, Duration) Notes Start Date End Date Status Niacin 500 MG 1 tablet Orally Once a day Active Atorvastatin Calcium 40 MG TAKE ONE TABLET BY MOUTH DAILY LATE IN THE DAY for 90 Active Fish Oil 1200 MG 1 capsule Orally 2 t imes a day Active metFORMIN HCl 1000 MG TAKE ONE TABLET BY MOUTH TWICE A DAY for 90 Active Nystatin 354572 UNIT/GM 1 application to affected area Externally Twice a day for 14 days Aug, Active Potassium Chloride Unique ER 10 MEQ 1 tablet Orally Once a day Mar, Active Fluticasone Propionate 50 MCG/ACT SPRAY TWO SPRAYS IN EACH NOSTRIL ONCE DAILY for 90 days Active Tradjenta 5 MG TAKE ONE TABLET BY M OUTH DAILY for 90 Active Furosemide 40 MG 1 tablet for edema Orally Once a day for 90 days Active Alfuzosin HCl ER 10 MG 1 tablet Orally O nce a day Jul, Active Propranolol HCl ER 80 MG TAKE ONE CAPSUL E BY MOUTH DAILY for 90 days Active Loratadine 10 MG 1 tablet Orally Once a day Active Jardiance 10 MG TAKE ONE TABLET BY M OUTH DAILY for 90 Active Iron (Ferrous Sulfate) 142 (45 Fe) MG 1 tablet Orally Once a day for 30 day(s) Active Garlic 500 MG 1 tablet Orally Once a day Active Benazepril-hydroCHLOROthi azide 10-12.5 MG TAKE ONE TABLET BY MOUTH DAILY for 90 Active Tamsulosin HCl 0.4 MG TAKE ONE CAPSULE B Y MOUTH DAILY for 90 days Active Glimepiride 2 MG 1 tablet with breakf ast or the first main meal of the day Orally Once a day for 90 days Active Saw [place] 450 MG 1 capsule Orally Onc e a day Active OneTouch Delica Plus [id number] - USE ONE LANCET TO TEST DAILY for 90 Active Magnesium 400 mg at bedtime Orally On ce a day for 30 day(s) Feb, Active Adult Aspirin Regimen 81 MG 1 tablet Orally Once a day Active OneTouch Ultra - TEST ONCE DAILY Once a day for 100 days E11.69 Active Montelukast Sodium 10 MG TAKE ONE TABLET BY MOUTH EVERY NIGHT AT BEDTIME for 90 days Active REASON FOR VISIT 3 mos f/u with labs (K,Hill MA) MEDICAL (GENERAL) HISTORY Type Description Date Medical [...] Assessment Notes Treatment Notes Treatment Clinical Notes Feb, Essential hypertension (ICD-10 - I10) stable no changes continue same medications, High Blood Pressure: Care Instructions material was published Feb, Mixed hyperlipidemia (ICD-10 - E78.2) yearly labs no changes continue same medications Feb, Type 2 diabetes mellitus with other specified complication, without long-term current use of insulin (ICD-10 - E11.69) labs done today no changes continue same medications will call with results/rec Feb, Chronic kidney disease, stage 3a (ICD-10 - N18.31) labs done today no changes will call with results/rec Feb, Morbid (severe) obesity due to excess calories (ICD-10 - E66.01) discussed diet, weight loss. exercise as tolerated, Starting a Weight Loss Plan: Care Instructions material was published Feb, Body mass index [BMI]40.0-44.9, adult (ICD-10 - Z68.41) discussed diet,w eight loss, exercise as tolerated Feb, Venous stasis dermatitis of both lower extremities (ICD-10 - I87.2) right worse then left right red denies fever rec Keflex Feb, Other Learning About Low-Carbohydrate Diets material was published, Learning About Low-Carbohydrate Foods material was published This progress note was scribed by Rasheeda Alanis MA under the direct supervision of Dr Rajat Alcantara who directed the entire visit and performed the physical exam. PLAN OF TREATMENT Medication Medication Name Sig Start Date Stop Date Tradjenta 5 MG TAKE ONE TABLET BY MOUTH DAILY for 90 Propranolol HCl ER 80 MG TAKE ONE CAPSUL E BY MOUTH DAILY for 90 days Atorvastatin Calcium 40 MG TAKE ONE TABL ET BY MOUTH DAILY LATE IN THE DAY for 90 Treatment Notes Assessment Notes Clinical Notes Essential hypertension stable no changes continue same medications, High Blood Pressure: Care Instructions material was published Mixed hyperlipidemia yearly labs no changes continue same medications Type 2 diabetes mellitus wit h other specified complication, without long-term current use of insulin labs done today no changes continue same medications will call with results/rec Chronic kidney disease, stage 3a labs do ne today no changes will call with results/rec Morbid (severe) obesity due to excess calories discussed diet, weight loss. exercise as tolerated, Starting a Weight Loss Plan: Care Instructions material was published Body mass index [BMI]40.0-44 .9, adult discussed diet,w eight loss, exercise as tolerated Venous stasis dermatitis of both lower extremities right worse then left right red denies fever rec Keflex Next Appt Details 3 Months Reason:labs prior Provider Name:RAJAT ALCANTARA , 2023-04-08 08:45:00 AM, [address] [place], [address], Follow Up:3 Monthslabs prior Insurance Providers Payer Name Payer Address Payer Phone Insured Name Patient Relationship to Insured Coverage Start Date Coverage End Date Subscriber Number Group Number WPS [facility] [address] [facility] [id number] Jeri Flaherty Self - patient is the insured 1 [id number] MEDICAID OF [place] [address] [facility] [address] [phone] Jeri Flaherty Self - patient is the insured [id number]
--- OUTSIDE RECORDS SUMMARY | 2023-07-06 14:20 | XMS REPORT ---
Author Author [facility] ter [facility] ter [facility] Address Unknown Phone Unavailable Care Team Providers Care Log Check Scaler Name Role Phone SELFRAJAT Unavailable PROBLEMS Type Condition ICD9-CM Code [id number] Code Onset Dates Condition Status W/U Status Risk SNOMED Code Notes Problem Essential hypertension I10 confirmed [id number] -97320 4_Migr ated Problem Mixed hyperlipidemi a E78.2 Nov, confirmed 587820513 -83997 4_Migr ated Problem Pressure injury of skin of right buttock, unspecified injury stage L89.319 confirmed 4844637 017 5101 Problem BPH w/o urinary obs/LUTS N40.0 confirmed 378808804 Problem Type 2 diabetes mellitus with other specified complication, without long-term current use of insulin E11.69 confirmed 28092480 Problem Morbid (severe) obesity due to excess calories E66.01 confirmed 093346009 Problem Chronic kidney disease, stage 3a N18.31 confirmed 455545326 Problem Stasis dermatitis of both legs I87.2 confirmed [id number] ALLERGIES No Known Allergies ENCOUNTERS from 1935 to 2023-05-17 Encounter Location Date Provider Diagnosis [facility] [address] [id number] [place] [address] May, RAJAT SELF Essential hypertensi on I10 ; Type 2 diabetes mellitus with other specified complication, without long-term current use of insulin E11.69 ; Chronic kidney disease, stage 3a N18.31 and Morbid (severe) obesity due to excess calories E66.01 IMMUNIZATIONS Vaccine Route Administration Date Status PRIVATE [...] No Information VITAL SIGNS Height 5'5" in May, Height-cm 165.1 cm May, Weight 249 lbs May, Weight-kg 112.94 kg May, Temperature 96.7 degrees Fahrenheit May, Heart Rate 77 bpm May, Respiratory Rate 20 bpm May, Oximetry 93 % May, BMI 41.43 kg/m2 May, Blood pressure systolic 112 mmHg May, Blood pressure diastolic 68 mmHg May, MEDICATIONS Medication SIG (Take, Route, Frequency, Duration) Notes Start Date End Date Status OneTouch Delica Plus [id number] - USE ONE LANCET TO TEST DAILY for 90 Active Atorvastatin Calcium 40 MG TAKE ONE TABLET BY MOUTH DAILY LATE IN THE DAY for 90 days Active Furosemide 40 MG 1 tablet for edema Orally Once a day for 90 days Active metFORMIN HCl 1000 MG TAKE ONE TABLET BY MOUTH TWICE A DAY for 90 Active Nystatin 485897 UNIT/GM 1 application to affected area Externally [...] MOUTH DAILY for 90 days Active Saw Valentines 450 MG 1 capsule Orally Onc e [...] a day for 100 days E11.69 Active REASON FOR VISIT 3 mo f/u (Abelardo Mcmahan MA) MEDICAL (GENERAL) HISTORY Type Description Date [...] Notes May, Essential hypertension (ICD-10 - I10) -693624_Migrated stable no changes continue same medications May, Type 2 diabetes mellitus with other specified complication, without long-term current use of insulin (ICD-10 - E11.69) labs done today no changes continue same medications will call with results/rec May, Chronic kidney disease, stage 3a (ICD-10 - N18.31) labs done today no changes will continue to monitor will call with results/rec May, Morbid (severe) obesity due to excess calories (ICD-10 - E66.01) discussed diet, weight loss,exercise May, Other This progres s note was scribed by Rasheeda Alanis MA under the direct supervision of Dr Rajat Alcantara who directed the entire visit and performed the physical exam. PLAN OF TREATMENT Medication Medication Name Sig Start Date Stop Date Atorvastatin Calcium 40 MG TAKE ONE TABL ET BY MOUTH DAILY LATE IN THE DAY for 90 days Treatment Notes Assessment Notes Clinical Notes Essential hypertension stable no changes continue same medications Type 2 diabetes mellitus wit h other specified complication, without long-term current use of insulin labs done today no changes continue same medications will call with results/rec Chronic kidney disease, stage 3a labs do ne today no changes will continue to monitor will call with results/rec Morbid (severe) obesity due to excess calories discussed diet, weight loss,exercise Next Appt Details 3 Months Reason:labs prior Provider Name:RAJAT ALCANTARA , 2023-07-11 08:45:00 AM, [address] [place], [address], Follow Up:3 Monthslabs prior Insurance Providers Payer Name Payer Address Payer Phone Insured Name Patient Relationship to Insured Coverage Start Date Coverage End Date Subscriber Number Group Number MEDICAID OF [place] [address] [facility] [id number] [phone] Jeri Flaherty Self - patient is the insured [id number] [facility] A [address] [facility] [id number] Flanery,R aymond Self - patient is the insured 1 [id number]
--- OUTSIDE RECORDS SUMMARY | 2023-07-06 14:20 | XMS REPORT ---
Author Author [facility] ter 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 lower urinary tract symptoms (LUTS) N40.1 confirmed [id number] 5801 -97542 4_Migr ated Problem Essential hypertension I10 confirmed 06718111 -10656 4_Migr ated Problem Mixed hyperlipidemi a E78.2 Nov, confirmed 933626440 -47367 4_Migr ated Problem Chronic kidney disease, stage 3a N18.31 confirmed 130799072 Problem Stasis dermatitis of both legs I87.2 confirmed 43028508 Problem Type 2 diabetes mellitus with other specified complication, without long-term current use of insulin E11.69 confirmed 48479387 Problem Morbid (severe) obesity due to excess calories E66.01 confirmed 070157253 Problem Venous stasis dermatitis of both lower extremities I87.2 confirmed 31206121 Problem Body mass index [BMI]40.0-44. 9, adult Z68.41 confirmed [id number] ALLERGIES No Known Allergies ENCOUNTERS from 1935 to 2023-02-09 Encounter Location Date Provider Diagnosis [facility] [address] [id number] [address] Feb, GASTON SELF Mixed hyperlipidemia E78.2 ; Essential hypertension I10 and Type 2 diabetes mellitus with other specified complication, without long-term current use of insulin E11.69 IMMUNIZATIONS Vaccine Route Administration Date Status PRIVATE FLUZONE HIGH DOSE 0. 5ML (65 and UP) 2019 Unknown Jul 17, 2019 Administered PRIVATE PPSV23 (PNEUMOVAX) Unknown Jul 17, 2019 A dministered shingrix (history) Unknown March 02, 2021 Refused COVID-19 Moderna (history) Unknown Jul 20, 2021 A dministered influenza IIV4 (history) Unknown Jun 23, 2021 Adm inistered influenza (history) Unknown Jul 23, 2020 Administ ered prevnar pcv 13 (history) Unknown Jul 17, 2015 Adm inistered zostavax (history) Unknown Jul 17, 2015 Administe red tdap (history) Unknown Jun 12, 2017 Administered 1st Booster MODERNA Bivalent , COVID-19, [...] 0.5mL Unknown December 20, 2020 A dministered SOCIAL HISTORY Sex Assigned At : Social [...] TWICE A DAY for 90 Active Nystatin 610077 UNIT/GM 1 application to affected area Externally [...] a day for 90 days Active Saw [place] 450 MG 1 capsule Orally Onc e a day Active OneTouch Delica Plus [id number] - USE ONE LANCET TO TEST DAILY [...] NIGHT AT BEDTIME for 90 days Active PROCEDURES from 1935 to 2023-02-09 Procedure Date Ordered Date Performed Result Body Sit e ROUTINE VENIPUNCTURE 2021-03-02 2021-03-02 N/A REASON FOR VISIT No Information MEDICAL [...] Notes Treatment Notes Treatment Clinical Notes Feb, Mixed hyperlipidemia (ICD-10 - E78.2) Feb, Essential hypertension (ICD-10 - I10) 14 Feb, 2021 Type 2 diabetes mellitus with other specified complication, without long-term current use of insulin (ICD-10 - E11.69) PLAN OF TREATMENT Medication Medication Name Sig Start Date Stop Date Tradjenta 5 MG TAKE ONE TABLET BY MOUTH DAILY for 90 Propranolol HCl ER 80 MG TAKE ONE CAPSUL E BY MOUTH DAILY for 90 days Atorvastatin Calcium 40 MG TAKE ONE TABL ET BY MOUTH DAILY LATE IN THE DAY for 90 Next Appt Details Provider Name:GASTON Verónica KAPLAN , 2023-04-08 08:45:00 AM, [address] [place], [address], Insurance Providers Payer Name Payer Address Payer Phone Insured Name Patient Relationship to Insured Coverage Start Date Coverage End Date Subscriber Number Group Number MEDICAID OF [place] [address] [facility] [id number] Jeri Flaherty Self - patient is the insured [id number] [facility] A [address] [facility] [id number] Jeri Flaherty Self - patient is the insured 1 [id number]
--- NOTE | 2023-07-06 14:23 | Physical Therapy Evaluation ---
PT Evaluation-General Medical Diagnosis Admission Date Jul 06, 2023 at 13:44 Medical Diagnosis: PNEUMONIA Onset Date: Jul 05, 2023 Therapy Diagnosis Therapy Diagnosis: WEAKNESS, IMPAIRED MOBILITY, DECREASED BALANCE, FALL HX Height/Weight Height (Feet): 5 Height (Inches): 7.00 Weight (Pounds): 247 Weight (Ounces): 3.0 Precautions Precautions/Isolations: Fall Prevention Weight Bear Status Right Lower Extremity: Right Weight Bearing/Tolerated Left Lower Extremity: Left Weight Bearing/Tolerated c/o (R) LE pain with initial standing 12/27, but this pain did not increased with upright activity. Xrays of (R) LE negative. Referral Physician: Jay Reason for Referral: Evaluation/Treatment Medical History Pertinent Medical History: Arthritis, DM, Fractures, HTN Additional Medical History Hx hip fracture per patient. Other PMH: BPH and increased cholesterol. Current History Patient fell in [employer] parking lot and again at home while trying to carry groceries into the home. Came to ER 07/05/23. Reviewed History: Yes Social History Home: Single Level Current Living Status: Alone Entry Into Home: Ramp Prior Prior Level of Function SCALE: Activities may be completed with or without assistive devices. 3-Mtnrkbqdmi-glpvhou completes the activity by him/herself with no assistance from a helper. 5-Set-up or Clean-up Assistance-helper sets up or cleans up; patient completes activity. [place] assists only prior to or following the activity. 4-Supervision or Touching Assistance-helper provides verbal cues and/or touching/steadying and/or contact guard assistance as patient completes activity. Assistance may be provided throughout the activity or intermittently. 3-Partial/Moderate Assistance-helper does LESS THAN HALF the effort. [place] lifts, holds or supports trunk or limbs, but provides less than half the effort. 2-Substantial/Maximal Assistance-helper does MORE THAN HALF the effort. [place] lifts or holds trunk or limbs and provides more than half the effort. 1-Ksecpfwol-sbrwok does ALL the effort. Patient does none of the effort to complete the activity. Or, the assistance of 2 or more helpers is required for the patient to complete the activity. If activity was not attempted, code reason: 7-Patient Refused. 9-Not Applicable-not attempted and the patient did not perform the activity before the current illness, exacerbation or injury. 10-Not Attempted due to Environmental Limitations-(lack of equipment, weather restraints, etc.). 88-Not Attempted due to Medical Conditions or Safety Concerns. Bed Mobility: 6 Transfers (B,C,W/C): 6 Gait: 6 (but with recent increased falls) Stairs: 6 (required hand rail) Wheelchair Mobility: 9 Indoor Mobility (Ambulation): Independent Stairs: Independent Prior Devices Use: Mechanical lift, Walker, Other-see list below (Lift chair, walker, cane, sock aide) Patient drives, makes own meals, does own laundry, and has housekeeping (A) 2x/mo (but she has been in a car wreck and is also in hospital), PT Evaluation-Current Subjective Patient agreeable to work with ARU staff. States he enjoyed his lunch. States he wishes to return to his home. Reports that he fell at [employer] yesterday and that his legs just would not work. Pain Location: Right Location Body Site: Knee Pain Description: Ache, Sharp Section J - Health Conditions 1. Rarely or not at all 2. Occasionally 3. Frequently 4. Almost constantly 8. Unable to answer Pain Effect on Sleep: 2 Pain Interference with Therapy: 3 Pain Interference w/Day-to-Day: 3 Pt/Family Goals Patient wishes to return to his home. Objective Patient Orientation: Person, Place, Situation Attachments: Oxygen ROM/Strength ROM Upper Extremities Deferred to OT. ROM Lower Extremities Mild knee extension lags (B), (R)>(L) with LAQ -- tight hamstrings. Tight heel cords noted (B) with DF/PF. Strength Upper Extremities Deferred to OT Strength Lower Extremities Knee extension 3+/5 (B), knee flexion 3+/5 (B), ankle DF 3+/5 (B), ankle PF 4/5 (B), hip flexion 3+/5 (B) Integumentary/Posture Integumentary brawny edema with dry skin (B) lower legs, with multiple small open areas (R) lower leg>(L) Posture Forward flexed at waist Sensory Vision: Wears Glasses Hearing: Functional Sensation Right Lower Extremit: Intact Sensation Left Lower Extremity: Intact Transfers Roll Left & Right (QC): 1 Sit to Lying (QC): 1 Lying to Sitting/Side of Bed(Q: 1 Sit to Stand (QC): 1 Chair/Rkm-xc-Mxdyz Xfer(QC): 1 Toilet Transfer (QC): 1 Car Transfer (QC): 88 Patient max (A) of 2 for all bed mobility, sit<>stand from w/c and recliner. Mod (A) of 2 for recliner<>w/c transfers, toilet transfers with max cues using FWW. c/o (R) LE pain with transfers. Car transfers not tested due to deemed unsafe with assist needed for sit<>stand and standard transfers. Gait Does the Patient Walk?: Yes Mode of Locomotion: Both Anticipated Mode of Locomotion: Both Walk 10 feet (QC): 1 (Mod (A) of 2 /c FWW /c max cues) Walk 50 ft with 2 Turns(QC): 88 (unable to walk 50' due to endurance deficits, weakness) Walk 150 ft (QC): 88 (unable to walk 150' due to endurance deficits, weakness) Walking 10ft/uneven surface-QC: 1 (mod (A) of 2 with FWW and max v.c.) Distance: 42' Gait Assistive Device: FWW Comments/Gait Description O2 at 2L. Max cues for stepping sequence, to utilize FWW correctly to advance (L) LE which lags behind (R). Wheelchair Training Does the Pt Use a Wheelchair?: Yes Distance: 125' Wheel 50 ft with 2 turns (QC): 3 (min (A) using (B) UE's only, veers (R) and assist to avoid (R) obstacles) Wheel 150 ft (QC): 88 (unable to propel 150' due to endurance deficits, weakness) Type of Wheelchair: Manual O2 sats /p w/c mobility 95% on 2L. Stairs #of Steps: 1 1 Step (curb) (QC): 1 (mod (A) of 2 /c FWW and max v.c.) 4 Steps (QC): 88 (not safe to attempt) 12 Steps (QC): 88 (not safe to attempt) Walking Assistive Device: Walker Balance Sitting Static: Good Sitting Dynamic: Poor Standing Static: Fair Standing Dynamic: Poor Picking up an Object (QC): 1 (unable without max (A) of 2 practitioners to prevent fall - needs education on AD use for safe completion) Special Test Comments Elderly Mobility Index: 10/08. Goal: 07/08 Assessment/Needs 87 year old male with significant decline in mobility/transfe rs/strength/balance/endurance due to recent pneumonia. Recent fall with hx of falls in the home. Patient would benefit from ARU P.T. to maximize strength, endurance, functional transfers and mobility and return patient to safe, functional level where he can return home safely to his prior residence with support services. Rehab Potential: Good Post Rehab Potential-Barriers: Lives alone/lack of home support Equipment Needs potential need for w/c, O2 PT [facility] Goals Peritoneal Dialysis Registered Nurse Goals PT Peritoneal Dialysis Registered Nurse Goals Time Frame: Jul 20, 2023 Roll Left to Right (QC): 6 (/c bed rail use) Sit to Lying (QC): 6 (/c bed rail use) Lying-Sitting on Side/Bed(QC): 6 (/c bed rail use) Sit to Stand (QC): 5 (from lift chair and EOB, to FWW) Chair/Fdv-ho-Vtycz Xfer(QC): 5 (/c FWW) Toilet/Commode Transfer (QC): 5 (/c grab bars and FWW) Car Transfer (QC): 5 (/c FWW) Does the Patient Walk: Yes Walk 10 feet (QC): 5 (/c FWW, (A) with O2) Walk 10ft-Uneven Surface(QC): 5 (/c FWW, (A) with O2) Walk 50ft with 2 Turns (QC): 5 (/c FWW, (A) with O2) Walk 150 ft (QC): 5 (/c FWW, (A) with O2) Does the Pt use WC or Scooter?: Yes Wheel 50 feet with 2 turns (QC: 6 Type: Manual Wheel 150 feet: 6 Type: Manual 1 Step (curb) (QC): 5 (/c FWW and O2 (A) if needed) 4 Steps (QC): 5 (/c (B) railings) 12 Steps (QC): 5 (/c (B) rails) Picking up an Object (QC): 6 (/c transportation worker) Elderly Mobility Index: 06/28 PT Plan Problem List Problem List: Activity Tolerance, Functional Strength, Safety, Balance, Gait, Transfer, Bed Mobility, ROM, Other (w/c propulsion) Treatment/Plan Treatment Plan: Continue Plan of Care Treatment Plan: Bed Mobility, Concurrent Therapy, Education, Functional Activity Leti, Functional Strength, Group Therapy, Gait, Safety, Therapeutic Exercise, Transfers, Other (w/c mobility) Treatment Duration: Jul 20, 2023 Frequency: At least 5 of 7 days/Wk (IRF) Estimated Hrs Per Day: 1.5 hours per day Safety Risks/Education Patient Education: Gait Training, Transfer Techniques Teaching Recipient: Patient Teaching Methods: Discussion Response to Teaching: Reinforcement Needed Discharge Recommendations Therapy Discharge Recommendati: Meals on Wheels, Bath Aide, Homemaker Support, Post Acute PT Equpiment Recommendations-D/C: Wheelchair Cushion, Front Wheeled Walker, Lift Chair, Toilet Riser Target Placement Home /c support services Time Time In: 1344 ((1401)) Time Out: 1420 (1444) DATE: Jul 06, 2023 Total Billed Treatment Time: 41 Total Billed Treatment 17' eval [id number], 22' co-treatment [id number] (GT) Lauren Carpenter PT Jul 06, 2023 14:23
--- NOTE | 2023-07-06 14:49 | PM&R Post Admission Assessment ---
PM&R HP Date of Visit: Jul 06, 2023 Time of Visit: 14:00 History of Present Illness Chief complaint: Severe weakness with fall and pneumonia HPI: This is an 87-year-old white male clinic patient of [facility] the ER following a fall and unable to ambulate. He was found to have a right upper lobe pneumonia. IV antibiotics initiated empirically. He responded well and due to weakness and living alone and significant debility the decision was made to move to ARU for further strengthening before discharge home. Prior level of functioning is independent. The treatment in rehab will be focused on poor activity tolerance due to respiratory insufficiency. These will primarily include oxygen therapy, antibiotics, the care of a respiratory therapist, and a rehab focus on energy conservation techniques with respiratory therapy. CC: fall injury HPI: 87 year old male, here for evaluation of a fall injury resulting in an abrasion to his right knee and mild bruising on his left thumb. After the fall, patient reports he is not able to walk safely. He has a history of a right hip fracture 4 years ago. He is experiencing pain with weight-bearing in his right knee and ankle. In the ED, he was noted to be hypoxic with an O2 sat of 91% on room air. He denies SOB or chest pain. He has 2+ pitting edema bilaterally and a D-dimer of 10.2, but is negative for a DVT with a LE doppler. His BNP and troponin were negative and an EKG confirmed no STEMI. He has an elevated prothrombin time. CXR showed right upper lobe infiltrate which was interpreted as pneumonia, patient was started on ceftriaxone and azithromycin. 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 shins 2+ pitting edema on bilateral distal legs UE and LE peripheral pulses 2+ Labs/imaging: CXR shows right upper lobe pneumonia and cardiomegaly CT lumbar shows mild degenerative changes CT abdomen is unremarkable XR of right ankle, knee and left hand unremarkable Assessment: Pneumonia Fall injury DM HTN HLD Plan: ARU continue abx continue home meds Past Cdwjwpk-Jbrxrw-Mkkdoq Hx Past Med/Social Hx: Reviewed Nursing Past Med/Soc Hx, Reviewed and Corrections made Patient Social History Marrital Status: single Employed/Student: retired Alcohol Use: Denies Use Smoking Status: Former Smoker Recent Hopitalizations: Yes Seasonal Allergies Seasonal Allergies: No Past Medical History Surgeries: Adenoidectomy, Appendectomy, Tonsillectomy Currently Using CPAP: No Currently Using BIPAP: No Cardiac: High Cholesterol, Hypertension Sexually Transmitted Disease: No HIV/AIDS: No Genitourinary: Benign Prostatic Hyperpl Musculoskeletal: Fractures Endocrine: Diabetes, Non-Insulin dep History of Blood Disorders: No Adverse Reaction to Blood [facility]: No Family History No Pertinent Family Hx 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 PM&R Allergy/Meds/Data Review Allergies Coded Allergies: No Known Drug Allergies (Unverified , 06/12/17) Home Medications Scheduled Aspirin (Aspirin EC), 81 MG PO DAILY, (Reported) Atorvastatin Calcium (Atorvastatin Calcium), 40 MG PO HS, (Reported) Benazepril/Hydrochlorothiazide (Benazepril-Hctz 10-12.5 mg Tab), 1 EA PO DAILY, (Reported) Cholecalciferol (Vitamin D3) (Vitamin D3), 50 MCG PO DAILY, (Reported) Fluticasone Propionate (Fluticasone Propionate), 2 SPRAY NSEACH DAILY, (Reported) Furosemide (Furosemide), 40 MG PO DAILY, (Reported) Garlic (Garlic Oil), 1,000 MG PO DAILY, (Reported) Glimepiride (Glimepiride), 2 MG PO DAILY, (Reported) Linagliptin (Tradjenta), 5 MG PO DAILY, (Reported) Metformin HCl (Metformin HCl), 1,000 MG PO BID, (Reported) Montelukast Sodium (Montelukast Sodium), 10 MG PO HS, (Reported) Capitan-3/Dha/Epa/Fish Oil (Fish Oil 1,000 mg Softgel), 1,000 MG PO BID, (Reported) Propranolol HCl (Propranolol HCl ER), 80 MG PO DAILY, (Reported) Tamsulosin HCl (Flomax), 0.4 MG PO DAILY, (Reported) Discontinued Medications Alfuzosin HCl (Alfuzosin HCl ER), 10 MG PO DAILY@1800 Discontinued Reason: No Longer Taking Ascorbic Acid (Vitamin C), 1,000 MG PO DAILY, (Reported) Discontinued Reason: No Longer Taking Cholecalciferol (Vitamin D3) (Vitamin D3), 1,000 UNIT PO DAILY, (Reported) Discontinued Reason: Prescription changed Ferrous Sulfate (Ferrous Sulfate), 325 MG PO DAILY, (Reported) Discontinued Reason: No Longer Taking Gemfibrozil (Gemfibrozil), 600 MG PO BID, (Reported) Discontinued Reason: No Longer Taking Hydrocodone Bit/Acetaminophen (HYDROcodone/APAP 10/325 TABLET), 1 EA PO Q4H PRN for PAIN-MODERATE Discontinued Reason: No Longer Taking Metformin HCl (Metformin HCl), 500 MG PO DAILY, (Reported) Discontinued Reason: No Longer Taking Sennosides/Docusate Sodium (Senna-Time S Tablet), 1 EA PO BID Discontinued Reason: No Longer Taking Current Medications Current Medications Reviewed Review of Systems Constitutional: see HPI, dizziness, malaise, weakness EENTM: no symptoms reported Respiratory: no symptoms reported Cardiovascular: no symptoms reported Gastrointestinal: no symptoms reported Genitourinary: no symptoms reported Musculoskeletal: back pain, joint pain Skin: no symptoms reported Psychiatric/Neurological: See HPI All Other Systems Reviewed Negative Unless Noted: Yes Physical Exam Physical Exam Vital Signs Capillary Refill : Height, Weight, BMI Height: 5'7.00" Weight: 247lbs. 3.0oz. [id number]; 38.73 BMI Method: General Appearance: No Apparent Distress, WD/WN, Chronically ill, Obese Eyes: Bilateral Eye Normal Inspection, Bilateral Eye PERRL HEENT: PERRL/EOMI, Normal ENT Inspection, Pharynx Normal Neck: Full Range of Motion, Normal Inspection, Non Tender, Supple, Carotid Bruit Respiratory: Chest Non Tender, Lungs Clear, No Accessory Muscle Use, No Respiratory Distress, Decreased Breath Sounds Cardiovascular: Regular Rate, Rhythm, No Edema, No Gallop, No JVD, No Murmur, Normal Peripheral Pulses Gastrointestinal: Normal Bowel Sounds, No Organomegaly, No Pulsatile Mass, Non Tender, Soft Back: Normal Inspection, No CVA Tenderness, No Vertebral Tenderness Extremity: Normal Capillary Refill, Normal Inspection, Normal Range of Motion, Non Tender, No Calf Tenderness, No Pedal Edema Neurologic/Psychiatric: Alert, Oriented x3, general internal medicine physician II-XII Norm as Tested, Abnormal Gait, Depressed Affect, Motor Weakness (Strength 3/5 all extremities) Skin: Normal Color, Warm/Dry Lymphatic: No Adenopathy PM&R Medical Assessment & Plan REHAB/MEDICAL ASSESSMENT AND PLAN: REHAB IMPAIRMENT GROUP: Right upper lobe pneumonia ETIOLOGIC DIAGNOSIS: Right upper lobe pneumonia The comorbidities that impact the patients function and/or functional outcome by: Current pneumonia requiring IV antibiotics respiratory therapy and oxygen, d iabetes, hypertension, advanced age REHAB PLAN: The patient is being admitted to our comprehensive inpatient rehabilitation facility and can tolerate the intensity of service consisting of at least: 180 minutes of therapy a day, 5 out of 7 days a week Rehab treatment will consist of: PT and OT will focus on regaining function with use of assistive devices in order to increase stamina with ambulation and prevent falls creased independence in ADLs in order to return home to live alone The patient/family has a good understanding of our discharge process and will benefit from an interdisciplinary inpatient rehabilitation program. The patient has potential to make improvement and is in need of at least two of the followi ng multidisciplinary therapies including but not limited to physical, occupational, speech, and prosthetics and orthotics. Additionally the patient will need services from respiratory, nutritional services, wound care, psychology, etc. (Customize this to each patient). Given the patients complex condition and risk of further medical complications, rehabilitation services cannot be safely or effectively provided at a lower level of care such as a correction facility. BARRIERS TO DISCHARGE: advanced age and lives alone ESTIMATED LOS: 7 days DISPOSITION: home RELEVANT CHANGES SINCE PREADMISSION SCREENING: I have compared the patients medical and functional status at the time of the preadmission screening and there are: no changes PROGNOSIS: good REHABILITATION GOALS: 1.PT and OT will focus on regaining function with use of assistive devices in order to increase stamina with ambulation and prevent falls creased independence in ADLs in order to return home to live alone All the above goals were reviewed with the patient and he/she is in agreement. By signing this document, I acknowledge that I have personally performed a full physical examination on this patient within 24 hours of admission to this inpatient rehabilitation facility and have determined the patient to be able to tolerate the above course of treatment at an intensive level for a reasonable period of time. I will be completing a detailed individualized Plan of Care for this patient by day #4 of the patients stay based upon the Preadmission Screen, the Post-Admission Evaluation, and the therapy evaluations. Admission Dx/Comorbidities: (1) Right upper lobe pneumonia Status: Acute ICD Codes: J18.9 - Pneumonia, unspecified organism (2) Falling due to legs giving way Status: Acute ICD Codes: R29.6 - Repeated falls (3) Hypoxia Status: Acute ICD Codes: R09.02 - Hypoxemia Assessment/Plan Assessment and Plan Assess & Plan/Chief Complaint Assessment: Right upper lobe pneumonia Hypoxia Advanced age Diabetes Hypertension Hyperlipidemia Right ankle sprain Plan: Supportive care Pain control Home meds Accu-Cheks IV antibiotics Respiratory therapy treatments Oxygen KIT PAZ DO Jul 06, 2023 14:49
[2023-07-06] MEDS ORDERED: ACETAMINOPHEN 325 MG TABLET PO PRN ×2 (15:00→20:00)
[2023-07-06] MEDS ORDERED: LACTULOSE SYRUP 10GM/15ML 30ML UDC PO PRN ×2 (15:00→20:00)
[2023-07-06] MEDS ORDERED: DOCUSATE SODIUM 100 MG CAPSULE PO PRN (15:00)
[2023-07-06] MEDS ORDERED: ALPRAZolam 0.25 MG TABLET PO PRN (15:00)
[2023-07-06] MEDS ORDERED: CALCIUM CARBONATE 500 MG CHEW TABLET PO PRN ×2 (15:00→20:00)
[2023-07-06] MEDS ORDERED: Sodium Phosphate/Sodium Biphosphate ADULT enema PR PRN (15:00)
[2023-07-06] MEDS ORDERED: BISACODYL 10 MG SUPPOSITORY PR PRN ×2 (15:00→20:00)
[2023-07-06] MEDS ORDERED: ONDANSETRON 4 MG ORAL DISSOLVE TABLET PO PRN ×2 (15:00→20:00)
[2023-07-06] MEDS ORDERED: diphenhydrAMINE 25 MG TABLET PO PRN ×2 (15:00→20:00)
[2023-07-06] MEDS ORDERED: MELATONIN 3 MG TABLET PO PRN ×2 (15:00→20:00)
[2023-07-06] MEDS ORDERED: LOPERAMIDE 2 MG CAPSULE PO PRN (15:00)
[2023-07-06] MEDS ORDERED: guaiFENesin/CODEINE 10ML UDC PO PRN (15:00)
--- NOTE | 2023-07-06 15:35 | Occupational Therapy Eval ---
OT Evaluation-General/PLF Medical Diagnosis Admission Date Jul 06, 2023 at 13:44 Medical Diagnosis: Pneumonia Onset Date: Jul 05, 2023 Therapy Diagnosis Therapy Diagnosis: decreased strength, decreased ADL status Height/Weight Height (Feet): 5 Height (Inches): 7.00 Weight (Pounds): 247 Weight (Ounces): 3.0 Referral Physician: Jay Referral Reason: Evaluation/Treatment Medical History Pertinent Medical History: Arthritis, DM, HTN Additional Medical History HTN, BPH, appendectomy, fractures, DM Current History 07/05/23 ED c/o fall with weakness, pain, LE edema and unable to walk. Social History Home: Single Level Current Living Status: Alone Entry Into Home: Ramp ADL-Prior Level of Function SCALE: Activities may be completed with or without assistive devices. 8-Xhmuzkrqtw-lqzxemd completes the activity by him/herself with no assistance from a helper. 5-Set-up or Clean-up Assistance-helper sets up or cleans up; patient completes activity. [place] assists only prior to or following the activity. 4-Supervision or Touching Assistance-helper provides verbal cues and/or touching/steadying and/or contact guard assistance as patient completes activity. Assistance may be provided throughout the activity or intermittently. 3-Partial/Moderate Assistance-helper does LESS THAN HALF the effort. [place] lifts, holds or supports trunk or limbs, but provides less than half the effort. 2-Substantial/Maximal Assistance-helper does MORE THAN HALF the effort. [place] lifts or holds trunk or limbs and provides more than half the effort. 0-Qpympebot-iitepv does ALL the effort. Patient does none of the effort to complete the activity. Or, the assistance of 2 or more helpers is required for the patient to complete the activity. If activity was not attempted, code reason: 7-Patient Refused. 9-Not Applicable-not attempted and the patient did not perform the activity before the current illness, exacerbation or injury. 10-Not Attempted due to Environmental Limitations-(lack of equipment, weather restraints, etc.). 88-Not Attempted due to Medical Conditions or Safety Concerns. ADL PLOF Comments Pt reports IND with ADLs and functional mobility no AD. He used a cane after his fall and prior to arriving at ED. He has a walk in shower with GBs, a standard toilet, lift chair, standard twin bed, sock aide, master naval parachutist. He does not wear O2 at PLOF. He still drives, grocery shops, and enjoys reading his bible. He has a hotel housekeeper x2/month, but she is currently in the hospital. Self Care: Independent Functional Cognition: Independent DME/Equipment Comments cane, sock aide, master naval parachutist Drive Self: Yes Leisure Interests: reading the Bible OT Current Status Subjective Pt agreeable to OT evaluation followed by cotreatment with PT. Mental Status/Objective Patient Orientation: Person, Place, Time, Situation Current Glasses/Contacts: Yes Hearing Aids: No Dentures/Partials: Yes Upper Extremity ROM WFL, BUE shoulder flexion to approx 120 degrees Upper Extremity Coordination WFL Upper Extremity Sensation WFL per pt report Upper Extremity Strength grossly 4/5 ADL-Treatment Eating (QC): 5 (per pt report) Oral Hygiene (QC): 4 Shower/Bathe Self (QC): 1 (assist x2) Upper Body Dressing (QC): 4 Lower Body Dressing (QC): 1 (assist x2) On/Off Footwear (QC): 2 (Max A overall. total assist to doff, max A to howard.) Toileting Hygiene (QC): 1 (assist x2) Other Treatments OT evaluation complete. Pt provided information about PLOF and home set up and participated in UE screen/ADLs. OT/PT cotreat due to skill of 2 clinicians required which a rehabilitator could not perform in order to coordinate UE/LEs, decrease fall risk, and due to pt's limitations in strength, activity tolerance, mobility/transfers. OT focused on UE placement, cues for sequencing and safety and ADLs, PT focused on LE placement, gross overall movement, transfers/mobilit y. Pt performed functional mobility and transfers. Patient max (A) of 2 for all bed mobility, sit<>stand from w/c and recliner. Mod (A) of 2 for recliner<>w/c transfers, toilet transfers with max cues using FWW. c/o (R) LE pain with transfers. Mod A of 2 42' with FWW, max VCs for stepping sequence. w/c mobility x125' with min A. O2 saturation at 95% on 2L. Pt returned to room, transferring from w/c to EOB, then supine, assist x2. Post tx, pt in recliner, call light in reach and all needs met. Education OT Patient Education: Correct positioning, Energy conservation, Modified ADL techniques, Progress toward Goal/Update tx plan, Purpose of tx/functional activities, Rehab process Teaching Recipient: Patient Teaching Methods: Discussion Response to Teaching: Verbalize Understanding BIMS CAM BIMS Expression of Ideas and Wants: Without Difficulty Understanding Verbal Content: Understands Brief Interview/Mental Status: Yes IRF HARIS BIMS: IRF HARIS BIMS Response (Comments) Value Repitition of Three Words Three 3 Recalls Socks Yes, After Cueing (Wear) 1 Recalls Blue Yes, No Cue Required 2 Recalls Bed Yes, No Cue Required 2 Year Correct 3 Month Accurate Within 5 Days 2 Day Incorrect or No Answer 0 Total 13 Patient Normally Able to Recal: Current Session, Location of own room, That he/she in a hsp Should Staff Asses. Mental St.: No Memory/Recall Ability: Current Season, Location of Own Room, That He/She in Hospit[facility] CAM Mental Status Change/Baseline: 0 Inattention: 0 Disorganized thinkin Altered level of consciousness: 0 OT Short Term Goals Short Term Goals Time Frame: Jul 15, 2023 Toileting hygiene: 4 Shower/bathe self: 4 Upper body dressin Lower body dressin Putting on/taking off footwear: 4 OT Intermediate Goals Intermediate Goals Time Frame: Jul 29, 2023 Eating (QC): 6 Oral Hygiene (QC): 6 Toileting Hygiene (QC): 6 Shower/Bathe Self (QC): 6 Upper Body Dressing (QC): 6 Lower Body Dressing (QC): 6 On/Off Footwear (QC): 6 Additional Goals: 1-Demonstrate ADL Tasks, 2-Verbalize Understanding, 3- ImproveStrength/Leti 1=Demonstrate adherence to instructed precautions during ADL tasks. 2=Patient will verbalize/demonstrate understanding of assistive devices/modifications for ADL. 3=Patient will improve strength/tolerance for activity to enable patient to perform ADL's. OT Education/Plan Problem List/Assessment Assessment: Decreased Activ Tolerance, Decreased UE Strength, Dependent Transfers, Impaired Funct Balance, Impaired I ADL's, Impaired Self-Care Skills Discharge Recommendations Plan/Recommendations: Continue POC Equpiment Recommendations-D/C: Bath Chair Treatment Plan/Plan of Care Patient would benefit from OT for education, treatment and training to promote independence in ADL's, mobility, safety and/or upper extremity function for ADL's. Plan of Care: ADL Retraining, Functional Mobility, Group Exercise/Act as Ind, UE Funct Exercise/Act Treatment Duration: Jul 29, 2023 Frequency: At least 5 of 7 days/Wk (IRF) Estimated Hrs Per Day: 1.5 hours per day Agreement: Yes Rehab Potential: Good Time Start Time: 14:01 ([id number] OT eval 19') Stop Time: 15:22 ([id number] Cotreat 62') DATE: Jul 06, 2023 Total Time Billed (hr/min): 81 Billed Treatment Time OT evaluation [id number] (19'); Cotreat with PT [id number] (62') 1, EVM (19'), FA 4 (62') ALYSSIA CANTU OT Jul 06, 2023 15:35
--- NOTE | 2023-07-06 15:38 | Physical Therapy Daily Note ---
PT Daily Note-Current Subjective Pt presents in hallway with PT and OT finishing initial eval. Pt agreed to tx. Pt denied pain and states he is not too sore today. Co tx with OT. Pain Section J - Health Conditions 1. Rarely or not at all 2. Occasionally 3. Frequently 4. Almost constantly 8. Unable to answer Pain Effect on Sleep: 2 Pain Interference with Therapy: 1 Pain Interference w/Day-to-Day: 2 Transfers SCALE: Activities may be completed with or without assistive devices. 4-Jvqgepxxlr-vtktatf completes the activity by him/herself with no assistance from a helper. 5-Set-up or Clean-up Assistance-helper sets up or cleans up; patient completes activity. [place] assists only prior to or following the activity. 4-Supervision or Touching Assistance-helper provides verbal cues and/or touching/steadying and/or contact guard assistance as patient completes activity. Assistance may be provided throughout the activity or intermittently. 3-Partial/Moderate Assistance-helper does LESS THAN HALF the effort. [place] lifts, holds or supports trunk or limbs, but provides less than half the effort. 2-Substantial/Maximal Assistance-helper does MORE THAN HALF the effort. [place] lifts or holds trunk or limbs and provides more than half the effort. 4-Igruesevj-opgfff does ALL the effort. Patient does none of the effort to complete the activity. Or, the assistance of 2 or more helpers is required for the patient to complete the activity. If activity was not attempted, code reason: 7-Patient Refused. 9-Not Applicable-not attempted and the patient did not perform the activity before the current illness, exacerbation or injury. 10-Not Attempted due to Environmental Limitations-(lack of equipment, weather restraints, etc.). 88-Not Attempted due to Medical Conditions or Safety Concerns. Roll Left & Right (QC): 88 Sit to Lying (QC): 1 (MaxA x 2) Sit to Stand (QC): 1 (MaxA x 2) Weight Bearing Right Lower Extremity: Right Weight Bearing/Tolerated Left Lower Extremity: Left Weight Bearing/Tolerated Wheelchair Training Does the Pt Use a Wheelchair?: Yes Wheel 50 ft with 2 turns (QC): 3 ([place] x 1 to avoid obstacles on R) Type of Wheelchair: Manual Pt wheeled 125' in manual W/C using B LE & UE's, Cam[place] x 1 to avoid obstacles on R. Exercises THER EX: Supine in bed /c B LE's x 10 reps each: Ankle pumps, HS set, Quad set Treatments Pt performed manual w/c mobility down hallway and back to room for 125' /c B LE & UE assist, Cam[place] x 1 to avoid obstacles on R. Pt conducted sit<>stand xfer from W/C to stand pivot with FWW, to sitting EOB, with maxA x 2 for safety and constant vc/tc's. Pt xfer sitting EOB<>lying supine, maxA x 2 for safety, and constant vc/tc's. Pt performed supine B LE ther ex, only requiring SBA for verbal cueing. Assessment Pt tolerated tx fair secondary to mm weakness in B LE's. PT Manuscript Reader Goals Manuscript Reader Goals Roll Left & Right (QC): 6 Sit to Lying (QC): 6 Lying-Sitting on Side/Bed(QC): 6 Sit to Stand (QC): 5 Chair/Wsj-rm-Orirl Xfer(QC): 5 Toilet Transfer (QC): 5 Car Transfer (QC): 5 Does the Patient Walk: Yes Walk 10 feet (QC): 5 Walk 50ft with 2 Turns (QC): 5 Walk 150 ft (QC): 5 Walking 10ft on Uneven Surface: 5 1 Step (curb) (QC): 5 4 Steps (QC): 5 12 Steps (QC): 5 Picking up an Object (QC): 6 Does the Pt use WC or Scooter?: Yes Wheel 50 feet with 2 turns (QC: 6 Type: Manual Wheel 150 feet: 6 Type: Manual Elderly Mobility Index: 07/08 PT Plan Problem List Problem List: Activity Tolerance, Functional Strength, Safety, Balance, Gait, Transfer, Bed Mobility, ROM Treatment/Plan Treatment Plan: Continue Plan of Care Treatment Plan: Functional Strength, Therapeutic Exercise Treatment Duration: Jul 20, 2023 Frequency: At least 5 of 7 days/Wk (IRF) Estimated Hrs Per Day: 1.5 hours per day Time Time In: 1444 Time Out: 1522 DATE: Jul 06, 2023 Total Billed Treatment Time: 38 Total Billed Treatment 1, FA x2 (23m), EX (15m) AGUILAR TIERNEY GOVERNMENT OPERATIONS CONSULTANT Jul 06, 2023 15:38
[2023-07-06] MEDS ORDERED: TMSL.4C PO (15:46)
[2023-07-06] MEDS ORDERED: FURO40TA4 PO (15:46)
[2023-07-06] MEDS ORDERED: CHOL200025 PO (15:46)
[2023-07-06] MEDS ORDERED: BENA1TAB PO (15:46)
[2023-07-06] MEDS ORDERED: METF-399 PO (15:46)
[2023-07-06] MEDS ORDERED: GARL1000 PO (15:46)
[2023-07-06] MEDS ORDERED: PROP80CA4 PO (15:46)
--- NOTE | 2023-07-06 16:09 | ST Dysphagia Evaluation ---
Speech Evaluation-General Medical Diagnosis Pneumonia Onset Date: Jul 05, 2023 Therapy Diagnosis Therapy Diagnosis: Pneumonia Precautions Precautions: Fall Precautions/Isolations: Standard Precautions Referral Referring Physician: Dr. Thompson Reason for Referral: Evaluation/Treatment Medical History Pertinent Medical History: Arthritis, DM, Fractures, HTN Current History Pt is s/p fall in grocery store parking 07/05/23, admitted through E.D. later that day. No fractures found on XR, pneumonia identified on CXR. Reviewed History: Yes Social History Current Living Status: Alone Speech PLF/Current-Dysphagia Prior Level of Function Patient lives alone. He continues to drive, does his own grocery shopping and meal cooking. His daughter supervises and assists with finances. Subjective The pt was significantly fatigued during session. Cognitive Status Patient Orientation: Person, Time Oral Motor Skills Dentition: Edentalous Denture Type: Full- Upper & Lower Current Food Consistancy: Regular, Thin Liquids Ability to Follow Directions: Good Oral Expression Ability: No Impairment Voice Voice Phonatory-Based Quality: Normal Voice Pitch: Normal Voice Loudness: Normal Face Facial Symmetry: Symmetrical Oral-Facial Assessment Smile: Normal Lingual Protrusion: Normal Lingual ROM: Normal Dysphagia Evaluation Consistencies Presented: Regular, Thin Liquid Oral Phase: Oral Residue Residue on dentures, dry mouth. Required liquid wash to clear. Pharyngeal Phase: Clears Throat Throat clear following 2/4 trials, most noted with continuous drinks from straw. Funct. Velo/Pharyngeal Symptom: Clears Throat Dietary Recommendations: Regular Liquid Recommendations: Thin Dysphagia Evaluation Summary Consistent throat clear after liquids taken continuously by straw. The pt was fatigued, and not optimally positioned in bed. Will continue to monitor. Speech-Plan Treatment Plan Speech Therapy Treatment Plan: Modify Plan, See Comments Complete cognitive assessment 07/07/23, monitor swallow status Frequency: Modified Program (IRF) (pending cognitive assessment) Estimated Hrs Per Day: Other Rehab Potential: Good Time Speech Therapy Time In: 15:30 Speech Therapy Time Out: 15:50 DATE: Jul 06, 2023 Total Billed Time: 20 Billed Treatment Time 1 NORMAN (20 min) NATACHALEXUSCARIE Jul 06, 2023 16:09
[2023-07-06 16:20] VITALS: BP 135/59
[2023-07-06 20:00] VITALS: BP 129/59
[2023-07-06] MEDS ORDERED: diphenhydrAMINE INJ 50 MG/ML VIAL IVP PRN (20:00)
[2023-07-06] MEDS ORDERED: MILK OF MAGNESIA 400 MG/5 ML 30 ML UDC PO PRN (20:00)
[2023-07-06] MEDS ORDERED: oxyCODONE IMMEDIATE RELEASE 5 MG TABLET PO PRN (20:00)
[2023-07-06] MEDS ORDERED: RT-ALBUTEROL SULF 2.5 MG/3 ML PRE-MIX VIAL INH PRN (20:00)
[2023-07-06] MEDS ORDERED: ANTACID SUSPENSION 30 ML UDC PO PRN (20:00)
[2023-07-06] MEDS ORDERED: cloNIDine 0.1 MG TABLET PO PRN (20:00)
[2023-07-06] MEDS ORDERED: HOLD METFORMIN - RECEIVED CONTRAST 20 ML VIAL IV SCH (20:00)
[2023-07-06] MEDS ORDERED: ONDANSETRON INJECTION 4 MG/2 ML (SDV) IV PRN (20:00)
[2023-07-06] MEDS ORDERED: cefTRIAXone IV/IM 1,000 MG in NS (IVPB) 50 ML 50 ML IV SCH (20:00)
[2023-07-06] MEDS ORDERED: MONTELUKAST 10 MG TABLET PO SCH (21:00)
[2023-07-06] MEDS ORDERED: SENNOSIDES 8.6 MG TABLET PO SCH (21:00)
[2023-07-06] MEDS ORDERED: SENNA W/DOCUSATE TABLET PO SCH (21:00)
[2023-07-06] MEDS ORDERED: DOCUSATE SODIUM 100 MG CAPSULE PO SCH ×2 (21:00)
[2023-07-06] MEDS ORDERED: AZITHROMYCIN 250 MG TABLET PO SCH (21:35)
[2023-07-06] MEDS: inSUlin ASPART 1 UNIT/0.01 ML (PER UNIT) SC SCH (21:42)
[2023-07-07 05:37] LABS: BASOPHILS % (AUTO) 0 % (0-10); EOSINOPHILS # (AUTO) 0.1 10^3/uL (0.0-0.3); EOSINOPHILS % (AUTO) 2 % (0-10); HEMATOCRIT 30 % (40-54); HEMOGLOBIN 9.7 g/dL (13.3-17.7); LYMPHOCYTES # (AUTO) 0.9 10^3/uL (1.0-4.0); LYMPHOCYTES % (AUTO) 12 % (12-44); MEAN CORPUSCULAR HEMOGLOBIN 30 pg (25-34); MEAN CORPUSCULAR HGB CONC 32 g/dL (32-36); MEAN CORPUSCULAR VOLUME 91 fL (80-99); MEAN PLATELET VOLUME 9.6 fL (9.0-12.2); MONOCYTES # (AUTO) 0.4 10^3/uL (0.0-1.0); MONOCYTES % (AUTO) 6 % (0-12); NEUTROPHILS # (AUTO) 6.1 10^3/uL (1.8-7.8); NEUTROPHILS % (AUTO) 80 % (42-75); PLATELET COUNT 150 10^3/uL (130-400); WHITE BLOOD COUNT 7.7 10^3/uL (4.3-11.0)
[2023-07-07 05:51] LABS: ALBUMIN 3.1 GM/DL (3.2-4.5); POTASSIUM 4.2 MMOL/L (3.6-5.0)
[2023-07-07 05:52] LABS: CALCIUM 8.3 MG/DL (8.5-10.1)
[2023-07-07 05:53] LABS: TOTAL PROTEIN 6.1 GM/DL (6.4-8.2)
[2023-07-07 05:55] LABS: BILIRUBIN,TOTAL 0.8 MG/DL (0.1-1.0)
[2023-07-07 05:57] LABS: CREATININE SERUM 0.97 MG/DL (0.60-1.30)
[2023-07-07] MEDS: inSUlin ASPART 1 UNIT/0.01 ML (PER UNIT) SC SCH (06:11)
[2023-07-07 08:00] VITALS: BP 119/58
[2023-07-07] MEDS ORDERED: LinaGLIPtin 5 MG TABLET PO SCH (09:00)
[2023-07-07] MEDS ORDERED: FUROSEMIDE 40 MG TABLET PO SCH (09:00)
[2023-07-07] MEDS ORDERED: FLUTICASONE NASAL SPRAY (120 SPRAYS) NS SCH (09:00)
[2023-07-07] MEDS ORDERED: VITAMIN D3 25 MCG (1,000 UNITS) TABLET PO SCH (09:00)
[2023-07-07] MEDS ORDERED: GLIMEPIRIDE 2 MG TABLET PO SCH (09:00)
[2023-07-07] MEDS ORDERED: TAMSULOSIN 0.4 MG (FLOMAX) CAP PO SCH (09:00)
[2023-07-07] MEDS ORDERED: OMEGA 3 (FISH OIL) 1000 MG CAP PO SCH (09:00)
[2023-07-07] MEDS ORDERED: PROPRANOLOL EXTENDED RELEASE 80 MG CAPSULE PO SCH (09:00)
[2023-07-07] MEDS ORDERED: ASPIRIN enteric coated 81MG TABLET PO SCH (09:00)
[2023-07-07] MEDS ORDERED: GARLIC 1000 MG PO SCH (09:00)
--- NOTE | 2023-07-07 09:13 | Physical Therapy Daily Note ---
PT Daily Note-Current Subjective Pt presents lethargic in lift-recliner /c B feet on floor, with OT assisting him eating. CoTx with OT. Pain Section J - Health Conditions 1. Rarely or not at all 2. Occasionally 3. Frequently 4. Almost constantly 8. Unable to answer Pain Effect on Sleep: 2 Pain Interference with Therapy: 1 Pain Interference w/Day-to-Day: 2 Mental Status Patient Orientation: Unable to Assess, Eyes Open, Mumbles Attachments: Oxygen (2L) Pt orientation presents lethargic with eye opening response when addressed. Pt mumbles appropriate responses to OT/WASHER OPERATOR questions. Transfers SCALE: Activities may be completed with or without assistive devices. 3-Fyhxxeyphe-akczubb completes the activity by him/herself with no assistance from a helper. 5-Set-up or Clean-up Assistance-helper sets up or cleans up; patient completes activity. [place] assists only prior to or following the activity. 4-Supervision or Touching Assistance-helper provides verbal cues and/or touching/steadying and/or contact guard assistance as patient completes activity. Assistance may be provided throughout the activity or intermittently. 3-Partial/Moderate Assistance-helper does LESS THAN HALF the effort. [place] lifts, holds or supports trunk or limbs, but provides less than half the effort. 2-Substantial/Maximal Assistance-helper does MORE THAN HALF the effort. [place] lifts or holds trunk or limbs and provides more than half the effort. 5-Qrsurcfft-ztpbik does ALL the effort. Patient does none of the effort to complete the activity. Or, the assistance of 2 or more helpers is required for the patient to complete the activity. If activity was not attempted, code reason: 7-Patient Refused. 9-Not Applicable-not attempted and the patient did not perform the activity before the current illness, exacerbation or injury. 10-Not Attempted due to Environmental Limitations-(lack of equipment, weather restraints, etc.). 88-Not Attempted due to Medical Conditions or Safety Concerns. Sit to Stand (QC): 1 (MaxA x 4) Weight Bearing Right Lower Extremity: Right Weight Bearing/Tolerated Left Lower Extremity: Left Weight Bearing/Tolerated Xrays of (R) LE negative. Gait Training Does the Patient Walk?: No and Walking Goal IS indicated Treatments WASHER OPERATOR assisted OT with 3 sit<>stand xfers (MaxA x 3-4) with a goal to arouse the pt. WASHER OPERATOR assisted with pt mobility during OT body hygiene. OT found blood on cleansing wipes after wiping pt, and nursing staff was called. WASHER OPERATOR assisted nursing staff with pt mobility and positioning. Assessment Current Status: Regressing Pt had a change in mental status/orientation since yesterdays tx. Pt was lethargic and hardly responsive, even after OT/WASHER OPERATOR arousal attempts. Nursing was called secondary to new wound that OT found on pt. Nursing was addressing his decline, and WASHER OPERATOR left pt with nursing staff. PT Care Home Goals Care Home Goals PT Care Home Goals Time Frame: Jul 20, 2023 Roll Left & Right (QC): 6 Sit to Lying (QC): 6 Lying-Sitting on Side/Bed(QC): 6 Sit to Stand (QC): 5 Chair/Spj-wy-Qnbkc Xfer(QC): 5 Toilet Transfer (QC): 5 Car Transfer (QC): 5 Does the Patient Walk: Yes Walk 10 feet (QC): 5 Walk 50ft with 2 Turns (QC): 5 Walk 150 ft (QC): 5 Walking 10ft on Uneven Surface: 5 1 Step (curb) (QC): 5 4 Steps (QC): 5 12 Steps (QC): 5 Picking up an Object (QC): 6 Does the Pt use WC or Scooter?: Yes Wheel 50 feet with 2 turns (QC: 6 Type: Manual Wheel 150 feet: 6 Type: Manual PT Plan Treatment/Plan Treatment Plan: Continue Plan of Care Treatment Plan: Functional Strength, Therapeutic Exercise Treatment Duration: Jul 20, 2023 Frequency: At least 5 of 7 days/Wk (IRF) Estimated Hrs Per Day: 1.5 hours per day Time Time In: 0800 Time Out: 0900 DATE: Jul 07, 2023 Total Billed Treatment Time: 60 Total Billed Treatment 1, FA x 4 (60m) AGUILAR TIERNEY WASHER OPERATOR Jul 07, 2023 09:13
[2023-07-07 09:19] LABS: ABG BASE EXCESS 4.5 MMOL/L (-2.5-2.5); ABG OXYGEN SATURATION 97 % (94-100); ABG PCO2 49 MMHG (35-45); ABG PO2 81 MMHG (79-93); ABG TCO2 31.9 MMOL/L (21.0-31.0)
--- NOTE | 2023-07-07 09:19 | Occupational Ther Daily Note ---
OT Current Status-Daily Note Subjective Pt reclining in chair, extremely difficult to wake. Nrsg in room with pt also. Initially pt would not open eyes, but would vocalize. Pt's meal not ordered at this time, CUETO ordered pt's breakfast. Mental Status/Objective Patient Orientation: Person Attachments: IV ADL-Treatment Face, head and hands washed for pt due to lethargy in attempt to wake pt. Pt opened eyes though closed them and began to sleep again. Pt lifted R UE from chest to chin, unable to lift further. Hand over hand completed to bring spoon to mouth with only a taste of oatmeal, no bolus due to lethargy and safety concerns for swallowing, reported this to HEALTHCARE NETWORK CONSULTANT. Pt would open eyes to complete single task then close eyes again. Pt would answer question appropriately though mumbled and difficult to understand. Nrsg aware. PT/OT and 2 other staff members working on sit to stand to attempt to increase alertness and strength, 3x's. Max A x4 with all standing. Nrsg alerted. Pt had skin breakdown in between thigh/groin area, nrsg alerted applied ointment. Nrsg alerted nrsg senior product development manager and physician at pt's decline. CUETO/AUTO ADJUDICATION SPECIALIST assisted with positioning pt for nrsg assessment. Pt left in care of nrsg and AUTO ADJUDICATION SPECIALIST. Therapy Code Descriptions/Definitions Functional [place] Measure: 0=Not Assessed/NA 4=Minimal Assistance 1=Total Assistance 5=Supervision or Setup 2=Maximal Assistance 6=Modified [place] 3=Moderate Assistance 7=Complete IndependenceSCALE: Activities may be completed with or without assistive devices. 7-Eevgcdezhh-zgxmaeq completes the activity by him/herself with no assistance from a helper. 5-Set-up or Clean-up Assistance-helper sets up or cleans up; patient completes activity. [place] assists only prior to or following the activity. 4-Supervision or Touching Assistance-helper provides verbal cues and/or touching/steadying and/or contact guard assistance as patient completes activity. Assistance may be provided throughout the activity or intermittently. 3-Partial/Moderate Assistance-helper does LESS THAN HALF the effort. [place] lifts, holds or supports trunk or limbs, but provides less than half the effort. 2-Substantial/Maximal Assistance-helper does MORE THAN HALF the effort. [place] lifts or holds trunk or limbs and provides more than half the effort. 3-Iratqnkgp-bviopj does ALL the effort. Patient does none of the effort to complete the activity. Or, the assistance of 2 or more helpers is required for the patient to complete the activity. If activity was not attempted, code reason: 7-Patient Refused. 9-Not Applicable-not attempted and the patient did not perform the activity before the current illness, exacerbation or injury. 10-Not Attempted due to Environmental Limitations-(lack of equipment, weather restraints, etc.). 88-Not Attempted due to Medical Conditions or Safety Concerns. Other Treatment Pt very lethargic today. Pt would open eyes and follow one step commands then fall immediately back to sleep. Continuously reported to nrsg throughout session. See nrsg note for vital signs. Physician notified. PT/OT assisted with positioning for pt during assessments. Co-treat with PT ([id number]), skills BIMS CAM BIMS Expression of Ideas and Wants: Difficulty Understanding Verbal Content: Rarely/Never Understands Brief Interview/Mental Status: Yes IRF HARIS BIMS: IRF HARIS BIMS Response (Comments) Value Repitition of Three Words None 0 Recalls Socks No, Could Not Recall 0 Recalls Blue No, Could Not Recall 0 Recalls Bed No, Could Not Recall 0 Year Missed by 5 Yrs/No Answer 0 Month Missed by 1 Mo/No Answer 0 Total 0 Patient Normally Able to Recal: None of the above Should Staff Asses. Mental St.: Yes Notes: Pt had extreme change in medical status and unable to complete BIMs due to this. Memory/Recall Ability: None of Above Recalled CAM Mental Status Change/Baseline: 2 Inattention: 0 Disorganized thinkin Altered level of consciousness: 2 OT Short Term Goals Short Term Goals Time Frame: Jul 15, 2023 Toileting hygiene: 4 Shower/bathe self: 4 Upper body dressin Lower body dressin Putting on/taking off footwear: 4 OT Half-Way Goals Dental Surgery Doctor Goals Time Frame: Jul 29, 2023 Acute change in mental status: 0 Inattention: 0 Disorganized thinkin Altered level of consciousness: 0 Eating (QC): 6 (not met) Oral Hygiene (QC): 6 (not met) Toileting Hygiene (QC): 6 (not met) Shower/Bathe Self (QC): 6 (not met) Upper Body Dressing (QC): 6 (not met) Lower Body Dressing (QC): 6 (not met) On/Off Footwear (QC): 6 (not met) Additional Goals: 1-Demonstrate ADL Tasks, 2-Verbalize Understanding, 3- ImproveStrength/Leti 1=Demonstrate adherence to instructed precautions during ADL tasks. 2=Patient will verbalize/demonstrate understanding of assistive devices/modifications for ADL. 3=Patient will improve strength/tolerance for activity to enable patient to perform ADL's. OT Education/Plan Problem List/Assessment Assessment: Decreased Activ Tolerance, Dependent Transfers, Impaired Self-Care Skills Discharge Recommendations Plan/Recommendations: Discontinue OT (pt transferred to acute floor due to change in medical status) Treatment Plan/Plan of Care Patient would benefit from OT for education, treatment and training to promote independence in ADL's, mobility, safety and/or upper extremity function for ADL's. Plan of Care: ADL Retraining, Functional Mobility, Group Exercise/Act as Ind, UE Funct Exercise/Act Treatment Duration: Jul 29, 2023 Frequency: At least 5 of 7 days/Wk (IRF) Estimated Hrs Per Day: 1.5 hours per day Agreement: Yes Rehab Potential: Good Time Start Time: 07:00 Stop Time: 08:45 DATE: Jul 07, 2023 Total Time Billed (hr/min): 105 Billed Treatment Time 1 visit-ADL 4 (60 min) FA 3 (45 min) co-treat with PT [id number], individual [id number] CATRACHO CARRASCO Jul 07, 2023 09:19
[2023-07-07 09:21] LABS: INSPIRED O2 2 L; VENTILATOR NO
--- NOTE | 2023-07-07 10:11 | Individualized Plan of Care ---
Individualized Plan of Care Rehab Nursing IPOC Order Admission Date Jul 06, 2023 at 13:44 Current Orders Orders Admission Arrival Bed Request (07/06/23 14:08) Admission Order(Inpt,Obs,Sdc) (07/06/23 14:50) Vital Signs: Per Unit Policy ( 08,16,00 (07/06/23 14:50) Sebastian Goode 09,21 (07/06/23 14:50) Sequential Compression Device [id number] (07/06/23 14:50) Early Head Start Director-Inpt Rehab Con (07/06/23 14:50) Rehab Nursing Orders-Ipoc (07/06/23 14:50) Physical Therapy Rehab Orders (07/06/23 14:50) Occupational Therapy Rehab Ord (07/06/23 14:50) Speech Therapy Rehab Orders (07/06/23 14:50) Cbc And Automated Diff (07/07/23 06:00) Comprehensive Metabolic Panel (07/07/23 06:00) Precautions (Aru) (07/06/23 14:50) Weekly Weight WEEK (07/06/23 14:50) Rehab-Intensity Of Therapy (07/06/23 14:50) Initiate Admission Nursing Pro .admission (07/06/23 14:50) Alprazolam Tablet (Alprazolam Tablet) (07/06/23 15:00) Calcium Carbonate Chew Tablet (Calcium C (07/06/23 15:00) Diphenhydramine Tablet (Diphenhydramine (07/06/23 15:00) Docusate Sodium Capsule (Docusate Sodium (07/06/23 21:00) Docusate Sodium Capsule (Docusate Sodium (07/06/23 15:00) Bisacodyl Suppository (Bisacodyl Supposi (07/06/23 15:00) Lactulose Oral Solution (Enulose Oral So (07/06/23 15:00) Na Phos/Na Biphos Adult Enema (Na Phos/N (07/06/23 15:00) Guaifenesin/Codeine Syrup (Guaifenesin/C (07/06/23 15:00) Loperamide Capsule (Loperamide Capsule) (07/06/23 15:00) Melatonin Tablet (Melatonin Tablet) (07/06/23 15:00) Polyethylene Glycol Powder (Polyethylen (07/06/23 21:00) Ondansetron Oral Dissolve Tab (Ondanset (07/06/23 15:00) Senna W/Docusate Tablet (Senna W/Docusat (07/06/23 21:00) Acetaminophen Tablet (Acetaminophen Ta (07/06/23 15:00) Initiate Admission Nursing Pro .admission (07/06/23 14:50) General/Regular (07/06/23 Lunch) Enoxaparin Injection (Enoxaparin Injecti (07/07/23 11:00) Code/Resuscitation (07/06/23 19:59) Accucheck Achs ACHS (07/06/23 19:59) General/Regular (07/06/23 Dinner) Albuterol Pre-Mix Nebs (Rt) (Albuterol (07/06/23 20:00) Diphenhydramine Injection (Diphenhydram (07/06/23 20:00) Diphenhydramine Tablet (Diphenhydramine (07/06/23 20:00) Docusate Sodium Capsule (Docusate Sodium (07/06/23 21:00) Bisacodyl Suppository (Bisacodyl Supposi (07/06/23 20:00) Lactulose Oral Solution (Enulose Oral So (07/06/23 20:00) Melatonin Tablet (Melatonin Tablet) (07/06/23 20:00) Milk Of Magnesia Oral Susp (Milk Of Magn (07/06/23 20:00) Polyethylene Glycol Powder (Polyethylen (07/06/23 20:00) Antacid Suspension (Antacid Suspension (07/06/23 20:00) Insulin Aspart (Per Unit) (Insulin Aspar (07/06/23 21:00) Received Contrast (Hold Metformin- Contr (07/06/23 20:00) Sennosides Tablet (Sennosides Tablet) (07/06/23 21:00) Calcium Carbonate Chew Tablet (Calcium C (07/06/23 20:00) Acetaminophen Tablet (Acetaminophen Ta (07/06/23 20:00) Ondansetron Injection (Ondansetron Inj (07/06/23 20:00) Ondansetron Oral Dissolve Tab (Ondanset (07/06/23 20:00) Ceftriaxone Iv/Im (Ceftriaxone Iv/Im) (07/06/23 20:00) Clonidine Tablet (Clonidine Tablet) (07/06/23 20:00) Oxycodone Immediate Rel Tablet (Oxycodon (07/06/23 20:00) Mat Initiate Protocol (07/06/23 19:59) Svn Small Volume Nebulizer (07/06/23 19:59) Svn Small Volume Nebulizer (07/06/23 19:59) Aspirin Enteric Coated Tablet (Ecotrin T (07/07/23 09:00) Atorvastatin Tablet (Atorvastatin Tablet (07/06/23 21:00) Fluticasone Nasal [place] (Fluticasone [place] (07/07/23 09:00) Furosemide Tablet (Furosemide Tablet) (07/07/23 09:00) Glimepiride Tablet (Glimepiride Tablet) (07/07/23 09:00) Linagliptin Tablet (Linagliptin Tablet) (07/07/23 09:00) Montelukast Tablet (Montelukast Tablet) (07/06/23 21:00) Propranolol Ext Release (Propranolol Ext (07/07/23 09:00) Tamsulosin Capsule (Flomax Capsule) (07/07/23 09:00) (Nf) Benazepril/Hydrochlorothiazide (Jose Manuel (07/07/23 09:00) Vitamin D3 Tablet (Vitamin D3 Tablet) (07/07/23 09:00) (Nf) Garlic (Garlic Oil) (07/07/23 09:00) Azithromycin Tablet (Azithromycin Tabl (07/06/23 21:35) Lisinopril Tablet (Lisinopril Tablet) (07/07/23 09:00) Hydrochlorothiazide Tablet (Hydrochlorot (07/07/23 09:00) Metformin Tablet (Metformin Tablet) (07/08/23 08:00) Fish Oil Capsule (Fish Oil Capsule) (07/07/23 09:00) Patient Visit (07/06/23 ) Pt Eval Moderate Complexity (07/06/23 ) Gait Training, Ea 15 Min (07/06/23 ) Patient Visit (07/06/23 ) Functional Activities, Ea 15 (07/06/23 ) Exercise Therap, Ea 15 Min (07/06/23 ) Patient Visit (07/06/23 ) Dysphagia Evaluation Std (07/06/23 ) Arterial Blood Gas (07/07/23 08:59) Ct Head Wo (07/07/23 10:00) Chest 1 View, Ap/Pa Only (07/07/23 10:00) Attending Discharge Inpt/Inobs (07/07/23 10:50) Patient Visit (07/07/23 ) Functional Activities, Ea 15 (07/07/23 ) Arterial Blood Draw - Obtain (07/07/23 ) Rehab Nursing Orders: Ongoing Assess. of Function Status Intensity of Therapy to be met Patient to be seen: Min.3h per day/5 of 7d PT IPOC Problem List: Activity Tolerance, Functional Strength, Safety, Balance, Gait, Transfer, Bed Mobility, ROM Treatment Plan: Continue Plan of Care Functional Strength, Therapeutic Exercise Treatment Duration: Jul 20, 2023 Frequency: At least 5 of 7 days/Wk (IRF) Estimated Hrs Per Day: 1.5 hours per day OT IPOC Problems: Decreased Activ Tolerance, Decreased UE Strength, Dependent Transfers, Impaired Funct Balance, Impaired I ADL's, Impaired Self-Care Skills Plan of Care: ADL Retraining, Functional Mobility, Group Exercise/Act as Ind, UE Funct Exercise/Act Treatment Duration: Jul 29, 2023 Frequency: At least 5 of 7 days/Wk (IRF) Estimated Hrs Per Day: 1.[address] IPOC Speech Therapy Treatment Plan: Modify Plan, See Comments Early Head Start Director/Case Mgmt Early Head Start Director/Case Managemen: Discharge Planning Dietitian/Demonstrator [employer] Dietitian/Dem[employer] to monitor nutritional status and make changes and/or recommendations as needed and work with speech pathology on dietary upgrades as the occur. Physician IPOC Medical Issues being managed closely and that require the 24 hour availability of a physician: Brief Synthesis of Preadmission Screen, Post-Admission Evaluation, and Therapy Evaluations: KIT PAZ DO Jul 07, 2023 10:11
--- NOTE | 2023-07-07 10:11 | PM&R Progress Note ---
Subjective HPI/CC On Admission Date Seen by Provider: Jul 07, 2023 Time Seen by Provider: 10:10 Subjective/Events-last exam 07/07/2023: Review of Systems General: Fatigue, Malaise Objective Exam Vital Signs Vital Signs Date Time Temp Pulse Resp B/P (MAP) Pulse Ox O2 Delivery O2 Flow Rate FiO2 07/07/23 09:00 Nasal Cannula 07/07/23 08:00 36.2 92 19 119/58 (78) 94 07/06/23 20:00 2.00 Capillary Refill : General Appearance: No Apparent Distress, WD/WN, Chronically ill, Obese HEENT: PERRL/EOMI, Normal ENT Inspection, Pharynx Normal Neck: Full Range of Motion, Normal Inspection, Non Tender, Supple, Carotid Bruit Respiratory: Chest Non Tender, Lungs Clear, No Accessory Muscle Use, No Respiratory Distress, Decreased Breath Sounds Cardiovascular: Regular Rate, Rhythm, No Edema, No Gallop, No JVD, No Murmur, Normal Peripheral Pulses Gastrointestinal: Normal Bowel Sounds, No Organomegaly, No Pulsatile Mass, Non Tender, Soft Back: Normal Inspection, No CVA Tenderness, No Vertebral Tenderness Extremity: Normal Capillary Refill, Normal Inspection, Normal Range of Motion, Non Tender, No Calf Tenderness, No Pedal Edema Neurologic/Psychiatric: Alert, Oriented x3, 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 FIM Transfers Therapy Code Descriptions/Definitions Functional [place] Measure: 0=Not Assessed/NA 4=Minimal Assistance 1=Total Assistance 5=Supervision or Setup 2=Maximal Assistance 6=Modified [place] 3=Moderate Assistance 7=Complete IndependenceSCALE: Activities may be completed with or without assistive devices. 7-Kwctqzwpmg-dwsogca completes the activity by him/herself with no assistance from a helper. 5-Set-up or Clean-up Assistance-helper sets up or cleans up; patient completes activity. [place] assists only prior to or following the activity. 4-Supervision or Touching Assistance-helper provides verbal cues and/or touching/steadying and/or contact guard assistance as patient completes activity. Assistance may be provided throughout the activity or intermittently. 3-Partial/Moderate Assistance-helper does LESS THAN HALF the effort. [place] lifts, holds or supports trunk or limbs, but provides less than half the effort. 2-Substantial/Maximal Assistance-helper does MORE THAN HALF the effort. [place] lifts or holds trunk or limbs and provides more than half the effort. 0-Vrgryjogp-mcecnr does ALL the effort. Patient does none of the effort to complete the activity. Or, the assistance of 2 or more helpers is required for the patient to complete the activity. If activity was not attempted, code reason: 7-Patient Refused. 9-Not Applicable-not attempted and the patient did not perform the activity before the current illness, exacerbation or injury. 10-Not Attempted due to Environmental Limitations-(lack of equipment, weather restraints, etc.). 88-Not Attempted due to Medical Conditions or Safety Concerns. Roll Left to Right (QC): 88 Sit to Lying (QC): 1 (MaxA x 2) Sit to Stand (QC): 1 (MaxA x 4) Chair/Ilu-ru-Kvyhb Xfer(QC): 1 Car Transfer (QC): 88 Gait Training Does the Patient Walk?: No and Walking Goal IS indicated Walk 10 feet (QC): 1 (Mod (A) of 2 /c FWW /c max cues) Walk 50 ft with 2 Turns(QC): 88 (unable to walk 50' due to endurance deficits, weakness) Walk 150 ft (QC): 88 (unable to walk 150' due to endurance deficits, weakness) Walking 10ft/uneven surface-QC: 1 (mod (A) of 2 with FWW and max v.c.) Gait Assistive Device: FWW Wheelchair Training Does the Pt Use a Wheelchair?: Yes Distance: 125' Wheel 50 ft with 2 turns (QC): 3 (Marvin x 1 to avoid obstacles on R) Wheel 150 ft (QC): 88 (unable to propel 150' due to endurance deficits, weakness) Type of Wheelchair: Manual Stair Training #of Steps: 1 1 Step (curb) (QC): 1 (mod (A) of 2 /c FWW and max v.c.) 4 Steps (QC): 88 (not safe to attempt) 12 Steps (QC): 88 (not safe to attempt) Balance Picking up an Object (QC): 1 (unable without max (A) of 2 practitioners to prevent fall - needs education on AD use for safe completion) ADL-Treatment Eating (QC): 5 (per pt report) Oral Hygiene (QC): 4 Shower/Bathe Self (QC): 1 (assist x2) Upper Body Dressing (QC): 4 Lower Body Dressing (QC): 1 (assist x2) On/Off Footwear (QC): 2 (Max A overall. total assist to doff, max A to howard.) Toileting Hygiene (QC): 1 (assist x2) Assessment/Plan Assessment and Plan Assess & Plan/Chief Complaint Assessment: Right upper lobe pneumonia Hypoxia Advanced age Diabetes Hypertension Hyperlipidemia Right ankle sprain Plan: Supportive care Pain control Home meds Accu-Cheks IV antibiotics Respiratory therapy treatments Oxygen 07/07/2023: (1) Right upper lobe pneumonia Status: Acute (2) Falling due to legs giving way Status: Acute (3) Hypoxia Status: Acute KIT PAZ DO Jul 07, 2023 10:11
--- NOTE | 2023-07-07 10:41 | Diagnostic Imaging Report ---
EXAMINATION: Chest 1 view HISTORY: Altered mental status COMPARISON: 07/06/2023 FINDINGS: There is moderate edema, increased from prior exam. There are small pleural effusions. No pneumothorax. IMPRESSION: 1. Increasing moderate edema. Dictated by: Dictated on workstation # [id number]
--- NOTE | 2023-07-07 10:42 | Diagnostic Imaging Report ---
EXAMINATION: CT head without contrast. TECHNIQUE: Multiple contiguous axial images were obtained through the brain without the use of intravenous contrast. All CT scans use one or more of the following dose optimizing techniques: automated exposure control, MA and/or KvP adjustment based on patient size and exam type or iterative reconstruction. HISTORY: Altered mental status. COMPARISON: None available. FINDINGS: Intraparenchymal hemorrhage is seen in the bilateral basal ganglia, measuring 1.5 x 1.2 cm on the right and 1.9 x 0.9 cm on the left. A moderate volume of intraventricular hemorrhage is seen in the lateral ventricles with no obstructive hydrocephalus at this time. No large acute territorial ischemia. No significant midline shift. No evidence of herniation. The orbits are normal. Paranasal sinuses are normal. Mastoid air cells are clear. No soft tissue abnormality is seen. No osseus lesions or fractures are seen. IMPRESSION: 1. Acute intraparenchymal hemorrhage in the bilateral basal ganglia with extension of blood products into the ventricles. No obstructive hydrocephalus is seen at this time although close follow-up is recommended. Findings were discussed with Dr. Thompson at 10:40 AM on 07/07/[address] Farooq. Dictated by: Dictated on workstation # [id number]
--- NOTE | 2023-07-07 10:46 | Progress Note ---
JORI CASE 07/07/23 1046: Progress Note 87 year old male, here for recovery from right upper lobe pneumonia resulting in hypoxia and multiple falls. Patient was started on empiric antibiotics and was able to wheel himself to ARU last night. Last night, the night team had to provide maximal assistance with 2 staff members to help him stand. Today, he is very lethargic and can't stay awake for more than 2 seconds. He is responding appropriately to questions when awake. His pupils are barely reactive and his demeanor is much different from yesterday. ABG showed hypercapnia and the O2 sats are 95% on 2L. Patient is unable to do PT/OT today due to unresponsiveness. Head CT was ordered showing hemorrhagic stroke in bilateral basilar ganglia. He is going to be moved back to the ICU for comfort care. LORI PAZ DO 07/07/232051: Supervisory-Addendum Brief Verification & Attestation Participated in pt care: history, MDM, physical Personally performed: exam, history, MDM, supervision of care Care discussed with: Medical Student Procedures: n/a Results interpretation: Verified all documentation Verification and Attestation of Medical Student E/M Service A medical student performed and documented this service in my presence. I reviewed and verified all information documented by the medical student and made modifications to such information, when appropriate. I personally performed the physical exam and medical decision making. Lori Paz, Jul 07, 2023,20:52 JORI CASE Jul 07, 2023 10:46 LORI PAZ DO Jul 07, 2023 20:52
--- NOTE | 2023-07-07 10:53 | Discharge Summary ---
Diagnosis/Chief Complaint Date of Admission Jul 06, 2023 at 13:44 Date of Discharge Discharge Date: Jul 07, 2023 Discharge Diagnosis Acute hemorrhagic stroke nonrecoverable moving to fourth floor for comfort care Discharge Summary Discharge Physical Examination Allergies: Coded Allergies: No Known Drug Allergies (Unverified , 06/12/17) Vitals & I&Os Vital Signs Date Time Temp Pulse Resp B/P (MAP) Pulse Ox O2 Delivery O2 Flow Rate FiO2 07/07/23 23:15 Nasal Cannula 2.00 07/07/23 11:50 36.2 92 19 119/58 94 General Appearance: Other (Lethargic and semicomatose) Hospital Course Was the Problem List Reviewed?: Yes Short hospital course after he was admittedARU from cardiac stepdown following severe weakness and unable to walk. He was found to have pneumonia in the ER so he was placed on appropriate antibiotics and sent down to rehab. Therapeutic Lovenox given for elevated D-dimer while venous Doppler obtained. So Lovenox 40 mg change was made due to no DVT. He had an abrupt changes status and sepsis work-up initiated along with encephalopathy suspicion and CT scan revealed severe hemorrhagic stroke in the basal ganglia that was deemed nonrecoverable. He was already DO NOT RESUSCITATE but I spoke to his stepdaughter who is DPOA and we deemed him comfort care protocol transfer up to fourth floor. Labs (last 24 hrs) Laboratory Tests 07/06/23 21:40: Glucometer 133H 07/07/23 05:30: White Blood Count 7.7, Red Blood Count 3.27L, Hemoglobin 9.7L, Hematocrit 30L, Mean Corpuscular Volume 91, Mean Corpuscular Hemoglobin 30, Mean Corpuscular Hemoglobin Concent 32, Red Cell Distribution Width 15.7H, Platelet Count 150, Mean Platelet Volume 9.6, Immature Granulocyte % (Auto) 1, Neutrophils (%) (Auto) 80H, Lymphocytes (%) (Auto) 12, Monocytes (%) (Auto) 6, Eosinophils (%) (Auto) 2, Basophils (%) (Auto) 0, Neutrophils # (Auto) 6.1, Lymphocytes # (Auto) 0.9L, Monocytes # (Auto) 0.4, Eosinophils # (Auto) 0.1, Basophils # (Auto) 0.0, Immature Granulocyte # (Auto) 0.1, Sodium Level 137, Potassium Level 4.2, Chl oride Level 102, Carbon Dioxide Level 26, Anion Gap 9, Blood Urea Nitrogen 13, Creatinine 0.97, Estimat Glomerular Filtration Rate 76, BUN/Creatinine Ratio 13, Glucose Level 173H, Calcium Level 8.3L, Corrected Calcium 9.0, Total Bilirubin 0.8, Aspartate Amino Transf (AST/SGOT) 15, Alanine Aminotransferase (ALT/SGPT) 12, Alkaline Phosphatase 64, Total Protein 6.1L, Albumin 3.1L 07/07/23 09:08: Blood Gas Puncture Site , Blood Gas Patient Temperature , Arterial Blood pH 7.40, Arterial Blood Partial Pressure CO2 49H, Arterial Blood Partial Pressure O2 81, Arterial Blood HCO3 30H, Arterial Blood Total CO2 31.9H, Arterial Blood Oxygen Saturation 97, Arterial Blood Base Excess 4.5H, Jose F Test , Blood Gas Ventilator Setting NO, Blood Gas Inspired Oxygen 2 L Pending Labs Laboratory Tests 07/06/23 21:40: Glucometer 133 07/07/23 05:30: White Blood Count 7.7, Red Blood Count 3.27, Hemoglobin 9.7, Hematocrit 30, Mean Corpuscular Volume 91, Mean Corpuscular Hemoglobin 30, Mean Corpuscular Hemoglobin Concent 32, Red Cell Distribution Width 15.7, Platelet Count 150, Mean Platelet Volume 9.6, Immature Granulocyte % (Auto) 1, Neutrophils (%) (Auto) 80, Lymphocytes (%) (Auto) 12, Monocytes (%) (Auto) 6, Eosinophils (%) (Auto) 2, Basophils (%) (Auto) 0, Neutrophils # (Auto) 6.1, Lymphocytes # (Auto) 0.9, Monocytes # (Auto) 0.4, Eosinophils # (Auto) 0.1, Basophils # (Auto) 0.0, Immature Granulocyte # (Auto) 0.1, Sodium Level 137, Potassium Level 4.2, Chloride Level 102, Carbon Dioxide Level 26, Anion Gap 9, Blood Urea Nitrogen 13, Creatinine 0.97, Estimat Glomerular Filtration Rate 76, BUN/Creatinine Ratio 13, Glucose Level 173, Calcium Level 8.3, Corrected Calcium 9.0, Total Bilirubin 0.8, Aspartate Amino Transf (AST/SGOT) 15, Alanine Aminotransferase (ALT/SGPT) 12, Alkaline Phosphatase 64, Total Protein 6.1, Albumin 3.1 07/07/23 09:08: Blood Gas Puncture Site , Blood Gas Patient Temperature , Arterial Blood pH 7.40, Arterial Blood Partial Pressure CO2 49, Arterial Blood Partial Pressure O2 81, Arterial Blood HCO3 30, Arterial Blood Total CO2 31.9, Arterial Blood Oxygen Saturation 97, Arterial Blood Base Excess 4.5, Jose F Test , Blood Gas Ventilator Setting NO, Blood Gas Inspired Oxygen 2 L Discharge Home Medications: Active Scripts Active Reported Garlic Oil (Garlic) 1,000 Mg Capsule 1,000 Mg PO DAILY Furosemide 40 Mg Tablet 40 Mg PO DAILY LAST FILLED 12-16-2022 #90/90 DAY SUPPLY Propranolol HCl ER (Propranolol HCl) 80 Mg Cap.sa.24h 80 Mg PO DAILY Flomax (Tamsulosin HCl) 0.4 Mg Cap 0.4 Mg PO DAILY Metformin HCl 1,000 Mg Tablet 1,000 Mg PO BID Benazepril-Hctz 10-12.5 mg Tab (Benazepril/Hydrochlorothiazide) 10 Mg-12.5 Mg Tablet 1 Ea PO DAILY Vitamin D3 (Cholecalciferol (Vitamin D3)) 50 Mcg (2000 Unit) Tablet 50 Mcg PO DAILY Fish Oil 1,000 mg Softgel (Wana-3/Dha/Epa/Fish Oil) 1 Each Capsule 1,000 Mg PO BID Aspirin EC (Aspirin) 81 Mg Tablet.dr 81 Mg PO DAILY Atorvastatin Calcium 40 Mg Tablet 40 Mg PO HS Glimepiride 2 Mg Tablet 2 Mg PO DAILY Tradjenta (Linagliptin) 5 Mg Tablet 5 Mg PO DAILY Montelukast Sodium 10 Mg Tablet 10 Mg PO HS Fluticasone Propionate 50 Mcg/Actuation Marquez.susp 2 Marquez NSEACH DAILY Instructions to patient/family Please see electronic discharge instructions given to patient. Diagnosis/Problems Diagnosis/Problems (1) Right upper lobe pneumonia Status: Acute (2) Falling due to legs giving way Status: Acute (3) Hypoxia Status: Acute KIT PAZ DO Jul 07, 2023 10:53
[2023-07-07] MEDS ORDERED: ENOXAPARIN 40 MG/0.4 ML SYRINGE SC SCH (11:00)
[2023-07-07 11:50] VITALS: BP 119/58
[2023-07-08] MEDS ORDERED: metFORMIN 500 MG TABLET PO SCH (08:00)
--- NOTE | 2023-07-08 08:00 | Therapy Team Discharge Summary ---
Therapy Discharge Summary Discharge Recommendations Date of Discharge Physical Therapy Roll Left to Right (QC): 88 Sit to Lying (QC): 1 (MaxA x 2) Lying to Sitting/Side of Bed(Q: 1 Sit to Stand (QC): 1 (MaxA x 4) Chair/Osx-mv-Mpfys Xfer(QC): 1 Toilet Transfer (QC): 1 Car Transfer (QC): 88 Does the Patient Walk: No and Walking Goal IS indicated Mode of Locomotion: Both Anticipated Mode of Locomotion: Both Walk 10 feet (QC): 1 (Mod (A) of 2 /c FWW /c max cues) Walk 50 ft with 2 Turns(QC): 88 (unable to walk 50' due to endurance deficits, weakness) Walk 150 ft (QC): 88 (unable to walk 150' due to endurance deficits, weakness) Walking 10ft on uneven surface: 1 (mod (A) of 2 with FWW and max v.c.) Distance: 42' Gait Assistive Device: FWW Does the Pt Use a Wheelchair: Yes Wheelchair Distance: 125' Wheel 50 ft with 2 turns (QC): 3 (Marvin x 1 to avoid obstacles on R) Wheel 150 ft (QC): 88 (unable to propel 150' due to endurance deficits, weakness) Type of Wheelchair: Manual #of Steps: 1 1 Step (curb) (QC): 1 (mod (A) of 2 /c FWW and max v.c.) 4 Steps (QC): 88 (not safe to attempt) 12 Steps (QC): 88 (not safe to attempt) Walking Assistive Device: Walker Balance Sitting Static: Good Balance Sitting Dynamic: Poor Balance-Standing Static: Fair Picking up an Object (QC): 1 (unable without max (A) of 2 practitioners to prevent fall - needs education on AD use for safe completion) Occupational Therapy Pt admitted to ARU with PNA. At [facility], pt was independent with ADLs and functional mobility. Upon initial evaluation, pt required set up with eating, supervision with UBD and oral care, max A footwear and total assist showering, LBD, and toileting. Pt did not make any progress towards goals due to short stay on unit. Pt transferred to acute floor due to increased medical complexity, thus d/c'd from ARU day after evaluation was complete. Pt discharged from ARU, d/c from OT. Decreased Activ Tolerance, Dependent Transfers, Impaired Self-Care Skills Eating (QC): 5 (per pt report) Oral Hygiene (QC): 4 Shower/Bathe Self (QC): 1 (assist x2) Upper Body Dressing (QC): 4 Lower Body Dressing (QC): 1 (assist x2) On/Off Footwear (QC): 2 (Max A overall. total assist to doff, max A to howard.) Toileting Hygiene (QC): 1 (assist x2) PT Aquaculturist Goals Group Home Goals PT Aquaculturist Goals Time Frame: Jul 20, 2023 Roll Left to Right (QC): 6 Sit to Lying (QC): 6 Lying-Sitting on Side/Bed(QC): 6 Sit to Stand (QC): 5 Chair/Mdv-cw-Rncgh Xfer(QC): 5 Toilet/Commode Transfer (QC): 5 Car Transfer (QC): 5 Does the Patient Walk: Yes Walk 10 feet (QC): 5 Walk 10ft-Uneven Surface(QC): 5 Walk 50ft with 2 Turns (QC): 5 Walk 150 ft (QC): 5 Does the Pt use WC or Scooter?: Yes Wheel 50 feet with 2 turns (QC: 6 Type: Manual Wheel 150 feet: 6 Type: Manual 1 Step (curb) (QC): 5 4 Steps (QC): 5 12 Steps (QC): 5 Picking up an Object (QC): 6 OT Aquaculturist Goals Group Home Goals Time Frame: Jul 29, 2023 Acute change in mental status: 2 Inattention: 0 Disorganized thinkin Altered level of consciousness: 2 Eating (QC): 6 (not met) Oral Hygiene (QC): 6 (not met) Toileting Hygiene (QC): 6 (not met) Shower/Bathe Self (QC): 6 (not met) Upper Body Dressing (QC): 6 (not met) Lower Body Dressing (QC): 6 (not met) On/Off Footwear (QC): 6 (not met) Additional Goals: 1-Demonstrate ADL Tasks, 2-Verbalize Understanding, 3- ImproveStrength/Leti 1=Demonstrate adherence to instructed precautions during ADL tasks. 2=Patient will verbalize/demonstrate understanding of assistive devices/modifications for ADL. 3=Patient will improve strength/tolerance for activity to enable patient to perform ADL's. ALYSSIA CANTU OT Jul 08, 2023 08:00
--- NOTE | 2023-07-11 08:14 | Therapy Team Discharge Summary ---
Therapy Discharge Summary Discharge Recommendations Date of Discharge Jul 07, 2023 at 12:00 Physical Therapy Patient was admitted to the ARU 07/06/23 with dx of pneumonia. Please see [email or web address] newman completed on 07/06/23 for status that date. Pt discharged from the ARU to acute care on 07/07/23 due to change in medical status. P.T. was also discharged at that time. Unable to rescore Elderly Mobility Index due to change in medical status. No progress made towards goals due to being on ARU less than 24 hours. Roll Left to Right (QC): 88 Sit to Lying (QC): 1 (MaxA x 2) Lying to Sitting/Side of Bed(Q: 1 Sit to Stand (QC): 1 (MaxA x 4) Chair/Cgq-iu-Skmae Xfer(QC): 1 Toilet Transfer (QC): 1 Car Transfer (QC): 88 Does the Patient Walk: No and Walking Goal IS indicated Mode of Locomotion: Both Anticipated Mode of Locomotion: Both Walk 10 feet (QC): 1 (Mod (A) of 2 /c FWW /c max cues) Walk 50 ft with 2 Turns(QC): 88 (unable to walk 50' due to endurance deficits, weakness) Walk 150 ft (QC): 88 (unable to walk 150' due to endurance deficits, weakness) Walking 10ft on uneven surface: 1 (mod (A) of 2 with FWW and max v.c.) Distance: 42' Gait Assistive Device: FWW Does the Pt Use a Wheelchair: Yes Wheelchair Distance: 125' Wheel 50 ft with 2 turns (QC): 3 (Marvin x 1 to avoid obstacles on R) Wheel 150 ft (QC): 88 (unable to propel 150' due to endurance deficits, weakness) Type of Wheelchair: Manual #of Steps: 1 1 Step (curb) (QC): 1 (mod (A) of 2 /c FWW and max v.c.) 4 Steps (QC): 88 (not safe to attempt) 12 Steps (QC): 88 (not safe to attempt) Walking Assistive Device: Walker Balance Sitting Static: Good Balance Sitting Dynamic: Poor Balance-Standing Static: Fair Picking up an Object (QC): 1 (unable without max (A) of 2 practitioners to prevent fall - needs education on AD use for safe completion) Occupational Therapy Decreased Activ Tolerance, Dependent Transfers, Impaired Self-Care Skills Eating (QC): 5 (per pt report) Oral Hygiene (QC): 4 Shower/Bathe Self (QC): 1 (assist x2) Upper Body Dressing (QC): 4 Lower Body Dressing (QC): 1 (assist x2) On/Off Footwear (QC): 2 (Max A overall. total assist to doff, max A to howard.) Toileting Hygiene (QC): 1 (assist x2) PT Volcanology Professor Goals Volcanology Professor Goals PT Volcanology Professor Goals Time Frame: Jul 20, 2023 Roll Left to Right (QC): 6 Sit to Lying (QC): 6 Lying-Sitting on Side/Bed(QC): 6 Sit to Stand (QC): 5 Chair/Sym-md-Tzjua Xfer(QC): 5 Toilet/Commode Transfer (QC): 5 Car Transfer (QC): 5 Does the Patient Walk: Yes Walk 10 feet (QC): 5 Walk 10ft-Uneven Surface(QC): 5 Walk 50ft with 2 Turns (QC): 5 Walk 150 ft (QC): 5 Does the Pt use WC or Scooter?: Yes Wheel 50 feet with 2 turns (QC: 6 Type: Manual Wheel 150 feet: 6 Type: Manual 1 Step (curb) (QC): 5 4 Steps (QC): 5 12 Steps (QC): 5 Picking up an Object (QC): 6 OT Senior Care Goals Volcanology Professor Goals Time Frame: Jul 29, 2023 Acute change in mental status: 2 Inattention: 0 Disorganized thinkin Altered level of consciousness: 2 Eating (QC): 6 (not met) Oral Hygiene (QC): 6 (not met) Toileting Hygiene (QC): 6 (not met) Shower/Bathe Self (QC): 6 (not met) Upper Body Dressing (QC): 6 (not met) Lower Body Dressing (QC): 6 (not met) On/Off Footwear (QC): 6 (not met) Additional Goals: 1-Demonstrate ADL Tasks, 2-Verbalize Understanding, 3-ImproveStrength/Leti 1=Demonstrate adherence to instructed precautions during ADL tasks. 2=Patient will verbalize/demonstrate understanding of assistive devices/modifications for ADL. 3=Patient will improve strength/tolerance for activity to enable patient to perform ADL's. Lauren Carpenter PT Jul 11, 2023 08:14
[2023-07-11] MEDS ORDERED: MORP100S7 PO (09:31)
[2023-07-11] MEDS ORDERED: LORA2ORA PO (09:31)
== END 2023-07-07 12:00 | disposition short-term general hospital (02) | DRG 194 ==
PROVIDERS: ADMIT Internal Medicine; ATTEND Internal Medicine
DX: J18.9 Pneumonia, unspecified organism (principal); I62.9 Nontraumatic intracranial hemorrhage, unspecified; R53.1 Weakness; S93.401D Sprain of unspecified ligament of right ankle, subsequent encounter; S80.211D Abrasion, right knee, subsequent encounter; S60.012D Contusion of left thumb without damage to nail, subsequent encounter; R09.02 Hypoxemia; E11.9 Type 2 diabetes mellitus without complications; I10 Essential (primary) hypertension; I87.2 Venous insufficiency (chronic) (peripheral); E78.00 Pure hypercholesterolemia, unspecified; N40.0 Benign prostatic hyperplasia without lower urinary tract symptoms; Z91.81 History of falling; Z87.891 Personal history of nicotine dependence; Z79.82 Long term (current) use of aspirin; Z79.84 Long term (current) use of oral hypoglycemic drugs; Z79.899 Other long term (current) drug therapy; W19.XXXD Unspecified fall, subsequent encounter
CPT/HCPCS: 36415; 36600; 70450; 71045; 80053; 82805; 82947; 85025

== ENCOUNTER 2023-07-07 11:35 | Inpatient (IN) | payer MEDICARE, MEDICAID ==
[~2023-07-07] VITALS: Ht 172.7 cm; Wt 110.6 kg
[~2023-07-07 11:35] MED LIST changes: +BENA1TAB PO; +CHOL200025 PO; +FURO40TA4 PO; +GARL1000 PO; +METF-399 PO; +TMSL.4C PO
[2023-07-07] MEDS ORDERED: PROMETHAZINE INJ 25 MG/ML VIAL IVP PRN (12:00)
[2023-07-07] MEDS ORDERED: ARTIFICIAL TEARS Ophth solution 0.4 ML UNIT DOSE OU PRN (12:00)
[2023-07-07] MEDS ORDERED: LIDOCAINE UROJET 2% GEL 10 ML PKG TOP ONE (12:00)
[2023-07-07] MEDS ORDERED: ONDANSETRON INJECTION 4 MG/2 ML (SDV) IVP PRN (12:00)
[2023-07-07] MEDS ORDERED: ATROPINE 1% OPHTHALMIC SOLN 2 ML SL PRN (12:00)
[2023-07-07] MEDS ORDERED: ACETAMINOPHEN 650 MG SUPPOSITORY PR PRN (12:00)
[2023-07-07] MEDS ORDERED: SALIVA SUBSTITUTE 60 ML SPRAY MM PRN (12:00)
[2023-07-07] MEDS ORDERED: RT-Ipratropium/Albuterol NEB 3 ML VIAL INH PRN (12:00)
[2023-07-07] MEDS ORDERED: BISACODYL 10 MG SUPPOSITORY PR PRN (12:00)
[2023-07-07] MEDS ORDERED: GLYCOPYRROLATE INJ 0.2 MG/ML 2 ML VIAL IV PRN (12:00)
[2023-07-07] MEDS ORDERED: LORazepam 1 MG TABLET SL PRN (12:00)
[2023-07-07 12:15] VITALS: BP 127/68
[2023-07-07] MEDS ORDERED: LIDOCAINE UROJET 2% GEL 10 ML PKG ONE (14:32)
[2023-07-07] MEDS: SCOPOLAMINE 1.5 MG PATCH TOP SCH (14:34)
[2023-07-07] MEDS ORDERED: SALIVA SUBSTITUTE 236 ML SPRAY MM PRN (16:00)
[2023-07-07] MEDS: morphine INJ 4 MG/ML 1 ML (VIAL/SYRINGE) IV PRN (17:17)
--- NOTE | 2023-07-08 09:44 | History & Physical ---
MENEZESNANCYTAMMIE 07/08/23 0944: History of Present Illness History of Present Illness Reason for visit/HPI Brennan is a 87 year old male who is here, formerly in the ARU, who presents with a hemorrhagic stroke. Upon presentation yesterday, he was not alert or oriented and was unable to communicate. Patient is here for comfort care. He is DNR. Patient is alert today and is communicating. He is complaining of a dry throat but is comfortable. Date of Admission Jul 07, 2023 at 11:35 Time Seen by a Provider: 09:44 I consulted on this patient on 07/08/23 09:40 Attending Physician Rajat Alcantara MD Admitting Physician Admitting Physician: Lori Paz DO Attending Physician: Lori Paz DO Consult Allergies and Home Medications Allergies Coded Allergies: No Known Drug Allergies (Unverified , 06/12/17) Patient Home Medication List Aspirin (Aspirin EC) 81 Mg Tablet.dr, 81 MG PO DAILY, (Reported) Entered as Reported by: KATHY TORRES on 06/12/171651 Atorvastatin Calcium (Atorvastatin Calcium) 40 Mg Tablet, 40 MG PO HS, (Reported) Entered as Reported by: KATHY TORRES on 06/12/171651 Benazepril/Hydrochlorothiazide (Benazepril-Hctz 10-12.5 mg Tab) 10 Mg-12.5 Mg Tablet, 1 EA PO DAILY, (Reported) Entered as Reported by: ONELIA MCCORMICK on 07/06/231545 Cholecalciferol (Vitamin D3) (Vitamin D3) 50 Mcg (2000 Unit) Tablet, 50 MCG PO DAILY, (Reported) Entered as Reported by: ONELIA MCCORMICK on 07/06/231545 Fluticasone Propionate (Fluticasone Propionate) 50 Mcg/Actuation [place].susp, 2 SPRAY NSEACH DAILY, (Reported) Entered as Reported by: KATHY TORRES on 06/12/171651 Furosemide (Furosemide) 40 Mg Tablet, 40 MG PO DAILY, (Reported) Entered as Reported by: ONELIA MCCORMICK on 07/06/231545 Garlic (Garlic Oil) 1,000 Mg Capsule, 1,000 MG PO DAILY, (Reported) Entered as Reported by: ONELIA MCCORMICK on 07/06/231545 Glimepiride (Glimepiride) 2 Mg Tablet, 2 MG PO DAILY, (Reported) Entered as Reported by: KATHY TORRES on 06/12/171651 Linagliptin (Tradjenta) 5 Mg Tablet, 5 MG PO DAILY, (Reported) Entered as Reported by: KATHY TORRES on 06/12/171651 Metformin HCl (Metformin HCl) 1,000 Mg Tablet, 1,000 MG PO BID, (Reported) Entered as Reported by: ONELIA MCCORMICK on 07/06/23 154 Montelukast Sodium (Montelukast Sodium) 10 Mg Tablet, 10 MG PO HS, (Reported) Entered as Reported by: KATHY TORRES on 06/12/171651 Mildred-3/Dha/Epa/Fish Oil (Fish Oil 1,000 mg Softgel) 1 Each Capsule, 1,000 MG PO BID, (Reported) Entered as Reported by: KATHY TORRES on 06/12/171651 Propranolol HCl (Propranolol HCl ER) 80 Mg Cap.sa.24h, 80 MG PO DAILY, (Reported) Entered as Reported by: ONELIA MCCORMICK on 07/06/23 154 Tamsulosin HCl (Flomax) 0.4 Mg Cap, 0.4 MG PO DAILY, (Reported) Entered as Reported by: ONELIA MCCORMICK on 07/06/23 154 Discontinued Medications Alfuzosin HCl (Alfuzosin HCl ER) 10 Mg Tab.er.24h, 10 MG PO DAILY@1800 Discontinued Reason: No Longer Taking Prescribed by: LUAN SESAY on 06/28/17 0850 Ascorbic Acid (Vitamin C) 1,000 Mg Tablet, 1,000 MG PO DAILY, (Reported) Discontinued Reason: No Longer Taking Entered as Reported by: KATHY TORRES on 06/12/171651 Cholecalciferol (Vitamin D3) (Vitamin D3) 1,000 Unit Capsule, 1,000 UNIT PO DAILY, (Reported) Discontinued Reason: Prescription changed Entered as Reported by: KATHY TORRES on 06/12/171651 Ferrous Sulfate (Ferrous Sulfate) 325 Mg Tablet, 325 MG PO DAILY, (Reported) Discontinued Reason: No Longer Taking Entered as Reported by: KATHY TORRES on 06/12/171651 Gemfibrozil (Gemfibrozil) 600 Mg Tablet, 600 MG PO BID, (Reported) Discontinued Reason: No Longer Taking Entered as Reported by: KATHY TORRES on 06/12/17 1652 Hydrocodone Bit/Acetaminophen (HYDROcodone/APAP 10/325 TABLET) 1 Each Tablet, 1 EA PO Q4H PRN for PAIN-MODERATE Discontinued Reason: No Longer Taking Prescribed by: LUAN SESAY on 06/28/17 0850 Metformin HCl (Metformin HCl) 500 Mg Tablet, 500 MG PO DAILY, (Reported) Discontinued Reason: No Longer Taking Entered as Reported by: KATHY TORRES on 06/12/17 1652 Sennosides/Docusate Sodium (Senna-Time S Tablet) 1 Each Tablet, 1 EA PO BID Discontinued Reason: No Longer Taking Prescribed by: LUAN SESAY on 06/28/17 0850 Past Apvkcgb-Uyqrgv-Qqrbzh Hx Patient Social History Tobacco Use?: No Smoking Status: Former Smoker Use of E-Cig and/or Vaping dev: No Substance use?: No Alcohol Use?: No Pt feels they are or have been: No Immunizations Up To Date Tetanus Booster (TDap): Unknown Seasonal Allergies Seasonal Allergies: No Current Status Advance Directives: Yes Advance Directive Location: Copy from prev record Communicates: Does Not Communicate Primary Language: Pakistani Is interpretation needed?: No Implanted or Applied Medical D: None Past Medical History Surgeries: Adenoidectomy, Appendectomy, Tonsillectomy Currently Using CPAP: No Currently Using BIPAP: No High Cholesterol, Hypertension Sexually Transmitted Disease: No HIV/AIDS: No Benign Prostatic Hyperpl Fractures Diabetes, Non-Insulin dep Blood Disorders: No Adverse Reaction/Blood Tranf: No Family Medical History No Pertinent Family Hx Physical Exam Vital Signs Vital Signs - First Documented 07/07/23 07/07/23 12:04 12:15 Temp 36.5 Pulse 89 Resp 24 B/P (MAP) 127/68 (87) Pulse Ox 94 O2 Delivery Nasal Cannula O2 Flow Rate 1.50 Capillary Refill : Height, Weight, BMI Height: 5'7.00" Weight: 247lbs. 3.0oz. 112.282936pm; 37.08 BMI Method: Assessment/Plan Assessment and Plan Assessment: Hemorrhagic Stroke History of Hypertension Plan: Begin PT/OT Advance diet Supportive care Pain control Admission Diagnosis Admission Status: Observation LORI PAZ DO 07/08/23 1823: History of Present Illness History of Present Illness Reason for visit/HPI CC: Hemorrhagic CVA unrecoverable HPI: This is an 87yoWM who presented to 4th floor following an change in status in ARU and w/u revealed hemorrhagic CVA with extensive involvement and was assessed to be unrecoverable and non-surgical. He was a bit alert for a short time earlier and family at bedside. ST will be consulted to eval if he can swallow. Date Seen by a Provider: Jul 08, 2023 Allergies and Home Medications Allergies Coded Allergies: No Known Drug Allergies (Unverified , 06/12/17) Patient Home Medication List Home Medication List Reviewed: Yes Aspirin (Aspirin EC) 81 Mg Tablet.dr, 81 MG PO DAILY, (Reported) Entered as Reported by: KATHY TORRES on 06/12/171651 Atorvastatin Calcium (Atorvastatin Calcium) 40 Mg Tablet, 40 MG PO HS, (Reported) Entered as Reported by: KATHY TORRES on 06/12/171651 Benazepril/Hydrochlorothiazide (Benazepril-Hctz 10-12.5 mg Tab) 10 Mg-12.5 Mg Tablet, 1 EA PO DAILY, (Reported) Entered as Reported by: ONELIA MCCORMICK on 07/06/231545 Cholecalciferol (Vitamin D3) (Vitamin D3) 50 Mcg (2000 Unit) Tablet, 50 MCG PO DAILY, (Reported) Entered as Reported by: ONELIA MCCORMICK on 07/06/231545 Fluticasone Propionate (Fluticasone Propionate) 50 Mcg/Actuation [place].susp, 2 SPRAY NSEACH DAILY, (Reported) Entered as Reported by: KATHY TORRES on 06/12/171651 Furosemide (Furosemide) 40 Mg Tablet, 40 MG PO DAILY, (Reported) Entered as Reported by: ONELIA MCCORMICK on 07/06/231545 Garlic (Garlic Oil) 1,000 Mg Capsule, 1,000 MG PO DAILY, (Reported) Entered as Reported by: ONELIA MCCORMICK on 07/06/231545 Glimepiride (Glimepiride) 2 Mg Tablet, 2 MG PO DAILY, (Reported) Entered as Reported by: KATHY TORRES on 06/12/171651 Linagliptin (Tradjenta) 5 Mg Tablet, 5 MG PO DAILY, (Reported) Entered as Reported by: KATHY TORRES on 06/12/171651 Metformin HCl (Metformin HCl) 1,000 Mg Tablet, 1,000 MG PO BID, (Reported) Entered as Reported by: ONELIA MCCORMICK on 07/06/23 154 Montelukast Sodium (Montelukast Sodium) 10 Mg Tablet, 10 MG PO HS, (Reported) Entered as Reported by: KATHY TORRES on 06/12/171651 Mildred-3/Dha/Epa/Fish Oil (Fish Oil 1,000 mg Softgel) 1 Each Capsule, 1,000 MG PO BID, (Reported) Entered as Reported by: KATHY TORRES on 06/12/171651 Propranolol HCl (Propranolol HCl ER) 80 Mg Cap.sa.24h, 80 MG PO DAILY, (Reported) Entered as Reported by: ONELIA MCCORMICK on 07/06/231545 Tamsulosin HCl (Flomax) 0.4 Mg Cap, 0.4 MG PO DAILY, (Reported) Entered as Reported by: ONELIA MCCORMICK on 07/06/23 154 Discontinued Medications Alfuzosin HCl (Alfuzosin HCl ER) 10 Mg Tab.er.24h, 10 MG PO DAILY@1800 Discontinued Reason: No Longer Taking Prescribed by: LUAN SESAY on 06/28/17 0850 Ascorbic Acid (Vitamin C) 1,000 Mg Tablet, 1,000 MG PO DAILY, (Reported) Discontinued Reason: No Longer Taking Entered as Reported by: KATHY TORRES on 06/12/171651 Cholecalciferol (Vitamin D3) (Vitamin D3) 1,000 Unit Capsule, 1,000 UNIT PO DAILY, (Reported) Discontinued Reason: Prescription changed Entered as Reported by: KATHY TORRES on 06/12/171651 Ferrous Sulfate (Ferrous Sulfate) 325 Mg Tablet, 325 MG PO DAILY, (Reported) Discontinued Reason: No Longer Taking Entered as Reported by: KATHY TORRES on 06/12/171651 Gemfibrozil (Gemfibrozil) 600 Mg Tablet, 600 MG PO BID, (Reported) Discontinued Reason: No Longer Taking Entered as Reported by: KATHY TORRES on 06/12/171651 Hydrocodone Bit/Acetaminophen (HYDROcodone/APAP 10/325 TABLET) 1 Each Tablet, 1 EA PO Q4H PRN for PAIN-MODERATE Discontinued Reason: No Longer Taking Prescribed by: LAUN SESAY on 06/28/17 0850 Metformin HCl (Metformin HCl) 500 Mg Tablet, 500 MG PO DAILY, (Reported) Discontinued Reason: No Longer Taking Entered as Reported by: KATHY TORRES on 06/12/17 1652 Sennosides/Docusate Sodium (Senna-Time S Tablet) 1 Each Tablet, 1 EA PO BID Discontinued Reason: No Longer Taking Prescribed by: LUAN SESAY on 06/28/17 0850 Past Hcyyvku-Okugnv-Ywvptc Hx Patient Social History Marrital Status: single Employed/Student: retired Review of Systems Constitutional: see HPI Physical Exam General Appearance: Other (semi-comatose) Assessment/Plan Assessment and Plan 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 I reviewed and verified all information documented by the medical student and made modifications to such information, when appropriate. I personally performed the physical exam and medical decision making. Lori Paz, Jul 08, 2023,18:23 DAE MENEZES Jul 08, 2023 09:44 LORI PAZ DO Jul 08, 2023 18:23
[2023-07-08] MEDS: morphine INJ 4 MG/ML 1 ML (VIAL/SYRINGE) IV PRN (12:18)
--- NOTE | 2023-07-08 13:49 | ST Dysphagia Evaluation ---
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 Thompson Reason for Referral: Evaluation/Treatment Medical History Pertinent Medical History: Arthritis, DM, Fractures, HTN Reviewed History: Yes Speech PLF/Current-Dysphagia Prior Level of Function The patient is unable to provide the clinician with prior level of function information. At this time, the patient is receiving a pureed diet consistency (PU4) with thin liquids. Subjective The patient was resting in bed, eyes closed, upon entrance to his room by the clinician. With maximum verbal prompting, the patient does open his eyes and verbally agree to participation in the clinical bedside swallowing evaluation. Consistent verbal encouragement is required for continued levels of appropriate alertness. The patient was positioned upright in bed for safe swallowing. Oral Motor Skills Dentition: Edentalous Current Food Consistancy: Pureed, Thin Liquids Ability to Follow Directions: Good Oral Expression Ability: Moderate Impairment Voice Voice Phonatory-Based Quality: Weak, Glottal Butler, Phonation Breaks Voice Pitch: Normal Voice Loudness: Normal Face Facial Symmetry: Asymmetrical (Suspected appearance of left sided weakness.) Oral-Facial Assessment Oral-Facial Dentition: Normal Labial Seal Description: Normal, Weak, Poor Coordination Lingual Protrusion: Normal Lingual ROM: Normal Lingual Strength: Normal Volitional Dry Swallow: Yes Dysphagia Evaluation Consistencies Presented: Thin Liquid (via teaspoon and straw.), Pureed Oral Phase: Anterior Spillage The patient required increased time during attempts to coordinate removal of bolus from the straw. Anterior spillage (left) was present with thin liquids via teaspoon and straw. A prolonged oral phase was present with pureed consistencies, with intermittent necessity to verbally prompt to eliminate oral holding. Laryngeal elevation was present to palpation. A suspected delay in the ph aryngeal swallow was present. The patient was provided thin liquid via teaspoon, thin liquid via straw, and pureed (all clinician fed). The patient did not display overt s/s of suspected aspiration with thin liquids via teaspoon or puree. The patient demonstrated a delayed throat clear and cough with straw drinks of thin liquid. Oral holding was present with puree which appeared secondary to reduced alertness. Due to this, continued P.O. trials were deferred. Dietary Recommendations: Pureed Liquid Recommendations: Thin Recommendations: - PU4 with thin liquids, as tolerated. - FULLY ALERT AND UPRIGHT for any P.O. intake. - 1:1 feeder, only. - NO STRAW. Thin liquid by teaspoon, only. - Crush medication and place in puree. - Verbal prompts to reduce oral holding behaviors. - Cease P.O. if s/s of suspected aspiration are displayed. The results and recommendations were provided to the patient's RN, Shirley, immediately following completion. The patient does have comfort care measures in place, therefore, speech pathology will sign off from skilled services at this time. Please re-consult with any additional questions or concerns. Speech-Plan Treatment Plan Speech Therapy Treatment Plan: Discontinue ST Treatment Duration: Jul 08, 2023 Frequency: 1 time per week Estimated Hrs Per Day: .25 hour per day Rehab Potential: Poor Pt/Family Agrees to Plan: Yes Safety Risks/Education Teaching Recipient: Patient Teaching Methods: Discussion Education Topics Provided: Results, Recommendations, Plan of Care, Safe Swallowing Precautions Time Speech Therapy Time In: 13:10 Speech Therapy Time Out: 13:30 DATE: Jul 08, 2023 Total Billed Time: 20 Billed Treatment Time 1, LINK [facility] Jul 08, 2023 13:49
[2023-07-09] MEDS: morphine INJ 4 MG/ML 1 ML (VIAL/SYRINGE) IV PRN (04:17)
--- NOTE | 2023-07-09 10:24 | Progress Note ---
Subjective Date Seen by a Provider: Jul 09, 2023 Time Seen by a Provider: 11:00 Subjective/Events-last exam Remains lethargic. 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
[2023-07-10] MEDS: morphine INJ 4 MG/ML 1 ML (VIAL/SYRINGE) IV PRN ×3 (01:27→22:27)
--- NOTE | 2023-07-10 06:18 | Progress Note ---
Subjective Date Seen by a Provider: Jul 10, 2023 Time Seen by a Provider: 09:00 Subjective/Events-last exam Patient has not really changed much Slowly becoming more declined Objective Exam Last Set of Vital Signs Vital Signs Date Time Temp Pulse Resp B/P (MAP) Pulse Ox O2 Delivery O2 Flow Rate FiO2 07/09/23 21:55 Room Air 07/09/23 19:57 94 0.00 07/07/23 12:15 36.5 89 24 127/68 (87) Capillary Refill : I&O Intake and Output 07/10/23 00:00 Intake Total 600 ml Output Total 1400 ml Balance -800 ml Intake Oral 600 ml Output Urine Total 1400 ml General: Other (Semicomatose) Assessment/Plan Assessment/Plan Assess & Plan/Chief Complaint 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
[2023-07-10] MEDS ORDERED: SCOPOLAMINE PATCH REMOVAL TP SCH (11:59)
[2023-07-10] MEDS: SCOPOLAMINE 1.5 MG PATCH TOP SCH (12:09)
[2023-07-11] MEDS: morphine INJ 4 MG/ML 1 ML (VIAL/SYRINGE) IV PRN ×3 (03:24→20:28)
[2023-07-11] MEDS ORDERED: MORP100S7 PO (09:31)
[2023-07-11] MEDS ORDERED: LORA2ORA PO (09:31)
--- NOTE | 2023-07-11 10:46 | Progress Note ---
OLEGARIO RAMIREZ 07/11/23 1046: Subjective Date Seen by a Provider: Jul 11, 2023 Time Seen by a Provider: 09:36 Subjective/Events-last exam CC: Hemorrhagic Stroke HPI: Brennan, 87M, is unable to communicate changes in his status. He appears the same as yesterday, potentially slightly more confused. He is aware of self, but nothing else. He denies pain and shows no outward expressions of discomfort. Family at bedside communicates questions, all concerns resolved. Course: Brennan is an 87-year-old male that presented to ED on 07/05 after having weak ness while walking in a parking lot. He decided to come to the hospital and received a full work up. His labs were stable, showing only incidental PNA on CXR. On 07/06, due to improved presentation Brennan was moved to the 2nd floor ARU for strength training to discharge home. On 07/07, Brennan showed neurological changes consistent with a stroke and was given a CT which showed hemorrhagic stroke in the basal ganglia. Following this, Brennan was moved to the 4th floor and his family agreed to comfort care due to minimal responsiveness. He pupils were also non-reactive. Brennan showed slight improvement to where he could answer to his name, but has remained AO only to self. On 07/10, Brennan started to show signs of decline with third spacing occurring. He also demonstrates neuromuscular changes with an inability to intentionally move his upper extremities. These indications support further comfort care efforts due to the minimal benefits that would be realized. Family agrees that further intervention would cause more harm than benefits. Brennan has been on morphine to manage pain and has showed no signs of discomfort. Due to family wishes, he has remained on comfort care and the plan is to transfer to a hospice location. Brennan has a very poor prognosis and his remaining time should be managed to mitigate pain and maximize comfort around family members. At discharge, Brennan has ordered morphine and ativan for comfort care. There are no other concerns. Review of Systems General: Other (Unable to respond) HEENT: Other (Unable to respond) Pulmonary: Other (Unable to respond) Cardiovascular: Other (Unable to respond) Gastrointestinal: Other (Unable to respond) Genitourinary: Other (Unable to respond) Neurological: Other (Unable to respond) Objective Exam Last Set of Vital Signs Vital Signs Date Time Temp Pulse Resp B/P (MAP) Pulse Ox O2 Delivery O2 Flow Rate FiO2 07/11/23 08:00 Room Air 0.00 07/10/23 07:30 94 07/07/23 12:15 36.5 89 24 127/68 (87) Capillary Refill : I&O Intake and Output 07/11/23 00:00 Intake Total 720 ml Output Total 1150 ml Balance -430 ml Intake Oral 720 ml Output Urine Total 1150 ml General: Alert, No Acute Distress, Other (alert to self) HEENT: Mucous Memb Moist/[place] Lungs: Normal Air Movement Heart: Regular Rate Abdomen: Normal Bowel Sounds Extremities: Normal Pulses, Other (1+ edema) Neuro: Other (unable to follow command to move extremities, diffuse weakness ) Assessment/Plan Assessment/Plan Assess & Plan/Chief Complaint 07/11/2023: A/P -Catastrophic Hemorrhagic Stroke * Comfort care * Tx to hospice * Morphine 2mg Q2 -Dizziness * Scopolamine LORI PAZ DO 07/12/23 0511: Assessment/Plan Assessment/Plan Assess & Plan/Chief Complaint Comfort care protocol DC to NH once set up Supervisory-Addendum Brief Verification & Attestation Participated in pt care: history, MDM, physical Personally performed: exam, history, MDM, supervision of care Care discussed with: Medical Student Procedures: n/a Results interpretation: Verified all documentation Verification and Attestation of Medical Student E/M Service A medical student performed and documented this service in my presence. I reviewed and verified all information documented by the medical student and made modifications to such information, when appropriate. I personally performed the physical exam and medical decision making. Lori Paz Jul 12, 2023,05:11 OLEGARIO RAMIERZ Jul 11, 2023 10:46 LORI PAZ DO Jul 12, 2023 05:11
--- NOTE | 2023-07-12 11:49 | Discharge Summary ---
Diagnosis/Chief Complaint Date of Admission Jul 07, 2023 at 11:35 Date of Discharge Discharge Date: Jul 11, 2023 Discharge Diagnosis Catastrophic hemorrhagic stroke Recent pneumonia Advanced age Reason Hospital Visit CC: Hemorrhagic CVA unrecoverable HPI: This is an 87yoWM who presented to 4th floor following an change in status in ARU and w/u revealed hemorrhagic CVA with extensive involvement and was assessed to be unrecoverable and non-surgical. He was a bit alert for a short time earlier and family at bedside. ST will be consulted to eval if he can swallow. Discharge Summary Discharge Physical Examination Allergies: Coded Allergies: No Known Drug Allergies (Unverified , 06/12/17) Vitals & I&Os Vital Signs Date Time Temp Pulse Resp B/P (MAP) Pulse Ox O2 Delivery O2 Flow Rate FiO2 07/12/23 12:28 36.5 89 24 127/68 94 Room Air 0.00 General Appearance: Other (Semicomatose) Hospital Course Was the Problem List Reviewed?: Yes Course: Brennan is an 87-year-old male that presented to ED on 07/05 after having weakness while walking in a parking lot. He decided to come to the hospital and received a full work up. His labs were stable, showing only incidental PNA on CXR. On 07/06, due to improved presentation Brennan was moved to the 2nd floor ARU for strength training to discharge home. On 07/07, Brennan showed neurological changes consistent with a stroke and was given a CT which showed hemorrhagic stroke in the basal ganglia. Following this, Brennan was moved to the 4th floor and his family agreed to comfort care due to minimal responsiveness. He pupils were also non-reactive. Brennan showed slight improvement to where he could answer to his name, but has remained AO only to self. On 07/10, Brennan started to show signs of decline with third spacing occurring. He also demonstrates neuromuscular changes with an inability to intentionally move his upper extremities. These indications support further comfort care efforts due to the minimal benefits that would be realized. Family agrees that further intervention would cause more harm than benefits. Brennan has been on morphine to manage pain and has showed no signs of discomfort. Due to family wishes, he has remained on comfort care and the plan is to transfer to a hospice location. Brennan has a very poor prognosis and his remaining time should be managed to mitigate pain and maximize comfort around family members. At discharge, Brennan has ordered morphine and ativan for comfort care. There are no other concerns. Discharge Home Medications: Active Scripts Active Lorazepam Intensol (Lorazepam) 2 Mg/Ml Oral.conc 2 Mg PO Q2H PRN Morphine Conc. 20mg/ml (Morphine Sulfate) 100 Mg/5 Ml (20 Mg/Ml) Solution 5 Mg PO Q2H PRN Instructions to patient/family Please see electronic discharge instructions given to patient. KIT PAZ DO Jul 12, 2023 11:49
[2023-07-12 12:28] VITALS: BP 127/68
== END 2023-07-12 13:20 | disposition hospice, inpatient (51) | DRG 951 ==
LOC: UNDODISIN 11:35 → 4TH 11:35
PROVIDERS: ADMIT Internal Medicine; ATTEND Internal Medicine
DX: Z51.5 Encounter for palliative care (principal); I62.9 Nontraumatic intracranial hemorrhage, unspecified; I10 Essential (primary) hypertension; R42 Dizziness and giddiness; Z66 Do not resuscitate; E11.9 Type 2 diabetes mellitus without complications; E78.00 Pure hypercholesterolemia, unspecified; N40.0 Benign prostatic hyperplasia without lower urinary tract symptoms; Z87.891 Personal history of nicotine dependence; Z79.899 Other long term (current) drug therapy; Z79.82 Long term (current) use of aspirin; Z79.84 Long term (current) use of oral hypoglycemic drugs